=== PATIENT | female | born 1985 | race Caucasian/White ===

== ENCOUNTER 2025-05-11 06:20 | Emergency (ER) | payer OTHER, SELFPAY ==
[2025-05-11 06:21] VITALS: BP 119/69; PULSE 80; RESP 18; TEMP 37.2; O2SAT 96; BMI 52.3
[2025-05-11 06:23] VITALS: BP 119/69; PULSE 81; RESP 18; TEMP 37.2; O2SAT 96
--- NOTE | 2025-05-11 06:35 | ED.VIS.GI ---
HPI HPI - GI History of Present Illness Chief Complaint: Nausea/Vomiting/Diarrhea Informant: patient Narrative Narrative: Patient is a 39-year-old female with a history of DM, anxiety, and prior pancreatitis, presenting with persistent emesis and inability to retain oral intake. - Onset of illness approximately 1.5 weeks ago, with emesis beginning around 24 hrs ago. - Emesis is frequent and refractory to dissolvable Zofran, which was taken at home without relief; unable to retain water or any oral intake. - Reports intermittent fevers initially, but none in the past 2 days; recorded temperature of 97.7?F this morning. - Took a home COVID test 4 days ago, which was negative. - Reports pharyngitis and significant congestion about a week ago at the onset of illness, but minimal cough. - Describes profound fatigue, sleeping throughout the weekend and missing work on Thursday; attempted to work on Thursday but began emesis at work, leading to early departure. - Reports 1-2 days of diarrhea, often concurrent with emesis. - Experiencing severe epigastric pain, uncertain if secondary to emesis and retching. - Denies lower abdominal pain. - Uncertain of last urination. - History of cholecystectomy and pancreatitis related to cholelithiasis. - Diagnosed with DM, managed with metformin, Mounjaro, and another unspecified oral medication; blood glucose levels reportedly normal, though not checked in the past 2 days. - Aware of potential dehydration due to inability to retain fluids. [facility] Medical History Diabetes Seizure disorder History of thyroid cancer Home Medications ?Medication ?Instructions ?Recorded ?Last Taken ?Type loratadine 10 mg tablet (Allergy 10 mg PO DAILY PRN ALLERGIES 11/25/16 Unknown History Relief (loratadine)) metformin 500 mg tablet,extended 500 mg PO DAILY #30 tabs 11/25/16 Unknown Rx release 24 hr multivitamin with folic acid 400 1 tab PO DAILY 11/25/16 Unknown History mcg tablet (Thera) pioglitazone 45 mg tablet 45 mg PO DAILY 03/03/23 Unknown History sertraline 100 mg tablet 100 mg PO Q24H 03/03/23 Unknown History Allergy/AdvReac Type Severity Reaction Status Date / Time hydrocodone bitartrate (From Allergy Hives Verified 05/11/25 06:27 Vicodin) Surgical History (Updated 05/11/25 @ 06:[address] Lewis Tapia MD) Hx of cholecystectomy History of partial thyroidectomy Social History Smoking Status: Never smoker ROS ROS ED Constitutional Constitutional ED: Reports fatigue and malaise; Denies chills or fever(s) Eyes Eyes: Denies change in vision or diplopia ENT ENT ED: Reports sore throat; Denies ear pain or rhinorrhea Cardiovascular Cardiovascular: Denies chest pain or palpitations Respiratory/Chest Respiratory/Chest: Denies cough or dyspnea Gastrointestinal Gastrointestinal: Reports as per HPI, abdominal pain, diarrhea, nausea and vomiting; Denies hematemesis, hematochezia or melena Genitourinary Genitourinary ED: Reports other Details: decreased UOP ; Denies dysuria or hematuria Musculoskeletal Musculoskeletal: Denies back pain or neck pain Integumentary Denies abscess or rash Neurologic Neurologic: Denies headache(s), paresthesias or weakness Psychiatric Psychiatric: Denies suicidal thoughts EXAM Physical Exam Const Vital Signs: 05/11/25 06:21 05/11/25 06:23 Temperature 98.9 F 98.9 F Temperature Source Oral Oral Pulse Rate 80 81 Respiratory Rate 18 18 Blood Pressure 119/69 119/69 Blood Pressure Mean 85 85 Pulse Ox 96 96 Oxygen Delivery Method Room Air Room Air Positive well nourished, well developed and obese General Appearance ED: well developed and NAD Nutritional Appearance: obese HEENT Reports moist mucous membranes normocephalic and atraumatic Eyes PERRL and EOMs intact bilaterally Neck full ROM and supple Resp normal respiratory effort and clear to auscultation bilaterally Cardio regular rate, regular rhythm and no murmurs Rate: Negative for tachycardic GI non-distended GI Narrative: Mild diffuse upper abdominal tenderness soreness Auscultation: normoactive bowel sounds Palpation: soft; Negative for guarding or rebound tenderness present Back/Spine General Back: other FROM Extremity normal to inspection General Extremety ED: Negative for edema, pulses abnormal or tenderness General Extremity: Negative for edema or pulses abnormal Neuro oriented x3, CN's II-XII intact bilaterally, no sensory deficits noted and gait normal Sensorium / Orientation: awake and alert Motor Exam: strength 5/5 throughout Psych mental status grossly normal and thought process normal Skin no rashes or lesions noted and no wounds MDM MDM MDM Narrative Medical decision making narrative: Clinically, the patient has normal vital signs and does not appear dehydrated, but she suspects she will feel better with IV fluids and metoclopramide, which have been ordered. The differential includes viral gastroenteritis, mononucleosis, and pancreatitis. Lungs are clear. Pulse oximetry is 96% on room air. She has no cough, so I do not think she needs imaging of the chest or abdomen at this time, given the benign exam. At this time I have ordered CMP, CBC, lipase, as well as a Monospot in addition to parenteral therapy as above. If labs are unremarkable, most likely etiology viral gastroenteritis, supportive care would be indicated in that context or if she has mononucleosis with additional precautions to avoid abdominal trauma. Patient seen shortly before shift change and checked out to the a.m. ED physician. Discharge Plan Triage Chief Complaint: Nausea/Vomiting/Diarrhea ED Provider: Lewis Tapia Dx/Rx/DC Orders Prescriptions: No Action pioglitazone 45 mg tablet 45 mg PO DAILY sertraline 100 mg tablet 100 mg PO Q24H loratadine [Allergy Relief (loratadine)] 10 MG tablet 10 mg PO DAILY PRN (Reason: ALLERGIES) multivitamin with folic acid [Thera] 1 TABLET tablet 1 tab PO DAILY metformin 500 MG tablet 500 mg PO DAILY Qty: 30 0RF Rx Instructions: 500mg daily for 7 days then 500mg bid Primary Care Provider: Care Physician,No Primary Referrals: Care Physician,No Primary [Primary Care Provider, Medical] Print Language: Romanian
[2025-05-11] MEDS: 0.9% Normal Saline (1000mL) 1,000 ML 999 ML IV ×2 (06:48→07:52)
[2025-05-11 07:01] LABS: Hematocrit 42.4 % (37-47); Hemoglobin 13.8 g/dL (12.0-15.0); Immature Granulocytes Count 0.020 X10^3/uL (0.0-0.0); Mean Corp Hgb Conc 32.5 g/dL (32-36); Mean Corpuscular Volume 93.6 fL (81-99); Mean Platelet Vol. 11.1 fl (6.2-12.0); NRBC Flagged by Analyzer 0 % (0-5); Platelet Count 365 K/mm3 (150-450); RBC Distribution Width CV 11.9 % (11.6-14.6); RBC Distribution Width SD 41.3 fl (35.1-43.9); Red Blood Count 4.53 M/mm3 (4.2-5.4); White Blood Count 6.9 K/mm3 (4.4-11.0)
--- OUTSIDE RECORDS SUMMARY | 2025-05-11 07:17 | XMS RPT_ITS | CCD ---
Author Organization [facility] Care Team Providers Care Rehabilitation Services Counselor Name Role Phone Ungur, Remus Unavailable Unavailable Primay Care Physicia, No Unavailable Unavail able Gavin Arora MD Primary Care Provider Gavin Arora MD Primary Care Provider Gavin Arora MD Primary Care Provider Gavin Arora MD Primary Care Provider Gavin Arora MD Primary Care Provider Podlogar CHUTE TENDER.Cristal ADAMSON Unavailable [place]le CHUTE TENDER.Yuliana ADAMSON Unavailable [place]le CHUTE TENDER.Yuliana ADAMSON Unavailable Gavin Arora MD Primary Care Provider [place]le CHUTE TENDER.Yuliana ADAMSON Primary Care Provider YULIANA JEFFREY Attending Unavailable GAVIN ARORA Primary Care Unavailab le GAVIN ARORA B Primary Care Unavailab le GAVIN ARORA Primary Care Unavailab le GAVIN ARORA Primary Care Unavailab YULIANA Wu Referring Unavailable GAVIN ARORA Primary Care Unavailab YULIANA Wu Attending Unavailable GAVIN ARORA Primary Care Unavailab le YULIANA JEFFREY Primary Care Unavailable PREMA MULLINS Attending Unavailable YULIANA JEFFREY Attending Unavailable YULIANA JEFFREY Primary Care Unavailable YULIANA JEFFREY Referring Unavailable YULIANA JEFFREY Primary Care Unavailable YULIANA JEFFREY Referring Unavailable GAVIN ARORA Primary Care Unavailab le Allergies Allergy Classification Reported Allergen(s) Allergy Type Date of Onset Reaction(s) Facility (2 sources) acetaminophen; Translations: [ACETAMINOPHEN] Drug Allergy 7 [facility] (1 source) hydrocodone bitartrate Drug allergy (disorder) 7 [facility] (20 sources) Acetaminophen Drug Allergy 7 Unknown, [facility] (20 sources) Acetaminophen / HYDROcodone; Translations: [HYDROCODONE-ACET AMINOPHEN] Drug Allergy 6 Rash, [facility] Work Phone: (20 sources) Seasonal allergy; Translations: [SEASONAL ALLERGIES] Allergy to substance [address] [facility] Work Phone: Medications Current Medications Medication Drug Class(es) Dates Sig (Normalized) Sig (Original) amoxicillin 875 mg oral tablet (1 source) Penicillin-class Antibacterial Start: 08-29-2022 End: 09-03-2022 take 1 tablet by mouth twice daily amoxicillin (AMOXIL) 875 mg tablet Take 1 tablet by mouth twice daily for 5 days. 10 tablet 0 08/29/2022 09/03/2022 Active Comment on above: Take 1 tablet by john twice daily for 5 days. amoxicillin 875 mg / clavulanate 125 mg oral tablet (2 sources) Penicillin-class Antibacterial Start: 04-18-2024 End: 04-23-2024 take 1 tablet by mouth twice daily amoxicillin-clavu lanate potassium (AUGMENTIN) 875-125 mg per tablet Indications: Bacterial sinusitis Take 1 tablet by mouth two times a day for 5 days. 10 tablet 04/18/2024 04/23/2024 Active azithromycin 250 mg oral tablet (1 source) Macrolide Antimicrobial Start: 05-21-2022 End: 05-26-2022 azithromycin (ZITHROMAX Z-ORLANDO) 250 mg tablet Indications: Acute cough , Nasal congestion Take 2 tablets day one, then, 1 tablet daily until gone. 6 tablet 0 05/21/2022 05/26/2022 Active Comment on above: Take 2 tablets day o ne, then, 1 tablet daily until gone. calcium carbonate 500 mg chewable tablet (20 sources) Start: 01-14-2020 take 500 mg by mouth every hour as needed calcium carbonate (TUMS) 500 mg chew Take 1 tablet by mouth every hour as needed (mouth or hand numbness or tingling). 01/14/2020 Active Comment on above: Take 1 tablet by john th every hour as needed (mouth or hand numbness or tingling). calcium carbonate 1250 mg / cholecalciferol 200 unt oral tablet (20 sources) Vitamin D Start: 01-14-2020 take 1 tablet by mouth three times daily calcium-carbonate -vitamin D3 500 mg(1,250mg) -200 unit per tablet Take 1 tablet by mouth three times daily. 01/14/2020 Active Comment on above: Take 1 tablet by john th three times daily. cephalexin 500 mg oral capsule (3 sources) Cephalosporin Antibacterial Start: 09-11-2024 End: 09-16-2024 take 1 capsule by mouth twice daily cephALEXin (KEFLEX) 500 mg capsule Take 1 capsule by mouth two times a day for 5 days. 10 capsule 09/11/2024 09/16/2024 Active CPAP (20 sources) Start: 04-15-2021 CPAP Initiate Auto PAP @ 5-20 cm of water with humidification. Mask (per patient preference) optional chin strap (if indicated) , filters, tubing, humidifier and lifetime supplies. 1 Each 04/15/2021 Active Start: 04-15-2021 CPAP Initiate Auto PAP @ 5-20 cm of water with humidification. Mask (per patient preference) optional chin strap (if indicated) , filters, tubing, humidifier and lifetime supplies. 1 Each 0 04/15/2021 Active Comment on above: Initiate Auto PAP @ 5-20 cm of water with humidification. Mask (per patient preference) optional chin strap (if indicated) , filters, tubing, humidifier and lifetime supplies. ergocalciferol 1.25 mg oral capsule (20 sources) Provitamin D2 Compound Start: take 1 tablet by mouth two times weekly, then take 1 tablet by mouth every week ergocalciferol 50,000 unit capsule (VITAMIN D2, DRISDOL) Take 1 tablet by mouth twice weekly [id number], then decrease to 1 tablet weekly. 16 capsule 3 04/19/2024 Active fluconazole 150 mg oral tablet (2 sources) Azole Antifungal Start: End: take 1 tablet by mouth once daily fluconazole (DIFLUCAN) 150 mg tablet Take 1 tablet by mouth once daily for 1 day. 1 tablet 06/06/2024 06/07/2024 Active Start: 04-18-2024 End: 04-18-2024 fluconazole (DIFLUCAN) 150 m g tablet Indications: Bacterial sinusitis Take 1 tablet by mouth one time only for 1 dose. Repeat in 3 days as needed. 2 tablet 04/18/2024 04/18/2024 Active levothyroxine sodium 0.05 mg oral capsule (20 sources) l-Thyroxine Start: 03-16-2020 take 1 capsule by mouth once daily before breakfast levothyroxine 50 mcg cap Take 1 capsule by mouth daily before breakfast. 30 capsule 3 03/16/2020 Active Comment on above: Take 1 capsule by mo uth daily before breakfast. loratadine 10 mg oral tablet (20 sources) Start: 11-18-2013 loratadine (CLARITIN) 10 mg tablet Take 10 mg by mouth as needed. 11/18/2013 Active Comment on above: Take 10 mg by mouth as needed. 24 hr metFORMIN hydrochloride 500 mg extended release oral tablet (20 sources) Biguanide Start: 02-24-2023 End: 11-12-2024 take 2 tablets by mouth twice daily metFORMIN ER (GLUCOPHAGE XR) 500 mg 24 hr tablet Indications: Type 2 diabetes mellitus without complication, without long-term current use of insulin (HCC) Take 2 tablets by mouth two times a day. 360 tablet 1 05/16/2024 Active Start: 11-07-2021 End: 05-06-2022 take 2 tablets by mouth twice daily metFORMIN ER (GLUCOPHAGE XR) 500 mg 24 hr tablet Indications: Type 2 diabetes mellitus without complication, without long-term current use of insulin (HCC) Take 2 tablets by mouth twice daily. 360 tablet 1 11/07/2021 Active Start: 09-14-2020 take 2 tablets by mo uth once daily at dinner metFORMIN ER (GLUCOPHAGE XR) 500 mg 24 hr tablet Indications: Type 2 diabetes mellitus without complication, without long-term current use of insulin (HCC) Take 2 tablets by mouth daily with dinner. 180 tablet 1 09/14/2020 Active Comment on above: Take 2 tablets by mo uth daily with dinner. Take 2 tablets by mo [facility] twice daily. nitrofurantoin, macrocrystals 25 mg / nitrofurantoin, monohydrate 75 mg oral capsule (6 sources) Nitrofuran Antibacterial Start: 07-19-19 End: 07-24-19 take 1 capsule by mouth twice daily nitrofurantoin monohydrate and macrocrystal (MACROBID) 100 mg capsule Indications: Urinary frequency Take 1 capsule by mouth two times a day for 5 days. 10 capsule 07/19/2024 07/24/2024 Active Start: 02-22-2024 End: 02-27-2024 take 1 capsule by mouth twice daily nitrofurantoin monohydrate and macrocrystal (MACROBID) 100 mg capsule Take 1 capsule by mouth two times a day for 5 days. 10 capsule 02/22/2024 02/27/2024 Active Start: 08-20-2023 End: 08-25-2023 take 1 capsule by mouth twice daily nitrofurantoin monohydrate and macrocrystal (MACROBID) 100 mg capsule Take 1 capsule by mouth two times a day for 5 days. 10 capsule 0 08/20/2023 08/25/2023 Active Start: 01-15-2023 End: 01-20-2023 take 1 capsule by mouth twice daily nitrofurantoin monohydrate and macrocrystal (MACROBID) 100 mg capsule Indications: Urinary tract infection with hematuria, site unspecified Take 1 capsule by mouth twice daily for 5 days. 10 capsule 0 01/15/2023 01/20/2023 Active Comment on above: Take 1 capsule by [facility] twice daily for 5 days. Take 1 capsule by [facility] two times a day for 5 days. omeprazole 20 mg delayed release oral capsule (20 sources) Proton Pump Inhibitor Start: 02-10-20 End: 05-10-20 take 1 capsule by mouth once daily before breakfast omeprazole (PRILOSEC) 20 mg capsule Indications: Gastroesophageal reflux disease without esophagitis Take 1 capsule by mouth daily before breakfast. 1/2 hr before meal. 90 capsule 02/09/2025 05/10/2025 Active Start: 04-18-2024 End: 12-18-2024 take 1 capsule by mouth once daily before breakfast omeprazole (PRILOSEC) 20 mg capsule Indications: Gastroesophageal reflux disease without esophagitis Take 1 capsule by mouth daily before breakfast. 1/2 hr before meal. 90 capsule 09/19/2024 12/18/2024 Active phentermine hydrochloride 37.5 mg oral tablet (3 sources) Sympathomimetic Amine Anorectic Start: 06-25-2022 End: 07-25-2022 take 1 tablet by mouth once daily Phentermine HCl (ADIPEX-P) 37.5 mg tablet Indications: Obesity, Class III, BMI 40-49.9 (morbid obesity) (HCC) Take 1 tablet by mouth once daily for 30 days. 30 tablet 0 06/25/2022 07/25/2022 Active Start: 05-21-2022 End: 06-20-2022 take 1 tablet by mouth once daily Phentermine HCl (ADIPEX-P) 37.5 mg tablet Indications: Obesity, Class III, BMI 40-49.9 (morbid obesity) (HCC) Take 1 tablet by mouth once daily for 30 days. 30 tablet 0 05/21/2022 06/20/2022 Active Start: 04-17-2022 End: 05-17-2022 take 1 tablet by mouth once daily Phentermine HCl (ADIPEX-P) 37.5 mg tablet Indications: Obesity, Class III, BMI 40-49.9 (morbid obesity) (HCC) Take 1 tablet by mouth once daily for 30 days. 30 tablet 0 04/17/2022 05/17/2022 Active Comment on above: Take 1 tablet by john th once daily for 30 days. pioglitazone 45 mg oral tablet (20 sources) Peroxisome Proliferator Receptor alpha Agonist, Peroxisome Proliferator Receptor gamma Agonist, Thiazolidinedione Start: 08-24-19 End: 04-22-20 take 1 tablet by mouth once daily pioglitazone (ACTOS) 45 mg tablet Indications: Type 2 diabetes mellitus without complication, without long-term current use of insulin ([facility]) Take 1 tablet by mouth once daily. 30 tablet 5 10/24/2024 04/22/2025 Active Start: 11-02-2023 End: 03-17-2024 take 1 tablet by mouth once daily pioglitazone (ACTOS) 45 mg tablet Indications: Type 2 diabetes mellitus without complication, without long-term current use of insulin ([facility]) Take 1 tablet by mouth once daily. 30 tablet 3 03/18/2024 Active Start: 10-01-2021 End: 10-31-2023 take 1 tablet by mouth once daily pioglitazone (ACTOS) 45 mg tablet Indications: Type 2 diabetes mellitus without complication, without long-term current use of insulin (HCC) Take 1 tablet by mouth once daily. 30 tablet 3 05/27/2023 10/31/2023 Discontinued Comment on above: Take 1 tablet by john th once daily. predniSONE 20 mg oral tablet (1 source) Start: End: 4 take 2 tablets by mouth once daily predniSONE (DELTASONE) 20 mg tablet Take 2 tablets by mouth once daily for 5 days. 10 tablet 06/06/2024 06/11/2024 Active semaglutide 3 mg oral tablet (6 sources) Start: End: 5 take 1 tablet by mouth once daily before breakfast, then take 4 tablets by mouth once semaglutide (RYBELSUS) 3 mg tablet Indications: Type 2 diabetes mellitus without complication, without long-term current use of insulin (HCC) , PCOS (polycystic ovarian syndrome) , CHUY (obstructive sleep apnea) , Morbid obesity with BMI of 40.0-44.9, adult (HCC) Take 1 tablet by mouth daily before breakfast. Take 30 minutes before the first food, beverage, or other oral medications of the day with no more than 4 ounces of plain water 30 tablet 09/19/2024 11/21/2024 Discontinued sertraline 100 mg oral tablet (20 sources) Serotonin Reuptake Inhibitor Start: End: 5 take 1 tablet by mouth once daily sertraline (ZOLOFT) 100 mg tablet Indications: MELVIN (generalized anxiety disorder) Take 1 tablet by mouth once daily. 90 tablet 1 10/24/2024 04/22/2025 Active Start: 03-18-2024 End: 09-14-2024 take 1 tablet by mouth once daily sertraline (ZOLOFT) 100 mg tablet Indications: MELVIN (generalized anxiety disorder) Take 1 tablet by mouth once daily. 90 tablet 1 03/18/2024 Active Start: 08-24-2023 End: 02-20-2024 take 1 tablet by mouth once daily sertraline (ZOLOFT) 100 mg tablet Indications: MELVIN (generalized anxiety disorder) Take 1 tablet by mouth once daily. 90 tablet 1 08/24/2023 Active Start: 12-30-2022 End: 01-29-2023 take 1 tablet by mouth once daily sertraline (ZOLOFT) 100 mg tablet Indications: MELVIN (generalized anxiety disorder) Take 1 tablet by mouth once daily. 30 tablet 4 12/30/2022 Active Start: 04-17-2022 End: 06-20-2022 take 1 tablet by mouth once daily sertraline (ZOLOFT) 100 mg tablet Indications: MELVIN (generalized anxiety disorder) Take 1 tablet by mouth once daily. 30 tablet 4 05/21/2022 Active Start: 12-26-2020 End: 04-17-2022 take 1 tablet by mouth once daily sertraline (ZOLOFT) 50 mg tablet Indications: MELVIN (generalized anxiety disorder) Take 1 tablet by mouth once daily. 30 tablet 5 02/28/2022 04/17/2022 Discontinued Comment on above: Take 1 tablet by john th once daily. sulfamethoxazole 800 mg / trimethoprim 160 mg oral tablet (1 source) Dihydrofolate Reductase Inhibitor Antibacterial, Sulfonamide Antimicrobial Start: 2022 End: 2022 take 1 tablet by mouth twice daily sulfamethoxazole-tri methoprim (BACTRIM DS) 800-160 mg per tablet Indications: Urinary tract infection with hematuria, site unspecified Take 1 tablet by mouth twice daily for 3 days. 6 tablet 0 01/30/2023 02/02/2023 Active Comment on above: Take 1 tablet by john th twice daily for 3 days. tirzepatide (MOUNJARO) 10 mg/0.5 mL pen injector (20 sources) Start: 2023 End: 2024 inject 10 mg by subcutaneous injection every week tirzepatide (MOUNJARO) 10 mg/0.5 mL pen injector Indications: Type 2 diabetes mellitus without complication, without long-term current use of insulin (HCC) Inject 10 mg subcutaneously one time a week. 12 Each 04/25/2024 09/19/2024 Discontinued Start: 04-25-2024 inject 10 mg by subc utaneous injection every week tirzepatide (MOUNJARO) 10 mg/0.5 mL pen injector Indications: Type 2 diabetes mellitus without complication, without long-term current use of insulin (HCC) Inject 10 mg subcutaneously one time a week. 12 Each 04/25/2024 Active Start: 04-18-2024 End: 04-22-2024 inject 10 mg by subcutaneous injection every week tirzepatide (MOUNJARO) 10 mg/0.5 mL pen injector Indications: Type 2 diabetes mellitus without complication, without long-term current use of insulin (HCC) Inject 10 mg subcutaneously one time a week. 12 Each 1 04/18/2024 04/22/2024 Discontinued Start: 04-18-2024 inject 10 mg by subc utaneous injection every week tirzepatide (MOUNJARO) 10 mg/0.5 mL pen injector Indications: Type 2 diabetes mellitus without complication, without long-term current use of insulin (HCC) Inject 10 mg subcutaneously one time a week. 12 Each 1 04/18/2024 Active Start: 03-08-2024 End: 04-18-2024 inject 10 mg by subcutaneous injection every week tirzepatide (MOUNJARO) 10 mg/0.5 mL pen injector Inject 10 mg subcutaneously one time a week. 4 Each 3 03/08/2024 04/18/2024 Discontinued Start: 03-08-2024 inject 10 mg by subc utaneous injection every week tirzepatide (MOUNJARO) 10 mg/0.5 mL pen injector Inject 10 mg subcutaneously one time a week. 4 Each 3 03/08/2024 Active Start: 12-04-2023 End: 03-08-2024 inject 10 mg by subcutaneous injection every week tirzepatide (MOUNJARO) 10 mg/0.5 mL pen injector Inject 10 mg subcutaneously one time a week. 4 Each 3 12/04/2023 03/08/2024 Discontinued Start: 12-04-2023 inject 10 mg by subc utaneous injection every week tirzepatide (MOUNJARO) 10 mg/0.5 mL pen injector Inject 10 mg subcutaneously one time a week. 4 Each 3 12/04/2023 Active tirzepatide (MOUNJARO) 2.5 mg/0.5 mL pen injector (6 sources) Start: 12-20-2024 inject 2.5 mg by subcutaneous injection every week tirzepatide (MOUNJARO) 2.5 mg/0.5 mL pen injector Indications: Type 2 diabetes mellitus without complication, without long-term current use of insulin (HCC) Inject 2.5 mg subcutaneously one time a week. 2 mL 1 12/20/2024 Active Start: 11-21-2024 End: 12-19-2024 inject 2.5 mg by subcutaneous injection every week tirzepatide (MOUNJARO) 2.5 mg/0.5 mL pen injector Indications: Type 2 diabetes mellitus without complication, without long-term current use of insulin (HCC) Inject 2.5 mg subcutaneously one time a week. 2 mL 11/21/2024 12/19/2024 Discontinued Start: 11-21-2024 inject 2.5 mg by sub cutaneous injection every week tirzepatide (MOUNJARO) 2.5 mg/0.5 mL pen injector Indications: Type 2 diabetes mellitus without complication, without long-term current use of insulin (HCC) Inject 2.5 mg subcutaneously one time a week. 2 mL 11/21/2024 Active Start: 09-24-2022 End: 10-24-2022 inject 2.5 mg by subcutaneous injection every week tirzepatide (MOUNJARO) 2.5 mg/0.5 mL pen injector Inject 2.5 mg subcutaneously one time a week. 2 mL 1 09/24/2022 10/24/2022 Active Comment on above: Inject 2.5 mg subcut aneously one time a week. tirzepatide (MOUNJARO) 5 mg/0.5 mL pen injector (12 sources) Start: inject 5 mg by subcutaneous injection every week tirzepatide (MOUNJARO) 5 mg/0.5 mL pen injector Indications: Type 2 diabetes mellitus without complication, without long-term current use of insulin (HCC) Inject 5 mg subcutaneously one time a week. 2 mL 01/19/2025 Active Start: 09-03-2023 End: 09-21-2023 inject 5 mg by subcutaneous injection every week tirzepatide (MOUNJARO) 5 mg/0.5 mL pen injector Inject 5 mg subcutaneously one time a week. 6 mL 1 09/03/2023 09/21/2023 Discontinued Start: 07-20-2023 inject 5 mg by subcu taneous injection every week tirzepatide (MOUNJARO) 5 mg/0.5 mL pen injector Inject 5 mg subcutaneously one time a week. 2 mL 1 07/20/2023 Active Start: 07-20-2023 End: 07-20-2023 inject 5 mg by subcutaneous injection every week tirzepatide (MOUNJARO) 5 mg/0.5 mL pen injector Inject 5 mg subcutaneously one time a week. 2 mL 1 07/20/2023 07/20/2023 Discontinued Start: 07-20-2023 End: 08-19-2023 inject 5 mg by subcutaneous injection every week tirzepatide (MOUNJARO) 5 mg/0.5 mL pen injector Inject 5 mg subcutaneously one time a week. 2 mL 1 07/20/2023 08/19/2023 Active Start: 11-24-2022 inject 5 mg by subcu taneous injection every week tirzepatide (MOUNJARO) 5 mg/0.5 mL pen injector Inject 5 mg subcutaneously one time a week. 2 mL 1 11/24/2022 Active Start: 11-24-2022 End: 12-24-2022 inject 5 mg by subcutaneous injection every week tirzepatide (MOUNJARO) 5 mg/0.5 mL pen injector Inject 5 mg subcutaneously one time a week. 2 mL 1 11/24/2022 12/24/2022 Active Comment on above: Inject 5 mg subcutan eously one time a week. Completed/Discontinued Medications Medication Drug Class(es) Dates Sig (Normalized) Sig (Original) glimepiride 4 mg oral tablet (20 sources) Sulfonylurea Start: 09-14-2020 End: 02-19-2024 take 2 tablets by mouth once daily at breakfast glimepiride (AMARYL) 4 mg tablet Indications: Type 2 diabetes mellitus without complication, without long-term current use of insulin (HCC) Take 2 tablets by mouth daily with breakfast. 180 tablet 1 03/19/2022 02/19/2024 Discontinued Comment on above: Take 2 tablets by mo uth daily with breakfast. lisinopril 5 mg oral tablet (9 sources) Angiotensin Converting Enzyme Inhibitor Start: 09-14-2020 End: 04-17-2022 take 1 tablet by mouth once daily lisinopril (ZESTRIL, PRINIVIL) 5 mg tablet Indications: Type 2 diabetes mellitus without complication, without long-term current use of insulin (HCC) Take 1 tablet by mouth once daily. 90 tablet 1 09/14/2020 04/17/2022 Discontinued Comment on above: Take 1 tablet by john th once daily. tirzepatide (MOUNJARO) 7.5 mg/0.5 mL pen injector (3 sources) Start: 09-21-2023 End: 12-04-2023 inject 7.5 mg by subcutaneous injection every week tirzepatide (MOUNJARO) 7.5 mg/0.5 mL pen injector Inject 7.5 mg subcutaneously one time a week. 2 mL 2 09/21/2023 12/04/2023 Discontinued Start: 09-21-2023 inject 7.5 mg by sub cutaneous injection every week tirzepatide (MOUNJARO) 7.5 mg/0.5 mL pen injector Inject 7.5 mg subcutaneously one time a week. 2 mL 2 09/21/2023 Active Comment on above: Inject 7.5 mg subcut aneously one time a week. Problems Active Problems Problem Classification Problem Date Documented Date Episodic/Chronic Anxiety disorders (20 sources) Generalized anxiety disorder; Translations: [Generalized anxiety disorder] Onset: 10-30-2021 Chronic Cancer of thyroid (20 sources) Papillary thyroid carcinoma; Translations: [Malignant neoplasm of thyroid gland] Onset: 03-30-2020 03-30-2020 Chronic Cancer of thyroid (4 sources) History of malignant neoplasm of thyroid; Translations: [Personal history of malignant neoplasm of thyroid] Episodic Complications of surgical procedures or medical care (20 sources) Postoperative hypothyroidism; Translations: [Postprocedural hypothyroidism] Onset: 03-30-2020 03-30-2020 Chronic Diabetes mellitus without complication (20 sources) Type 2 diabetes mellitus without complication; Translations: [Type 2 diabetes mellitus without complications] Onset: 11-28-2016 Chronic Disorders of lipid metabolism (2 sources) Hyperlipidemia; Translations: [Hyperlipidemia, unspecified] Onset: 03-23-2025 Chronic Disorders of teeth and jaw (1 source) Toothache; Translations: [Other specified disorders of teeth and supporting structures] Episodic Esophageal disorders (6 sources) Gastroesophageal reflux disease without esophagitis; Translations: [Gastro-esophageal reflux disease without esophagitis] Onset: 04-18-2024 04-18-2024 Chronic Genitourinary symptoms and ill-defined conditions (4 sources) Urgent desire to urinate; Translations: [Urgency of urination] Onset: 04-09-2025 08-20-2023 Episodic Nutritional deficiencies (3 sources) Vitamin D deficiency; Translations: [Vitamin D deficiency, unspecified] Onset: 04-18-2024 Chronic Other aftercare (1 source) Other watcher [employer] (current) drug therapy; Translations: [Medication management] Onset: 03-23-2025 Episodic Other endocrine disorders (20 sources) Polycystic ovary syndrome; Translations: [Polycystic ovarian syndrome] Onset: 01-23-2011 01-23-2011 Chronic Other endocrine disorders (1 source) Polycystic ovarian syndrome; Translations: [PCOS (polycystic ovarian syndrome)] Onset: 01-23-2011 Chronic Other lower respiratory disease (1 source) Cough; Translations: [Acute cough] Episodic Other nutritional; endocrine; and metabolic disorders (20 sources) Body mass index 40+ - severely obese; Translations: [Morbid (severe) obesity due to excess calories] Onset: 02-01-2014 02-28-2014 Chronic Other nutritional; endocrine; and metabolic disorders (1 source) Morbid (severe) obesity due to excess calories; Translations: [Morbid obesity with BMI of 40.0-44.9, adult ([facility])] Onset: 02-28-2014 Chronic Other nutritional; endocrine; and metabolic disorders (1 source) Body mass index (BMI) 40.0-44.9, adult; Translations: [Morbid obesity with BMI of 40.0-44.9, adult ([facility])] Onset: 02-28-2014 Chronic Other upper respiratory disease (1 source) Nasal congestion; Translations: [Nasal congestion] Episodic Other upper respiratory infections (2 sources) Bacterial sinusitis; Translations: [Chronic sinusitis, unspecified] Onset: 04-18-2024 04-18-2024 Chronic Other upper respiratory infections (1 source) Sore throat symptom; Translations: [Acute pharyngitis, unspecified] 06-06-2024 Episodic Residual codes; unclassified (20 sources) Obstructive sleep apnea syndrome; Translations: [Obstructive sleep apnea (adult) (pediatric)] 04-23-2020 Chronic Residual codes; unclassified (1 source) Obstructive sleep apnea (adult) (pediatric); Translations: [CHUY (obstructive sleep apnea)] Onset: 04-23-2020 Chronic Residual codes; unclassified (1 source) Difficulty sleeping ; Translations: [Sleep deprivation] Episodic Screening and history of mental health and substance abuse codes (1 source) Encounter for screening for depression; Translations: [Screening for depression] Onset: 03-23-2025 Episodic Thyroid disorders (20 sources) Multinodular goiter; Translations: [Nontoxic multinodular goiter] Onset: 10-05-2017 2018 Chronic Urinary tract infections (5 sources) Urinary tract infectious disease; Translations: [Urinary tract infection, site not specified] Onset: 04-09-2025 01-15-2023 Episodic Past or Other Problems Problem Classification Problem Date Documented Date Episodic/Chronic Bacterial infection; unspecified site (1 source) Other specified bacterial agents as the cause of diseases classified elsewhere; Translations: [Bacterial sinusitis] Onset: 04-18-2024 Episodic Biliary tract disease (20 sources) Chronic cholecystitis with calculus; Translations: [Calculus of gallbladder with chronic cholecystitis without obstruction] Onset: 10-03-2015 Resolved: 12-28-2019 12-28-2019 Episodic Diabetes mellitus with complications (20 sources) Type II diabetes mellitus uncontrolled; Translations: [Diabetes mellitus type II, uncontrolled] Onset: 06-15-2016 Resolved: 08-10-2017 08-10-2017 Chronic Malaise and fatigue (2 sources) Fatigue; Translations: [Other fatigue] Onset: 04-18-2024 04-18-2024 Episodic Other endocrine disorders (20 sources) Increased androgen level; Translations: [Androgen excess] Onset: 04-04-2014 Resolved: 2018 2018 Chronic Other nutritional; endocrine; and metabolic disorders (20 sources) Morbid obesity; Translations: [Morbid (severe) obesity due to excess calories] Resolved: 08-10-2017 Chronic Other and delivery including normal (20 sources) Normal in primigravida; Translations: [Encounter for supervision of normal first , unspecified trimester] Onset: 08-07-2005 Resolved: 04-14-2006 04-14-2006 Episodic Other screening for suspected conditions (not mental disorders or infectious disease) (20 sources) Liver function tests abnormal; Translations: [Other specified abnormal findings of blood chemistry] Onset: 12-08-2016 Resolved: 12-28-2019 12-28-2019 Episodic Other upper respiratory disease (1 source) Pain in throat Onset: 06-06-2024 Episodic Pancreatic disorders (not diabetes) (20 sources) Acute pancreatitis; Translations: [Biliary acute pancreatitis without necrosis or infection] Onset: 08-29-2015 Resolved: 2018 2018 Episodic Residual codes; unclassified (20 sources) Family history of malignant neoplasm of thyroid; Translations: [Family history of malignant neoplasm of other organs or systems] Onset: 10-05-2017 10-05-2017 Episodic Residual codes; unclassified (20 sources) History of clinical finding in subject; Translations: [Personal history of other specified conditions] Onset: 12-28-2019 12-28-2019 Episodic Residual codes; unclassified (20 sources) Personal history of other specified conditions; Translations: [Personal history of other specified diseases] Onset: 12-28-2019 12-28-2019 Episodic Results Test Name Value Interpretation Reference Range Facility Bacteria [facility] 5 Bacteria identified Cx Nom (U) ORGANISM ID: 1 >=100,000 CFU/ml Klebsiella pneumoniae ORGANISM ID: 1 (KLEBSIELLA PNEUMONIAE) -- ANTIBIOTIC INTERPRETATION CASSANDRA STATUS REFERENCE RANGE -- Ampicillin R >=32 F Susceptible <=8 , Intermediate >8 , Resistant >16 Cefazolin S <=4 F Susceptible 0-16 , Intermediate <0 or >16 , Resistant >16 For uncomplicated urinary tract infections, cefazolin results can be used to predict susceptibility or resistance to cephalexin. Ceftriaxone S <=1 F Susceptible <=1 , Intermediate >1 , Resistant >=4 Cefepime S <=1 F Susceptible <=2 , Susceptible-Dose Dependent >2 , Resistant >=16 Ertapenem S <=0.5 F Susceptible <=0.5 , Intermediate >.5 , Resistant >1 Meropenem S <=0.25 F Susceptible <=1 , Intermediate >1 , Resistant >2 Ampicillin/Sulbact S 4 F Susceptible <=8 , Intermediate >8 , Resistant >16 Piperacillin/Tazobac S <=4 F Susceptible <16 , Susceptible-Dose Dependent >=16 , Resistant >=32 Gentamicin S <=1 F Susceptible <=2 , Intermediate >2 , Resistant >=8 Tobramycin S <=1 F Susceptible <4 , Intermediate >=4 , Resistant >=8 Trimeth sulfameth S <=20 F Susceptible <=40 , Resistant >40 Ciprofloxacin S <=0.25 F Susceptible <0.5 , Intermediate >=.5 , Resistant >=1 Nitrofurantoin R 128 F Susceptible <=32 , Intermediate >32 , Resistant >64 Abnormal [facility] Comment on above: Performed By: #### 6 30-4 ####[facility] LABCLIA [id number] [address] OF [facility] CNOVon 04-09-2025 CNOV Office Visit (WOUCA) ARABELLA DUBOSE ([id number]) 1985 F Date Time Provider Department 04/09/25 12:30 PM PREMA MULLINS During your visit today, we recorded the following information about you: Temperature Pulse Respiration Blood pressure 97.6 degrees 85/minute 18/minute 122/78 Weight 152.5 kg Prema Mullins APRN.CNP 04/09/2025 12:50 PM Signed [facility] Subjective Arabella Dubose is a 39 year old female. Patient presents with: Urinary Frequency: Frequency, urgency and burning x 1 day HPI The patient is a 39-year-old female with a history of recurrent UTIs, presenting with dysuria, frequency, and urgency. Urinary Tract Infection: - Onset of dysuria, frequency, and urgency yesterday. - Similar to previous UTI episodes. - Denies nausea, emesis, fever, or chills. - No chance of . - Reports recurrent yeast infections after starting antibiotics. - No known allergies to antibiotics. - Urinalysis positive for WBCs, nitrates, protein, and blood. Depression: - Currently taking Zoloft, prescribed by PCP. Review of Systems Constitutional: (-) fever, (-) chills Gastrointestinal: (-) nausea, (-) vomiting, (-) abdominal pain Genitourinary: (+) urinary frequency, (+) urinary urgency, (+) dysuria, (-) flank pain Objective BP 122/78 Pulse 85 Temp 36.4 ?C (97.6 ?F) (Tympanic) Resp 18 Wt (!) 152.5 kg (336 lb 3.2 oz) LMP 07/19/2024 (Exact Date) SpO2 96% BMI 50.95 kg/m? Physical Exam General: No acute distress. CV: Regular heart sounds. Resp: Clear breath sounds. Back: No CVA tenderness. Abd: No tenderness to palpation. { 1. Urinary frequency (R35.0) 2. Acute cystitis with hematuria (N30.01) - Acute cystitis confirmed by urinalysis (positive for WBCs, nitrites, protein, and blood). - No associated nausea, vomiting, fever, or chills. - Start Macrobid BID for 5 days. - Urine culture ordered to confirm pathogen and guide antibiotic therapy; will adjust antibiotics if necessary based on culture results. - Advised patient to contact PCP for further management if yeast infection develops. and Recording using [employer] software for draft documentation of the visit was discussed with the patient/authorized banking representative; all questions welcomed and answered. Patient/authorized banking representative agreed to proceed History and Record Review External record(s) reviewed: no prior records. Disposition The patient was discharged. Procedures Allergies As of Date: 04/09/2025 Noted Allergy Reaction ACETAMINOPHEN 11/25/2016 4 - Hives SEASONAL ALLERGIES 02/01/2014 7 - Swelling VICODIN (HYDROCODONE-ACETAMINO PHE*08/29/2015 4 - Hives Date Reviewed: 04/09/2025 Reviewed by: Macrina Feliciano LPN - Fully Assessed Reason for Visit: Urinary Frequency [1086] Cmt: Frequency, urgency and burning x 1 day Primary Visit Diagnosis:Urinary frequency [R35.0] Other Visit Diagnosis:Acute cystitis with hematuria [N30.01] Order(s):UA DIP, URINE (POC) [[id number]] Order #: [id number] #:[id number] BACTERIAL CULTURE, URINE [SQURCUL] Order #: [id number]. #:[id number] fluconazole (DIFLUCAN) 150 mg tabletTake 1 tablet by mouth one time only for 1 dose.Disp: 1 tabletRfl: 0 nitrofurantoin monohydrate and macrocrystal (MACROBID) 100 mg capsuleTake 1 capsule by mouth two times a day for 5 days.Disp: 10 capsuleRfl: 0 Prescriptions as of 04/09/2025 - fluconazole (DIFLUCAN) 150 mg tablet Take 1 tablet by mouth one time only for 1 dose. - nitrofurantoin monohydrate and macrocrystal (MACROBID) 100 mg capsule Take 1 capsule by mouth two times a day for 5 days. - rosuvastatin (CRESTOR) 5 mg tablet Take 1 tablet by mouth daily at bedtime. - tirzepatide (MOUNJARO) 5 mg/0.5 mL pen injector Inject 5 mg subcutaneously one time a week. - omeprazole (PRILOSEC) 20 mg capsule Take 1 capsule by mouth daily before breakfast. 1/2 hr before meal. - pioglitazone (ACTOS) 45 mg tablet Take 1 tablet by mouth once daily. - sertraline (ZOLOFT) 100 mg tablet Take 1 tablet by mouth once daily. - metFORMIN ER (GLUCOPHAGE XR) 500 mg 24 hr tablet Take 2 tablets by mouth two times a day. - ergocalciferol 50,000 unit capsule (VITAMIN D2, DRISDOL) Take 1 tablet by mouth twice weekly [id number], then decrease to 1 tablet weekly. - CPAP Initiate Auto PAP @ 5-20 cm of water with humidification. Mask (per patient preference) optional chin strap (if indicated) , filters, tubing, humidifier and lifetime supplies. - calcium carbonate (TUMS) 500 mg chew Take 1 tablet by mouth every hour as needed (mouth or hand numbness or tingling). - fyvimcs-izzsolhrf-kuqg min D3 500 mg(1,250mg) -200 unit per tablet Take 1 tablet by mouth three times daily. - loratadine (CLARITIN) 10 mg tablet Take 10 mg by mouth as needed. Problem List As Of Date 04/09/2025 Noted Reso (more content not included)... Normal [facility] CNOVon 03-23-2025 CNOV Office Visit (FAMPWS ) ARABELLA DUBOSE ([id number]) 1985 F Date Time Provider Department 03/23/25 8:00 AM YULIANA JEFFREY During your visit today, we recorded the following information about you: Pulse Blood pressure Weight 114/minute 111/69 151 kg Yuliana Jeffrey APRN.GROOMING ASSISTANT 03/23/2025 8:50 AM Signed Chief Complaint Patient presents with: Physical HPI Arabella Yeny Dubose is a 39 year old female who presents here today for Above Complaints.. Concerned that she is premenopausal. States that she has had temperature fluctuations, increased forgetfulness, and her periods are longer, heavier, and more frequent. States that they are now every 3 weeks and last 5-6 days when they were previously only 3-4 days long. Mother went through menopause in her early 40s. DM: Reports overall feeling well. Medication side effects: No. Home sugar checks: No Hypoglycemic spells: No. Watching diet: No. Unexpected weight loss: No. Polyuria, polydipsia: No Vision Changes: No. Foot lesions or numbness or pain: No. GERD: Takes medication daily, has been over a month since last GERD flare. Thyroid: not on any medications. Denies any changes to her hair/nails, unexplained weight changes. Does have temperature fluctuations. Past medical history, appointments, medications, allergies reviewed. 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 not recommending FINNEGAN Thyroid nodule abnormal FNA right thyroid (2017), repeat US 1,2,3, and 5 years from 2021 Previous Surgical History PAST SURGICAL HISTORY Procedure Laterality Date COLPOSCOPY CERVIX UPPR/ADJCNT VAGINA W/CERVIX BX 07/13/06 chronic cervicitis with no evidence of dysplasia LAPS SURG CHOLECYSTECTOMY W/CHOLANGIOGRAPHY 09-25-15 MYRINGOTOMY ASPIRAND/EUSTACHIAN TUBE NFLTJ ANES 1993,1994 Myringotomy/tubes THYROIDECTOMY SUBTOTAL/PARTIAL Left 01/13/2020 Left thyroidectomy TONSILLECTOMY PRIMARY/SECONDARY Tonsillectomy US THYROID BIOPSY 11/2019 AUS Family History FAMILY HISTORY Problem Relation Age of Onset Cancer Mother thyroid No Known Problems Brother No Known Problems Brother Arthritis Maternal Grandmother Hypertension Maternal Grandmother Thyroid Maternal Grandmother Alzheimer's Disease Maternal Grandmother Diabetes Paternal Grandmother Breast Cancer Paternal Aunt Thyroid Maternal Aunt Cancer Maternal Aunt gastric Patient Allergies ALLERGIES Allergen Reactions Acetaminophen Hives Seasonal Allergies Swelling Vicodin [Hydrocodon* Hives Current Medications Current Outpatient Medications on File Prior to Visit Medication Sig tirzepatide (MOUNJARO) 5 mg/0.5 mL pen injector Inject 5 mg subcutaneously one time a week. omeprazole (PRILOSEC) 20 mg capsule Take 1 capsule by mouth daily before breakfast. 1/2 hr before meal. pioglitazone (ACTOS) 45 mg tablet Take 1 tablet by mouth once daily. sertraline (ZOLOFT) 100 mg tablet Take 1 tablet by mouth once daily. metFORMIN ER (GLUCOPHAGE XR) 500 mg 24 hr tablet Take 2 tablets by mouth two times a day. ergocalciferol 50,000 unit capsule (VITAMIN D2, DRISDOL) Take 1 tablet by mouth twice weekly [id number], then decrease to 1 tablet weekly. CPAP Initiate Auto PAP @ 5-20 cm of water with humidification. Mask (per patient preference) optional chin strap (if indicated) , filters, tubing, humidifier and lifetime supplies. levothyroxine 50 mcg cap Take 1 capsule by mouth daily before breakfast. calcium carbonate (TUMS) 500 mg chew Take 1 tablet by mouth every hour as needed (mouth or hand numbness or tingling). fbtlwby-wlixkophq-arwg min D3 500 mg(1,250mg) -200 unit per tablet Take 1 tablet by mouth three times daily. loratadine (CLARITIN) 10 mg tablet Take 10 mg by mouth as needed. No current facility-administered medications on file prior to visit. Social History SOCIAL HISTORY[1] Review of Symptoms REVIEW OF SYSTEMS SEE HPI EXAM: BP (!) 111/9 Pulse 114 Wt (!) 151 kg (332 lb 14.3 oz) LMP 07/19/2024 (Exact Date) BMI 50.45 kg/m? General Appearance: Well appea (more content not included)... Normal [facility] Lipid 1996 panelon 5 Cholesterol [Mass/Vol] 212 mg/dL High <200 [facility] Comment on above: Order Comment: Speci men Type: BLOOD SPECIMENOrdering Facility: [facility] Address: [address] [place], [place] [address] Result Comment: <200 mg/dL, Desirable 200-239 mg/dL, Borderline high >239 mg/dL, High Performed By: #### 2 4331-1, 3016-3 ####[facility] LABCLIA [id number] [place] [address] [place] Cholesterol in HDL [Mass/Vol] 42 mg/dL Normal >39 [facility] Comment on above: Order Comment: Speci men Type: BLOOD SPECIMENOrdering Facility: [facility] Address: [address] [place], [place] [address] Result Comment: 40-5 9 mg/dL, Acceptable >59 mg/dL, High: Negative risk factor for coronary heart disease <40 mg/dL, Low: Positive risk factor for coronary heart disease Performed By: #### 2 4331-1, 3015-3 ####[facility] LABCLIA [id number] [address] [address] [place] Cholesterol in LDL [Mass/Vol] 144 mg/dL High <100 [facility] Comment on above: Order Comment: Speci men Type: BLOOD SPECIMENOrdering Facility: [facility] Address: [address] [place] [address] Result Comment: <100 mg/dL, Optimal 100-129 mg/dL, Near optimal/above optimal 130-159 mg/dL, Borderline high 160-189 mg/dL, High >189 mg/dL, Very high Secondary prevention optimal LDL Cholesterol levels are recommended to be <70 mg/dL LDL cholesterol is calculated using the Alejandre-NIH equation. Performed By: #### 2 4331-1, 3015-08 ####[facility] LABIA [id number] [place] [id number] [place] Cholesterol in LDL/Cholesterol in HDL [Mass ratio] 3.43 {ratio} High <2.54 [facility] Comment on above: Order Comment: Speci men Type: BLOOD SPECIMENOrdering Facility: [facility] Address: [address] [place] [address] Result Comment: Sean marti: 1. National Cholesterol Education Program ATP III Guideline At-A-Glance Quick Desk Reference: National Heart, Lung, and Blood Orick. National Institutes of Health. 2001: NIH Publication No. 01-3305. 2. An International Atherosclerosis Society position paper: global recommendations for the management of dyslipidemia: executive summary, Atherosclerosis. 2014: 232(2):410-413. Performed By: #### 2 4331-1, 3015-3 ####[facility] LABIA [id number] [address] [address] [place] Cholesterol in VLDL [Mass/Vol] 26 mg/dL Normal <30 [facility] Comment on above: Order Comment: Speci men Type: BLOOD SPECIMENOrdering Facility: [facility] Address: [address] [place], [place] [address] Performed By: #### 2 4331-1, 3015-3 ####[facility] LABCLIA [id number] [address] [id number] [address] [place] Cholesterol non HDL [Mass/Vol] 170 mg/dL High <130 [facility] Comment on above: Order Comment: Speci men Type: BLOOD SPECIMENOrdering Facility: [facility] Address: [address] [place], [place] [address] Result Comment: <130 mg/dL, Optimal 130-159 mg/dL, Near optimal/above optimal 160-189 mg/dL, Borderline high 190-219 mg/dL, High >219 mg/dL, Very high Secondary prevention optimal non HDL Cholesterol levels are recommended to be <100 mg/dL Performed By: #### 2 4331-1, 3015-3 ####[facility] LABCLIA [id number] [facility] [address] [place] [address] [place] Cholesterol.total/Ch olesterol in HDL [Mass ratio] 5.05 {ratio} Normal <5.10 [facility] Comment on above: Order Comment: Speci men Type: BLOOD SPECIMENOrdering Facility: [facility] Address: [address] [place] [address] Performed By: #### 2 4331-1, 3015-3 ####[facility] LABCLIA [id number] [id number], [place] [address] [place] FASTING TIME 13 hrs Normal [facility] Comment on above: Order Comment: Speci men Type: BLOOD SPECIMENOrdering Facility: [facility] Address: [address] [place], [place] [address] Performed By: #### 2 4331-1, 3015-3 ####[facility] LABCLIA [id number] [facility] [address] [id number], [place] [address] [place] Triglyceride [Mass/Vol] 143 mg/dL Normal <150 [facility] Comment on above: Order Comment: Speci men Type: BLOOD SPECIMENOrdering Facility: [facility] Address: [address] [place] [address] Result Comment: <150 mg/dL, Normal 150-199 mg/dL, Borderline high 200-499 mg/dL, High >499 mg/dL, Very high Performed By: #### 2 4331-1, 3016-3 ####[facility] LABCLIA [id number] [place] [id number] [place] TSH SerPl-aCncon 03-02-2025 TSH Qn 2.120 m[IU]/L Normal 0.270-4.200 [facility] Comment on above: Order Comment: Speci elliot Type: BLOOD SPECIMENOrdering Facility: [facility] Address: [address] [place] [address] Result Comment: If t he patient is , TSH reference range varies by gestational period: First Trimester (weeks 9-12): 0.180-2.990 mIU/L Second Trimester: 0.110-3.980 mIU/L Third Trimester: 0.480-4.710 mIU/L Yuan Alberts et al. A Practical Approach for the Verifications and Determination of Site- and Trimester-Specific Reference Intervals for Thyroid Function tests in . Thyroid, 2019:29:3:412-420. Yfn E, et al. 2017 Guidelines of the [place] Thyroid Association for the Diagnosis and Management of Thyroid Disease during and the . Thyroid, 2017:27:3:315-389. Performed By: #### 2 4331-1, 6-3 ####[facility] LABCLIA [id number] [place] [id number] [place] Comprehensive metabolic 2000 panelon 12-02-2024 Albumin [Mass/Vol] 3.9 g/dL Normal 3.9-4.9 [facility] Comment on above: Order Comment: Speci men Type: BLOOD SPECIMENOrdering Facility: [facility] Address: [address] [place] [address] Performed By: #### 2 4323-8 ####[facility] LABCLIA [id number] [facility] [address] [place] [address] [place] ALP [Catalytic activity/Vol] 70 U/L Normal 34-123 [facility] Comment on above: Order Comment: Speci men Type: BLOOD SPECIMENOrdering Facility: [facility] Address: [address] [place] [address] Performed By: #### 2 4323-8 ####[facility] LABCLIA [id number] [facility] [address] [place] [address] [place] ALT [Catalytic activity/Vol] 14 U/L Normal 7-38 [facility] Comment on above: Order Comment: Speci men Type: BLOOD SPECIMENOrdering Facility: [facility] Address: [address] [place] [address] Performed By: #### 2 4323-8 ####[facility] LABCLIA [id number] [facility] [address], [facility]95 [place] Anion gap [Moles/Vol] 14 mmol/L Normal 8-15 [facility] Comment on above: Order Comment: Speci men Type: BLOOD SPECIMENOrdering Facility: [facility] Address: [address] [place] [address] Performed By: #### 2 4323-8 ####[facility] LABCLIA [id number] [facility] [address], [facility]95 [place] AST [Catalytic activity/Vol] 23 U/L Normal 13-35 [facility] Comment on above: Order Comment: Speci men Type: BLOOD SPECIMENOrdering Facility: [facility] Address: [address] [place] [address] Performed By: #### 2 4323-8 ####[facility] LABCLIA [id number] [address] [place] [address] [place] Bilirubin [Mass/Vol] 0.8 mg/dL Normal 0.2-1.3 [facility] Comment on above: Order Comment: Speci men Type: BLOOD SPECIMENOrdering Facility: [facility] Address: [address] [place] [address] Performed By: #### 2 4323-8 ####[facility] LABCLIA [id number] [address] [address] [place] Calcium [Mass/Vol] 9.6 mg/dL Normal 8.5-10.2 [facility] Comment on above: Order Comment: Speci men Type: BLOOD SPECIMENOrdering Facility: [facility] Address: [address] [place] [address] Performed By: #### 2 4323-8 ####[facility] LABCLIA [id number] [facility] [place] [id number] [place] Chloride [Moles/Vol] 104 mmol/L Normal 98-107 [facility] Comment on above: Order Comment: Speci men Type: BLOOD SPECIMENOrdering Facility: [facility] Address: [address] [place] [address] Performed By: #### 2 4323-8 ####[facility] LABCLIA [id number] [place] [address] [place] CO2 [Moles/Vol] 18 mmol/L Low 22-30 [facility] Comment on above: Order Comment: Speci men Type: BLOOD SPECIMENOrdering Facility: [facility] Address: [address] [place] [address] Performed By: #### 2 4323-8 ####[facility] LABCLIA [id number] [facility] [place] [id number] [place] Creatinine [Mass/Vol] 0.72 mg/dL Normal 0.58-0.96 [facility] Comment on above: Order Comment: Speci men Type: BLOOD SPECIMENOrdering Facility: [facility] Address: [address] [place], [place] [address] Performed By: #### 2 4323-8 ####[facility] LABCLIA [id number] [place] [address] [place] Creatinine and Glomerular filtration rate.predicted panel (S/P/Bld) 110 mL/min/1.73m??? Normal >=60 [facility] Comment on above: Order Comment: Jarred zarate Type: BLOOD SPECIMENOrdering Facility: [facility] Address: [address] [place] [address] Result Comment: Re mated Glomerular Filtration Rate (eGFR) is calculated using the 2020 CKD-EPI creatinine equation. This equation utilizes serum creatinine, sex, and age as parameters. The creatinine assay has traceable calibration to isotope dilution-mass spectrometry. Refer to KDIGO guidelines for clinical interpretation. In patients with unstable renal function, e.g. those with acute kidney injury, the eGFR may not accurately reflect actual GFR. Performed By: #### 2 4323-8 ####[facility] LABIA [id number] [place] [address] [place] Glucose [Mass/Vol] 106 mg/dL High 74-99 [facility] Comment on above: Order Comment: Jarred zarate Type: BLOOD SPECIMENOrdering Facility: [facility] Address: [address] [place] [address] Result Comment: The [place] Diabetes Association (ADA) provides guidance for cutoff values for fasting glucose and random glucose. The ADA defines fasting as no caloric intake for at least 8 hours. Fasting plasma glucose results between 100 to 125 mg/dL indicate increased risk for diabetes (prediabetes). Fasting plasma glucose results greater than or equal to 126 mg/dL meet the criteria for diagnosis of diabetes. In the absence of unequivocal hyperglycemia, results should be confirmed by repeat testing. In a patient with classic symptoms of hyperglycemia or hyperglycemic crisis, random plasma glucose results greater than or equal to 200 mg/dL meet the criteria for diagnosis of diabetes. Reference: Standards of Medical Care in Diabetes 2016, [place] Diabetes Association. Diabetes Care. 2016.39(Suppl 1). Performed By: #### 2 4323-8 ####[facility] LABCLIA [id number] [place] [id number] [place] Potassium [Moles/Vol] 4.3 mmol/L Normal 3.7-5.1 [facility] Comment on above: Order Comment: Speci men Type: BLOOD SPECIMENOrdering Facility: [facility] Address: [address] [place] [address] Performed By: #### 2 4323-8 ####[facility] LABCLIA [id number] [place] [id number] [place] Protein [Mass/Vol] 7.3 g/dL Normal 6.3-8.0 [facility] Comment on above: Order Comment: Speci men Type: BLOOD SPECIMENOrdering Facility: [facility] Address: [address] [place] [address] Performed By: #### 2 4323-8 ####[facility] LABCLIA [id number] [place] [id number] [place] Sodium [Moles/Vol] 136 mmol/L Normal 136-144 [facility] Comment on above: Order Comment: Speci men Type: BLOOD SPECIMENOrdering Facility: [facility] Address: [address] [place] [address] Performed By: #### 2 4323-8 ####[facility] LABCLIA [id number] [place] [id number] [place] Urea nitrogen [Mass/Vol] 16 mg/dL Normal 7-21 [facility] Comment on above: Order Comment: Speci men Type: BLOOD SPECIMENOrdering Facility: [facility] Address: [address] [place] [address] Performed By: #### 2 4323-8 ####[facility] LABCLIA [id number] [place] [id number] [place] HbA1c (Bld)on 12-02-2024 Average glucose Estimated from glycated hemoglobin (Bld) [Mass/Vol] 94 mg/dL Normal [facility] Comment on above: Order Comment: Speci men Type: BLOOD SPECIMENOrdering Facility: [facility] Address: [address] [place] [address] Result Comment: eAG: (Estimated average glucose) is a calculated value from HgbA1c and is banking representative of the average blood glucose level in the last 2-3 month period. Performed By: #### 5 5454-3 ####[facility] LABIA [id number] [address] STATES OF [facility] HbA1c (Bld) [Mass fraction] 4.9 % Normal 4.3-5.6 [facility] Comment on above: Order Comment: Speci men Type: BLOOD SPECIMENOrdering Facility: [facility] Address: [address] [place] [address] Result Comment: [place] Diabetes Association guidelines indicate that patients with HgbA1c in the range 5.7-6.4% are at increased risk for development of diabetes, and intervention by lifestyle modification may be beneficial. HgbA1c greater or equal to 6.5% is considered diagnostic of diabetes. Performed By: #### 5 5454-3 ####[facility] LABIA [id number] [address] OF [facility] CNPMadiosn 11-22-2024 [facility] Telephone (FAMPWS) ARABELLA DUBOSE ([id number]) 1985 F Date Time Provider Department 11/22/24 GAVIN ARORA During your visit today, we recorded the following information about you: Ondina Farr 11/22/2024 9:44 AM Signed Arabella is calling Gavin Arora MD today with concern regarding Insurance Authorization Disp Refills Start End tirzepatide (MOUNJARO) 2.5 mg/0.5 mL pen injector 2 mL 0 11/21/2024 -- Sig: Inject 2.5 mg subcutaneously one time a week. Sent to pharmacy as: tirzepatide (MOUNJARO) 2.5 mg/0.5 mL pen injector Patient has been identified by name and birthdate. Duration of symptoms: N/A Person calling: pharmacy: [facility] [phone] No Closing statement: Prior Authorization Calls: Thank you for calling [facility], your call will be returned within the next 24 hours or next business day. Cinthya Barr LPN 11/23/2024 2:51 PM Signed Fax approval rec'd from [facility] for mounjaro from 11/21/24 to 11/21/25. Pharmacy notified and pt via my chart. Allergies As of Date: 11/22/2024 Noted Allergy Reaction ACETAMINOPHEN 11/25/2016 4 - Hives SEASONAL ALLERGIES 02/01/2014 7 - Swelling VICODIN (HYDROCODONE-ACETAMINO PHE*08/29/2015 4 - Hives Date Reviewed: 11/21/2024 Reviewed by: Luis Shah MA - Fully Assessed Reason for Visit: Insurance Authorization [[id number]] Prescriptions as of 11/23/2024 - tirzepatide (MOUNJARO) 2.5 mg/0.5 mL pen injector Inject 2.5 mg subcutaneously one time a week. - pioglitazone (ACTOS) 45 mg tablet Take 1 tablet by mouth once daily. - sertraline (ZOLOFT) 100 mg tablet Take 1 tablet by mouth once daily. - omeprazole (PRILOSEC) 20 mg capsule Take 1 capsule by mouth daily before breakfast. 1/2 hr before meal. - metFORMIN ER (GLUCOPHAGE XR) 500 mg 24 hr tablet Take 2 tablets by mouth two times a day. - ergocalciferol 50,000 unit capsule (VITAMIN D2, DRISDOL) Take 1 tablet by mouth twice weekly [id number], then decrease to 1 tablet weekly. - CPAP Initiate Auto PAP @ 5-20 cm of water with humidification. Mask (per patient preference) optional chin strap (if indicated) , filters, tubing, humidifier and lifetime supplies. - levothyroxine 50 mcg cap Take 1 capsule by mouth daily before breakfast. - calcium carbonate (TUMS) 500 mg chew Take 1 tablet by mouth every hour as needed (mouth or hand numbness or tingling). - iwlkjub-hcnasagiv-knlx min D3 500 mg(1,250mg) -200 unit per tablet Take 1 tablet by mouth three times daily. - loratadine (CLARITIN) 10 mg tablet Take 10 mg by mouth as needed. Problem List As Of Date 11/22/2024 Noted Resolved SUPERVIS NORMAL 1ST PREG [Z34.00] 08/07/2005 04/14/2006 PCOS (polycystic ovarian syndrome) [E28.2] 01/23/2011 Morbid obesity with BMI of 40.0-44.9, adult (HC*02/01/2014 Hyperandrogenemia [E28.1] 04/04/2014 2018 Acute biliary pancreatitis [K85.10] 08/29/2015 2018 Chronic cholecystitis with calculus [K80.10] 10/03/2015 12/28/2019 Type 2 diabetes mellitus without complication, *11/28/2016 Abnormal LFTs (liver function tests) [R79.89] 12/08/2016 12/28/2019 Morbid obesity (HCC) [E66.01] 08/10/2017 Diabetes mellitus type II, uncontrolled (HCC) [*06/15/2016 08/10/2017 Multiple thyroid nodules [E04.2] 10/05/2017 Family history of thyroid cancer [Z80.8] 10/05/2017 History of seizure [Z87.898] 12/28/2019 Papillary thyroid carcinoma (HCC) [C73] 03/30/2020 Post-surgical hypothyroidism [E89.0] 03/30/2020 CHUY (obstructive sleep apnea) [G47.33] MELVIN (generalized anxiety disorder) [F41.1] 10/30/2021 Encounter Status:Closed by CINTHYA FORD on 11/23/24 [facility] CNOVsarai 11-21-2024 CNOV Office Visit (YURYPWS ) ARABELLA DUBOSE ([id number]) 1985 F Date Time Provider Department 11/21/24 7:40 AM YULIANA JEFFREY During your visit today, we recorded the following information about you: Pulse Blood pressure Weight 106/minute 114/82 148 kg Yuliana Jeffrey APRN.GROOMING ASSISTANT 11/21/2024 8:09 AM Signed Chief Complaint Patient presents with: Follow Up HPI Arabella Dubose is a 39 year old female who presents here today for Above Complaints. Patient presents for medication follow up. Patient reports rybelsus is not helping with weight and she would like to go back to [facility] but stay with the lower doses. Past medical history, appointments, medications, allergies reviewed. 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 not recommending FINNEGAN Thyroid nodule abnormal FNA right thyroid (2017), repeat US 1,2,3, and 5 years from 2021 Previous Surgical History PAST SURGICAL HISTORY Procedure Laterality Date COLPOSCOPY CERVIX UPPR/ADJCNT VAGINA W/CERVIX BX 07/13/06 chronic cervicitis with no evidence of dysplasia LAPS SURG CHOLECYSTECTOMY W/CHOLANGIOGRAPHY 09-25-15 MYRINGOTOMY ASPIRAND/EUSTACHIAN TUBE NFLTJ ANES 1993,1994 Myringotomy/tubes THYROIDECTOMY SUBTOTAL/PARTIAL Left 01/13/2020 Left thyroidectomy TONSILLECTOMY PRIMARY/SECONDARY Tonsillectomy US THYROID BIOPSY 11/2019 AUS Family History FAMILY HISTORY Problem Relation Age of Onset Cancer Mother thyroid No Known Problems Brother No Known Problems Brother Arthritis Maternal Grandmother Hypertension Maternal Grandmother Thyroid Maternal Grandmother Alzheimer's Disease Maternal Grandmother Diabetes Paternal Grandmother Breast Cancer Paternal Aunt Thyroid Maternal Aunt Cancer Maternal Aunt gastric Patient Allergies ALLERGIES Allergen Reactions Acetaminophen Hives Seasonal Allergies Swelling Vicodin [Hydrocodon* Hives Current Medications Current Outpatient Medications on File Prior to Visit Medication Sig pioglitazone (ACTOS) 45 mg tablet Take 1 tablet by mouth once daily. sertraline (ZOLOFT) 100 mg tablet Take 1 tablet by mouth once daily. omeprazole (PRILOSEC) 20 mg capsule Take 1 capsule by mouth daily before breakfast. 1/2 hr before meal. semaglutide (RYBELSUS) 3 mg tablet Take 1 tablet by mouth daily before breakfast. Take 30 minutes before the first food, beverage, or other oral medications of the day with no more than 4 ounces of plain water metFORMIN ER (GLUCOPHAGE XR) 500 mg 24 hr tablet Take 2 tablets by mouth two times a day. ergocalciferol 50,000 unit capsule (VITAMIN D2, DRISDOL) Take 1 tablet by mouth twice weekly [id number], then decrease to 1 tablet weekly. CPAP Initiate Auto PAP @ 5-20 cm of water with humidification. Mask (per patient preference) optional chin strap (if indicated) , filters, tubing, humidifier and lifetime supplies. levothyroxine 50 mcg cap Take 1 capsule by mouth daily before breakfast. calcium carbonate (TUMS) 500 mg chew Take 1 tablet by mouth every hour as needed (mouth or hand numbness or tingling). imebuau-oqaescrja-gsrx min D3 500 mg(1,250mg) -200 unit per tablet Take 1 tablet by mouth three times daily. loratadine (CLARITIN) 10 mg tablet Take 10 mg by mouth as needed. No current facility-administered medications on file prior to visit. Social History Social History Tobacco Use Smoking status: Former Current packs/day: 0.00 Types: Cigarettes Start date: 10/03/2003 Quit date: 10/02/2004 Years since quittin.1 Smokeless tobacco: Never Vaping Use Vaping status: Never Used Substance Use Topics Alcohol use: Yes Comment: Socially Drug use: No Review of Symptoms REVIEW OF SYSTEMS SEE HPI EXAM: BP 114/82 Pulse 106 Wt (!) 148 kg (326 lb 4.5 oz) LMP 07/19/2024 (Exact Date) BMI 49.45 kg/m? General Appearance: Well appearing, alert, in no acute distress, well-hydrated, well nourished.. Lungs: Lungs clear to auscultation. No wheezing, rhonchi, rales.. Heart: RRR without murmur, gallop, or rubs. No ectopy. Health Maintenan (more content not included)... Normal [facility] Bacteria Ur Culton Bacteria identified Cx Nom (U) ORGANISM ID: 1 10,000 -<50,000 CFU/ml Normal urogenital shanna Normal [facility] Comment on above: Performed By: #### 6 30-4 ####[facility] LABCLIA [id number] [address] STATES OF [facility] CNOVon 09-11-2024 CNOV Office Visit (UCWSTR ) ARABELLA DUBOSE ([id number]) 1985 F Date Time Provider Department 09/11/24 10:00 AM JEREMI MONTILLA [facility] During your visit today, we recorded the following information about you: Temperature Pulse Respiration Blood pressure 97.1 degrees 96/minute 18/minute 118/72 Weight 139.9 kg Jeremi Montilla APRN.GROOMING ASSISTANT 09/11/2024 10:18 AM Signed Subjective HPI Nontoxic-appearing female presents urgent care chief complaint possible UTI. Duration of symptoms 2 days. Associated symptoms dysuria frequency urgency. History of UTI. Had 1 in July. States she is on her last day of her period and developed some discomfort. This is similar to last time. OTC medications none. Denies any vaginal discharge or rashes. Is not . Is not breast-feeding. No concerns for STDs. No urological abnormalities. Past medical history prescription medications allergies reviewed .Patient presents with: Urinary Frequency: burning x 2 days after period, had uti last month after period also PAST MEDICAL HISTORY Diagnosis Date Abnormal LFTs (liver function tests) 12/08/2016 Acute biliary pancreatitis 08/29/2015 Acute gastritis 05/07/2015 [facility] Chlamydia 04/04/2014 Chronic cholecystitis with calculus 10/03/2015 Chronic lower back pain 05/07/2015 [facility] Diabetes mellitus type II, uncontrolled 2017 Fatty liver disease, nonalcoholic MELVIN (generalized anxiety disorder) History of COVID-19 05/2021 Hyperandrogenemia 04/04/2014 Morbid obesity (HCC) 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 not recommending FINNEGAN Thyroid nodule abnormal FNA right thyroid (2017), repeat US 1,2,3, and 5 years from 2021 PAST SURGICAL HISTORY Procedure Laterality Date COLPOSCOPY CERVIX UPPR/ADJCNT VAGINA W/CERVIX BX 07/13/06 chronic cervicitis with no evidence of dysplasia LAPS SURG CHOLECYSTECTOMY W/CHOLANGIOGRAPHY 09-25-15 MYRINGOTOMY ASPIRAND/EUSTACHIAN TUBE NFLTJ ANES 1993,1994 Myringotomy/tubes THYROIDECTOMY SUBTOTAL/PARTIAL Left 01/13/2020 Left thyroidectomy TONSILLECTOMY PRIMARY/SECONDARY Tonsillectomy US THYROID BIOPSY 11/2019 AUS ALLERGIES Acetaminophen, Seasonal Allergies, and Vicodin [Hydrocodone-Acetamino phen] MEDICATIONS pioglitazone (ACTOS) 45 mg tablet Take 1 tablet by mouth once daily. omeprazole (PRILOSEC) 20 mg capsule Take 1 capsule by mouth daily before breakfast. 1/2 hr before meal. metFORMIN ER (GLUCOPHAGE XR) 500 mg 24 hr tablet Take 2 tablets by mouth two times a day. tirzepatide (MOUNJARO) 10 mg/0.5 mL pen injector Inject 10 mg subcutaneously one time a week. ergocalciferol 50,000 unit capsule (VITAMIN D2, DRISDOL) Take 1 tablet by mouth twice weekly l1xorpm, then decrease to 1 tablet weekly. sertraline (ZOLOFT) 100 mg tablet Take 1 tablet by mouth once daily. CPAP Initiate Auto PAP @ 5-20 cm of water with humidification. Mask (per patient preference) optional chin strap (if indicated) , filters, tubing, humidifier and lifetime supplies. levothyroxine 50 mcg cap Take 1 capsule by mouth daily before breakfast. calcium carbonate (TUMS) 500 mg chew Take 1 tablet by mouth every hour as needed (mouth or hand numbness or tingling). mfyurta-dukqsogda-xtni min D3 500 mg(1,250mg) -200 unit per tablet Take 1 tablet by mouth three times daily. loratadine (CLARITIN) 10 mg tablet Take 10 mg by mouth as needed. FAMILY HISTORY Problem Relation Age of Onset Cancer Mother thyroid No Known Problems Brother No Known Problems Brother Arthritis Maternal Grandmother Hypertension Maternal Grandmother Thyroid Maternal Grandmother Alzheimer's Disease Maternal Grandmother Diabetes Paternal Grandmother Breast Cancer Paternal Aunt Thyroid Maternal Aunt Cancer Maternal Aunt gastric Social History Tobacco Use Smoking status: Former Current packs/day: 0.00 Types: Cigarettes Start date: 10/03/2003 Quit date: 10/02/2004 Years since quittin.9 Smokeless tobacco: Never Vaping Use Vaping status: Never Used Substance Use Topics Alcohol use: Yes Comment: Socially Drug use: No BP 118/72 Pulse 96 Temp 36.2 ?C (97.1 ?F) Resp 18 Wt (!) 139.9 kg (308 lb 6.8 oz) LMP 07/19/2024 (Exact Date) SpO2 97% BMI 46.74 kg/m? Review of Systems Constitutional: Negative for chills, fever and malaise/fatigue. Cardiovascular: Negative for chest pain. Gastrointestinal: Negative for abdominal pain, constipation, diarrhea, nausea and vomiting. Genitourinary: Positive for dysuria, frequency and urgency. Negative for flank pain and hematuria. Mu (more content not included)... Normal [facility] UA DIP, URINE (POC)on 2024 BILIRUBIN UA (POCT) Negative Negative [facility] CLARITY UA (POCT) Cloudy [facility] COLOR UA (POCT) Light yellow [facility] GLUCOSE UA (POCT) Negative Negative mg/dL [facility] Hemoglobin Ql (U) Large Abnormal Negative [facility] Interpretation and review of laboratory results Abnormal [facility] KETONE UA (POCT) Negative Negative mg/dL [facility] LEUKOCYTES UA (POCT) Small Abnormal Negative [facility] NITRITE UA (POCT) Negative Negative [facility] PH UA (POCT) 8.5 Abnormal 4.5 - 8.0 [facility] Protein Ql (U) >=300 Abnormal Negative mg/dL [facility] SPECIFIC GRAVITY UA (POCT) 1.02 1.005 - 1.030 [facility] UROBILINOGEN UA (POCT) 1 Normal E.U./dL [facility] Location:[facility], [address] [place] [address], [place], [place], [id number] [place] [address] POINT [facility] CARE [facility] ARABELLA DUBOSE ([id number]) 1985 F Date Time Provider Department 07/20/24 PREMA MULLINS [facility] During your visit today, we recorded the following information about you: Prema Mullins APRN.CNP 07/20/2024 12:33 PM Signed Call let patient know there was not a significant amount of bacterial growth in the urine culture. She can continue antibiotics if they are helping. If symptoms persist patient needs to see her primary care. Alannah Busch MA 07/20/2024 5:05 PM Signed Left message for pt to call back. DINESH Leo Brandi, LPN 07/23/2024 12:07 PM Signed Mychart was reviewed by pt on 07/20 . Has not returned phone call. Bryn Palacios LPN Allergies As of Date: 07/20/2024 Noted Allergy Reaction ACETAMINOPHEN 11/25/2016 4 - Hives SEASONAL ALLERGIES 02/01/2014 7 - Swelling VICODIN (HYDROCODONE-ACETAMINO PHE*08/29/2015 4 - Hives Date Reviewed: 07/19/2024 Reviewed by: Bryn Palacios LPN - Fully Assessed Reason for Visit: Results [95] Prescriptions as of 07/23/2024 - nitrofurantoin monohydrate and macrocrystal (MACROBID) 100 mg capsule Take 1 capsule by mouth two times a day for 5 days. - omeprazole (PRILOSEC) 20 mg capsule Take 1 capsule by mouth daily before breakfast. 1/2 hr before meal. - metFORMIN ER (GLUCOPHAGE XR) 500 mg 24 hr tablet Take 2 tablets by mouth two times a day. - tirzepatide (MOUNJARO) 10 mg/0.5 mL pen injector Inject 10 mg subcutaneously one time a week. - ergocalciferol 50,000 unit capsule (VITAMIN D2, DRISDOL) Take 1 tablet by mouth twice weekly m7fopez, then decrease to 1 tablet weekly. - sertraline (ZOLOFT) 100 mg tablet Take 1 tablet by mouth once daily. - pioglitazone (ACTOS) 45 mg tablet Take 1 tablet by mouth once daily. - CPAP Initiate Auto PAP @ 5-20 cm of water with humidification. Mask (per patient preference) optional chin strap (if indicated) , filters, tubing, humidifier and lifetime supplies. - levothyroxine 50 mcg cap Take 1 capsule by mouth daily before breakfast. - calcium carbonate (TUMS) 500 mg chew Take 1 tablet by mouth every hour as needed (mouth or hand numbness or tingling). - xkzqtvb-xmmvzlcvu-vfnp min D3 500 mg(1,250mg) -200 unit per tablet Take 1 tablet by mouth three times daily. - loratadine (CLARITIN) 10 mg tablet Take 10 mg by mouth as needed. Problem List As Of Date 07/20/2024 Noted Resolved SUPERVIS NORMAL 1ST PREG [Z34.00] 08/07/2005 04/14/2006 PCOS (polycystic ovarian syndrome) [E28.2] 01/23/2011 Morbid obesity with BMI of 40.0-44.9, adult (HC*02/01/2014 Hyperandrogenemia [E28.1] 04/04/2014 2018 Acute biliary pancreatitis [K85.10] 08/29/2015 2018 Chronic cholecystitis with calculus [K80.10] 10/03/2015 12/28/2019 Type 2 diabetes mellitus without complication, *11/28/2016 Abnormal LFTs (liver function tests) [R79.89] 12/08/2016 12/28/2019 Morbid obesity (HCC) [E66.01] 08/10/2017 Diabetes mellitus type II, uncontrolled (HCC) [*06/15/2016 08/10/2017 Multiple thyroid nodules [E04.2] 10/05/2017 Family history of thyroid cancer [Z80.8] 10/05/2017 History of seizure [Z87.898] 12/28/2019 Papillary thyroid carcinoma (HCC) [C73] 03/30/2020 Post-surgical hypothyroidism [E89.0] 03/30/2020 CHUY (obstructive sleep apnea) [G47.33] MELVIN (generalized anxiety disorder) [F41.1] 10/30/2021 Encounter Status:Closed by BRYN PALACIOS on 07/23/24 Normal [facility] Bacteria Ur Culton 5 Bacteria identified Cx Nom (U) ORGANISM ID: 1 10,000 -<50,000 CFU/ml Mixed microbiota No further workup. Mixed microbiota can be due to???urine???contamina tion with skin bacteria at time of collection or presence of a long-term urinary catheter. If a new culture is needed, please consider re-education of the patient on proper midstream collection technique or straight catheterization for???urine???collecti on. Normal [facility] Comment on above: Performed By: #### 6 30-4 ####[facility] LABCLIA [id number] [address] STATES OF [facility] CNOVon 07-19-2024 CNOV Office Visit (UCWSTR ) ARABELLA DUBOSE ([id number]) 1985 F Date Time Provider Department 07/19/24 8:15 AM [facility] During your visit today, we recorded the following information about you: Temperature Pulse Respiration Blood pressure 97.1 degrees 84/minute 18/minute 128/78 Weight Last Period 142 kg 07/19/24 Prema Mullins APRN.GROOMING ASSISTANT 07/19/2024 9:23 AM Signed CC: Patient presents with: Urinary Problem: Burning and frequency x last night HPI Arabella Dubose is a 38 year old female who presents with complaint of possible UTI. These symptoms have been present for 1 days. Associated symptoms: burning and urgency Denies: fever, chills, sweats, abdominal pain, and flank pain Treatments: nothing The ROS was otherwise negative. PMH, Medications, labs, allergies, and recent past visits with PCP were reviewed and updated as able. PHYSICAL EXAM: BP 128/78 Pulse 84 Temp 36.2 ?C (97.1 ?F) Resp 18 Wt (!) 142 kg (313 lb 0.9 oz) LMP 07/19/2024 (Exact Date) SpO2 98% BMI 47.45 kg/m? General: Well appearing and alert CV: Regular rate and rhythm without obvious murmur Lungs: clear to auscultation bilaterally Back: straight and symmetric Abdomen: soft, nontender, nondistended PAST MEDICAL HISTORY Diagnosis Date Abnormal LFTs (liver function tests) 12/08/2016 Acute biliary pancreatitis 08/29/2015 Acute gastritis 05/07/2015 [facility] Chlamydia 04/04/2014 Chronic cholecystitis with calculus 10/03/2015 Chronic lower back pain 05/07/2015 [facility] Diabetes mellitus type II, uncontrolled 2016 Fatty liver disease, nonalcoholic MELVIN (generalized anxiety disorder) History of COVID-19 05/2021 Hyperandrogenemia 04/04/2014 Morbid obesity (HCC) 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 not recommending FINNEGAN Thyroid nodule abnormal FNA right thyroid (2017), repeat US 1,2,3, and 5 years from 2021 PAST SURGICAL HISTORY Procedure Laterality Date COLPOSCOPY CERVIX UPPR/ADJCNT VAGINA W/CERVIX BX 07/13/06 chronic cervicitis with no evidence of dysplasia LAPS SURG CHOLECYSTECTOMY W/CHOLANGIOGRAPHY 09-25-15 MYRINGOTOMY ASPIRAND/EUSTACHIAN TUBE NFLTJ ANES 1993,1994 Myringotomy/tubes THYROIDECTOMY SUBTOTAL/PARTIAL Left 01/13/2020 Left thyroidectomy TONSILLECTOMY PRIMARY/SECONDARY Tonsillectomy US THYROID BIOPSY 11/2019 AUS ALLERGIES Acetaminophen, Seasonal Allergies, and Vicodin [Hydrocodone-Acetamino phen] MEDICATIONS omeprazole (PRILOSEC) 20 mg capsule Take 1 capsule by mouth daily before breakfast. 1/2 hr before meal. metFORMIN ER (GLUCOPHAGE XR) 500 mg 24 hr tablet Take 2 tablets by mouth two times a day. tirzepatide (MOUNJARO) 10 mg/0.5 mL pen injector Inject 10 mg subcutaneously one time a week. ergocalciferol 50,000 unit capsule (VITAMIN D2, DRISDOL) Take 1 tablet by mouth twice weekly [id number], then decrease to 1 tablet weekly. sertraline (ZOLOFT) 100 mg tablet Take 1 tablet by mouth once daily. pioglitazone (ACTOS) 45 mg tablet Take 1 tablet by mouth once daily. CPAP Initiate Auto PAP @ 5-20 cm of water with humidification. Mask (per patient preference) optional chin strap (if indicated) , filters, tubing, humidifier and lifetime supplies. levothyroxine 50 mcg cap Take 1 capsule by mouth daily before breakfast. calcium carbonate (TUMS) 500 mg chew Take 1 tablet by mouth every hour as needed (mouth or hand numbness or tingling). xamkmdz-ijabpuqff-xsdj min D3 500 mg(1,250mg) -200 unit per tablet Take 1 tablet by mouth three times daily. loratadine (CLARITIN) 10 mg tablet Take 10 mg by mouth as needed. FAMILY HISTORY Problem Relation Age of Onset Cancer Mother thyroid No Known Problems Brother No Known Problems Brother Arthritis Maternal Grandmother Hypertension Maternal Grandmother Thyroid Maternal Grandmother Alzheimer's Disease Maternal Grandmother Diabetes Paternal Grandmother Breast Cancer Paternal Aunt Thyroid Maternal Aunt Cancer Maternal Aunt gastric Social History Tobacco Use Smoking status: Former Current packs/day: 0.00 Types: Cigarettes Start date: 10/03/2003 Quit date: 10/02/2004 Years since quittin.8 Smokeless tobacco: Never Vaping Use Vaping status: Never Used Substance Use Topics Alcohol use: Yes Comment: Socially Drug use: No ASSESSMENT/PLAN: 1. Urinary frequency - ICD9: 788.41, ICD10: R35.0 - UA DIP, URINE (POC) - BACTERIAL CULTURE, URINE - NITROFURANTOIN MONOHYDRATE AND MACROCRYSTAL 100 MG ORAL CAP Prescription instructions reviewed with patient as applicable. Potential red flag (more content not included)... Normal [facility] UA DIP, URINE (POC)on 2024 BILIRUBIN UA (POCT) Negative Negative [facility] CLARITY UA (POCT) Clear [facility] COLOR UA (POCT) Yellow [facility] GLUCOSE UA (POCT) Negative Negative mg/dL [facility] Hemoglobin Ql (U) Large Abnormal Negative [facility] Interpretation and review of laboratory results Abnormal [facility] KETONE UA (POCT) Negative Negative mg/dL [facility] LEUKOCYTES UA (POCT) Small Abnormal Negative [facility] NITRITE UA (POCT) Negative Negative [facility] PH UA (POCT) 5.5 4.5 - 8.0 [facility] Protein Ql (U) 100 mg/dL Abnormal Negative [facility] SPECIFIC GRAVITY UA (POCT) 1.015 1.005 - 1.030 [facility] UROBILINOGEN UA (POCT) 0.2 Normal E.U./dL [facility] Location:[facility], [address] [place] [address], [place], [place], [id number] [place] [address] POINT OF CARE [facility] CNOVon 06-06-2024 CNOV Office Visit ([facility] ) ARABELLA DUBOSE ([id number]) 1985 F Date Time Provider Department 06/06/24 7:15 AM THIAGO BATEMAN [facility] During your visit today, we recorded the following information about you: Temperature Pulse Respiration Blood pressure 97.4 degrees 106/minute 18/minute 126/84 Weight 143.4 kg Thiago Bateman PA-C 06/06/2024 9:06 AM Signed This note was created using NoteWriter. Subjective Arabella Dubose is a 38 year old female. HPI Patient presents with sore throat, fatigue, vomiting. Sore throat started 3 days ago. No diarrhea. This morning she vomited once. She was around multiple coworkers who had COVID. Denies cough or nasal congestion. No home COVID test done. No chest pain or shortness of breath. Review of Systems Constitutional: Positive for fatigue. Negative for fever. HENT: Positive for sore throat. Negative for congestion, postnasal drip and rhinorrhea. Respiratory: Negative for cough and shortness of breath. Cardiovascular: Negative. Gastrointestinal: Positive for nausea and vomiting. Negative for diarrhea. Genitourinary: Negative. All other systems reviewed and are negative. 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 not recommending FINNEGAN Thyroid nodule abnormal FNA right thyroid (2017), repeat US 1,2,3, and 5 years from 2021 Current Outpatient Medications Medication Sig Dispense Refill omeprazole (PRILOSEC) 20 mg capsule Take 1 capsule by mouth daily before breakfast. 1/2 hr before meal. 30 capsule 0 metFORMIN ER (GLUCOPHAGE XR) 500 mg 24 hr tablet Take 2 tablets by mouth two times a day. 360 tablet 1 tirzepatide (MOUNJARO) 10 mg/0.5 mL pen injector Inject 10 mg subcutaneously one time a week. 12 Each 0 ergocalciferol 50,000 unit capsule (VITAMIN D2, DRISDOL) Take 1 tablet by mouth twice weekly [id number], then decrease to 1 tablet weekly. 16 capsule 3 sertraline (ZOLOFT) 100 mg tablet Take 1 tablet by mouth once daily. 90 tablet 1 pioglitazone (ACTOS) 45 mg tablet Take 1 tablet by mouth once daily. 30 tablet 3 CPAP Initiate Auto PAP @ 5-20 cm of water with humidification. Mask (per patient preference) optional chin strap (if indicated) , filters, tubing, humidifier and lifetime supplies. 1 Each 0 levothyroxine 50 mcg cap Take 1 capsule by mouth daily before breakfast. 30 capsule 3 calcium carbonate (TUMS) 500 mg chew Take 1 tablet by mouth every hour as needed (mouth or hand numbness or tingling). dkodjds-xtxbrqbmz-icgf min D3 500 mg(1,250mg) -200 unit per tablet Take 1 tablet by mouth three times daily. loratadine (CLARITIN) 10 mg tablet Take 10 mg by mouth as needed. predniSONE (DELTASONE) 20 mg tablet Take 2 tablets by mouth once daily for 5 days. 10 tablet 0 fluconazole (DIFLUCAN) 150 mg tablet Take 1 tablet by mouth once daily for 1 day. 1 tablet 0 No current facility-administered medications for this visit. PAST SURGICAL HISTORY Procedure Laterality Date COLPOSCOPY CERVIX UPPR/ADJCNT VAGINA W/CERVIX BX 07/13/06 chronic cervicitis with no evidence of dysplasia LAPS SURG CHOLECYSTECTOMY W/CHOLANGIOGRAPHY 09-25-15 MYRINGOTOMY ASPIRAND/EUSTACHIAN TUBE NFLTJ ANES 1993,1994 Myringotomy/tubes THYROIDECTOMY SUBTOTAL/PARTIAL Left 01/13/2020 Left thyroidectomy TONSILLECTOMY PRIMARY/SECONDARY Tonsillectomy US THYROID BIOPSY 11/2019 AUS FAMILY HISTORY Problem Relation Age of Onset Cancer Mother thyroid No Known Problems Brother No Known Problems Brother Arthritis Maternal Grandmother Hypertension Maternal Grandmother Thyroid Maternal Grandmother Alzheimer's Disease Maternal Grandmother Diabetes Paternal Grandmother Breast Cancer Paternal Aunt Thyroid Maternal Aunt Cancer Maternal Aunt gastric Social History Tobacco Use Smoking status: Former Current packs/day: 0.00 Types: Cigarettes Start date: 10/03/2003 Quit date: 10/02/2004 Years since quittin.6 Smokeless tobacco: Never Vaping Use Vaping status: Never Used Substance Use Topics Alcohol use: Yes Comment: Socially Drug use: No Objective BP 126/84 Pulse 106 Temp (more content not included)... Normal [facility] COVID AND INFLUENZA A/B AND RSV PCR, ROUTINEon 06-06-2024 SARS-CoV-2 (COVID-19) RNA RYAN+probe Ql (Unsp spec) SARS-COV-2 (AGENT OF COVID-19) RNA: Detected INFLUENZA A RNA: Not detected INFLUENZA B RNA: Not detected RESPIRATORY SYNCYTIAL VIRUS (RSV) RNA: Not detected Abnormal [facility] Comment on above: Performed By: #### C VFLRS ####[facility] LABCLIA [id number] [address] OF [place] STREP A MOLECULAR (POC)on Procedural Control Valid [facility] Strep A (POCT) Negative Negative [facility] CNPNon 04-19-2024 [facility] ARABELLA DUBOSE ([id number]) 1985 F Date Time Provider Department 04/19/24 YULIANA JEFFREY [facility] During your visit today, we recorded the following information about you: Yuliana Jeffrey APRN.[facility] 04/19/2024 7:59 AM Signed Please let patient know her vitamin d is low. Also her hgba1c has decreased to 4.5. I have sent in vitamin d supplementation. Luis Shah MA 04/19/2024 9:02 AM Signed Pt notified and verbalized understanding Luis Shah MA Allergies As of Date: 04/19/2024 Noted Allergy Reaction ACETAMINOPHEN 11/25/2016 4 - Hives SEASONAL ALLERGIES 02/01/2014 7 - Swelling VICODIN (HYDROCODONE-ACETAMINO PHE*08/29/2015 4 - Hives Date Reviewed: 04/18/2024 Reviewed by: Luis Shah MA - Fully Assessed Reason for Visit: Results [95] Order(s):ergocalcifero l 50,000 unit capsule (VITAMIN D2, DRISDOL)Take 1 tablet by mouth twice weekly [id number], then decrease to 1 tablet weekly.Disp: 16 capsuleRfl: 3 Prescriptions as of 04/19/2024 - ergocalciferol 50,000 unit capsule (VITAMIN D2, DRISDOL) Take 1 tablet by mouth twice weekly [id number], then decrease to 1 tablet weekly. - omeprazole (PRILOSEC) 20 mg capsule Take 1 capsule by mouth daily before breakfast. 1/2 hr before meal. - tirzepatide (MOUNJARO) 10 mg/0.5 mL pen injector Inject 10 mg subcutaneously one time a week. - amoxicillin-clavulanat e potassium (AUGMENTIN) 875-125 mg per tablet Take 1 tablet by mouth two times a day for 5 days. - sertraline (ZOLOFT) 100 mg tablet Take 1 tablet by mouth once daily. - pioglitazone (ACTOS) 45 mg tablet Take 1 tablet by mouth once daily. - metFORMIN ER (GLUCOPHAGE XR) 500 mg 24 hr tablet Take 2 tablets by mouth twice daily. - CPAP Initiate Auto PAP @ 5-20 cm of water with humidification. Mask (per patient preference) optional chin strap (if indicated) , filters, tubing, humidifier and lifetime supplies. - levothyroxine 50 mcg cap Take 1 capsule by mouth daily before breakfast. - calcium carbonate (TUMS) 500 mg chew Take 1 tablet by mouth every hour as needed (mouth or hand numbness or tingling). - pmimalk-tbwqlryzh-nrhs min D3 500 mg(1,250mg) -200 unit per tablet Take 1 tablet by mouth three times daily. - loratadine (CLARITIN) 10 mg tablet Take 10 mg by mouth as needed. Problem List As Of Date 04/19/2024 Noted Resolved SUPERVIS NORMAL 1ST PREG [Z34.00] 08/07/2005 04/14/2006 PCOS (polycystic ovarian syndrome) [E28.2] 01/23/2011 Morbid obesity with BMI of 40.0-44.9, adult (HC*02/01/2014 Hyperandrogenemia [E28.1] 04/04/2014 2018 Acute biliary pancreatitis [K85.10] 08/29/2015 2018 Chronic cholecystitis with calculus [K80.10] 10/03/2015 12/28/2019 Type 2 diabetes mellitus without complication, *11/28/2016 Abnormal LFTs (liver function tests) [R79.89] 12/08/2016 12/28/2019 Morbid obesity (HCC) [E66.01] 08/10/2017 Diabetes mellitus type II, uncontrolled (HCC) [*06/15/2016 08/10/2017 Multiple thyroid nodules [E04.2] 10/05/2017 Family history of thyroid cancer [Z80.8] 10/05/2017 History of seizure [Z87.898] 12/28/2019 Papillary thyroid carcinoma (HCC) [C73] 03/30/2020 Post-surgical hypothyroidism [E89.0] 03/30/2020 CHUY (obstructive sleep apnea) [G47.33] MELVIN (generalized anxiety disorder) [F41.1] 10/30/2021 Prescriptions ordered this encounter Disp Refills Start End ERGOCALCIFEROL (VITAMIN D2) 1,250 MC* 16 c* 3 04/19/2024 Sig: Take 1 tablet by mouth twice weekly [id number], then decrease to 1 tablet weekly. Encounter Status:Closed by LUIS SHAH CMA on 04/19/24 Normal [facility] 25(OH)D3 SerPl-mCncon 2023 25-hydroxyvitamin D3 [Mass/Vol] 19.9 ng/mL Low 31.0-80.0 [facility] Comment on above: Order Comment: Speci men Type: BLOOD SPECIMENOrdering Facility: [facility] Address: [address] [place] [address] Result Comment: Clas sification of 25 [place] Vitamin D status: Deficiency/Insufficiency: < or = 30 ng/ml. Sufficiency/Optimal Levels: 31-80 ng/mL Toxicity: > 100 ng/mL. Test performed by chemiluminescent immunoassay. Performed By: #### 1 989-3 ####[facility] LABCLIA [id number] [place] [address] [place] CNOVon 04-18-2024 CNOV Office Visit ([facility] ) ARABELLA DUBOSE ([id number]) 1985 F Date Time Provider Department 04/18/24 7:40 AM YULIANA JEFFREY During your visit today, we recorded the following information about you: Pulse Respiration Blood pressure Weight 91/minute 16/minute 116/85 136.5 kg Yuliana Jeffrey APRN.[facility] 04/18/2024 7:58 AM Signed Chief Complaint Patient presents with: Follow Up HPI Arabella Dubose is a 38 year old female who presents here today for Above Complaints.. Patient presents for follow up for mounjaro. Patient reports she has been ill over the last two weeks and with that she has had some side effects from the mounjaro like nausea and sulfur burps. Past medical history, appointments, medications, allergies reviewed. 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 not recommending FINNEGAN Thyroid nodule abnormal FNA right thyroid (2017), repeat US 1,2,3, and 5 years from 2021 Previous Surgical History PAST SURGICAL HISTORY Procedure Laterality Date COLPOSCOPY CERVIX UPPR/ADJCNT VAGINA W/CERVIX BX 07/13/06 chronic cervicitis with no evidence of dysplasia LAPS SURG CHOLECYSTECTOMY W/CHOLANGIOGRAPHY 09-25-15 MYRINGOTOMY ASPIRAND/EUSTACHIAN TUBE NFLTJ ANES 1993,1994 Myringotomy/tubes THYROIDECTOMY SUBTOTAL/PARTIAL Left 01/13/2020 Left thyroidectomy TONSILLECTOMY PRIMARY/SECONDARY Tonsillectomy US THYROID BIOPSY 11/2019 AUS Family History FAMILY HISTORY Problem Relation Age of Onset Cancer Mother thyroid No Known Problems Brother No Known Problems Brother Arthritis Maternal Grandmother Hypertension Maternal Grandmother Thyroid Maternal Grandmother Alzheimer's Disease Maternal Grandmother Diabetes Paternal Grandmother Breast Cancer Paternal Aunt Thyroid Maternal Aunt Cancer Maternal Aunt gastric Patient Allergies ALLERGIES Allergen Reactions Acetaminophen Hives Seasonal Allergies Swelling Vicodin [Hydrocodon* Hives Current Medications Current Outpatient Medications on File Prior to Visit Medication Sig sertraline (ZOLOFT) 100 mg tablet Take 1 tablet by mouth once daily. pioglitazone (ACTOS) 45 mg tablet Take 1 tablet by mouth once daily. tirzepatide (MOUNJARO) 10 mg/0.5 mL pen injector Inject 10 mg subcutaneously one time a week. metFORMIN ER (GLUCOPHAGE XR) 500 mg 24 hr tablet Take 2 tablets by mouth twice daily. CPAP Initiate Auto PAP @ 5-20 cm of water with humidification. Mask (per patient preference) optional chin strap (if indicated) , filters, tubing, humidifier and lifetime supplies. levothyroxine 50 mcg cap Take 1 capsule by mouth daily before breakfast. calcium carbonate (TUMS) 500 mg chew Take 1 tablet by mouth every hour as needed (mouth or hand numbness or tingling). jpqpjsw-xqbhdbbsy-qbvs min D3 500 mg(1,250mg) -200 unit per tablet Take 1 tablet by mouth three times daily. loratadine (CLARITIN) 10 mg tablet Take 10 mg by mouth as needed. No current facility-administered medications on file prior to visit. Social History Social History Tobacco Use Smoking status: Former Current packs/day: 0.00 Types: Cigarettes Start date: 10/03/2003 Quit date: 10/02/2004 Years since quittin.5 Smokeless tobacco: Never Vaping Use Vaping status: Never Used Substance Use Topics Alcohol use: Yes Comment: Socially Drug use: No Review of Symptoms REVIEW OF SYSTEMS SEE HPI EXAM: BP 116/85 Pulse 91 Resp 16 Wt (!) 136.5 kg (301 lb) LMP 07/12/2023 (Exact Date) BMI 45.62 kg/m? General Appearance: Well appearing, alert, in no acute distress, well-hydrated, well nourished.. Ears: Positive findings: R TM: normal, L TM: mag fluid noted behind TM. Nose/Sinuses: Positive findings: mucosa erythematous and swollen. Oropharynx: Lips, mucosa, and tongue normal, teeth and gums normal, oropharynx normal. Neck: Supple, no adenopathy; thyroid symmetric, normal size, no bruits. Lungs: Lungs clear to auscultation. No wheezing, rhonchi, rales.. Heart: RRR without murmur, gallop, or rubs. No ectopy. Health Maintenance Li (more content not included)... Normal [facility] Comprehensive metabolic 2000 panelon 04-18-2024 Albumin [Mass/Vol] 4.1 g/dL Normal 3.9-4.9 [facility] Comment on above: Order Comment: Speci men Type: BLOOD SPECIMENOrdering Facility: [facility] Address: [address] [place] [address] Performed By: #### 2 132-9, ####[facility] LABCLIA [id number] [place] [address] [place] ALP [Catalytic activity/Vol] 107 U/L Normal 34-123 [facility] Comment on above: Order Comment: Speci men Type: BLOOD SPECIMENOrdering Facility: [facility] Address: [address] [place] [address] Performed By: #### 2 132-9, ####[facility] LABCLIA [id number] [place] [address] [place] ALT [Catalytic activity/Vol] 16 U/L Normal 7-38 [facility] Comment on above: Order Comment: Speci men Type: BLOOD SPECIMENOrdering Facility: [facility] Address: [address] [place] [address] Performed By: #### 2 132-9, ####[facility] LABCLIA [id number] [place] [address] [place] Anion gap [Moles/Vol] 14 mmol/L Normal 8-15 [facility] Comment on above: Order Comment: Speci men Type: BLOOD SPECIMENOrdering Facility: [facility] Address: [address] [place], [place] [address] Performed By: #### 2 132-9, 98059-9 ####[facility] LABCLIA [id number] [place] [address] [place] AST [Catalytic activity/Vol] 24 U/L Normal 13-35 [facility] Comment on above: Order Comment: Speci men Type: BLOOD SPECIMENOrdering Facility: [facility] Address: [address] [place] [address] Performed By: #### 2 132-9, 35475-3 ####[facility] LABCLIA [id number] [place] [address] [place] Bilirubin [Mass/Vol] 0.9 mg/dL Normal 0.2-1.3 [facility] Comment on above: Order Comment: Speci men Type: BLOOD SPECIMENOrdering Facility: [facility] Address: [address] [place] [address] Performed By: #### 2 132-9, 26932-3 ####[facility] LABCLIA [id number] [place] [address] [place] Calcium [Mass/Vol] 9.6 mg/dL Normal 8.5-10.2 [facility] Comment on above: Order Comment: Speci men Type: BLOOD SPECIMENOrdering Facility: [facility] Address: [address] [place] [address] Performed By: #### 2 132-9, 80875-6 ####[facility] LABCLIA [id number] [place] [address] [place] Chloride [Moles/Vol] 103 mmol/L Normal 98-107 [facility] Comment on above: Order Comment: Speci men Type: BLOOD SPECIMENOrdering Facility: [facility] Address: [address] [place] [address] Performed By: #### 2 132-9, 94916-5 ####[facility] LABCLIA [id number] [place] [id number] [place] CO2 [Moles/Vol] 22 mmol/L Normal 22-30 [facility] Comment on above: Order Comment: Speci men Type: BLOOD SPECIMENOrdering Facility: [facility] Address: [address] [place] [address] Performed By: #### 2 132-9, ####[facility] LABCLIA [id number] [place] [address] [place] Creatinine [Mass/Vol] 0.84 mg/dL Normal 0.58-0.96 [facility] Comment on above: Order Comment: Speci men Type: BLOOD SPECIMENOrdering Facility: [facility] Address: [address] [place] [address] Performed By: #### 2 132-9, ####[facility] LABIA [id number] [place] [address] [place] Creatinine and Glomerular filtration rate.predicted panel (S/P/Bld) 92 mL/min/1.73m??? Normal >=60 [facility] Comment on above: Order Comment: Speci men Type: BLOOD SPECIMENOrdering Facility: [facility] Address: [address] [place] [address] Result Comment: Re mated Glomerular Filtration Rate (eGFR) is calculated using the 2020 CKD-EPI creatinine equation. This equation utilizes serum creatinine, sex, and age as parameters. The creatinine assay has traceable calibration to isotope dilution-mass spectrometry. Refer to [facility] guidelines for clinical interpretation. In patients with unstable renal function, e.g. those with acute kidney injury, the eGFR may not accurately reflect actual GFR. Performed By: #### 2 132-9, 91127-3 ####[facility] LABCLIA [id number] [address] [address] [place] Glucose [Mass/Vol] 91 mg/dL Normal 74-99 [facility] Comment on above: Order Comment: Speci men Type: BLOOD SPECIMENOrdering Facility: [facility] Address: [address] [place] [address] Result Comment: The [place] Diabetes Association (ADA) provides guidance for cutoff values for fasting glucose and random glucose. The ADA defines fasting as no caloric intake for at least 8 hours. Fasting plasma glucose results between 100 to 125 mg/dL indicate increased risk for diabetes (prediabetes). Fasting plasma glucose results greater than or equal to 126 mg/dL meet the criteria for diagnosis of diabetes. In the absence of unequivocal hyperglycemia, results should be confirmed by repeat testing. In a patient with classic symptoms of hyperglycemia or hyperglycemic crisis, random plasma glucose results greater than or equal to 200 mg/dL meet the criteria for diagnosis of diabetes. Reference: Standards of Medical Care in Diabetes 2016, [place] Diabetes Association. Diabetes Care. 2016.39(Suppl 1). Performed By: #### 2 132-9, 67387-2 ####[facility] LABCLIA [id number] [place] [address] [place] Potassium [Moles/Vol] 4.5 mmol/L Normal 3.7-5.1 [facility] Comment on above: Order Comment: Speci men Type: BLOOD SPECIMENOrdering Facility: [facility] Address: [address] [place] [address] Performed By: #### 2 132-9, 57517-9 ####[facility] LABCLIA [id number] [place] [address] [place] Protein [Mass/Vol] 7.4 g/dL Normal 6.3-8.0 [facility] Comment on above: Order Comment: Speci men Type: BLOOD SPECIMENOrdering Facility: [facility] Address: [address] [place] [address] Performed By: #### 2 132-9, ####[facility] LABCLIA [id number] [place] [address] [place] Sodium [Moles/Vol] 139 mmol/L Normal 136-144 [facility] Comment on above: Order Comment: Speci men Type: BLOOD SPECIMENOrdering Facility: [facility] Address: [address] [place] [address] Performed By: #### 2 132-9, 18923-5 ####[facility] LABCLIA [id number] [address] [address] [place] Urea nitrogen [Mass/Vol] 12 mg/dL Normal 7-21 [facility] Comment on above: Order Comment: Speci men Type: BLOOD SPECIMENOrdering Facility: [facility] Address: [address] [place] [address] Performed By: #### 2 132-9, 13031-8 ####[facility] LABCLIA [id number] [place] [address] [place] HbA1c (Bld)on 04-18-2024 Average glucose Estimated from glycated hemoglobin (Bld) [Mass/Vol] 82 mg/dL Normal [facility] Comment on above: Order Comment: Speci men Type: BLOOD SPECIMENOrdering Facility: [facility] Address: [address] [place] [address] Result Comment: eAG: (Estimated average glucose) is a calculated value from HgbA1c and is banking representative of the average blood glucose level in the last 2-3 month period. Performed By: #### 5 5454-3 ####[facility] LABCLIA [id number] [place] [address] [place] HbA1c (Bld) [Mass fraction] 4.5 % Normal 4.3-5.6 [facility] Comment on above: Order Comment: Speci men Type: BLOOD SPECIMENOrdering Facility: [facility] Address: [address] [place] [address] Result Comment: Amer [place] Diabetes Association guidelines indicate that patients with HgbA1c in the range 5.7-6.4% are at increased risk for development of diabetes, and intervention by lifestyle modification may be beneficial. HgbA1c greater or equal to 6.5% is considered diagnostic of diabetes. Performed By: #### 5 5454-3 ####[facility] LABCLIA [id number] [place] [address] [place] Vit B12 [facility] 04-2 024 Cobalamin (Vitamin B12) [Mass/Vol] 505 pg/mL Normal 232-1245 [facility] Comment on above: Order Comment: Speci men Type: BLOOD SPECIMENOrdering Facility: [facility] Address: [address] [place] [address] Performed By: #### 2 132-9, 30797-6 ####[facility] LABCLIA [id number] [address] [place] UA DIP, URINE (POC)on 2023 BILIRUBIN UA (POCT) Negative Negative [facility] CLARITY UA (POCT) Clear [facility] COLOR UA (POCT) Yellow [facility] GLUCOSE UA (POCT) Negative Negative mg/dL [facility] Hemoglobin Ql (U) Moderate Abnormal Negative [facility] KETONE UA (POCT) Negative Negative mg/dL [facility] LEUKOCYTES UA (POCT) Small Abnormal Negative [facility] NITRITE UA (POCT) Positive Abnormal Negative [facility] PH UA (POCT) 6.0 4.5 - 8.0 [facility] Protein Ql (U) 100 mg/dL Abnormal Negative mg/dL [facility] SPECIFIC GRAVITY UA (POCT) 1.025 1.005 - 1.030 [facility] UROBILINOGEN UA (POCT) 1.0 E.U./dL Normal E.U./dL [facility] UA DIP, URINE (POC)on 2022 BILIRUBIN UA (POCT) Negative Negative [facility] CLARITY UA (POCT) Cloudy [facility] COLOR UA (POCT) Other [facility] GLUCOSE UA (POCT) 250 mg/dL Abnormal Negative mg/dL [facility] HEMOGLOBIN/BLOOD UA (POCT) Large Abnormal Negative [facility] KETONE UA (POCT) Negative Negative mg/dL [facility] LEUKOCYTES UA (POCT) Small Abnormal Negative [facility] NITRITE UA (POCT) Positive Abnormal Negative [facility] PH UA (POCT) 7.0 4.5 - 8.0 [facility] Protein Ql (U) 100 mg/dL Abnormal Negative mg/dL [facility] SPECIFIC GRAVITY UA (POCT) 1.025 1.005 - 1.030 [facility] UROBILINOGEN UA (POCT) 1.0 E.U./dL Normal E.U./dL [facility] US CERVICAL LYMPH NODE MAPPI NGon 11-25-2021 [facility] CBC panel Auto (Bld)on 10-31 Erythrocyte distribution width (RBC) [Ratio] 12.4 % 11.5 - 15.0 % [facility] Hematocrit (Bld) [Volume fraction] 44.2 % 36.0 - 46.0 % [facility] Hemoglobin (Bld) [Mass/Vol] 14.1 g/dL 11.5 - 15.5 g/dL [facility] MCH (RBC) [Entitic mass] 30.9 pg 26.0 - 34.0 pg [facility] MCHC (RBC) [Mass/Vol] 31.9 g/dL 30.5 - 36.0 g/dL [facility] MCV (RBC) [Entitic vol] 96.9 fL 80.0 - 100.0 fL [facility] Nucleated RBC (Bld) [#/Vol] 10*3/uL <0.01 k/uL [facility] Platelet mean volume (Bld) [Entitic vol] 11.7 fL 9.0 - 12.7 fL [facility] Platelets (Bld) [#/Vol] 372 10*3/uL 150 - 400 k/uL [facility] RBC (Bld) [#/Vol] 4.56 10*6/uL 3.90 - 5.2 0 m/uL [facility] WBC (Bld) [#/Vol] 8.80 10*3/uL 3.70 - 11. 00 k/uL [facility] Comprehensive metabolic 2000 panelon 10-31-2021 Albumin [Mass/Vol] 4.2 g/dL 3.9 - 4.9 g/dL [facility] ALP [Catalytic activity/Vol] 84 U/L 34 - 123 U/L [facility] ALT [Catalytic activity/Vol] 35 U/L 7 - 38 U/L [facility] Anion gap [Moles/Vol] 11 mmol/L 9 - 18 mmol/L [facility] AST [Catalytic activity/Vol] 45 U/L High 13 - 35 U/L [facility] Bilirubin [Mass/Vol] 0.6 mg/dL 0.2 - 1 .3 mg/dL [facility] Calcium [Mass/Vol] 9.7 mg/dL 8.5 - 10. 2 mg/dL [facility] Chloride [Moles/Vol] 99 mmol/L 97 - 10 5 mmol/L [facility] CO2 [Moles/Vol] 26 mmol/L 22 - 30 mmol/L [facility] Creatinine [Mass/Vol] 0.71 mg/dL 0.58 - 0.96 mg/dL [facility] Estimated Glomerular Filtration Rate 115 mL/min/1.73m >=60 mL/min/1.73m [facility] Glucose [Mass/Vol] 221 mg/dL High 74 - 99 mg/dL [facility] Potassium [Moles/Vol] 4.3 mmol/L 3.7 - 5.1 mmol/L [facility] Protein [Mass/Vol] 7.9 g/dL 6.3 - 8.0 g/dL [facility] Sodium [Moles/Vol] 136 mmol/L 136 - 144 mmol/L [facility] Urea nitrogen [Mass/Vol] 12 mg/dL 7 - 21 mg/dL [facility] HGB A1Con 10-31-2021 Average glucose Estimated from glycated hemoglobin (Bld) [Mass/Vol] 177 mg/dL [facility] HbA1c (Bld) [Mass fraction] 7.8 % High 4.3 - 5.6 % [facility] LIPID PANEL, NONFASTINGon Cholesterol [Mass/Vol] 233 mg/dL High <200 mg/dL [facility] HDL Cholesterol, Nonfasting 55 mg/dL >39 mg/dL [facility] LDL Cholesterol, Nonfasting 144 mg/dL High <100 mg/dL [facility] LDL/HDL Ratio, Nonfasting 2.62 mg/dL High <2.54 mg/dL [facility] Non HDL Cholesterol, Nonfasting 178 mg/dL High <130 mg/dL [facility] Total Chol/HDL Ratio, Nonfasting 4.24 mg/dL <5.10 mg/dL [facility] Triglycerides, Nonfasting 169 mg/dL High <150 mg/dL [facility] VLDL Cholesterol, Nonfasting 34 mg/dL High <30 mg/dL [facility] TSH BLDon 10-31-2021 TSH Qn 2.590 m[IU]/L 0.270 - 4.200 mIU/L [facility] NURSING PROGon 01-14-2020 NURSING PROG HNO ID: [id number] Author: Cristal CastroRn) AUGUSTINE Barcenas Service: ? Author Type: Registered Nurse Type: Nursing Progress Note Filed: 01/14/2020 10:27 AM Note Text: Nursing Progress Note Patient Name: Arabella Pantoja Patient Location: [id number] __ Daily Note:0710= Assumed patient care at this time, received patient on bed with s/p thyroidectomy incision site is clean,dry and intact. Denies pain or discomfort on swallowing, safety plan discussed with the patient. Call light within reach. APPRENTICE PLUMBER will also assume care for this patient. 0732= C/o sore on the incision site , 2 tabs Tylenol was given. 0830= Pain reassessed 09/22. 0945= Discharge instructions provided, belongings all packed up. 1020= IVL was d/shari, at the bedside, Requested for a wheelchair. 1026= wheeled down by Transport with all her belongings. This note was completed by: Cristal Barcenas RN [facility] NURSING PROG HNO ID: [id number] Author: Cora De Santiago LPN Service: Behavioral Health Author Type: LICENSED NURSE Type: Nursing Progress Note Filed: 01/14/2020 9:20 AM Note Text: Nursing Progress Note Patient Name: Arabella Pantoja Patient Location: [id number] __ Daily Note: 0700 I assumed care of pt. Pt c/o neck throat outside discomfort. Med given. This note was completed by: Cora De Santiago LPN [facility] PROGRESSon 01-14-2020 PROGRESS HNO ID: [id number] Author: Leoncio Wilkins Service: General Surgery Author Type: Resident Type: Progress Notes Filed: 01/14/2020 8:31 AM Note Text: ENDOCRINE SURGERY PROGRESS NOTE Arabella Pantoja [id number] ID: 34 year old female POD#: 1 Day Post-Op S/P: right thyroid lobectomy and isthmusectomy (01/13/2020) S: Pain well controlled. Denies neck swelling or distension. Denies difficulty with swallowing or breathing. Denies hoarseness or stridor. Denies numbness or tingling around mouth/extremities. Tolerating PO O: BP 130/82 Pulse 83 Temp 36.4 ?C (97.5 ?F) (Oral) Resp 18 Ht 172.7 cm (5' 8) Wt (!) 146.6 kg (323 lb 1.6 oz) LMP 03/02/2017 SpO2 95% BMI 49.13 kg/m? 01/12 0700 - 01/13 0659 In: 1300 [IV:1300] Out: 0 Gen: NAD, strong voice HEENT: soft, nontender neck without swelling or distension or bruising. incision is CDI Ext: No cce. SCDs in place Fernandez: none A: 34 year old female 1 Day Post-Op S/p right thyroid lobectomy and isthmusectomy, comfortable and stable postoperatively in short-stay nursing unit. P: -Cepacol lozenge for sore throat -non-narcotic analgesia with tylenol / motrin PRN -DC home with TID calcium / vitamin D supplementation, Oscal+D TID with meals Leoncio Wilkins MD General Surgery, PGY-4 Pager: [phone] January 14, 2020 8:30 AM [facility] PROGRESS HNO ID: [id number] Author: Interface Note Service: ? Author Type: ? Type: Progress Notes Filed: 01/14/2020 3:53 AM Note Text: Epic Scheduled Downtime: 01/14/2020 1:00:00 AM to 01/14/2020 3:44:00 AM [facility] ANES Salima 01-13-2020 ANES POST HNO ID: [id number] Author: Feliciano Lewis Service: Anesthesiology Author Type: Anesthesiologist Type: Anesthesia PostOp Filed: 01/13/2020 4:24 PM Note Text: POST ANESTHESIA EVALUATION NOTE SERVICE DATE: 01/13/2020 SERVICE TIME: 4:24 PM : 1985 Vitals: 01/13/20 1114 01/13/20 1440 01/13/20 1600 01/13/20 1615 Temp: 36.8 ?C (98.2 ?F) 36.1 ?C (96.9 ?F) 36.5 ?C (97.7 ?F) 36.5 ?C (97.7 ?F) 01/13/20 1530 01/13/20 1545 01/13/20 1600 01/13/20 1615 BP: 132/94 142/94 126/89 130/90 01/13/20 1530 01/13/20 1545 01/13/20 1600 01/13/20 1615 Pulse: 89 102 87 88 01/13/20 1530 01/13/20 1545 01/13/20 1600 01/13/20 1615 Resp: 21 20 20 20 01/13/20 1530 01/13/20 1545 01/13/20 1600 01/13/20 1615 SpO2: 95% 93% 92% 92% Validated Vital Signs: Yes POST ANES STATUS: No apparent anesthetic complications. The patient is appropriately hydrated with stable respiratory and cardiovascular status. Patient has safe and adequate airway control. The patient has appropriate pain relief and no significant post operative nausea or vomiting. The patient has achieved baseline mental status. Intra-Operative Events: No Significant Anesthesia Events Further assessment by Anesthesia Service: None Other Remarks: SIGNATURE: Feliciano Lewis MD PATIENT NAME: Arabella Pantoja DATE: January 13, 2020 TIME: 4:24 PM PAGER/CONTACT #: ' [facility] ANES PREOPon 01-13-2020 ANES PREOP HNO ID: [id number] Author: Scott Craven Service: Anesthesiology Author Type: Anesthesiologist Type: Anesthesia PreOp Filed: 01/13/2020 11:07 AM Note Text: ANESTHESIOLOGY DAY OF SURGERY NOTE SERVICE DATE: 01/13/2020 SERVICE TIME: 11:07 AM : 1985 Procedure(s) (LRB): LOBECTOMY THYROID TOTAL, UNILATERAL; WITH OR WITHOUT ISTHMUSECTOMY (Right) Surgeon(s): Lazaro Watts Estimated body mass index is 48.35 kg/m? as calculated from the following: Height as of 12/28/19: 172.7 cm (5' 8). Weight as of 12/28/19: 144.2 kg (318 lb). Most recent hematocrit and potassium results: Hematocrit 43.8 12/28/2019 Potassium 4.2 12/28/2019 ANES DOS/PREOP NOTE: Vitals: There were no vitals filed for this visit. ACTIVE PROBLEM LIST Pcos (Polycystic Ovarian Syndrome) Morbid Obesity With Bmi of 40.0-44.9, Adult (Hcc) Type 2 Diabetes Mellitus Without Complication, Without Long-Term Current Use of Insulin (Hcc) Multiple Thyroid Nodules Family History of Thyroid Cancer History of Seizure PAST MEDICAL HISTORY Diagnosis Date - Abnormal LFTs (liver function tests) 12/08/2016 - Acute biliary pancreatitis 08/29/2015 - Acute gastritis 05/07/15 [facility] - Chlamydia 04/04/14 - Chronic cholecystitis with calculus 10/03/2015 - Chronic lower back pain 05/07/15 [facility] - Diabetes mellitus type II, uncontrolled (HCC) 2016 - Fatty liver disease, nonalcoholic - Hyperandrogenemia 04/04/2014 - Morbid obesity (HCC) - Pancreatitis 07/2015 - Papanicolaou smear of cervix with low grade squamous intraepithelial lesion (LGSIL) 06/05/06 cannot rule out hgsil lesion - SEIZURES [id number] CHILDHOOD - Thyroid nodule abnormal FNA right thyroid 2018 PAST SURGICAL HISTORY Procedure Laterality Date - COLPOSCOPY W BX CERVIX 07/13/06 chronic cervicitis with no evidence of dysplasia - INCISION EARDRUM,ASPIR,GEN ANESTH 1993,1994 Myringotomy/tubes - LAP CHOLECYSTECT/CHOLANGIO GRAPHY 09-25-15 - REMOVAL OF TONSILS,<12 Y/O 1995 Tonsillectomy - US THYROID BIOPSY 11/2019 AUS FAMILY HISTORY Problem Relation Age of Onset - Cancer Mother thyroid - Arthritis Maternal Grandmother - Hypertension Maternal Grandmother - Thyroid Maternal Grandmother - Alzheimer's Disease Maternal Grandmother - Diabetes Paternal Grandmother - Breast Cancer Paternal Aunt - Thyroid Maternal Aunt - Cancer Maternal Aunt gastric Social History: Social History Tobacco Use - Smoking status: Former Smoker Years: 1.00 Last attempt to quit: 10/02/2004 Years since quittin.2 - Smokeless tobacco: Never Used Substance Use Topics - Alcohol use: No - Drug use: No No current facility-administered medications on file prior to encounter. Current Outpatient Medications on File Prior to Encounter Medication Sig - fluconazole (DIFLUCAN) 150 mg tablet 1 tablet every 3 days x 3 doses. Then 1 tablet every week x 6 months. - etonogestrel (NEXPLANON) subdermal implant 68 mg 68 mg by SUBDERMAL route. Implanted 2013 - loratadine (CLARITIN) 10 mg tablet Take 10 mg by mouth as needed. No current facility-administered medications for this encounter. Allergies: ALLERGIES Allergen Reactions - Seasonal Allergies Swelling - Vicodin [Hydrocodon* Rash hives DOS EXAM: Adequate NPO status: Yes Anesthetic risks, benefits, alternatives, personnel and consent discussed: Yes Patient agrees to proceed: Yes Previous Anesthesia: No history of adverse event. Airway Assessment: MP 3; Neck ROM: Full ROM without neurologic symptoms; Airway Evaluation: Short Neck, Thick neck and Small Mouth Opening Symptoms of Sleep Apnea: BMI > 35 and Neck circumference > 15.75 inches Dentition: Teeth intact Additional Physical Exam: Lungs: Patient health status unchanged since recent history and physical. See history and physical for exam findings. Cardiac: Patient health status unchanged since recent history and physical. See history and physical for exam findings. Additional Pertinent Findings: N/A Blood Products: Not anticipated for this procedure. Anesthetic Plan: General, Standard ASA Monitors Pain Management Plan: Parenteral or Oral ASA Class: 3 Other Medical Problems: None Chronic Beta Luis medication administered within 24 hours: N/A I have interviewed and examined the patient. I have reviewed the medical record and/or the pre-anesthesia evaluation, pertinent labs, and test results. Significant changes in the patient's condition since the History and Physical, not otherwise documented in primary service progress notes: No This contains updated information obtained within 48 hours of Surgery/Procedure. SIGNATURE: Scott Craven MD PATIENT NAME: Arabella BAILON: January 13, 2020 TIME: 11:07 AM CSN: [id number] [facility] BRIEF OP NOTon 01-13-2020 BRIEF OP NOT HNO ID: [id number] Author: Lazaro Watts Service: Endocrine Surgery Author Type: Physician Type: Brief Op Note Filed: 01/13/2020 2:29 PM Note Text: BRIEF OP NOTE LOG ID: [id number] Surgery/Procedure Date: 01/13/2020 Incision/Procedure Start Time: 1:05 PM Incision Close/Procedure End Time: Surgeon(s)/Procedurali st(s) and Spring Coiling Machine Setter(s): Surgeon(s) and Role: * Lazaro Watts - Primary Procedure(s): right thyroid lobectomy and isthmusectomy Anesthesia: General Findings: right thyroid nodule Estimated Blood Loss: 5 mls Specimens: right thyroid lobe and isthmus Complications: None Pre-Op/Pre-Procedure Diagnosis: right thyroid nodule Post-Op/Post-Procedure Diagnosis: * No post-op diagnosis entered * SIGNATURE: Lazaro Watts MD PATIENT NAME: Arabella Pantoja DATE: January 13, 2020 TIME: 2:28 PM PAGER/CONTACT #: [facility] OPERATIVE NOon 01-13-2020 OPERATIVE NO HNO ID: [id number] Author: Lazaro Watts Service: Endocrine Surgery Author Type: Physician Type: Operative Report Filed: 01/16/2020 10:58 AM Note Text: [facility] - Operative Report ARABELLA PANTOJA : 1985 AGE: 34. SEX: F PATIENT TYPE: A [facility]: [facility] LOCATION: [facility] ATTENDING PHYSICIAN: Lazaro Watts MD CSN NUMBER: [id number] DATE OF SURGERY/PROCEDURE: 01/13/2020 INCISION/PROCEDURE START TIME: 1305. INCISION CLOSE/PROCEDURE END TIME: Closure dressing applied is 1420. PREOPERATIVE DIAGNOSIS: Right thyroid nodule with inconclusive finding. POSTOPERATIVE DIAGNOSIS: Right thyroid nodule with inconclusive finding. SURGEON: Lazaro Watts MD LAUNDRY TECHNICIAN: Jailyn Waggoner SA. SURGERY/PROCEDURE: Right thyroid lobectomy, isthmusectomy, intraoperative ultrasound. ANESTHESIA: General. OPERATIVE INDICATION: This is a 34-year-old female patient, who had previously undergone two fine-needle aspiration biopsy for the right thyroid nodule, both time came back inconclusive. Therefore, she is being taken to the operating room for a right thyroid lobectomy, isthmusectomy for diagnostic purpose. The indications, alternatives, risks, and benefits of the procedure have been explained to the patient and informed consent was obtained. OPERATIVE FINDING: Intraoperative ultrasound was performed. This demonstrated a thyroid gland that was overall normal in size with fine background echogenicity. A 3 cm hypoechoic nodule was seen in the lower pole of the right thyroid lobe. A subcentimeter spongy form nodule was also seen in the left thyroid lobe. Benign-appearing lymph nodes were seen along the jugular chain bilaterally. A right central neck exploration was performed, the left central neck was not entered. The isthmus was transected early on to facilitate medial and lateral mobilization of the right thyroid lobe. The right central neck was fairly scarred, most likely from her prior fine-needle aspiration biopsy. A right thyroid lobectomy and isthmusectomy were performed in a standard fashion. The right recurrent laryngeal nerve was identified in its normal anatomic pathway. It was traced in its entirety in the tracheoesophageal groove and was protected. It was of small caliber. Both the right-sided parathyroid glands were identified and preserved. There were no abnormal lymph nodes noted during the exploration. The patient tolerated the procedure without any problem. DESCRIPTION OF PROCEDURE: The patient was taken to the operating room and placed supine on the operating table. General anesthesia was achieved. A beanbag support was then used to elevate the thoracic spine, and the neck was gently hyperextended. An [employer] ultrasound machine with a high-frequency linear array small parts transducer was used to perform bilateral neck ultrasound with findings as noted above. The incision was marked at the appropriate location with the aid of the US findings. The neck was prepped and draped in the usual sterile fashion. A low transverse cervical incision was made low in the neck for a total length of 5 cm. This was deepened to the subcutaneous tissue and platysma with electrocautery. An inferior and superior subplatysmal plane was developed, and the thyroid retractor was positioned into place. The midline raphae of the strap muscles was divided from the thyroid cartilage to the sternal notch. The space between the muscles and the thyroid was gently on the right, allowing these muscles to be retracted laterally. The plane was not violated on the left. A right thyroid lobectomy and isthmusectomy was performed in the standard fashion by clearing vasculature above and below the level of the isthmus and gently creating a space below the isthmus. The isthmus was transected at its junction to the left thyroid lobe with the ultrasonic dissector. [employer] and vasculature at the periphery of the thyroid gland were ligated using a combination 3-0 silk ties and the ultrasonic dissector. The middle thyroid vein, capsular branches of the superior thyroid artery, capsular branches of the superior thyroid vein, and inferior thyroid artery and vein were all ligated, allowing the gland to be rotated medially. This allowed identification of the recurrent laryngeal nerve. This was kept in direct view, while ligaments of Henning and parathyroid glands were ligated well away from its path. The remaining attachments between the thyroid isthmus and trachea were divided with electrocautery. The thyroid specimen was then sent to Pathology. The right side of the neck was copiously irrigated, and hemostasis was achieved. The strap muscles were closed at the midline with interrupted 4-0 Vicryl suture. The platysma was similarly approximated. The skin was closed with with a 4-0 Prolene subcuticular suture and sealed with surgical adhesive. The Prolene suture was removed immediately after patient extubation. The patient tolerated the procedure well without any complications. She was transferred to the recovery room in good condition. Attending surgeon, Dr. Watts, was present and scrubbed for the entire procedure. ESTIMATED BLOOD LOSS: Minimal. DRAINS: None. SPECIMEN: Sent to pathology, right thyroid lobe and isthmus. COUNTS: Sponge and instrument counts were correct at the end of procedure. COMPLICATIONS: There was no intraoperative complication. MD ZIA Ballard:[id number] /[id number] cc: [facility] PT EDon 01-13-2020 PT ED HNO ID: [id number] Author: Matt (Rn) AUGUSTINE Guthrie Service: Nursing Author Type: Registered Nurse Type: Patient Education Filed: 01/13/2020 11:18 AM Note Text: PRE OP LEARNING ASSESSMENT PROCEDURE/SURGERY: SURGERY: READINESS TO LEARN COGNITIVE ABILITY: Alert and oriented MOTIVATION TO LEARN: Eager FAMILY SUPPORT: None - Unavailable/disinteres raquel PATIENT LEARNS BEST BY: Individual Instruction FACTORS AFFECTING LEARNING: None PHYSICAL LIMITATIONS AFFECTING LEARNING: None Electronically Signed By: Matt Guthrie RN In Department: [facility] SURGERY Normal [facility] SURGICAL PATHOLOGYon 020 SURGICAL PATHOLOGY Specimen #: [id number] Submitting Physician: LAZARO WATTS MD FINAL DIAGNOSIS Thyroid lobe with isthmus, right, lobectomy and isthmusectomy: Papillary thyroid carcinoma, follicular variant, encapsulated with tumor capsular invasion - Location: Right thyroid lobe - Multifocal: Yes, two foci - Size: 2.8 cm (largest focus), 1.4 cm (smaller focus) - Extrathyroidal extension: Not identified - Lymphatic invasion: Not identified - Angioinvasion: Not identified - Resection margins: Not involved COMMENT Dr. William Randle concurs with the above. SYNOPTIC REPORT OF [facility] PATHOLOGIC FINDINGS RIGHT THYROID LOBE WITH ISTHMUS: Procedure: Right lobectomy with isthmusectomy (hemithyroidectomy) Tumor Focality: Multifocal Tumor Site: Right Lobe Tumor Size: Greatest Dimension: 2.8 cm Histologic Type: Papillary carcinoma, follicular variant, encapsulated/well demarcated, with tumor capsular invasion Margins: Margins uninvolved by carcinoma Angioinvasion (Vascular Invasion): Not identified Lymphatic Invasion: Not identified Extrathyroidal Extension: Not identified Regional lymph nodes: No lymph nodes submitted or found Pathologic Stage Classification (pTNM, AJCC 8th ed) TNM Descriptors: m (multiple primary tumors) Primary Tumor (pT): pT2: Tumor > 2 cm but <= 4 cm in greatest dimension, limited to thyroid Regional Lymph Nodes (pN): pNX: Regional lymph nodes cannot be assessed Distant Metastasis (pM): Not applicable/Not confirmed pathologically in this case Priscila Escamilla M.D. (Electronic Signature) _ SPECIMEN SUBMITTED A: RIGHT THYROID LOBE WITH ISTHMUS CLINICAL DATA RIGHT THYROID NODULE; LOBECTOMY THYROID TOTAL, UNILATERAL; WITH OR WITHOUT ISTHMUSECTOMY - RIGHT GROSS DESCRIPTION A. Received in formalin labeled right thyroid lobe with isthmus is a specimen consisting of a right thyroid lobe with isthmus weighing 31.6 grams. The right lobe measures 6.8 x 3.5 x 3.1 cm. The isthmus measures 1.0 x 1.4 x 2.6 cm. The line of resection is inked green and the remainder of the specimen is inked black. The specimen is serially sectioned from the superior to inferior aspects. Upon sectioning two areas of interest are identified. The first area of interest presents as a white well-circumscribed nodule in the superior portion of the lobe measuring 1.4 x 1.2 x 0.9 cm. It extends to the black-inked capsular surface. The second area of interest is located in the lower to mid portion of the lobe and presents as a pink-white well-circumscribed nodular measuring 2.8 x 2.4 x 2.2 cm. It also extends to the capsular surface. The remainder of the parenchyma is red-garcia. Other dimensions are not identified. Tissue is submitted as follows: A1-A3 nodule at superior aspect totally submitted; A4-A15 capsular surface surrounding nodule and inferior mid portion of lobe totally submitted; A16 banking representative sections of apparent uninvolved parenchyma; A17 banking representative sections of isthmus line of resection. KVHyacinth/antelmo 01/16/2020 [place] [address] Date of Report: 01/20/2020 Date of Procedure: 01/13/2020 Date of Receipt: 01/13/2020 Submitted by: LAZARO AWTTS MD Location: [id number] Diagnostic interpretation performed at [facility], [address] [place] [address]. [place] Number: [id number] [facility] NURSING PROGon 12-30-2019 NURSING PROG HNO ID: [id number] Author: Zeenat (Rn) AUGUSTINE Holland Service: ? Author Type: Registered Nurse Type: Nursing Progress Note Filed: 12/30/2019 9:40 AM Note Text: PACC Nurse Progress Note History AND Physical: PACC Visit Date: 12/28/2019 Original HANDP Date: N/A ED visit Date: N/A Outside HANDP Scanned Date: N/A Labs Within Last 6 Months: CBC: Date 12/28/2019 within normal limits BMP/CMP: Date 12/28/2019 (serum glucose-211)-routed labs to PCP and surgeon. HBA1C: Date 12/28/2019 (8.6) routed labs to PCP and surgeon on 12/30/2019 Other test: Thyroid studies Date: 08/17/2019 see chart OTHER TEST: COVID test ordered, Date scheduled 01/10/2020 check Epic for results Imaging Within Last 12 Months: US-thyroid Date of test: 12/05/2019 See chart Cardiac Testing: N/A Last Menstrual Period: LMP Date: 03/02/2017 Postmenopausal >1yr: Not documented, S/P Hysterectomy: Not documented BMI Percentile (PEDS): N/A Risk Assessment: N/A Anesthesia Review: N/A Narrative: Per HPI: BMI-48.35; PCOS-(polycystic ovarian syndrome); history of remote seizure as a child-no treatment Pre-op Considerations: -DM Chart Check: COMPLETED Zeenat Holland RN December 30, 2019 9:33 AM [facility] HOSPon 12-05-2019 HOSP Patient:Arabella Pantoja MRN: Height:5' 8(1.727 m) Weight:318 lb (144.244 kg) Outpatient Medications as of 01/13/20: pioglitazone (ACTOS) 45 mg tablet glimepiride (AMARYL) 4 mg tablet metFORMIN ER (GLUCOPHAGE XR) 500 mg 24 hr tablet fluconazole (DIFLUCAN) 150 mg tablet etonogestrel (NEXPLANON) subdermal implant 68 mg loratadine (CLARITIN) 10 mg tablet Admission/Clinic Administered Medications as of 01/13/20: scopolamine 1 mg over 3 days 1 Patch (TRANSDERM-SCOP) Problem List: PCOS (polycystic ovarian syndrome) [E28.2] Morbid obesity with BMI of 40.0-44.9, adult (HCC) [E66.01, Z68.41] Type 2 diabetes mellitus without complication, without long-term current use of insulin (HCC) [E11.9] Multiple thyroid nodules [E04.2] Family history of thyroid cancer [Z80.8] History of seizure [Z87.898] Allergies: Seasonal Allergies Vicodin [Hydrocodone-Acetamino phen] Date Verified: 01/13/20 Lab Values Lab Value Units Date High Low POTA* 4.2 mmol/L 12/28/2019 5.1 3.7 ANNEMARIE* 43.8 % 12/28/2019 46.0 36.0 Progress Notes ([facility]): Yan Simon Ma 01/04/2020 8:13 AM Signed Spoke to Arabella Pantoja, confirmed patient is registered on [employer] and has downloaded Zoom Application. Confirmed the patient has updated medications, allergies, and questionnaires via [employer]. Informed patient if provider is not able to connect, provider will call patient. If provider is running late, patient should remain connected to the visit. Patient verbalized understanding. Gavin Arora MD 01/04/2020 8:53 AM Signed This Team Access Model visit is a virtual encounter. It required patient-provider interaction for the medical decision making as documented below. Chief Complaint Patient presents with: Recheck: DM/Meds HPI Arabella Pantoja is a 34 year old female who presents here today for 6 month follow up. DIABETES MELLITUS: Ms. Pantoja was last seen 6 months ago. Since our last visit she denies excessive thirst or increased frequency of urination, numbness, tingling or pain in extremities and new or unusual visual symptoms. Follows a diabetic diet some of the time. She is compliant with medication(s) and is tolerating med(s) without any side effects. Unable to tolerate metformin XR more than daily. She reports checking her glucose on a once a day schedule with sugars in the fasting 170-210 range. Patient's last HgA1C was Hemoglobin A1C (%) Date Value 12/28/2019 8.6 07/06/2019 7.3 ) Last Ophthalmology exam was within the past 12 months Last Podiatry exam was within the past 12 months Patient had repeat thyroid biopsy showing atypia of undetermined significance. Referred to endo surgery Dr. Watts and is to undergo right thyroid lobectomy and isthmusectomy on 01/12. Past medical history, appointments, medications, allergies reviewed. Previous Medical History PAST MEDICAL HISTORY Diagnosis Date - Abnormal LFTs (liver function tests) 12/08/2016 - Acute biliary pancreatitis 08/29/2015 - Acute gastritis 05/07/15 [facility] - Chlamydia 04/04/14 - Chronic cholecystitis with calculus 10/03/2015 - Chronic lower back pain 05/07/15 [facility] - Diabetes mellitus type II, uncontrolled (HCC) 2016 - Fatty liver disease, nonalcoholic - Hyperandrogenemia 04/04/2014 - Morbid obesity (HCC) - Pancreatitis 07/2015 - Papanicolaou smear of cervix with low grade squamous intraepithelial lesion (LGSIL) 06/05/06 cannot rule out hgsil lesion - SEIZURES [id number] CHILDHOOD - Thyroid nodule abnormal FNA right thyroid 2017 Previous Surgical History PAST SURGICAL HISTORY Procedure Laterality Date - COLPOSCOPY W BX CERVIX 07/13/06 chronic cervicitis with no evidence of dysplasia - INCISION EARDRUM,ASPIR,GEN ANESTH 1993,1994 Myringotomy/tubes - LAP CHOLECYSTECT/CHOLANGIO GRAPHY 09-25-15 - REMOVAL OF TONSILS,<12 Y/O 1995 Tonsillectomy - US THYROID BIOPSY 11/2019 [facility] Family History FAMILY HISTORY Problem Relation Age of Onset - Cancer Mother thyroid - Arthritis Maternal Grandmother - Hypertension Maternal Grandmother - Thyroid Maternal Grandmother - Alzheimer's Disease Maternal Grandmother - Diabetes Paternal Grandmother - Breast Cancer Paternal Aunt - Thyroid Maternal Aunt - Cancer Maternal Aunt gastric Patient Allergies ALLERGIES Allergen Reactions - Seasonal Allergies Swelling - Vicodin [Hydrocodon* Rash hives Current Medications Current Outpatient Medications on File Prior to Visit Medication Sig - glimepiride (AMARYL) 4 mg tablet Take 2 tablets by mouth daily with breakfast. - metFORMIN ER (GLUCOPHAGE XR) 500 mg 24 hr tablet Take 2 tablets by mouth daily with dinner. - pioglitazone (ACTOS) 30 mg tablet Take 1 tablet by mouth once daily. - fluconazole (DIFLUCAN) 150 mg tablet 1 tablet every 3 days x 3 doses. Then 1 tablet every week x 6 months. - etonogestrel (NEXPLANON) subdermal implant 68 mg 68 mg by SUBDERMAL route. Implanted 2013 - loratadine (CLARITIN) 10 mg tablet Take 10 mg by mouth as needed. No current facility-administered medications on file prior to visit. Social History Social History Tobacco Use - Smoking status: Former Smoker Years: 1.00 Last attempt to quit: 10/02/2004 Years since quittin.2 - Smokeless tobacco: Never Used Substance Use Topics - Alcohol use: No - Drug use: No Review of Symptoms REVIEW OF SYSTEMS GENERAL: No weight loss, malaise or fevers RESPIRATORY: Negative for cough, hemoptysis, wheezing, COPD, dyspnea or shortness of breath CARDIOVASCULAR: Negative for chest pain, leg swelling, hypertension, CHF or palpitations GI: No nausea, vomiting, or diarrhea SKIN: Negative for lesions, rash, and itching EXAM: LMP 03/02/2017 Temp: 97.6 General Appearance: Well appearing, alert, in no acute distress, well-hydrated, well nourished.. Health Maintenance List DTAP,TDAP,TD(1 - Tdap) due on 2005 URINE ALBUMIN:CREATININE RATIO due on 07/16/2019 INFLUENZA(1) due on 02/14/2020 HBA1C due on 03/29/2020 LDL CHOLESTEROL due on 07/06/2020 DIABETIC FOOT EXAM due on 07/08/2020 ANNUAL PCP TEAM CHRONIC DISEASE VISIT due on 07/08/2020 DILATED RETINAL EXAM due on 10/27/2020 PAP TESTING due on 03/12/2022 HPV TESTING due on 03/12/2022 ONE PNEUMOVAX PRIOR TO AGE 65 Completed HEPATITIS C SCREENING Completed HIV SCREENING Completed Data reviewed Component Latest Ref Rng AND Units 07/06/2019 08/17/2019 11/23/2019 12/28/2019 WBC 3.70 - 11.00 k/uL 7.39 6.69 RBC 3.90 - 5.20 m/uL 4.52 4.77 Hemoglobin 11.5 - 15.5 g/dL 13.8 14.3 Hematocrit 36.0 - 46.0 % 42.1 43.8 MCV 80.0 - 100.0 fL 93.1 91.8 MCH 26.0 - 34.0 pG 30.5 30.0 MCHC 30.5 - 36.0 g/dL 32.8 32.6 RDW-CV 11.5 - 15.0 % 11.9 11.8 Platelet Count 150 - 400 k/uL 338 342 MPV 9.0 - 12.7 fL 11.8 10.8 Neut% % 52.3 Abs Neut (ANC) 1.45 - 7.50 k/uL 3.49 Lymph% % 36.0 Abs Lymph 1.00 - 4.00 k/uL 2.41 Bullock% % 8.4 Abs Bullock <0.87 k/uL 0.56 Eosin% % 2.4 Abs Eosin <0.46 k/uL 0.16 Baso% % 0.9 Abs Baso <0.11 k/uL 0.06 Nucleated Reds 0 /100 WBC 0.0 Absolute nRBC <0.01 k/uL <0.01 <0.01 Diff Type Auto Diff Protein, Total 6.3 - 8.0 g/dL 7.4 Albumin 3.9 - 4.9 g/dL 4.2 Calcium 8.5 - 10.2 mg/dL 9.4 9.2 Bilirubin, Total 0.2 - 1.3 mg/dL 0.8 Alkaline Phosphatase 34 - 123 U/L 66 AST 13 - 35 U/L 33 Glucose 74 - 99 mg/dL 145 (H) 211 (H) BUN 7 - 21 mg/dL 10 11 Creatinine 0.58 - 0.96 mg/dL 0.80 0.71 Sodium 136 - 144 mmol/L 137 137 Potassium 3.7 - 5.1 mmol/L 4.0 4.2 Chloride 97 - 105 mmol/L 103 102 CO2 22 - 30 mmol/L 25 26 Anion Gap 9 - 18 mmol/L 9 9 ALT 7 - 38 U/L 34 eGFR- >60 >60 eGFR-All Other Races . >60 >60 Cholesterol, Total <200 mg/dL 167 Triglyceride <150 mg/dL 111 HDL Cholesterol >39 mg/dL 36 (L) LDL Cholesterol <100 mg/dL 109 (H) Non HDL Cholesterol <130 mg/dL 131 (H) Fasting Time hrs 14 VLDL Cholesterol <30 mg/dL 22 TC:HDL Ratio <5.10 4.64 LDL:HDL Ratio <2.54 3.03 (H) Hemoglobin A1C 4.3 - 5.6 % 7.3 (H) 8.6 (H) Estimated Average Glucose mg/dL 163 200 TSH 0.270 - 4.200 uU/mL 1.040 Free T4 0.9 - 1.7 ng/dL 1.3 Photographic Equipment Mechanic Specimen originated from [facility] . . . ASSESSMENT/PLAN: 1. Type 2 diabetes mellitus without complication, without long-term current use of insulin (HCC) - ICD9: 250.00, ICD10: E11.9 (primary diagnosis) worsening control - Increase pioglitazone (Actos) - Blood glucose monitoring on a once a day schedule - Encouraged regular aerobic exercise and weight loss - Daily Asprin therapy recommended - Follow up in 3 months, sooner should any other issues arise. - Discussed diabetic education issues of watcher automat long goods diabetic complications, hypoglycemic symptoms, hyperglycemic symptoms, diet, medications- side effects and need for compliance and importance of exercise with patient. - To call in 2 weeks if fasting glucose not improved to <126 with med increase, diet, and exercise. - PIOGLITAZONE 45 MG TABLET - HGB A1C - ALBUMIN/CREAT RATIO RND UR 2. Multiple thyroid nodules - ICD9: 241.1, ICD10: E04.2 F/u with right thyroidectomy next week as scheduled. I spent 10 minutes in the visit, with more than 50% of the total nacv-da-tauy time of the visit in counseling / coordination of care. Gavin Arora MD Progress Notes ([facility]): Indigo Rausch LPN 12/23/2019 2:41 PM Signed Patient has been identified by name and date of : Yes Pending Prescriptions Disp Refills GLIMEPIRIDE 4 MG TABLET 90 tablet 1 Sig: Take 2 tablets by mouth daily with breakfast. NATALIA: No METFORMIN ER 500 MG TABLET,EXTENDED RELEASE 24 HR 180 tablet 1 Sig: Take 2 tablets by mouth daily with dinner. NATALIA: No RX INSTRUCTIONS: MyChart request. Indigo Shah MD 12/23/2019 3:24 PM Signed Patient needs to make routine f/u with PCP or [facility]. The following approved medication requests have been transmitted electronically. Signed Prescriptions Disp Refills glimepiride (AMARYL) 4 mg tablet 180 tablet 0 Sig: Take 2 tablets by mouth daily with breakfast. NATALIA: No Authorizing Provider: JEREMI SHAH metFORMIN ER (GLUCOPHAGE XR) 500 mg 24 hr tablet 180 tablet 0 Sig: Take 2 tablets by mouth daily with dinner. NATALIA: No Authorizing Provider: JEREMI SHAH MD Elizabeth Merillat Ma 12/23/2019 3:52 PM Signed Appointment made Brenda Gordillo Ma [facility] ALLIED HEALTHon 11-23-2019 ALLIED HEALTH HNO ID: [id number] Author: BRYN Shaffer (Ct) Service: ? Author Type: Clinical Musculoskeletal Physiotherapist Type: Allied Health Filed: 11/23/2019 2:10 PM Note Text: Radiology Service Progress Note PATIENT NAME: Arabella Pantoja DATE OF SERVICE: November 23, 2019 TIME: 2:09 PM PATIENT IDENTITY VERIFICATION COMPLETED USING TWO (2) IDENTIFIERS: Name and Date of confirmed by patient verbally. FALL SCREENING: Has the patient had 2 falls in the last year or 1 fall with injury or currently using an Ambulatory Assistive Device (Walker, Cane, Wheelchair, Crutches, etc.)? No PATIENT GENDER DATA: Female. status: : No status: NO. PATIENT RELEVANT IMPLANT DATA REVIEWED: Yes RADIOLOGY DEPARTMENT: Ultrasound PERIPHERAL IV DATA: Not applicable SIGNED BY: BRYN Shaffre November 23, 2019 2:[address] [facility] CYTOLOGYon 11-23-2019 CYTOLOGY Specimen originated from [facility] Specimen #: [id number] Submitting Physician: LEONCIO LECHUGA M.D. SPECIMEN SUBMITTED A: THYROID, RIGHT LOBE, FINE NEEDLE ASPIRATE (THINPREP AND CELL BLOCK) _ FINAL DIAGNOSIS A. THYROID, RIGHT LOBE, FINE NEEDLE ASPIRATE (THINPREP AND CELL BLOCK) Atypia of undetermined significance. Cytologic (nuclear) atypia is present. Clif Jimenez M.D. (Electronic Signature) _ CLINICAL DATA Right thyroid nodule previous FNA was non diagnostic GROSS DESCRIPTION 30cc clear, pink CytoLyt with particles STAINS A: THYROID, RIGHT LOBE, FINE NEEDLE ASPIRATE (THINPREP AND CELL BLOCK) THIN PREP Non-Dance Historian, CELL BLOCK, H&E, Initial Date of Report: 11/25/2019 Date of Procedure: 11/23/2019 Date of Receipt: 11/23/2019 Submitted by: LEONCIO LECHUGA M.D. Location: [facility] Diagnostic interpretation performed at [facility], [address] [place] [address]. [place] Number: [id number] [facility] US BIOPSY THYROIDon 11-23-19 20 US BIOPSY THYROID * * *Final Report* * * DATE OF EXAM: Nov 23 2019 2:02PM KELBY [id number] - US BIOPSY THYROID / PROCEDURE REASON: thryoid fna * * * * Physician Interpretation * * * * TECHNIQUE: US BIOPSY THYROID COMPARISON: 08/17/2019 CLINICAL INDICATION: Previous FNA of a nodule in the right lobe of the thyroid was nondiagnostic PROCEDURE NOTE: After written informed consent for the procedure was obtained, the patient was placed in a supine position on the ultrasound table and the procedure site was localized with ultrasound. After appropriate cleansing and draping, local lidocaine anesthesia was administered and using multiple 25-gauge needles and ultrasound guidance FNAs of a nodule in the right lobe of the thyroid were performed. Pressure was held on the procedure site at the conclusion of the procedure. There were no immediate complications from the procedure. Patient tolerated the procedure well. IMPRESSION: 1. FNA of a nodule in the right lobe of the thyroid. Aerial Planting And Cultivation Manager: PSCB Transcribe Date/Time: Nov 23 2019 2:07P Dictated by : LEONCIO LECHUGA MD This examination was interpreted and the report reviewed and electronically signed by: LEONCIO LECHUGA MD on Nov 23 2019 2:11PM EST [id number] [facility] Vital Signs Date Time Vital Sign Value Performing Clinician [place] 11-21-2024 07:33-0400 Body mass index (BMI) [Ratio] 49.45 kg/m2 Yuliana Jeffrey APRN.CNP Work Phone: [facility] 11-21-2024 07:33-0400 Body weight 148 kg Yuliana Jeffrey APRN.CNP Work Phone: [facility] 11-21-2024 07:33-0400 Diastolic blood pressure 82 mm[Hg] Yuliana Jeffrey APRN.GROOMING ASSISTANT Work Phone: [facility] 11-21-2024 07:33-0400 Heart rate 106 /min Yuliana Jeffrey APRN.GROOMING ASSISTANT Work Phone: [facility] 11-21-2024 07:33-0400 Systolic blood pressure 114 mm[Hg] Yuliana Jeffrey APRN.GROOMING ASSISTANT Work Phone: [facility] 09-11-2024 10:07-0400 Body mass index (BMI) [Ratio] 46.74 kg/m2 Jeremi Montilla APRN.GROOMING ASSISTANT Work Phone: [facility] 09-11-2024 10:07-0400 Body temperature 97.11 [degF] Jeremi Montilla APRN.GROOMING ASSISTANT Work Phone: [facility] 09-11-2024 10:07-0400 Body weight 139.9 kg Jeremi Montilla APRN.GROOMING ASSISTANT Work Phone: [facility] 09-11-2024 10:07-0400 Diastolic blood pressure 72 mm[Hg] Jeremi Montilla APRN.GROOMING ASSISTANT Work Phone: [facility] 09-11-2024 10:07-0400 Heart rate 96 /min Jeremi Montilla APRN.GROOMING ASSISTANT Work Phone: [facility] 09-11-2024 10:07-0400 Respiratory rate 18 /min Jeremi Montilla APRN.GROOMING ASSISTANT Work Phone: [facility] 09-11-2024 10:07-0400 SaO2% (BldA) [Mass fraction] 97 % Jeremi Montilla APRN.GROOMING ASSISTANT Work Phone: [facility] 09-11-2024 10:07-0400 Systolic blood pressure 118 mm[Hg] Jeremi Montilla APRN.GROOMING ASSISTANT Work Phone: [facility] 07-19-2024 08:18-0500 Body mass index (BMI) [Ratio] 47.45 kg/m2 Prema Mullins APRN.GROOMING ASSISTANT Work Phone: [facility] 07-19-2024 08:18-0500 Body temperature 97.11 [degF] Prema Mullins APRN.GROOMING ASSISTANT Work Phone: [facility] 07-19-2024 08:18-0500 Body weight 142 kg Prema Mullins APRN.GROOMING ASSISTANT Work Phone: [facility] 07-19-2024 08:18-0500 Diastolic blood pressure 78 mm[Hg] Prema Mullins APRN.GROOMING ASSISTANT Work Phone: [facility] 07-19-2024 08:18-0500 Heart rate 84 /min Prema Mullins APRN.GROOMING ASSISTANT Work Phone: [facility] 07-19-2024 08:18-0500 Respiratory rate 18 /min Prema Mullins APRN.GROOMING ASSISTANT Work Phone: [facility] 07-19-2024 08:18-0500 SaO2% (BldA) [Mass fraction] 98 % Prema Mullins APRN.GROOMING ASSISTANT Work Phone: [facility] 07-19-2024 08:18-0500 Systolic blood pressure 128 mm[Hg] Prema Mullins APRN.GROOMING ASSISTANT Work Phone: [facility] 06-06-2024 07:14-0500 Body mass index (BMI) [Ratio] 47.91 kg/m2 Thiago Athy PA-C Work Phone: [facility] 06-06-2024 07:14-0500 Body temperature 97.39 [degF] Thiago Athy PA-C Work Phone: [facility] 06-06-2024 07:14-0500 Body weight 143.4 kg Thiago Athy PA-C Work Phone: [facility] 06-06-2024 07:14-0500 Diastolic blood pressure 84 mm[Hg] Thiago Athy PA-C Work Phone: [facility] 06-06-2024 07:14-0500 Heart rate 106 /min Thiago Athy PA-C Work Phone: [facility] 06-06-2024 07:14-0500 Respiratory rate 18 /min Thiago Athy PA-C Work Phone: [facility] 06-06-2024 07:14-0500 SaO2% (BldA) [Mass fraction] 96 % Thiago Athy PA-C Work Phone: [facility] 06-06-2024 07:14-0500 Systolic blood pressure 126 mm[Hg] Thiago Athy PA-C Work Phone: [facility] 04-18-2024 07:35-0500 Body mass index (BMI) [Ratio] 45.62 kg/m2 Yuliana Jeffrey APRN.GROOMING ASSISTANT Work Phone: [facility] 04-18-2024 07:35-0500 Body weight 136.53 kg Yuliana Jeffrey APRN.GROOMING ASSISTANT Work Phone: [facility] 04-18-2024 07:35-0500 Diastolic blood pressure 85 mm[Hg] Yuliana Jeffrey APRN.GROOMING ASSISTANT Work Phone: [facility] 04-18-2024 07:35-0500 Heart rate 91 /min Yuliana Jeffrey APRN.GROOMING ASSISTANT Work Phone: [facility] 04-18-2024 07:35-0500 Respiratory rate 16 /min Yuliana Jeffrey APRN.GROOMING ASSISTANT Work Phone: [facility] 04-18-2024 07:35-0500 Systolic blood pressure 116 mm[Hg] Yuliana Jeffrey APRN.GROOMING ASSISTANT Work Phone: [facility] 02-19-2024 09:09-0400 Body mass index (BMI) [Ratio] 46.38 kg/m2 Yuliana Jeffrey APRN.GROOMING ASSISTANT Work Phone: [facility] 02-19-2024 09:09-0400 Body weight 138.8 kg Yuliana Jeffrey APRN.GROOMING ASSISTANT Work Phone: [facility] 02-19-2024 09:09-0400 Diastolic blood pressure 71 mm[Hg] Yuliana Jeffrye CHUTE TENDER.GROOMING ASSISTANT Work Phone: [facility] 02-19-2024 09:09-0400 Heart rate 99 /min Yuliana Jeffrey CHUTE TENDER.GROOMING ASSISTANT Work Phone: [facility] 02-19-2024 09:09-0400 Respiratory rate 14 /min Yuliana Jeffrey CHUTE TENDER.GROOMING ASSISTANT Work Phone: [facility] 02-19-2024 09:09-0400 Systolic blood pressure 103 mm[Hg] Yuliana Jeffrey CHUTE TENDER.GROOMING ASSISTANT Work Phone: [facility] 08-20-2023 08:38-0500 Body temperature 97.39 [degF] Krislyn Aberegg PA Work Phone: [facility] 08-20-2023 08:38-0500 Body weight 150.41 kg Krislyn Aberegg PA Work Phone: [facility] 08-20-2023 08:38-0500 Diastolic blood pressure 81 mm[Hg] Krislyn Aberegg PA Work Phone: [facility] 08-20-2023 08:38-0500 Heart rate 101 /min Krislyn Aberegg PA Work Phone: [facility] 08-20-2023 08:38-0500 Respiratory rate 18 /min Krislyn Aberegg PA Work Phone: [facility] 08-20-2023 08:38-0500 SaO2% (BldA) [Mass fraction] 95 % Krislyn Aberegg PA Work Phone: [facility] 08-20-2023 08:38-0500 Systolic blood pressure 115 mm[Hg] Krislyn Aberegg PA Work Phone: [facility] 08-13-2023 08:08-0500 Body weight 150.14 kg Yuliana Jeffrey CHUTE TENDER.GROOMING ASSISTANT Work Phone: [facility] 08-13-2023 08:08-0500 Diastolic blood pressure 84 mm[Hg] Yuliana Knoble CHUTE TENDER.GROOMING ASSISTANT Work Phone: [facility] 08-13-2023 08:08-0500 Respiratory rate 14 /min Yuliana Steveoble CHUTE TENDER.GROOMING ASSISTANT Work Phone: [facility] 08-13-2023 08:08-0500 Systolic blood pressure 141 mm[Hg] Yuliana Knoble CHUTE TENDER.GROOMING ASSISTANT Work Phone: [facility] 01-15-2023 17:58-0400 Body weight 156.49 kg Yuliana Steveoble CHUTE TENDER.GROOMING ASSISTANT Work Phone: [facility] 01-15-2023 17:58-0400 Diastolic blood pressure 80 mm[Hg] Yuliana Knoble CHUTE TENDER.GROOMING ASSISTANT Work Phone: [facility] 01-15-2023 17:58-0400 Heart rate 130 /min Yuliana Knoble CHUTE TENDER.GROOMING ASSISTANT Work Phone: [facility] 01-15-2023 17:58-0400 Respiratory rate 18 /min Yuliana Steveoble CHUTE TENDER.GROOMING ASSISTANT Work Phone: [facility] 01-15-2023 17:58-0400 Systolic blood pressure 130 mm[Hg] Yuliana Knoble CHUTE TENDER.GROOMING ASSISTANT Work Phone: [facility] 08-29-2022 16:46-0400 Body temperature 97.7 [degF] Soraida Jean-Paul CHUTE TENDER.GROOMING ASSISTANT Work Phone: [facility] 08-29-2022 16:46-0400 Body weight 157.03 kg Soraida Jean-Paul CHUTE TENDER.GROOMING ASSISTANT Work Phone: [facility] 08-29-2022 16:46-0400 Diastolic blood pressure 88 mm[Hg] Soraida Jean-Paul CHUTE TENDER.GROOMING ASSISTANT Work Phone: [facility] 08-29-2022 16:46-0400 Heart rate 104 /min Soraida Jean-Paul CHUTE TENDER.GROOMING ASSISTANT Work Phone: [facility] 08-29-2022 16:46-0400 Respiratory rate 20 /min Soraida Jean-Paul CHUTE TENDER.GROOMING ASSISTANT Work Phone: [facility] 08-29-2022 16:46-0400 SaO2% (BldA) [Mass fraction] 99 % Soraida Soriak CHUTE TENDER.GROOMING ASSISTANT Work Phone: [facility] 08-29-2022 16:46-0400 Systolic blood pressure 132 mm[Hg] Soraida Jean-Paul CHUTE TENDER.GROOMING ASSISTANT Work Phone: [facility] 06-25-2022 18:07-0500 Body weight 152.14 kg Cristal Podlogar CHUTE TENDER.GROOMING ASSISTANT Work Phone: [facility] 06-25-2022 18:07-0500 Diastolic blood pressure 88 mm[Hg] Cristal Podlogar CHUTE TENDER.GROOMING ASSISTANT Work Phone: [facility] 06-25-2022 18:07-0500 Heart rate 97 /min Cristal Podlogar CHUTE TENDER.GROOMING ASSISTANT Work Phone: [facility] 06-25-2022 18:07-0500 Respiratory rate 20 /min Cristal Podlogar CHUTE TENDER.GROOMING ASSISTANT Work Phone: [facility] 06-25-2022 18:07-0500 SaO2% (BldA) [Mass fraction] 99 % Cristal Podlogar CHUTE TENDER.GROOMING ASSISTANT Work Phone: [facility] 06-25-2022 18:07-0500 Systolic blood pressure 118 mm[Hg] Cristal Podlogar CHUTE TENDER.GROOMING ASSISTANT Work Phone: [facility] 05-21-2022 18:18-0500 Body weight 154.4 kg Sumi Pa CHUTE TENDER.GROOMING ASSISTANT Work Phone: [facility] 05-21-2022 18:18-0500 Diastolic blood pressure 84 mm[Hg] Sumi Zurawick CHUTE TENDER.GROOMING ASSISTANT Work Phone: [facility] 05-21-2022 18:18-0500 Heart rate 72 /min Sumi Zurbarronck CHUTE TENDER.GROOMING ASSISTANT Work Phone: [facility] 05-21-2022 18:18-0500 Respiratory rate 16 /min Sumi Zurawick CHUTE TENDER.GROOMING ASSISTANT Work Phone: [facility] 05-21-2022 18:18-0500 Systolic blood pressure 120 mm[Hg] Sumi Zurawick CHUTE TENDER.GROOMING ASSISTANT Work Phone: [facility] 04-17-2022 13:20-0400 Body height 173 cm Sumi Zurawick CHUTE TENDER.GROOMING ASSISTANT Work Phone: [facility] 04-17-2022 13:20-0400 Body weight 156.94 kg Sumi Zurawick CHUTE TENDER.GROOMING ASSISTANT Work Phone: [facility] 04-17-2022 13:20-0400 Diastolic blood pressure 80 mm[Hg] Sumi Zurawick CHUTE TENDER.GROOMING ASSISTANT Work Phone: [facility] 04-17-2022 13:20-0400 Heart rate 88 /min Sumi Zurawick CHUTE TENDER.GROOMING ASSISTANT Work Phone: [facility] 04-17-2022 13:20-0400 Respiratory rate 16 /min Sumi Zurawick CHUTE TENDER.GROOMING ASSISTANT Work Phone: [facility] 04-17-2022 13:20-0400 Systolic blood pressure 138 mm[Hg] Sumi Zurawick CHUTE TENDER.GROOMING ASSISTANT Work Phone: [facility] 10-30-2021 15:59-0400 Body temperature 98.6 [degF] Gavin Arora MD Work Phone: [facility] 10-30-2021 15:59-0400 Body weight 147.87 kg Gavin Arora MD Work Phone: [facility] 10-30-2021 15:59-0400 Diastolic blood pressure 82 mm[Hg] Gavin Arora MD Work Phone: [facility] 10-30-2021 15:59-0400 Heart rate 97 /min Gavin Arora MD Work Phone: [facility] 10-30-2021 15:59-0400 Respiratory rate 18 /min Gavin Arora MD Work Phone: [facility] 10-30-2021 15:59-0400 SaO2% (BldA) [Mass fraction] 98 % Gavin Arora MD Work Phone: [facility] 10-30-2021 15:59-0400 Systolic blood pressure 104 mm[Hg] Gavin Arora MD Work Phone: [facility] Encounters Encounter Date Encounter Type Care Provider Facility Start: 04-09-2025 End: 04-09-2025 ambulatory YULIANA JEFFREY Facility:[facility] Start: 03-23-2025 End: 03-23-2025 ambulatory YULIANA JEFFREY Facility:[facility] Start: 03-23-2025 Encounter for genera l adult medical examination without abnormal findings YULIANA JEFFREY [facility] Start: 03-02-2025 End: 03-02-2025 ambulatory YULIANA JEFFREY Facility:[facility] Start: 02-21-2025 End: 02-24-2025 ambulatory Yuliana Jeffrey APRN.GROOMING ASSISTANT Work Phone: Internal Medicine [place] [id number] Start: 02-05-2025 End: 02-09-2025 Refill Cristal August APRN.GROOMING ASSISTANT Work Phone: [facility] [place] Comment on above: Refill Request Start: 12-19-2024 End: 12-20-2024 Refill Yuliana Jeffrey APRN.GROOMING ASSISTANT Work Phone: [facility] [place] Comment on above: Refill Request Start: 12-05-2024 End: 12-05-2024 Follow-up encounter Yuliana Jeffrey APRN.GROOMING ASSISTANT Work Phone: [facility] [place] Start: 12-02-2024 End: 12-02-2024 ambulatory YULIANA JEFFREY Facility:[facility] Start: 11-22-2024 End: 11-23-2024 Telephone encounter Gavin Arora MD Work Phone: [facility] [place] Comment on above: Insurance Authorizat ion Start: 11-21-2024 End: 11-21-2024 Patient encounter procedure Yuliana Jeffrey APRN.GROOMING ASSISTANT Work Phone: [facility] [place] Comment on above: Type 2 diabetes jake itus without complication, without long- term current use of insulin (HCC) (Primary Dx) Start: 11-21-2024 End: 11-21-2024 ambulatory YULIANA JEFFREY Facility:[facility] Start: 10-23-2024 End: 10-24-2024 Refill Gavni Arora MD Work Phone: Family [facility] [place] Comment on above: Refill Request Start: 09-18-2024 End: 09-19-2024 Refill Gavin Arora MD Work Phone: Family [facility] [place] Comment on above: Refill Request Start: 09-16-2024 End: 09-19-2024 ambulatory Yuliana Jeffrey APRN.GROOMING ASSISTANT Work Phone: Family [facility] [place] Comment on above: Medication change Start: 09-12-2024 End: 09-12-2024 Follow-up encounter Heather CABELLO Work Phone: [facility] Comment on above: Results Start: 09-11-2024 End: 09-13-2024 Patient encounter procedure Yuliana Jeffrey APRN.GROOMING ASSISTANT Work Phone: [facility] [place] Comment on above: Appointment Start: 09-11-2024 End: 09-13-2024 ambulatory Yuliana Jeffrey APRN.GROOMING ASSISTANT Work Phone: [facility] [place] Start: 09-11-2024 End: 09-11-2024 Office outpatient visit 25 minutes Jeremi Montilla APRN.GROOMING ASSISTANT Work Phone: [facility] Comment on above: Frequency of urinati on (Primary Dx) Start: 07-20-2024 End: 07-23-2024 Telephone encounter Prema Mullins APRN.GROOMING ASSISTANT Work Phone: [facility] Comment on above: Results Start: 07-19-2024 End: 07-19-2024 ambulatory GAVIN ARORA Facility:[facility] Start: 07-19-2024 End: 02-04-2025 Patient encounter procedure Prema Mullins APRN.GROOMING ASSISTANT Work Phone: [facility] Comment on above: Urinary frequency (P rimary Dx) Start: 06-29-2024 End: 06-30-2024 Refill Gavin Arora MD Work Phone: [facility] [place] Comment on above: Refill Request Start: 06-06-2024 End: 06-06-2024 ambulatory GAVIN ARORA Facility:[facility] Start: 06-06-2024 End: 06-06-2024 Patient encounter procedure Thiago Bateman PA-C Work Phone: [facility] Comment on above: Sore throat (Primary Dx) Start: 05-29-2024 End: 05-30-2024 Refill Yuliana Jeffrey APRN.GROOMING ASSISTANT Work Phone: [facility] [place] Comment on above: Refill Request Start: 05-16-2024 End: 05-16-2024 Refill Yuliana Jeffrey APRN.GROOMING ASSISTANT Work Phone: [facility] Comment on above: Refill Request Start: 05-10-2024 End: 05-11-2024 Refill Yuliana Jeffrey APRN.GROOMING ASSISTANT Work Phone: [facility] [place] Comment on above: Refill Request Start: 04-22-2024 End: 04-25-2024 ambulatory Yuliana Jeffrey APRN.GROOMING ASSISTANT Work Phone: [facility] [place] Comment on above: Mounjaro Start: 04-19-2024 End: 04-19-2024 Telephone encounter Yuliana Jeffrey APRN.GROOMING ASSISTANT Work Phone: [facility] [place] Comment on above: Results Start: 04-18-2024 End: 04-18-2024 Patient encounter procedure Yuliana Jeffrey APRN.GROOMING ASSISTANT Work Phone: [facility] [place] Comment on above: Type 2 diabetes jake itus without complication, without long- term current use of insulin (HCC) (Primary Dx); Gastroesophageal reflux disease without esophagitis; Fatigue, unspecified type; Vitamin D deficiency; Bacterial sinusitis Start: 04-18-2024 End: 04-18-2024 ambulatory YULIANA JEFFREY Facility:[facility] Start: 03-17-2024 End: 03-18-2024 Refill Gavin Arora MD Work Phone: [facility] [place] Comment on above: Refill Request Start: 03-08-2024 End: 03-08-2024 Refill Gavin Arora MD Work Phone: [facility] [place] Comment on above: Refill Request Start: 03-03-2024 End: 03-07-2024 ambulatory Yuliana Jeffrey CHUTE TENDER.GROOMING ASSISTANT Work Phone: [facility] [place] Comment on above: Monjaro Start: 02-22-2024 End: 02-22-2024 Telephone encounter Yuliana Jeffrey APRN.GROOMING ASSISTANT Work Phone: [facility] [place] Comment on above: Results Start: 02-19-2024 End: 02-19-2024 Patient encounter procedure Yuliana Jeffrey APRN.GROOMING ASSISTANT Work Phone: [facility] [place] Comment on above: Urinary tract infect ion with hematuria, site unspecified (Primary Dx) Start: 12-03-2023 ambulatory Yuliana lloyd APRN.GROOMING ASSISTANT Work Phone: [facility] [place] Comment on above: Monjaro Start: 10-31-2023 Refill Cristal August APRN.GROOMING ASSISTANT Work Phone: [facility] [place] Comment on above: Refill Request Start: 09-17-2023 ambulatory Yuliana lloyd APRN.GROOMING ASSISTANT Work Phone: [facility] [place] Comment on above: Monjaro Start: 08-20-2023 End: 08-20-2023 Patient encounter procedure Heather CABELLO Work Phone: [facility] Comment on above: Urinary tract infect ion with hematuria, site unspecified (Primary Dx); Urgency of urination Start: 08-13-2023 Telephone encounter Yuliana hawkins CHUTE TENDER.GROOMING ASSISTANT Work Phone: [facility] [place] Comment on above: Results Start: 08-13-2023 End: 08-13-2023 Patient encounter procedure Yuliana Jeffrey CHUTE TENDER.GROOMING ASSISTANT Work Phone: [facility] [place] Comment on above: Type 2 diabetes jake itus without complication, without long- term current use of insulin (HCC) (Primary Dx) Start: 07-17-2023 Refill Gavin Arora MD Work Phone: Family [facility] [place] Comment on above: Refill Request; Refi ll Request Start: 02-23-2023 Refill Gavin Arora MD Work Phone: [facility] [place] Comment on above: Refill Request Start: 01-29-2023 ambulatory Yuliana lloyd CHUTE TENDER.GROOMING ASSISTANT Work Phone: [facility] [place] Comment on above: UTI Start: 01-19-2023 Telephone encounter Yuliana hawkins CHUTE TENDER.GROOMING ASSISTANT Work Phone: [facility] [place] Comment on above: Results Start: 01-15-2023 End: 01-15-2023 Patient encounter procedure Yuliana Jeffrey CHUTE TENDER.GROOMING ASSISTANT Work Phone: [facility] [place] Comment on above: Urinary tract infect ion with hematuria, site unspecified (Primary Dx); Type 2 diabetes mellitus without complication, without long-term current use of insulin (HCC) Start: 01-12-2023 Telephone encounter Justin Arora MD Work Phone: [facility] [place] Comment on above: Results Start: 12-29-2022 Refill Sumi Worthy APRN.GROOMING ASSISTANT Work Phone: [facility] Medicine [place] Comment on above: Refill Request Start: 11-26-2022 Telephone encounter Justin Arora MD Work Phone: [facility] [place] Comment on above: Labs ordered Start: 11-05-2022 Refill Cristal August CHUTE TENDER.GROOMING ASSISTANT Work Phone: Family [facility] [place] Comment on above: Refill Request Start: 09-24-2022 Telephone encounter Justin Arora MD Work Phone: [facility] [place] Comment on above: Insurance Authorizat ion Start: 09-12-2022 End: 09-12-2022 ambulatory Sumi Worthy CHUTE TENDER.GROOMING ASSISTANT Work Phone: [facility] [place] Comment on above: Obesity, morbid, BMI 50 or higher (HCC) (Primary Dx); Type 2 diabetes mellitus without complication, without long-term current use of insulin (HCC); Hyperlipidemia, unspecified hyperlipidemia type Start: 09-12-2022 End: 09-12-2022 Telemedicine consultation with patient Sumi Worthy APRN.GROOMING ASSISTANT Work Phone: [facility] [place] Start: 08-29-2022 End: 08-29-2022 Patient encounter procedure Soraida Jeong CHUTE TENDER.GROOMING ASSISTANT Work Phone: [facility] Comment on above: Pain, dental (Primar y Dx) Start: 06-25-2022 End: 06-25-2022 Patient encounter procedure Cristal August CHUTE TENDER.GROOMING ASSISTANT Work Phone: [facility] [place] Comment on above: Obesity, Class III, BMI 40-49.9 (morbid obesity) (HCC) (Primary Dx); Type 2 diabetes mellitus without complication, without long-term current use of insulin (HCC) Start: 05-21-2022 End: 05-21-2022 Patient encounter procedure Sumi Talbotsergio CHUTE TENDER.GROOMING ASSISTANT Work Phone: [facility] [place] Comment on above: Obesity, Class III, BMI 40-49.9 (morbid obesity) (HCC) (Primary Dx); MELVIN (generalized anxiety disorder); Acute cough; Nasal congestion Start: 04-17-2022 End: 04-17-2022 Patient encounter procedure Sumi Talbotsergio CHUTE TENDER.GROOMING ASSISTANT Work Phone: [facility] [place] Comment on above: Wellness examination (Primary Dx); Obesity, Class III, BMI 40-49.9 (morbid obesity) (HCC); History of thyroid cancer; Post-surgical hypothyroidism; MELVIN (generalized anxiety disorder); Type 2 diabetes mellitus without complication, without long-term current use of insulin (HCC); CHUY (obstructive sleep apnea); Morbid obesity with BMI of 40.0-44.9, adult (HCC); Vitamin D deficiency; Anxiety with depression; Poor sleep Start: 04-17-2022 End: 04-17-2022 Patient encounter status Sumi Winn CHUTE TENDER.GROOMING ASSISTANT Work Phone: [facility] Start: 04-16-2022 ambulatory Gavin Arora MD Work Phone: [facility] Comment on above: Paper Start: 03-19-2022 Refill Gavin Arora MD Work Phone: [facility] Comment on above: Refill Request Start: 02-27-2022 Refill Cristal August CHUTE TENDER.GROOMING ASSISTANT Work Phone: [facility] Comment on above: Refill Request Start: 11-25-2021 End: 11-25-2021 Subsequent hospital visit by physician Us Fish A21 5 Work Phone: Radiology Comment on above: Post-surgical hypoth yroidism [E89.0] Start: 11-22-2021 Telephone encounter Justin Arora MD Work Phone: [facility] Comment on above: Orders Start: 10-30-2021 End: 10-30-2021 Patient encounter procedure Gavin Arora MD Work Phone: [facility] Comment on above: Type 2 diabetes jake itus without complication, without long- term current use of insulin (HCC) (Primary Dx); CHUY (obstructive sleep apnea); Post-surgical hypothyroidism; History of thyroid cancer; MELVIN (generalized anxiety disorder); Morbid obesity with BMI of 40.0-44.9, adult (HCC) Start: 09-30-2021 Refill Gavin Arora MD Work Phone: [facility] Comment on above: Refill Request Start: 11-25-2016 End: 11-25-2016 Emergency department patient visit Remus Ungur Facility:[facility] Procedures Date Procedure Procedure Detail Performing Clinician Start: 09-11-2024 Urnls dip stick/tabl et rgnt auto w/o microscopy Jeremi Montilla CHUTE TENDER.GROOMING ASSISTANT Work Phone: Start: 07-19-2024 Urnls dip stick/tabl et rgnt auto w/o microscopy Prema Mullins APRN.GROOMING ASSISTANT Work Phone: Start: 06-06-2024 STREP Laron MOLECULAR (POC) Prema Mullins APRN.GROOMING ASSISTANT Work Phone: Start: 08-20-2023 Urnls dip stick/tabl et rgnt auto w/o microscopy Heather CABELLO Work Phone: Start: 01-15-2023 Urnls dip stick/tabl et rgnt auto w/o microscopy Yuliana Jeffrey APRN.GROOMING ASSISTANT Work Phone: Start: 11-25-2021 soft tissue head & neck real time imge docm Gavin Arora MD Work Phone: Start: 10-30-2021 Adult depression screening assessment Gavin Arora MD Work Phone: Start: 04-15-2021 Adult depression screening assessment Gavin Arora MD Work Phone: Plan of Treatment Date Care Activity Detail Author Start: 11-21-2025 Annual PCP Team Viscera Washer arcadio Disease Visit Annual PCP Team Chronic Disease Visit [facility] Start: 06-03-2025 Hemoglobin A1c measurement HbA1C [facility] Start: 04-18-2025 Annual PCP Team Viscera Washer arcadio Disease Visit Annual PCP Team Chronic Disease Visit [facility] Start: 03-07-2025 End: 03-07-2025 Patient encounter procedure 03/07/2025 10:20 AM EDT Office Visit [facility] [place] [address] [facility] [place] [address] Yuliana Jeffrey APRN.GROOMING ASSISTANT [address] [facility] [place] [id number] Physical, health issues [facility] [place] Comment on above: Physical, health iss ues Start: 03-01-2025 End: 03-01-2025 ambulatory 03/01/2025 7:45 AM EDT Results Only [facility] [address] [facility] [place] [id number] [facility] Start: 02-21-2025 End: 05-23-2025 Lipid 1996 panel - Serum or Plasma LIPID PANEL, FASTING Lab Routine Type 2 diabetes mellitus without complication, without long-term current use of insulin (HCC) Expected: 02/21/2025, Expires: 05/23/2025 [facility] Comment on above: Expected: 02/21/2025 , Expires: 05/23/2025 Start: 02-21-2025 End: 05-23-2025 Microalbumin/Creatinine [Mass Ratio] in Urine ALBUMIN/CREATININE RATIO, URINE Lab Routine Type 2 diabetes mellitus without complication, without long-term current use of insulin (HCC) Expected: 02/21/2025, Expires: 05/23/[address] [facility] Work Phone: Comment on above: Expected: 02/21/2025 , Expires: 05/23/2025 Start: 02-21-2025 End: 05-23-2025 Thyrotropin [Units/volume] in Serum or Plasma THYROID STIMULATING HORMONE Lab Routine Post-surgical hypothyroidism Expected: 02/21/2025, Expires: 05/23/2025 [facility] Comment on above: Expected: 02/21/2025 , Expires: 05/23/2025 Start: 02-18-2025 Annual PCP Team Viscera Washer arcadio Disease Visit Annual PCP Team Chronic Disease Visit [facility] Start: 02-13-2025 Influenza vaccination [facility] Start: 01-25-2025 Glaucoma screening Dilated Retinal E xam [facility] Start: 12-27-2024 End: 12-27-2024 Patient encounter procedure 12/27/2024 7:40 AM EDT Office Visit [facility] [place] [address] [place] [address] Yuliana Jeffrey APRN.GROOMING ASSISTANT [address] [place], [place] [phone] 1 month med follo up [facility] [place] Comment on above: 1 month med follo up Start: 11-28-2024 End: 11-28-2024 ambulatory 11/28/2024 7:45 AM EDT Results Only [facility] [address] [place] [address] [place] [address] [facility] Start: 11-21-2024 End: 02-20-2025 Comprehensive metabolic 2000 panel - Serum or Plasma COMPREHENSIVE METABOLIC PANEL Lab Routine Type 2 diabetes mellitus without complication, without long-term current use of insulin (HCC) Expected: 11/21/2024, Expires: 02/20/2025 [facility] Comment on above: Expected: 11/21/2024 , Expires: 02/20/2025 Start: 11-21-2024 End: 02-20-2025 Hemoglobin A1c in Blood HEMOGLOBIN A1C Lab Routine Type 2 diabetes mellitus without complication, without long-term current use of insulin (HCC) Expected: 11/21/2024, Expires: 02/20/[address] [facility] Work Phone: Comment on above: Expected: 11/21/2024 , Expires: 02/20/2025 Start: 10-28-2024 End: 10-28-2024 Patient encounter procedure 10/28/2024 8:20 AM EDT Office Visit [facility] [address] [place] [id number] Yuliana Jeffrey, CHUTE TENDER.GROOMING ASSISTANT [address] [place] [phone] 3 month check up [facility] Comment on above: 3 month check up Start: 10-16-2024 Hemoglobin A1c measurement HbA1C [facility] Start: 09-23-2024 End: 09-23-2024 Patient encounter procedure 09/23/2024 8:20 AM EDT Office Visit [facility] [address] [place] [id number] Yuliana Jeffrey, CHUTE TENDER.GROOMING ASSISTANT [address] [place] [id number] 3 month check up [facility] [place] Comment on above: 3 month check up Start: 09-16-2024 End: 09-16-2024 Patient encounter procedure 09/16/2024 8:20 AM EDT Office Visit [facility] [address] [place], [place] [phone] Yuliana Jeffrey, CHUTE TENDER.GROOMING ASSISTANT [address] [place] [id number] 3 month check up [facility] [place] Comment on above: 3 month check up Start: 08-12-2024 Annual PCP Team Viscera Washer arcadio Disease Visit Annual PCP Team Chronic Disease Visit [facility] Start: 08-05-2024 End: 08-05-2024 Patient encounter procedure 08/05/2024 8:20 AM EST Office Visit Family [facility] [place] [address] [place], [place] [phone] Yuliana Jeffrey, YURY.GROOMING ASSISTANT [address] [place], [place] [phone] 3 month follow up Family [facility] Comment on above: 3 month follow up Start: 07-19-2024 End: 07-19-2024 Patient encounter procedure 07/19/2024 7:40 AM EST Office Visit [facility] [place] [address] [facility], [place] [address] Yuliana Jefrfey, CHUTE TENDER.GROOMING ASSISTANT [address] [place], [place] [address] PHYSICAL [facility] [place] Comment on above: PHYSICAL Start: 04-18-2024 End: 07-18-2024 25-hydroxyvitamin D3 [Mass/volume] in Serum or Plasma [facility] Comment on above: Expected: 04/18/2024 , Expires: 07/18/2024 Start: 04-18-2024 End: 07-18-2024 Cobalamin (Vitamin B12) [Mass/volume] in Serum or Plasma [facility] Comment on above: Expected: 04/18/2024 , Expires: 07/18/2024 Start: 04-18-2024 End: 07-18-2024 Comprehensive metabolic 2000 panel - Serum or Plasma [facility] Comment on above: Expected: 04/18/2024 , Expires: 07/18/2024 Start: 04-18-2024 End: 07-18-2024 Hemoglobin A1c in Blood [facility] Work Phone: Comment on above: Expected: 04/18/2024 , Expires: 07/18/2024 Start: 04-07-2024 End: 04-07-2024 Patient encounter procedure 04/07/2024 5:20 PM EDT Office Visit [facility] [place] [address] [facility] [place] [address] Yuliana Jeffrey APRN.GROOMING ASSISTANT [address] [place], [place] [id number] [facility] Comment on above: Monjasielro increase Start: 03-17-2024 End: 03-17-2024 Patient encounter procedure 03/17/2024 6:40 PM EDT Office Visit [facility] [place] [address] [place], [place] [id number] Yuliana Jeffrey APRN.GROOMING ASSISTANT [address] [place], [place] [id number] Check up for diabeties. Refill for monjaro [facility] Comment on above: Check up for diabeti es. Refill for monjaro Start: 02-19-2024 End: 05-20-2024 Urinalysis complete panel - Urine [facility] Work Phone: Comment on above: Expected: 02/19/2024 , Expires: 05/20/2024 Start: 02-14-2024 Covid-19 Vaccine ( season) Covid-19 Vaccine ( season) [facility] Start: 02-14-2024 Covid-19 Vaccine ( season) Covid-19 Vaccine ( season) [facility] Start: 02-14-2024 Influenza vaccination C [facility] Start: 02-11-2024 Hemoglobin A1c measurement HbA1C [facility] Start: 01-16-2024 ANNUAL PCP TEAM [employer] [place]IO DISEASE VISIT ANNUAL PCP TEAM CHRONIC DISEASE VISIT [facility] Start: 12-13-2023 Influenza vaccination Influenza Vacc ine (#1) [facility] Comment on above: Postponed from 02/13 (Declined at this time) Start: 09-20-2023 Hepatitis B surface antibody level LDL CHOLESTEROL [facility] Start: 09-13-2023 ANNUAL PCP TEAM [employer]PER[employer] ARCADIO DISEASE VISIT ANNUAL PCP TEAM CHRONIC DISEASE VISIT [facility] Start: 09-09-2023 Glaucoma screening Dilated Retinal E xam [facility] Start: 09-09-2023 Hepatitis C antibody , confirmatory test DILATED RETINAL EXAM [facility] Start: 08-13-2023 End: 11-12-2023 Comprehensive metabolic 2000 panel - Serum or Plasma [facility] Work Phone: Comment on above: Expected: 08/13/2023 , Expires: 11/12/2023 Start: 08-13-2023 End: 11-12-2023 Hemoglobin A1c in Blood [facility] Work Phone: Comment on above: Expected: 08/13/2023 , Expires: 11/12/2023 Start: 07-03-2023 Hemoglobin A1c measurement HbA1C [facility] Start: 07-03-2023 Hemoglobin A1c/Hemoglobin.total in Blood HBA1C [facility] Start: 06-25-2023 ANNUAL PCP TEAM [employer] ARCADIO DISEASE VISIT ANNUAL PCP TEAM CHRONIC DISEASE VISIT [facility] Start: 06-15-2023 Behavioral Health Screening Behavioral Health Screening [facility] Start: 06-15-2023 Depression Assessment Depression Ass essment [facility] Start: 05-21-2023 ANNUAL PCP TEAM [employer] SUPER[employer]OR ARCADIO DISEASE VISIT ANNUAL PCP TEAM CHRONIC DISEASE VISIT [facility] Start: 05-21-2023 COVID-19 VACCINE (3 - Booster for Moderna series) COVID-19 VACCINE (3 - Booster for Moderna series) [facility] Comment on above: Postponed from 09/19 (Declined at this time) Start: 05-21-2023 COVID-19 VACCINE (3 - Moderna series) COVID-19 VACCINE (3 - Moderna series) [facility] Comment on above: Postponed from 09/19 (Declined at this time) Start: 05-21-2023 PNEUMOCOCCAL (2 - PCV) PNEUMOCOCCAL (2 - PCV) [facility] Comment on above: Postponed from 04/24 (Declined at this time) Start: 05-21-2023 Pneumococcal vaccination Pneum ococcal Vaccine (2 - PCV) [facility] Comment on above: Postponed from 04/24 (Declined at this time) Start: 05-21-2023 Urine microalbumin profile [facility] Comment on above: Postponed from 02/02 (Declined at this time) Start: 04-17-2023 ANNUAL PCP TEAM [employer]PER[employer] ARCADIO DISEASE VISIT ANNUAL PCP TEAM CHRONIC DISEASE VISIT [facility] Start: 03-21-2023 Hemoglobin A1c/Hemoglobin.total in Blood HBA1C [facility] Start: 02-13-2023 Covid-19 Vaccine ( season) Covid-19 Vaccine () [facility] Start: 02-13-2023 [facility] Start: 12-18-2022 End: 02-17-2023 ALBUMIN/CREAT RATIO RND UR ALBUMIN/CREAT RATIO RND UR Lab Routine Type 2 diabetes mellitus without complication, without long-term current use of insulin (HCC) Expected: 12/18/2022, Expires: 02/17/[address] [facility] Work Phone: Comment on above: Expected: 12/18/2022 , Expires: 02/17/2023 Start: 12-18-2022 End: 02-17-2023 Comprehensive metabolic 2000 panel - Serum or Plasma COMP METABOLIC PANEL Lab Routine Type 2 diabetes mellitus without complication, without long-term current use of insulin (HCC) Expected: 12/18/2022, Expires: 02/17/[address] [facility] Work Phone: Comment on above: Expected: 12/18/2022 , Expires: 02/17/2023 Start: 12-18-2022 End: 02-17-2023 Hemoglobin A1c in Blood HGB A1C Lab Routine Type 2 diabetes mellitus without complication, without long-term current use of insulin (HCC) Expected: 12/18/2022, Expires: 02/17/[address] [facility] Work Phone: Comment on above: Expected: 12/18/2022 , Expires: 02/17/2023 Start: 12-12-2022 Influenza vaccination INFLUENZA (#1) [facility] Comment on above: Postponed from 02/13 (Declined at this time) Start: 10-30-2022 Adult depression scr eening assessment DEPRESSION SCREENING [facility] Start: 10-30-2022 ANNUAL PCP TEAM [employer]PER[employer] ARCADIO DISEASE VISIT ANNUAL PCP TEAM CHRONIC DISEASE VISIT [facility] Start: 10-30-2022 Hepatitis B surface antibody level LDL CHOLESTEROL [facility] Start: 09-12-2022 End: 11-12-2022 CBC panel - Blood by Automated count CBC Lab Routine Obesity, morbid, BMI 50 or higher (HCC) Expected: 09/12/2022, Expires: 11/12/[address] [facility] Work Phone: Comment on above: Expected: 09/12/2022 , Expires: 11/12/2022 Start: 09-12-2022 End: 11-12-2022 Comprehensive metabolic 2000 panel - Serum or Plasma COMP METABOLIC PANEL Lab Routine Obesity, morbid, BMI 50 or higher (HCC) Expected: 09/12/2022, Expires: 11/12/[address] [facility] Work Phone: Comment on above: Expected: 09/12/2022 , Expires: 11/12/2022 Start: 09-12-2022 End: 11-12-2022 Hemoglobin A1c in Blood HGB A1C Lab Routine Type 2 diabetes mellitus without complication, without long-term current use of insulin (HCC) Expected: 09/12/2022, Expires: 11/12/[address] [facility] Work Phone: Comment on above: Expected: 09/12/2022 , Expires: 11/12/2022 Start: 09-12-2022 End: 11-12-2022 Lipid 1996 panel - Serum or Plasma LIPID PANEL BASIC Lab Routine Hyperlipidemia, unspecified hyperlipidemia type Expected: 09/12/2022, Expires: 11/12/[address] [facility] Work Phone: Comment on above: Expected: 09/12/2022 , Expires: 11/12/2022 Start: 08-23-2022 Hepatitis C antibody , confirmatory test DILATED RETINAL EXAM [facility] Start: 06-25-2022 End: 08-25-2022 Comprehensive metabolic 2000 panel - Serum or Plasma COMP METABOLIC PANEL Lab Routine Type 2 diabetes mellitus without complication, without long-term current use of insulin (HCC) Expected: 06/25/2022, Expires: 08/25/[address] [facility] Work Phone: Comment on above: Expected: 06/25/2022 , Expires: 08/25/2022 Start: 06-25-2022 End: 08-25-2022 Hemoglobin A1c in Blood HGB A1C Lab Routine Type 2 diabetes mellitus without complication, without long-term current use of insulin (HCC) Expected: 06/25/2022, Expires: 08/25/[address] [facility] Work Phone: Comment on above: Expected: 06/25/2022 , Expires: 08/25/2022 Start: 06-25-2022 End: 08-25-2022 Lipid 1996 panel - Serum or Plasma LIPID PANEL BASIC Lab Routine Type 2 diabetes mellitus without complication, without long-term current use of insulin (HCC) Expected: 06/25/2022, Expires: 08/25/[address] [facility] Work Phone: Comment on above: Expected: 06/25/2022 , Expires: 08/25/2022 Start: 06-15-2022 DEPRESSION ASSESSMENT DEPRESSION ASS ESSMENT [facility] Start: 05-02-2022 Hemoglobin A1c/Hemoglobin.total in Blood HBA1C [facility] Start: 04-17-2022 End: 06-17-2022 25-hydroxyvitamin D3 [Mass/volume] in Serum or Plasma VITAMIN D 25 HYDROXY Lab Routine Vitamin D deficiency Expected: 04/17/2022, Expires: 06/17/[address] [facility] Work Phone: Comment on above: Expected: 04/17/2022 , Expires: 06/17/2022 Start: 04-17-2022 End: 06-17-2022 CBC panel - Blood by Automated count CBC Lab Routine Type 2 diabetes mellitus without complication, without long-term current use of insulin (HCC) Expected: 04/17/2022, Expires: 06/17/[address] [facility] Work Phone: Comment on above: Expected: 04/17/2022 , Expires: 06/17/2022 Start: 04-17-2022 End: 06-17-2022 Comprehensive metabolic 2000 panel - Serum or Plasma COMP METABOLIC PANEL Lab Routine Type 2 diabetes mellitus without complication, without long-term current use of insulin (HCC) Expected: 04/17/2022, Expires: 06/17/[address] [facility] Work Phone: Comment on above: Expected: 04/17/2022 , Expires: 06/17/2022 Start: 04-17-2022 End: 06-17-2022 Hemoglobin A1c in Blood HGB A1C Lab Routine Type 2 diabetes mellitus without complication, without long-term current use of insulin ([facility]) Expected: 04/17/2022, Expires: 06/17/[address] [facility] Work Phone: Comment on above: Expected: 04/17/2022 , Expires: 06/17/2022 Start: 04-17-2022 End: 06-17-2022 Lipid 1996 panel - Serum or Plasma LIPID PANEL BASIC Lab Routine Morbid obesity with BMI of 40.0-44.9, adult (HCC) Expected: 04/17/2022, Expires: 06/17/[address] [facility] Work Phone: Comment on above: Expected: 04/17/2022 , Expires: 06/17/2022 Start: 04-17-2022 End: 06-17-2022 Thyrotropin [Units/volume] in Serum or Plasma TSH BLD Lab Routine History of thyroid cancer Post-surgical hypothyroidism Expected: 04/17/2022, Expires: 06/17/[address] [facility] Work Phone: Comment on above: Expected: 04/17/2022 , Expires: 06/17/2022 Start: 04-17-2022 End: 06-17-2022 Thyroxine (T4) free [Mass/volume] in Serum or Plasma T4 FREE/FREE THYROX Lab Routine History of thyroid cancer Post-surgical hypothyroidism Expected: 04/17/2022, Expires: 06/17/[address] [facility] Work Phone: Comment on above: Expected: 04/17/2022 , Expires: 06/17/2022 Start: 04-17-2022 End: 06-17-2022 Triiodothyronine (T3) [Mass/volume] in Serum or Plasma T3 BLD Lab Routine History of thyroid cancer Post-surgical hypothyroidism Expected: 04/17/2022, Expires: 06/17/[address] [facility] Work Phone: Comment on above: Expected: 04/17/2022 , Expires: 06/17/2022 Start: 04-15-2022 3 comp foot exam completed DIABETIC FOOT EXAM [facility] Start: 04-15-2022 Adult depression scr eening assessment DEPRESSION SCREENING [facility] Start: 04-15-2022 ANNUAL PCP TEAM [employer] SUPERVISOR ARCADIO DISEASE VISIT ANNUAL PCP TEAM CHRONIC DISEASE VISIT [facility] Start: 04-15-2022 Diabetic foot examination Diabetic F oot Exam [facility] Start: 03-12-2022 HPV TESTING HPV TESTING [facility] Start: 03-12-2022 PAP TESTING PAP TESTING [facility] Start: 03-12-2022 Screening for malign ant neoplasm of cervix [facility] Start: 02-13-2022 Influenza vaccination INFLUENZA (#1) [facility] Start: 10-30-2021 End: 12-30-2021 ALBUMIN/CREAT RATIO RND UR ALBUMIN/CREAT RATIO RND UR Lab Routine Type 2 diabetes mellitus without complication, without long-term current use of insulin (HCC) Expected: 10/30/2021, Expires: 12/30/[address] [facility] Work Phone: Comment on above: Expected: 10/30/2021 , Expires: 12/30/2021 Start: 10-02-2021 Hepatitis B surface antibody level LDL CHOLESTEROL [facility] Start: 06-15-2021 DEPRESSION ASSESSMENT DEPRESSION ASS ESSMENT [facility] Start: 04-03-2021 Hemoglobin A1c/Hemoglobin.total in Blood HBA1C [facility] Start: 12-22-2020 COVID-19 VACCINE (3 - Booster for Moderna series) COVID-19 VACCINE (3 - Booster for Moderna series) [facility] Start: 10-27-2020 Hepatitis C antibody , confirmatory test DILATED RETINAL EXAM [facility] Start: 09-19-2020 COVID-19 VACCINE (3 - Booster for Moderna series) COVID-19 VACCINE (3 - Booster for Moderna series) [facility] Start: 07-16-2019 Hepatitis B screening URINE ALBUMIN:CREATININE RATIO [facility] Start: 04-24-2018 PNEUMOCOCCAL (2 - PCV) PNEUMOCOCCAL (2 - PCV) [facility] Start: 11-10-2018 Pneumococcal vaccination Pneum ococcal Vaccine (2 of 2 - PCV) [facility] Start: 02-02-2014 Urine microalbumin profile [facility] Start: 08-10-2006 HPV Vaccine (2 - 3-d ose series) HPV Vaccine (2 - 3-dose series) [facility] Start: 08-10-2006 HPV VACCINE (2 - Ris k 3-dose series) HPV VACCINE (2 - Risk 3-dose series) [facility] Start: 2005 HEPATITIS B (1 of 3 - Risk 3-dose series) HEPATITIS B (1 of 3 - Risk 3-dose series) [facility] Start: 2005 Hepatitis B Vaccine (1 of 3 - 19+ 3-dose series) Hepatitis B Vaccine (1 of 3 - 19+ 3-dose series) [facility] Start: 2004 Depression Screening Depression Scre ening [facility] Start: 1986 HEPATITIS B (1 of 3 - 3-dose series) HEPATITIS B (1 of 3 - 3-dose series) [facility] Start: 1986 Hepatitis B Vaccine (1 of 3 - 3-dose series) Hepatitis B Vaccine (1 of 3 - 3-dose series) [facility] Bacteria identified in Urine by Culture URINE CULTURE Microbiology Routine Urinary tract infection with hematuria, site unspecified Ordered: 01/15/[address] [facility] Work Phone: Comment on above: Ordered: 01/15/2023 Bacteria identified in Urine by Culture URINE CULTURE Microbiology Routine Urgency of urination Ordered: 08/20/[address] [facility] Work Phone: Comment on above: Ordered: 08/20/2023 Bacteria identified in Urine by Culture URINE CULTURE Microbiology Routine Urinary tract infection with hematuria, site unspecified Ordered: 02/19/2024 [facility] Comment on above: Ordered: 02/19/2024 Bacteria identified in Urine by Culture BACTERIAL CULTURE, URINE Microbiology Routine Urinary frequency Ordered: 07/19/[address] [facility] Work Phone: Comment on above: Ordered: 07/19/2024 Bacteria identified in Urine by Culture BACTERIAL CULTURE, URINE Microbiology Routine Frequency of urination Ordered: 09/11/[address] [facility] Work Phone: Comment on above: Ordered: 09/11/2024 COVID & INFLUENZA A/ B & RSV PCR, ROUTINE COVID & INFLUENZA A/B & RSV PCR, ROUTINE Microbiology Routine Sore throat Ordered: 06/06/[address] [facility] Work Phone: Comment on above: Ordered: 06/06/2024 End: 11-29-2022 Us soft tissue head & neck real time imge docm US THYROID/PARATHYROID Radiology Routine Post-surgical hypothyroidism History of thyroid cancer 1 Occurrences starting 10/30/2021 until 11/29/[address] [facility] Work Phone: Comment on above: 1 Occurrences starti ng 10/30/2021 until 11/29/2022 End: 12-22-2022 Us soft tissue head & neck real time imge docm US CERVICAL LYMPH NODE MAPPING Radiology Routine Post-surgical hypothyroidism History of thyroid cancer 1 Occurrences starting 11/22/2021 until 12/22/[address] [facility] Work Phone: Comment on above: 1 Occurrences starti ng 11/22/2021 until 12/22/2022 [facility] Immunizations Immunization Date Immunization Notes Care Provider Anjum doe 04-15-2021 influenza, injectabl e, quadrivalent, contains preservative Gavin Arora MD Work Phone: [facility] 04-15-2021 influenza virus vaccine, unspecified formulation Gavin Arora MD Work Phone: [facility] 04-05-2020 influenza, injectabl e, quadrivalent, contains preservative Gavin Arora MD Work Phone: [facility] 03-02-2019 influenza, injectabl e, quadrivalent, contains preservative Gavin Arora MD Work Phone: [facility] 04-24-2017 pneumococcal polysaccharide vaccine, 23 valent Gavin Arora MD Work Phone: [facility] 02-01-2014 tetanus and diphther ia toxoids, adsorbed, preservative free, for adult use (5 Lf of tetanus toxoid and 2 Lf of diphtheria toxoid) Gavni Arora MD Work Phone: [facility] Work Phone: 07-13-2006 human papilloma viru s vaccine, quadrivalent Gavin Arora MD Work Phone: [facility] Work Phone: 02-29-2004 TD(adult) unspecifie d formulation Gavin Arora MD Work Phone: [facility] 01-14-1999 measles, mumps and rubella virus vaccine Gavin Arora MD Work Phone: [facility] 09-09-1991 diphtheria, tetanus toxoids and pertussis vaccine Gavin Arora MD Work Phone: [facility] 09-09-1991 trivalent poliovirus vaccine, live, oral Gavin Arora MD Work Phone: [facility] 12-23-1988 diphtheria, tetanus toxoids and pertussis vaccine Gavin Arora MD Work Phone: [facility] 12-23-1988 haemophilus influenz ae type b vaccine, conjugate unspecified formulation Gavin Arora MD Work Phone: [facility] 12-23-1988 trivalent poliovirus vaccine, live, oral Gavin Arora MD Work Phone: [facility] 04-24-1988 measles, mumps and rubella virus vaccine Gavin Arora MD Work Phone: [facility] 04-20-1987 diphtheria, tetanus toxoids and pertussis vaccine Gavin Arora MD Work Phone: [facility] 02-14-1987 diphtheria, tetanus toxoids and pertussis vaccine Gavin Arora MD Work Phone: [facility] 02-14-1987 trivalent poliovirus vaccine, live, oral Gavin Arora MD Work Phone: [facility] 1986 diphtheria, tetanus toxoids and pertussis vaccine Gavin Arora MD Work Phone: [facility] 1986 trivalent poliovirus vaccine, live, oral Gavin Arora MD Work Phone: [facility] Payers Date Payer Category Payer Private Health Insurance [employer] [id number] 2022 Unknown [employer] PPO [id number] 2022-Present [phone] [place] [id number] PPO [id number] 2022 Unknown [id number] Self-pay Social History Date Type Detail Facility Start: 01-21-2011 End: 07-19-2024 Tobacco smoking status NHIS Ex-smoker [facility] Work Phone: Start: 10-03-2003 End: 10-02-2004 History of tobacco use Current smoker [facility] Work Phone: Start: 01-21-2011 End: 07-19-2024 Tobacco use and exposure Smokeless tobacco non-user [facility] Work Phone: Start: 04-15-2021 End: 09-11-2024 Alcohol intake Current drinker of alcohol (finding) [facility] Start: 03-30-2020 End: 05-19-2022 History SDOH Alcohol Frequency 2 [facility] Start: 03-30-2020 End: 05-19-2022 History SDOH Alcohol Std Drinks 1 [facility] Start: 02-28-2020 History SDOH Alcohol Comment Socially [facility] Start: 03-30-2020 End: 05-19-2022 History SDOH Social Connections Phone 5 [facility] Start: 03-30-2020 End: 10-30-2021 History SDOH Social Connections Get Together 98 [facility] Start: 03-30-2020 History SDOH Social Connections Living 8 [facility] Start: 03-30-2020 End: 05-19-2022 History SDOH Physical Activity DPW 3 [facility] Start: 03-30-2020 End: 05-19-2022 History SDOH Physical Activity MPS 6 [facility] Start: 03-29-2020 Education 16 [facility] Start: 1985 Sex Assigned At Not on file [facility] Start: 11-15-2021 End: 04-17-2022 Exposure to SARS-CoV-2 (event) Not sure [facility] Start: 10-03-2003 End: 10-02-2004 History of tobacco use Cigarette Smoker [facility] Work Phone: Start: 05-19-2022 End: 06-18-2023 History of Social function [facility] Start: 05-19-2022 End: 06-18-2023 Social connection and isolation panel [facility] Do you belong to any clubs or organizations such as restoration groups, unions, fraternal or athletic groups, or school groups? No [facility] Start: 05-16-2012 Attends Club or Organization Meetings Not on file [facility] Are you now , , , , never or living with a partner? [facility] How often to you hav e a drink containing alcohol? Monthly or less [facility] How many standard dr inks containing alcohol do you have on a typical day? 1 or 2 [facility] How often do you hav e 6 or more drinks on 1 occasion? Never [facility] Do you feel stress - tense, restless, nervous, or anxious, or unable to sleep at night because your mind is troubled all the time - these days [OSQ] Only a little [facility] (I/We) worried wheth er (my/our) food would run out before (I/we) got money to buy more. Never true [facility] Do you feel stress - tense, restless, nervous, or anxious, or unable to sleep at night because your mind is troubled all the time - these days [OSQ] Rather much [facility] Do you feel stress - tense, restless, nervous, or anxious, or unable to sleep at night because your mind is troubled all the time - these days [OSQ] To some extent [facility] Functional Status Date Assessment Result Facility 01-14-2020 Are you deaf, or do you have serious difficulty hearing No 01/14/2020 10:26 AM EDT Cora De Santiago LPN No [facility] 01-14-2020 Are you blind, or do you have serious difficulty seeing, even when wearing glasses No 01/14/2020 10:26 AM FAISALT Cora De Santiago LPN No [facility] 01-14-2020 Do you have serious difficulty walking or climbing stairs No 01/14/2020 10:26 AM EDT Cora De Santiago LPN No [facility] 01-14-2020 Do you have difficul ty dressing or bathing No 01/14/2020 10:26 AM EDT Cora De Santiago LPN No [facility] 01-14-2020 Because of a physica l, mental, or emotional condition, do you have difficulty doing errands alone such as visiting a physician's office or shopping No 01/14/2020 10:26 AM FAISALT Cora De Santiago LPN No [facility] Mental Status Date Assessment Result Facility 01-14-2020 Because of a physica l, mental, or emotional condition, do you have serious difficulty concentrating, remembering, or making decisions No 01/14/2020 10:26 AM EDT Cora De Santiago LPN No [facility] Clinical Notes 12-08-2016 to 04-09-2025 Telephone Encounter - Gavin Arora MD - 02/08/2025 8:56 AM EDTTelephone Encounter - Gavin Arora MD - 02/08/2025 8:56 AM Yuliana Reddy APRN.GROOMING ASSISTANT - 11/21/2024 7:37 AM EDT Note Date & Type Note Facility 04-09-2025 Note HNO ID: [id number] Author: PREMA MULLINS APRN.[facility] [place] Service: ? Author Type: Nurse Practitioner Type: Progress Notes Filed: 04/09/2025 12:50 Note Text: [facility] Srini Dubose is a 39 year old female. Patient presents with: Urinary Frequency: Frequency, urgency and burning x 1 day HPI The patient is a 39-year-old female with a history of recurrent UTIs, presenting with dysuria, frequency, and urgency. Urinary Tract Infection: - Onset of dysuria, frequency, and urgency yesterday. - Similar to previous UTI episodes. - Denies nausea, emesis, fever, or chills. - No chance of . - Reports recurrent yeast infections after starting antibiotics. - No known allergies to antibiotics. - Urinalysis positive for WBCs, nitrates, protein, and blood. Depression: - Currently taking Zoloft, prescribed by PCP. Review of Systems Constitutional: (-) fever, (-) chills Gastrointestinal: (-) nausea, (-) vomiting, (-) abdominal pain Genitourinary: (+) urinary frequency, (+) urinary urgency, (+) dysuria, (-) flank pain Objective BP 122/78 Pulse 85 Temp 36.4 ?C (97.6 ?F) (Tympanic) Resp 18 Wt (!) 152.5 kg (336 lb 3.2 oz) LMP 07/19/2024 (Exact Date) SpO2 96% BMI 50.95 kg/m? Physical Exam General: No acute distress. CV: Regular heart sounds. Resp: Clear breath sounds. Back: No CVA tenderness. Abd: No tenderness to palpation. { 1. Urinary frequency (R35.0) 2. Acute cystitis with hematuria (N30.01) - Acute cystitis confirmed by urinalysis (positive for WBCs, nitrites, protein, and blood). - No associated nausea, vomiting, fever, or chills. - Start Macrobid BID for 5 days. - Urine culture ordered to confirm pathogen and guide antibiotic therapy; will adjust antibiotics if necessary based on culture results. - Advised patient to contact PCP for further management if yeast infection develops. and Recording using [employer] software for draft documentation of the visit was discussed with the patient/authorized banking representative; all questions welcomed and answered. Patient/authorized banking representative agreed to proceed History and Record Review External record(s) reviewed: no prior records. Disposition The patient was discharged. Procedures [facility] 03-23-2025 Note HNO ID: [id number] Author: YULIANA JEFFREY APRN.GROOMING ASSISTANT Service: ? Author Type: Nurse Practitioner Type: Progress Notes Filed: 03/23/2025 08:50 Note Text: Chief Complaint Patient presents with: Physical HPI Arabella Dubose is a 39 year old female who presents here today for Above Complaints.. Concerned that she is premenopausal. States that she has had temperature fluctuations, increased forgetfulness, and her periods are longer, heavier, and more frequent. States that they are now every 3 weeks and last 5-6 days when they were previously only 3-4 days long. Mother went through menopause in her early 40s. DM: Reports overall feeling well. Medication side effects: No. Home sugar checks: No Hypoglycemic spells: No. Watching diet: No. Unexpected weight loss: No. Polyuria, polydipsia: No Vision Changes: No. Foot lesions or numbness or pain: No. GERD: Takes medication daily, has been over a month since last GERD flare. Thyroid: not on any medications. Denies any changes to her hair/nails, unexplained weight changes. Does have temperature fluctuations. Past medical history, appointments, medications, allergies reviewed. 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 not recommending FINNEGAN Thyroid nodule abnormal FNA right thyroid (2017), repeat US 1,2,3, and 5 years from 2021 Previous Surgical History PAST SURGICAL HISTORY Procedure Laterality Date COLPOSCOPY CERVIX UPPR/ADJCNT VAGINA W/CERVIX BX 07/13/06 chronic cervicitis with no evidence of dysplasia LAPS SURG CHOLECYSTECTOMY W/CHOLANGIOGRAPHY 09-25-15 MYRINGOTOMY ASPIRAND/EUSTACHIAN TUBE NFLTJ ANES 1993,1994 Myringotomy/tubes THYROIDECTOMY SUBTOTAL/PARTIAL Left 01/13/2020 Left thyroidectomy TONSILLECTOMY PRIMARY/SECONDARY Tonsillectomy US THYROID BIOPSY 11/2019 AUS Family History FAMILY HISTORY Problem Relation Age of Onset Cancer Mother thyroid No Known Problems Brother No Known Problems Brother Arthritis Maternal Grandmother Hypertension Maternal Grandmother Thyroid Maternal Grandmother Alzheimer's Disease Maternal Grandmother Diabetes Paternal Grandmother Breast Cancer Paternal Aunt Thyroid Maternal Aunt Cancer Maternal Aunt gastric Patient Allergies ALLERGIES Allergen Reactions Acetaminophen Hives Seasonal Allergies Swelling Vicodin [Hydrocodon* Hives Current Medications Current Outpatient Medications on File Prior to Visit Medication Sig tirzepatide (MOUNJARO) 5 mg/0.5 mL pen injector Inject 5 mg subcutaneously one time a week. omeprazole (PRILOSEC) 20 mg capsule Take 1 capsule by mouth daily before breakfast. 1/2 hr before meal. pioglitazone (ACTOS) 45 mg tablet Take 1 tablet by mouth once daily. sertraline (ZOLOFT) 100 mg tablet Take 1 tablet by mouth once daily. metFORMIN ER (GLUCOPHAGE XR) 500 mg 24 hr tablet Take 2 tablets by mouth two times a day. ergocalciferol 50,000 unit capsule (VITAMIN D2, DRISDOL) Take 1 tablet by mouth twice weekly [id number], then decrease to 1 tablet weekly. CPAP Initiate Auto PAP @ 5-20 cm of water with humidification. Mask (per patient preference) optional chin strap (if indicated) , filters, tubing, humidifier and lifetime supplies. levothyroxine 50 mcg cap Take 1 capsule by mouth daily before breakfast. calcium carbonate (TUMS) 500 mg chew Take 1 tablet by mouth every hour as needed (mouth or hand numbness or tingling). lbwysom-rrecbeshg-xzzhqxc D3 500 mg(1,250mg) -200 unit per tablet Take 1 tablet by mouth three times daily. loratadine (CLARITIN) 10 mg tablet Take 10 mg by mouth as needed. No current facility-administered medications on file prior to visit. Social History SOCIAL HISTORY[1] Review of Symptoms REVIEW OF SYSTEMS SEE HPI EXAM: BP (!) 111/9 Pulse 114 Wt (!) 151 kg (332 lb 14.3 oz) LMP 07/19/2024 (Exact Date) BMI 50.45 kg/m? General Appearance: Well appearing, alert, in no acute distress, well-hydrated, well nourished.. Skin: Skin color, texture, turgor normal, no suspicious rashes or lesions. Head: Normocephalic, no masses, lesions, tenderness or abnormalities. Eyes: Anicteric scler (more content not included)... [facility] 02-21-2025 Note Patient Outreach (IN TMMN) ARABELLA DUBOSE ([id number]) 1985 F Date Time Provider Department 02/21/25 YULIANA JEFFREY During your visit today, we recorded the following information about you: Allergies As of Date: 02/21/2025 Noted Allergy Reaction ACETAMINOPHEN 11/25/2016 4 - Hives SEASONAL ALLERGIES 02/01/2014 7 - Swelling VICODIN (HYDROCODONE-ACETAMINOPHE*2015 4 - Hives Date Reviewed: 11/21/2024 Reviewed by: Luis Shah MA - Fully Assessed Visit Diagnoses:Type 2 diabetes mellitus without complication, without long-term current use of insulin (HCC) [E11.9] Post-surgical hypothyroidism [E89.0] Order(s):ALBUMIN/CREATININE RATIO, URINE [SQUACR] Order #: [id number] FUTURE LIPID PANEL, FASTING [SQLIPB] Order #: [id number] FUTURE THYROID STIMULATING HORMONE [SQTSH] Order #: [id number] FUTURE Prescriptions as of 02/24/2025 - omeprazole (PRILOSEC) 20 mg capsule Take 1 capsule by mouth daily before breakfast. 1/2 hr before meal. - tirzepatide (MOUNJARO) 5 mg/0.5 mL pen injector Inject 5 mg subcutaneously one time a week. - pioglitazone (ACTOS) 45 mg tablet Take 1 tablet by mouth once daily. - sertraline (ZOLOFT) 100 mg tablet Take 1 tablet by mouth once daily. - metFORMIN ER (GLUCOPHAGE XR) 500 mg 24 hr tablet Take 2 tablets by mouth two times a day. - ergocalciferol 50,000 unit capsule (VITAMIN D2, DRISDOL) Take 1 tablet by mouth twice weekly [id number], then decrease to 1 tablet weekly. - CPAP Initiate Auto PAP @ 5-20 cm of water with humidification. Mask (per patient preference) optional chin strap (if indicated) , filters, tubing, humidifier and lifetime supplies. - levothyroxine 50 mcg cap Take 1 capsule by mouth daily before breakfast. - calcium carbonate (TUMS) 500 mg chew Take 1 tablet by mouth every hour as needed (mouth or hand numbness or tingling). - qgcipsd-fqvdviwqa-oitzhew D3 500 mg(1,250mg) -200 unit per tablet Take 1 tablet by mouth three times daily. - loratadine (CLARITIN) 10 mg tablet Take 10 mg by mouth as needed. Problem List As Of Date 02/21/2025 Noted Resolved SUPERVIS NORMAL 1ST PREG [Z34.00] 08/07/2005 04/14/2006 PCOS (polycystic ovarian syndrome) [E28.2] 01/23/2011 Morbid obesity with BMI of 40.0-44.9, adult (HC*02/01/2014 Hyperandrogenemia [E28.1] 04/04/2014 2018 Acute biliary pancreatitis [K85.10] 08/29/2015 2018 Chronic cholecystitis with calculus [K80.10] 10/03/2015 12/28/2019 Type 2 diabetes mellitus without complication, *11/28/2016 Abnormal LFTs (liver function tests) [R79.89] 12/08/2016 12/28/2019 Morbid obesity (HCC) [E66.01] 08/10/2017 Diabetes mellitus type II, uncontrolled (HCC) [*06/15/2016 08/10/2017 Multiple thyroid nodules [E04.2] 10/05/2017 Family history of thyroid cancer [Z80.8] 10/05/2017 History of seizure [Z87.898] 12/28/2019 Papillary thyroid carcinoma (HCC) [C73] 03/30/2020 Post-surgical hypothyroidism [E89.0] 03/30/2020 CHUY (obstructive sleep apnea) [G47.33] MELVIN (generalized anxiety disorder) [F41.1] 10/30/2021 Encounter Status:Closed by [facility] on 02/24/25 [facility] 02-08-2025 Telephone encounter Note I will forward this to yuliana to review. If she is willing to take patient on as her PCP, can update her chart. [facility] 02-08-2025 Miscellaneous Notes I will forward this to yuliana to review. If she is willing to take patient on as her PCP, can update her chart. She has seen Yuliana for her OV's for the last 2 years. Did she switch to her for PCP? If not, needs to schedule f/u with me. Prescription Refill Information The patient has been identified by name and date of : Yes Caregiver verified no other encounters exist for this prescription request: Yes Caregiver confirmed with patient/requestor that no other refills are due, in the near future, with this provider at this time: Yes The last office visit in the department: 11/21/2024 Does the patient have a future office visit with this provider/department: Yes Requested Prescriptions Pending Prescriptions Disp Refills omeprazole (PRILOSEC) 20 mg capsule 90 capsule 0 Sig: Take 1 capsule by mouth daily before breakfast. 1/2 hr before meal. Beverley Wood LPN February 06, 2025 7:36 AM documented in this encounter [facility] 02-06-2025 Telephone encounter Note She has seen Yuliana for her OV's for the last 2 years. Did she switch to her for PCP? If not, needs to schedule f/u with me. [facility] 02-06-2025 Telephone encounter Note Prescription Refill Information The patient has been identified by name and date of : Yes Caregiver verified no other encounters exist for this prescription request: Yes Caregiver confirmed with patient/requestor that no other refills are due, in the near future, with this provider at this time: Yes The last office visit in the department: 11/21/2024 Does the patient have a future office visit with this provider/department: Yes Requested Prescriptions Pending Prescriptions Disp Refills omeprazole (PRILOSEC) 20 mg capsule 90 capsule 0 Sig: Take 1 capsule by mouth daily before breakfast. 1/2 hr before meal. Beverley Wood LPN February 06, 2025 7:36 AM [facility] 12-20-2024 Telephone encounter Note Prescription Refill Information The patient has been identified by name and date of : No Caregiver verified no other encounters exist for this prescription request: Yes Caregiver confirmed with patient/requestor that no other refills are due, in the near future, with this provider at this time: No The last office visit in the department: 11/21/24 Does the patient have a future office visit with this provider/department: Yes Requested Prescriptions Pending Prescriptions Disp Refills tirzepatide (MOUNJARO) 2.5 mg/0.5 mL pen injector 2 mL 0 Sig: Inject 2.5 mg subcutaneously one time a week. Danyelle Jaquez MA December 20, 2024 8:34 AM [facility] 12-20-2024 Miscellaneous Notes Prescription Refill Information The patient has been identified by name and date of : No Caregiver verified no other encounters exist for this prescription request: Yes Caregiver confirmed with patient/requestor that no other refills are due, in the near future, with this provider at this time: No The last office visit in the department: 11/21/24 Does the patient have a future office visit with this provider/department: Yes Requested Prescriptions Pending Prescriptions Disp Refills tirzepatide (MOUNJARO) 2.5 mg/0.5 mL pen injector 2 mL 0 Sig: Inject 2.5 mg subcutaneously one time a week. Danyelle Jaquez MA December 20, 2024 8:34 AM documented in this encounter [facility] 12-05-2024 Telephone encounter Note Pt active on [employer]- message sent Luis Shah MA [facility] 12-05-2024 Miscellaneous Notes Pt active on [employer]- message sent Luis Shah MA Please let patient know their labs are stable. documented in this encounter [facility] 12-05-2024 Telephone encounter Note Please let patient know their labs are stable. [facility] 11-23-2024 Telephone encounter Note Fax approval rec'd from [facility] for mounjaro from 11/21/24 to 11/21/25. Pharmacy notified and pt via my chart. [facility] 11-23-2024 Miscellaneous Notes Fax approval rec'd from [facility] for mounjaro from 11/21/24 to 11/21/25. Pharmacy notified and pt via my chart. Arabella is calling Gavin Arora MD today with concern regarding Insurance Authorization Disp Refills Start End tirzepatide (MOUNJARO) 2.5 mg/0.5 mL pen injector 2 mL 0 11/21/2024 -- Sig: Inject 2.5 mg subcutaneously one time a week. Sent to pharmacy as: tirzepatide (MOUNJARO) 2.5 mg/0.5 mL pen injector Patient has been identified by name and birthdate. Duration of symptoms: N/A Person calling: pharmacy: [facility] [phone] No Closing statement: Prior Authorization Calls: Thank you for calling [facility], your call will be returned within the next 24 hours or next business day. Ondina Peguero documented in this encounter [facility] 11-22-2024 Telephone encounter Note Arabella is calling Gavin Arora MD today with concern regarding Insurance Authorization Disp Refills Start End tirzepatide (MOUNJARO) 2.5 mg/0.5 mL pen injector 2 mL 0 11/21/2024 -- Sig: Inject 2.5 mg subcutaneously one time a week. Sent to pharmacy as: tirzepatide (MOUNJARO) 2.5 mg/0.5 mL pen injector Patient has been identified by name and birthdate. Duration of symptoms: N/A Person calling: pharmacy: [facility] [phone] No Closing statement: Prior Authorization Calls: Thank you for calling [facility], your call will be returned within the next 24 hours or next business day. Ondina Peguero [facility] 11-21-2024 Note HNO ID: [id number] Author: YULIANA JEFFREY APRN.GROOMING ASSISTANT Service: ? Author Type: Nurse Practitioner Type: Progress Notes Filed: 11/21/2024 08:09 Note Text: Chief Complaint Patient presents with: Follow Up HPI Arabella Dubose is a 39 year old female who presents here today for Above Complaints. Patient presents for medication follow up. Patient reports rybelsus is not helping with weight and she would like to go back to [facility] but stay with the lower doses. Past medical history, appointments, medications, allergies reviewed. 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 not recommending FINNEGAN Thyroid nodule abnormal FNA right thyroid (2017), repeat US 1,2,3, and 5 years from 2021 Previous Surgical History PAST SURGICAL HISTORY Procedure Laterality Date COLPOSCOPY CERVIX UPPR/ADJCNT VAGINA W/CERVIX BX 07/13/06 chronic cervicitis with no evidence of dysplasia LAPS SURG CHOLECYSTECTOMY W/CHOLANGIOGRAPHY 09-25-15 MYRINGOTOMY ASPIRAND/EUSTACHIAN TUBE NFLTJ ANES 1993,1994 Myringotomy/tubes THYROIDECTOMY SUBTOTAL/PARTIAL Left 01/13/2020 Left thyroidectomy TONSILLECTOMY PRIMARY/SECONDARY Tonsillectomy US THYROID BIOPSY 11/2019 [facility] Family History FAMILY HISTORY Problem Relation Age of Onset Cancer Mother thyroid No Known Problems Brother No Known Problems Brother Arthritis Maternal Grandmother Hypertension Maternal Grandmother Thyroid Maternal Grandmother Alzheimer's Disease Maternal Grandmother Diabetes Paternal Grandmother Breast Cancer Paternal Aunt Thyroid Maternal Aunt Cancer Maternal Aunt gastric Patient Allergies ALLERGIES Allergen Reactions Acetaminophen Hives Seasonal Allergies Swelling Vicodin [Hydrocodon* Hives Current Medications Current Outpatient Medications on File Prior to Visit Medication Sig pioglitazone (ACTOS) 45 mg tablet Take 1 tablet by mouth once daily. sertraline (ZOLOFT) 100 mg tablet Take 1 tablet by mouth once daily. omeprazole (PRILOSEC) 20 mg capsule Take 1 capsule by mouth daily before breakfast. 1/2 hr before meal. semaglutide (RYBELSUS) 3 mg tablet Take 1 tablet by mouth daily before breakfast. Take 30 minutes before the first food, beverage, or other oral medications of the day with no more than 4 ounces of plain water metFORMIN ER (GLUCOPHAGE XR) 500 mg 24 hr tablet Take 2 tablets by mouth two times a day. ergocalciferol 50,000 unit capsule (VITAMIN D2, DRISDOL) Take 1 tablet by mouth twice weekly [id number], then decrease to 1 tablet weekly. CPAP Initiate Auto PAP @ 5-20 cm of water with humidification. Mask (per patient preference) optional chin strap (if indicated) , filters, tubing, humidifier and lifetime supplies. levothyroxine 50 mcg cap Take 1 capsule by mouth daily before breakfast. calcium carbonate (TUMS) 500 mg chew Take 1 tablet by mouth every hour as needed (mouth or hand numbness or tingling). edacwsw-agcoornxb-sffidyz D3 500 mg(1,250mg) -200 unit per tablet Take 1 tablet by mouth three times daily. loratadine (CLARITIN) 10 mg tablet Take 10 mg by mouth as needed. No current facility-administered medications on file prior to visit. Social History Social History Tobacco Use Smoking status: Former Current packs/day: 0.00 Types: Cigarettes Start date: 10/03/2003 Quit date: 10/02/2004 Years since quittin.1 Smokeless tobacco: Never Vaping Use Vaping status: Never Used Substance Use Topics Alcohol use: Yes Comment: Socially Drug use: No Review of Symptoms REVIEW OF SYSTEMS SEE HPI EXAM: BP 114/82 Pulse 106 Wt (!) 148 kg (326 lb 4.5 oz) LMP 07/19/2024 (Exact Date) BMI 49.45 kg/m? General Appearance: Well appearing, alert, in no acute distress, well-hydrated, well nourished.. Lungs: Lungs clear to auscultation. No wheezing, rhonchi, rales.. Heart: RRR without murmur, gallop, or rubs. No ectopy. Health Maintenance List Depression Screening Never done Hepatitis B Vaccine(1 of 3 - 19+ 3-dose series) Never done DTaP,Tdap,Td Vaccine(6 - Tdap) due on 02/02/2014 Pneumococcal Vaccine(2 of 2 - PCV) due on 04/24/2018 Urine Albumin:Creatinine Rat (more content not included)... [facility] 11-21-2024 History of Presen t illness Narrative Images from the original note were not included. Chief Complaint Patient presents with: Follow Up HPI Arabella Duboes is a 39 year old female who presents here today for Above Complaints. Patient presents for medication follow up. Patient reports rybelsus is not helping with weight and she would like to go back to [facility] but stay with the lower doses. Past medical history, appointments, medications, allergies reviewed. 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 not recommending FINNEGAN Thyroid nodule abnormal FNA right thyroid (2017), repeat US 1,2,3, and 5 years from 2021 Previous Surgical History PAST SURGICAL HISTORY Procedure Laterality Date COLPOSCOPY CERVIX UPPR/ADJCNT VAGINA W/CERVIX BX 07/13/06 chronic cervicitis with no evidence of dysplasia LAPS SURG CHOLECYSTECTOMY W/CHOLANGIOGRAPHY 09-25-15 MYRINGOTOMY ASPIR&/EUSTACHIAN TUBE NFLTJ ANES 1993,1994 Myringotomy/tubes THYROIDECTOMY SUBTOTAL/PARTIAL Left 01/13/2020 Left thyroidectomy TONSILLECTOMY PRIMARY/SECONDARY <AGE 12 1995 Tonsillectomy US THYROID BIOPSY 11/2019 [facility] Family History FAMILY HISTORY Problem Relation Age of Onset Cancer Mother thyroid No Known Problems Brother No Known Problems Brother Arthritis Maternal Grandmother Hypertension Maternal Grandmother Thyroid Maternal Grandmother Alzheimer's Disease Maternal Grandmother Diabetes Paternal Grandmother Breast Cancer Paternal Aunt Thyroid Maternal Aunt Cancer Maternal Aunt gastric Patient Allergies ALLERGIES Allergen Reactions Acetaminophen Hives Seasonal Allergies Swelling Vicodin [Hydrocodon* Hives Current Medications Current Outpatient Medications on File Prior to Visit Medication Sig pioglitazone (ACTOS) 45 mg tablet Take 1 tablet by mouth once daily. sertraline (ZOLOFT) 100 mg tablet Take 1 tablet by mouth once daily. omeprazole (PRILOSEC) 20 mg capsule Take 1 capsule by mouth daily before breakfast. 1/2 hr before meal. semaglutide (RYBELSUS) 3 mg tablet Take 1 tablet by mouth daily before breakfast. Take 30 minutes before the first food, beverage, or other oral medications of the day with no more than 4 ounces of plain water metFORMIN ER (GLUCOPHAGE XR) 500 mg 24 hr tablet Take 2 tablets by mouth two times a day. ergocalciferol 50,000 unit capsule (VITAMIN D2, DRISDOL) Take 1 tablet by mouth twice weekly [id number], then decrease to 1 tablet weekly. CPAP Initiate Auto PAP @ 5-20 cm of water with humidification. Mask (per patient preference) optional chin strap (if indicated) , filters, tubing, humidifier and lifetime supplies. levothyroxine 50 mcg cap Take 1 capsule by mouth daily before breakfast. calcium carbonate (TUMS) 500 mg chew Take 1 tablet by mouth every hour as needed (mouth or hand numbness or tingling). qbzoodl-umxppofpf-jrkftub D3 500 mg(1,250mg) -200 unit per tablet Take 1 tablet by mouth three times daily. loratadine (CLARITIN) 10 mg tablet Take 10 mg by mouth as needed. No current facility-administered medications on file prior to visit. Social History Social History Tobacco Use Smoking status: Former Current packs/day: 0.00 Types: Cigarettes Start date: 10/03/2003 Quit date: 10/02/2004 Years since quittin.1 Smokeless tobacco: Never Vaping Use Vaping status: Never Used Substance Use Topics Alcohol use: Yes Comment: Socially Drug use: No Review of Symptoms REVIEW OF SYSTEMS SEE HPI EXAM: BP 114/82 Pulse 106 Wt (!) 148 kg (326 lb 4.5 oz) LMP 07/19/2024 (Exact Date) BMI 49.45 kg/m General Appearance: Well appearing, alert, in no acute distress, well-hydrated, well nourished.. Lungs: Lungs clear to auscultation. No wheezing, rhonchi, rales.. Heart: RRR without murmur, gallop, or rubs. No ectopy. Health Maintenance List Depression Screening Never done Hepatitis B Vaccine(1 of 3 - 19+ 3-dose series) Never done DTaP,Tdap,Td Vaccine(6 - Tdap) due on 02/02/2014 Pneumococcal Vaccine(2 of 2 - PCV) due on 04/24/2018 Urine Albumin:Creatinine Ratio due on 07/16/2019 Cervical Cancer Screening due on 03/12/2022 Diabetic Foot Exam due on 04/15/2022 LDL Cholesterol due on 09/20/2023 Covid-19 Vaccine( season) due on 02/14/2024 HbA1C due on 10/16/2024 Dilated Retinal Exam due on 01/25/2025 Influenza Vaccine(Season Ended) due on 02/13/2025 Annual PCP Team Chronic Disease Visit due on 04/18/2025 Hepatitis C Screening Completed HIV Screening Completed Data reviewed Weight Weight 11/21/2024 326 lb 4.5 oz 09/11/2024 308 lb 6.8 oz 07/19/2024 313 lb 0.9 oz 06/06/2024 316 lb 2.2 oz 04/18/2024 301 lb 02/19/2024 306 lb 08/20/2023 331 lb 9.6 oz 08/13/2023 331 lb 01/15/2023 345 lb 08/29/2022 346 lb 3.2 oz ASSESSMENT/PLAN: 1. Type 2 diabetes mellitus without complication, without long-term current use of insulin (HCC) - ICD9: 250.00, ICD10: E11.9 - Control undetermined, due for labs - Stop semaglutide oral (Rybelsus) - Start tirzepatide (Mounjaro) - TIRZEPATIDE 2.5 MG/0.5 ML SUBCUTANEOUS PEN INJECTOR - HEMOGLOBIN A1C - COMPREHENSIVE METABOLIC PANEL Yuliana Jeffrey APRN.GROOMING ASSISTANT documented in this encounter [facility] 10-24-2024 Telephone encounter Note Prescription Refill Information The patient has been identified by name and date of : Yes Caregiver verified no other encounters exist for this prescription request: Yes Caregiver confirmed with patient/requestor that no other refills are due, in the near future, with this provider at this time: Yes The last office visit in the department: 04/2024 Does the patient have a future office visit with this provider/department: Yes Requested Prescriptions Pending Prescriptions Disp Refills sertraline (ZOLOFT) 100 mg tablet 90 tablet 1 Sig: Take 1 tablet by mouth once daily. Diana Mullins MA October 24, 2024 8:44 AM [facility] 10-24-2024 Miscellaneous Notes Prescription Refill Information The patient has been identified by name and date of : Yes Caregiver verified no other encounters exist for this prescription request: Yes Caregiver confirmed with patient/requestor that no other refills are due, in the near future, with this provider at this time: Yes The last office visit in the department: 04/2024 Does the patient have a future office visit with this provider/department: Yes Requested Prescriptions Pending Prescriptions Disp Refills sertraline (ZOLOFT) 100 mg tablet 90 tablet 1 Sig: Take 1 tablet by mouth once daily. Diana Mullins MA October 24, 2024 8:44 AM documented in this encounter [facility] 10-24-2024 Telephone encounter Note Prescription Refill Information The patient has been identified by name and date of : Yes Caregiver verified no other encounters exist for this prescription request: Yes Caregiver confirmed with patient/requestor that no other refills are due, in the near future, with this provider at this time: Yes The last office visit in the department: 04/2024 Does the patient have a future office visit with this provider/department: Yes Requested Prescriptions Pending Prescriptions Disp Refills pioglitazone (ACTOS) 45 mg tablet 30 tablet 0 Sig: Take 1 tablet by mouth once daily. Diana Mullins MA October 24, 2024 8:43 AM [facility] 10-24-2024 Miscellaneous Notes Prescription Refill Information The patient has been identified by name and date of : Yes Caregiver verified no other encounters exist for this prescription request: Yes Caregiver confirmed with patient/requestor that no other refills are due, in the near future, with this provider at this time: Yes The last office visit in the department: 04/2024 Does the patient have a future office visit with this provider/department: Yes Requested Prescriptions Pending Prescriptions Disp Refills pioglitazone (ACTOS) 45 mg tablet 30 tablet 0 Sig: Take 1 tablet by mouth once daily. Diana Mullins MA October 24, 2024 8:43 AM documented in this encounter [facility] 09-19-2024 Telephone encounter Note Prescription Refill Information The patient has been identified by name and date of : Yes Caregiver verified no other encounters exist for this prescription request: Yes Caregiver confirmed with patient/requestor that no other refills are due, in the near future, with this provider at this time: Yes The last office visit in the department: 04/18/24 Does the patient have a future office visit with this provider/department: Yes, 09/23/24 Requested Prescriptions Pending Prescriptions Disp Refills pioglitazone (ACTOS) 45 mg tablet 30 tablet 0 Sig: Take 1 tablet by mouth once daily. Rob Paez LPN September 19, 2024 2:28 PM [facility] 09-19-2024 Miscellaneous Notes Prescription Refill Information The patient has been identified by name and date of : Yes Caregiver verified no other encounters exist for this prescription request: Yes Caregiver confirmed with patient/requestor that no other refills are due, in the near future, with this provider at this time: Yes The last office visit in the department: 04/18/24 Does the patient have a future office visit with this provider/department: Yes, 09/23/24 Requested Prescriptions Pending Prescriptions Disp Refills pioglitazone (ACTOS) 45 mg tablet 30 tablet 0 Sig: Take 1 tablet by mouth once daily. Rob Paez LPN September 19, 2024 2:28 PM documented in this encounter [facility] 09-19-2024 Telephone encounter Note Prescription Refill Information The patient has been identified by name and date of : Yes Caregiver verified no other encounters exist for this prescription request: Yes Caregiver confirmed with patient/requestor that no other refills are due, in the near future, with this provider at this time: Yes The last office visit in the department: 04/18/24 Does the patient have a future office visit with this provider/department: Yes, 09/23/24 Requested Prescriptions Pending Prescriptions Disp Refills omeprazole (PRILOSEC) 20 mg capsule 90 capsule 0 Sig: Take 1 capsule by mouth daily before breakfast. 1/2 hr before meal. Rob Paez LPN September 19, 2024 11:26 AM [facility] 09-19-2024 Miscellaneous Notes Prescription Refill Information The patient has been identified by name and date of : Yes Caregiver verified no other encounters exist for this prescription request: Yes Caregiver confirmed with patient/requestor that no other refills are due, in the near future, with this provider at this time: Yes The last office visit in the department: 04/18/24 Does the patient have a future office visit with this provider/department: Yes, 09/23/24 Requested Prescriptions Pending Prescriptions Disp Refills omeprazole (PRILOSEC) 20 mg capsule 90 capsule 0 Sig: Take 1 capsule by mouth daily before breakfast. 1/2 hr before meal. Rob Paez LPN September 19, 2024 11:26 AM documented in this encounter [facility] 09-19-2024 Telephone encounter Note Patient reports she is not tolerating mounjaro and is requesting to try rybelsus. [facility] 09-19-2024 Miscellaneous Notes Patient reports she is not tolerating mounjaro and is requesting to try rybelsus. documented in this encounter [facility] 09-12-2024 Telephone encounter Note Patient given results and verbalized understanding of instructions given. Sarah Damico MA [facility] 09-12-2024 Miscellaneous Notes Patient given results and verbalized understanding of instructions given. Saarh Damico MA Please contact patient and let her know urine culture revealed no UTI. Please follow-up with PCP to ensure resolution of blood in the urine documented in this encounter [facility] 09-12-2024 Telephone encounter Note Needs OV or EC evaluation to confirm UTI and obtain culture. [facility] 09-12-2024 Miscellaneous Notes Needs OV or EC evaluation to confirm UTI and obtain culture. Please see mychart message. documented in this encounter [facility] 09-12-2024 Telephone encounter Note Please see mychart message. [facility] 09-12-2024 Telephone encounter Note Please contact patient and let her know urine culture revealed no UTI. Please follow-up with PCP to ensure resolution of blood in the urine [facility] Work Phone: 09-11-2024 Note HNO ID: [id number] Author: JEREMI MONTILLA APRN.GROOMING ASSISTANT Service: ? Author Type: Nurse Practitioner Type: Progress Notes Filed: 09/11/2024 10:18 Note Text: Subjective HPI Nontoxic-appearing female presents urgent care chief complaint possible UTI. Duration of symptoms 2 days. Associated symptoms dysuria frequency urgency. History of UTI. Had 1 in July. States she is on her last day of her period and developed some discomfort. This is similar to last time. OTC medications none. Denies any vaginal discharge or rashes. Is not . Is not breast-feeding. No concerns for STDs. No urological abnormalities. Past medical history prescription medications allergies reviewed .Patient presents with: Urinary Frequency: burning x 2 days after period, had uti last month after period also PAST MEDICAL HISTORY Diagnosis Date Abnormal LFTs (liver function tests) 12/08/2016 Acute biliary pancreatitis 08/29/2015 Acute gastritis 05/07/2015 [facility] Chlamydia 04/04/2014 Chronic cholecystitis with calculus 10/03/2015 Chronic lower back pain 05/07/2015 [facility] Diabetes mellitus type II, uncontrolled 2016 Fatty liver disease, nonalcoholic MELVIN (generalized anxiety disorder) History of COVID-19 05/2021 Hyperandrogenemia 04/04/2014 Morbid obesity (HCC) 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 not recommending FINNEGAN Thyroid nodule abnormal FNA right thyroid (2017), repeat US 1,2,3, and 5 years from 2021 PAST SURGICAL HISTORY Procedure Laterality Date COLPOSCOPY CERVIX UPPR/ADJCNT VAGINA W/CERVIX BX 07/13/06 chronic cervicitis with no evidence of dysplasia LAPS SURG CHOLECYSTECTOMY W/CHOLANGIOGRAPHY 09-25-15 MYRINGOTOMY ASPIRAND/EUSTACHIAN TUBE NFLTJ ANES 1993,1994 Myringotomy/tubes THYROIDECTOMY SUBTOTAL/PARTIAL Left 01/13/2020 Left thyroidectomy TONSILLECTOMY PRIMARY/SECONDARY Tonsillectomy US THYROID BIOPSY 11/2019 AUS ALLERGIES Acetaminophen, Seasonal Allergies, and Vicodin [Hydrocodone-Acetaminophen] MEDICATIONS pioglitazone (ACTOS) 45 mg tablet Take 1 tablet by mouth once daily. omeprazole (PRILOSEC) 20 mg capsule Take 1 capsule by mouth daily before breakfast. 1/2 hr before meal. metFORMIN ER (GLUCOPHAGE XR) 500 mg 24 hr tablet Take 2 tablets by mouth two times a day. tirzepatide (MOUNJARO) 10 mg/0.5 mL pen injector Inject 10 mg subcutaneously one time a week. ergocalciferol 50,000 unit capsule (VITAMIN D2, DRISDOL) Take 1 tablet by mouth twice weekly [id number], then decrease to 1 tablet weekly. sertraline (ZOLOFT) 100 mg tablet Take 1 tablet by mouth once daily. CPAP Initiate Auto PAP @ 5-20 cm of water with humidification. Mask (per patient preference) optional chin strap (if indicated) , filters, tubing, humidifier and lifetime supplies. levothyroxine 50 mcg cap Take 1 capsule by mouth daily before breakfast. calcium carbonate (TUMS) 500 mg chew Take 1 tablet by mouth every hour as needed (mouth or hand numbness or tingling). ccgedfs-uzzhlwiiz-digqhzo D3 500 mg(1,250mg) -200 unit per tablet Take 1 tablet by mouth three times daily. loratadine (CLARITIN) 10 mg tablet Take 10 mg by mouth as needed. FAMILY HISTORY Problem Relation Age of Onset Cancer Mother thyroid No Known Problems Brother No Known Problems Brother Arthritis Maternal Grandmother Hypertension Maternal Grandmother Thyroid Maternal Grandmother Alzheimer's Disease Maternal Grandmother Diabetes Paternal Grandmother Breast Cancer Paternal Aunt Thyroid Maternal Aunt Cancer Maternal Aunt gastric Social History Tobacco Use Smoking status: Former Current packs/day: 0.00 Types: Cigarettes Start date: 10/03/2003 Quit date: 10/02/2004 Years since quittin.9 Smokeless tobacco: Never Vaping Use Vaping status: Never Used Substance Use Topics Alcohol use: Yes Comment: Socially Drug use: No BP 118/72 Pulse 96 Temp 36.2 ?C (97.1 ?F) Resp 18 Wt (!) 139.9 kg (308 lb 6.8 oz) LMP 07/19/2024 (Exact Date) SpO2 97% BMI 46.74 kg/m? Review of Systems Constitutional: Negative for chills, fever and malaise/fatigue. Cardiovascular: Negative for chest pain. Gastrointestinal: Negative for abdominal pain, constipation, diarrhea, nausea and vomiting. Genitourinary: Positive for dysuria, frequency and urgency. Negative for flank pain and hematuria. Musculoskeletal: Negative for myalgias. Objective Physical Exam Vitals and nursing note reviewed. Constitutional: General: She is not in acute distress. Appearance: She is not diaphoretic. HENT: Head: Jaw: No trismus. Right Ear: Hearing normal. No decreased hearing noted. No drai (more content not included)... [facility] 09-11-2024 History of Presen t illness Narrative Subjective HPI Nontoxic-appearing female presents urgent care chief complaint possible UTI. Duration of symptoms 2 days. Associated symptoms dysuria frequency urgency. History of UTI. Had 1 in July. States she is on her last day of her period and developed some discomfort. This is similar to last time. OTC medications none. Denies any vaginal discharge or rashes. Is not . Is not breast-feeding. No concerns for STDs. No urological abnormalities. Past medical history prescription medications allergies reviewed .Patient presents with: Urinary Frequency: burning x 2 days after period, had uti last month after period also PAST MEDICAL HISTORY Diagnosis Date Abnormal LFTs (liver function tests) 12/08/2016 Acute biliary pancreatitis 08/29/2015 Acute gastritis 05/07/2015 [facility] Chlamydia 04/04/2014 Chronic cholecystitis with calculus 10/03/2015 Chronic lower back pain 05/07/2015 [facility] Diabetes mellitus type II, uncontrolled 2017 Fatty liver disease, nonalcoholic MELVIN (generalized anxiety disorder) History of COVID-19 05/2021 Hyperandrogenemia 04/04/2014 Morbid obesity (HCC) 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 not recommending FINNEGAN Thyroid nodule abnormal FNA right thyroid (2017), repeat US 1,2,3, and 5 years from 2021 PAST SURGICAL HISTORY Procedure Laterality Date COLPOSCOPY CERVIX UPPR/ADJCNT VAGINA W/CERVIX BX 07/13/06 chronic cervicitis with no evidence of dysplasia LAPS SURG CHOLECYSTECTOMY W/CHOLANGIOGRAPHY 09-25-15 MYRINGOTOMY ASPIR&/EUSTACHIAN TUBE NFLTJ ANES 1993,1994 Myringotomy/tubes THYROIDECTOMY SUBTOTAL/PARTIAL Left 01/13/2020 Left thyroidectomy TONSILLECTOMY PRIMARY/SECONDARY <AGE 13 1995 Tonsillectomy US THYROID BIOPSY 11/2019 AUS ALLERGIES Acetaminophen, Seasonal Allergies, and Vicodin [Hydrocodone-Acetaminophen] MEDICATIONS pioglitazone (ACTOS) 45 mg tablet Take 1 tablet by mouth once daily. omeprazole (PRILOSEC) 20 mg capsule Take 1 capsule by mouth daily before breakfast. 1/2 hr before meal. metFORMIN ER (GLUCOPHAGE XR) 500 mg 24 hr tablet Take 2 tablets by mouth two times a day. tirzepatide (MOUNJARO) 10 mg/0.5 mL pen injector Inject 10 mg subcutaneously one time a week. ergocalciferol 50,000 unit capsule (VITAMIN D2, DRISDOL) Take 1 tablet by mouth twice weekly [id number], then decrease to 1 tablet weekly. sertraline (ZOLOFT) 100 mg tablet Take 1 tablet by mouth once daily. CPAP Initiate Auto PAP @ 5-20 cm of water with humidification. Mask (per patient preference) optional chin strap (if indicated) , filters, tubing, humidifier and lifetime supplies. levothyroxine 50 mcg cap Take 1 capsule by mouth daily before breakfast. calcium carbonate (TUMS) 500 mg chew Take 1 tablet by mouth every hour as needed (mouth or hand numbness or tingling). aqdsiqf-oxmlejbau-bmjucnj D3 500 mg(1,250mg) -200 unit per tablet Take 1 tablet by mouth three times daily. loratadine (CLARITIN) 10 mg tablet Take 10 mg by mouth as needed. FAMILY HISTORY Problem Relation Age of Onset Cancer Mother thyroid No Known Problems Brother No Known Problems Brother Arthritis Maternal Grandmother Hypertension Maternal Grandmother Thyroid Maternal Grandmother Alzheimer's Disease Maternal Grandmother Diabetes Paternal Grandmother Breast Cancer Paternal Aunt Thyroid Maternal Aunt Cancer Maternal Aunt gastric Social History Tobacco Use Smoking status: Former Current packs/day: 0.00 Types: Cigarettes Start date: 10/03/2003 Quit date: 10/02/2004 Years since quittin.9 Smokeless tobacco: Never Vaping Use Vaping status: Never Used Substance Use Topics Alcohol use: Yes Comment: Socially Drug use: No BP 118/72 Pulse 96 Temp 36.2 C (97.1 F) Resp 18 Wt (!) 139.9 kg (308 lb 6.8 oz) LMP 07/19/2024 (Exact Date) SpO2 97% BMI 46.74 kg/m Review of Systems Constitutional: Negative for chills, fever and malaise/fatigue. Cardiovascular: Negative for chest pain. Gastrointestinal: Negative for abdominal pain, constipation, diarrhea, nausea and vomiting. Genitourinary: Positive for dysuria, frequency and urgency. Negative for flank pain and hematuria. Musculoskeletal: Negative for myalgias. Objective Physical Exam Vitals and nursing note reviewed. Constitutional: General: She is not in acute distress. Appearance: She is not diaphoretic. HENT: Head: Jaw: No trismus. Right Ear: Hearing normal. No decreased hearing noted. No drainage, swelling or tenderness. Tympanic membrane is not perforated, erythematous or bulging. Left Ear: Hearing normal. No decreased hearing noted. No drainage, swelling or tenderness. Tympanic membrane is not perforated, erythematous or bulging. Mouth/Throat: Pharynx: Uvula midline. No uvula swelling. Tonsils: No tonsillar abscesses. Cardiovascular: Rate and Rhythm: Normal rate and regular rhythm. Pulses: Normal pulses. Pulmonary: Effort: Pulmonary effort is normal. No respiratory distress. Breath sounds: Normal breath sounds. Chest: Chest wall: No tenderness. Abdominal: General: Bowel sounds are normal. There is no distension. Palpations: Abdomen is soft. Abdomen is not rigid. Tenderness: There is no abdominal tenderness. There is no right CVA tenderness, left CVA tenderness, guarding or rebound. Negative signs include Garvey's sign and McBurney's sign. Musculoskeletal: General: No tenderness. Lymphadenopathy: Head: Right side of head: No submental, submandibular, tonsillar, preauricular, posterior auricular or occipital adenopathy. Left side of head: No submental, submandibular, tonsillar, preauricular, posterior auricular or occipital adenopathy. Cervical: Right cervical: No superficial or posterior cervical adenopathy. Left cervical: No superficial or posterior cervical adenopathy. Skin: General: Skin is warm and dry. Findings: No rash. Neurological: Mental Status: She is alert and oriented to person, place, and time. ASSESSMENT/PLAN: 1. Frequency of urination - ICD9: 788.41, ICD10: R35.0 - UA DIP, URINE (POC) - BACTERIAL CULTURE, URINE Urine positive for leukocytes blood and protein. Treat for acute cystitis. Previous culture was mixed micro. Placed on Keflex today. Patient was educated on supportive therapies. Patient will follow up with primary care provider as needed. Patient was instructed to immediately proceed to emergency room for any new, worsening, or symptoms lasting longer than anticipated. The patient's clinical presentation is otherwise unremarkable at this time. Based on exam and clinical finding, the patient is stable for discharge. Plan of care was discussed with patient. Patient verbalizes understanding and agrees to plan of care. This note was generated using [facility] software. It may contain errors in wording, punctuation, or spelling. Jeremi Montilla APRN.[place]UAN [place]IEGO documented in this encounter [facility] 07-23-2024 Telephone encounter Note Mychart was reviewed by pt on 07/20 . Has not returned phone call. Bryn Palacios LPN [facility] 07-23-2024 Miscellaneous Notes Mychart was reviewed by pt on 07/20 . Has not returned phone call. Bryn Palacios LPN Left message for pt to call back. Alannah Busch MA Call let patient know there was not a significant amount of bacterial growth in the urine culture. She can continue antibiotics if they are helping. If symptoms persist patient needs to see her primary care. documented in this encounter [facility] 07-20-2024 Telephone encounter Note Left message for pt to call back. Alannah Busch MA [facility] 07-20-2024 Telephone encounter Note Call let patient know there was not a significant amount of bacterial growth in the urine culture. She can continue antibiotics if they are helping. If symptoms persist patient needs to see her primary care. [facility] 07-19-2024 Note HNO ID: [id number] Author: PREMA MULLINS APRN.JUAN DIEGO Service: ? Author Type: Nurse Practitioner Type: Progress Notes Filed: 07/19/2024 09:23 Note Text: CC: Patient presents with: Urinary Problem: Burning and frequency x last night HPI Arabella Dubose is a 38 year old female who presents with complaint of possible UTI. These symptoms have been present for 1 days. Associated symptoms: burning and urgency Denies: fever, chills, sweats, abdominal pain, and flank pain Treatments: nothing The ROS was otherwise negative. PMH, Medications, labs, allergies, and recent past visits with PCP were reviewed and updated as able. PHYSICAL EXAM: BP 128/78 Pulse 84 Temp 36.2 ?C (97.1 ?F) Resp 18 Wt (!) 142 kg (313 lb 0.9 oz) LMP 07/19/2024 (Exact Date) SpO2 98% BMI 47.45 kg/m? General: Well appearing and alert CV: Regular rate and rhythm without obvious murmur Lungs: clear to auscultation bilaterally Back: straight and symmetric Abdomen: soft, nontender, nondistended PAST MEDICAL HISTORY Diagnosis Date Abnormal LFTs (liver function tests) 12/08/2016 Acute biliary pancreatitis 08/29/2015 Acute gastritis 05/07/2015 [facility] Chlamydia 04/04/2014 Chronic cholecystitis with calculus 10/03/2015 Chronic lower back pain 05/07/2015 [facility] Diabetes mellitus type II, uncontrolled 2016 Fatty liver disease, nonalcoholic MELVIN (generalized anxiety disorder) History of COVID-19 05/2021 Hyperandrogenemia 04/04/2014 Morbid obesity (HCC) 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 not recommending FINNEGAN Thyroid nodule abnormal FNA right thyroid (2017), repeat US 1,2,3, and 5 years from 2021 PAST SURGICAL HISTORY Procedure Laterality Date COLPOSCOPY CERVIX UPPR/ADJCNT VAGINA W/CERVIX BX 07/13/06 chronic cervicitis with no evidence of dysplasia LAPS SURG CHOLECYSTECTOMY W/CHOLANGIOGRAPHY 09-25-15 MYRINGOTOMY ASPIRAND/EUSTACHIAN TUBE NFLTJ ANES 1993,1994 Myringotomy/tubes THYROIDECTOMY SUBTOTAL/PARTIAL Left 01/13/2020 Left thyroidectomy TONSILLECTOMY PRIMARY/SECONDARY Tonsillectomy US THYROID BIOPSY 11/2019 AUS [facility]ERGIES Acetaminophen, Seasonal Allergies, and Vicodin [Hydrocodone-Acetaminophen] MEDICATIONS omeprazole (PRILOSEC) 20 mg capsule Take 1 capsule by mouth daily before breakfast. 1/2 hr before meal. metFORMIN ER (GLUCOPHAGE XR) 500 mg 24 hr tablet Take 2 tablets by mouth two times a day. tirzepatide (MOUNJARO) 10 mg/0.5 mL pen injector Inject 10 mg subcutaneously one time a week. ergocalciferol 50,000 unit capsule (VITAMIN D2, DRISDOL) Take 1 tablet by mouth twice weekly [id number], then decrease to 1 tablet weekly. sertraline (ZOLOFT) 100 mg tablet Take 1 tablet by mouth once daily. pioglitazone (ACTOS) 45 mg tablet Take 1 tablet by mouth once daily. CPAP Initiate Auto PAP @ 5-20 cm of water with humidification. Mask (per patient preference) optional chin strap (if indicated) , filters, tubing, humidifier and lifetime supplies. levothyroxine 50 mcg cap Take 1 capsule by mouth daily before breakfast. calcium carbonate (TUMS) 500 mg chew Take 1 tablet by mouth every hour as needed (mouth or hand numbness or tingling). yrmtele-rzmruaesw-ucmlldc D3 500 mg(1,250mg) -200 unit per tablet Take 1 tablet by mouth three times daily. loratadine (CLARITIN) 10 mg tablet Take 10 mg by mouth as needed. FAMILY HISTORY Problem Relation Age of Onset Cancer Mother thyroid No Known Problems Brother No Known Problems Brother Arthritis Maternal Grandmother Hypertension Maternal Grandmother Thyroid Maternal Grandmother Alzheimer's Disease Maternal Grandmother Diabetes Paternal Grandmother Breast Cancer Paternal Aunt Thyroid Maternal Aunt Cancer Maternal Aunt gastric Social History Tobacco Use Smoking status: Former Current packs/day: 0.00 Types: Cigarettes Start date: 10/03/2003 Quit date: 10/02/2004 Years since quittin.8 Smokeless tobacco: Never Vaping Use Vaping status: Never Used Substance Use Topics Alcohol use: Yes Comment: Socially Drug use: No ASSESSMENT/PLAN: 1. Urinary frequency - ICD9: 788.41, ICD10: R35.0 - UA DIP, URINE (POC) - BACTERIAL CULTURE, URINE - NITROFURANTOIN MONOHYDRATE AND MACROCRYSTAL 100 MG ORAL CAP Prescription instructions reviewed with patient as applicable. Potential red flag symptoms discussed with the patient. Reviewed appropriate action plan to take if red flag symptoms occur. Patient agreeable to treatment plan. Prema Mullins APRN.[facility] 07-19-2024 History of Presen t illness Narrative CC: Patient presents with: Urinary Problem: Burning and frequency x last night HPI Arabella Dubose is a 38 year old female who presents with complaint of possible UTI. These symptoms have been present for 1 days. Associated symptoms: burning and urgency Denies: fever, chills, sweats, abdominal pain, and flank pain Treatments: nothing The ROS was otherwise negative. PMH, Medications, labs, allergies, and recent past visits with PCP were reviewed and updated as able. PHYSICAL EXAM: BP 128/78 Pulse 84 Temp 36.2 C (97.1 F) Resp 18 Wt (!) 142 kg (313 lb 0.9 oz) LMP 07/19/2024 (Exact Date) SpO2 98% BMI 47.45 kg/m General: Well appearing and alert CV: Regular rate and rhythm without obvious murmur Lungs: clear to auscultation bilaterally Back: straight and symmetric Abdomen: soft, nontender, nondistended PAST MEDICAL HISTORY Diagnosis Date Abnormal LFTs (liver function tests) 12/08/2016 Acute biliary pancreatitis 08/29/2015 Acute gastritis 05/07/2015 [facility] Chlamydia 04/04/2014 Chronic cholecystitis with calculus 10/03/2015 Chronic lower back pain 05/07/2015 [facility] Diabetes mellitus type II, uncontrolled 2016 Fatty liver disease, nonalcoholic MELVIN (generalized anxiety disorder) History of COVID-19 05/2021 Hyperandrogenemia 04/04/2014 Morbid obesity (HCC) 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 not recommending FINNEGAN Thyroid nodule abnormal FNA right thyroid (2017), repeat US 1,2,3, and 5 years from 2021 PAST SURGICAL HISTORY Procedure Laterality Date COLPOSCOPY CERVIX UPPR/ADJCNT VAGINA W/CERVIX BX 07/13/06 chronic cervicitis with no evidence of dysplasia LAPS SURG CHOLECYSTECTOMY W/CHOLANGIOGRAPHY 09-25-15 MYRINGOTOMY ASPIR&/EUSTACHIAN TUBE NFLTJ ANES 1993,1994 Myringotomy/tubes THYROIDECTOMY SUBTOTAL/PARTIAL Left 01/13/2020 Left thyroidectomy TONSILLECTOMY PRIMARY/SECONDARY <AGE 13 1995 Tonsillectomy US THYROID BIOPSY 11/2019 A[facility] ALLERGIES Acetaminophen, Seasonal Allergies, and Vicodin [Hydrocodone-Acetaminophen] MEDICATIONS omeprazole (PRILOSEC) 20 mg capsule Take 1 capsule by mouth daily before breakfast. 1/2 hr before meal. metFORMIN ER (GLUCOPHAGE XR) 500 mg 24 hr tablet Take 2 tablets by mouth two times a day. tirzepatide (MOUNJARO) 10 mg/0.5 mL pen injector Inject 10 mg subcutaneously one time a week. ergocalciferol 50,000 unit capsule (VITAMIN D2, DRISDOL) Take 1 tablet by mouth twice weekly [id number], then decrease to 1 tablet weekly. sertraline (ZOLOFT) 100 mg tablet Take 1 tablet by mouth once daily. pioglitazone (ACTOS) 45 mg tablet Take 1 tablet by mouth once daily. CPAP Initiate Auto PAP @ 5-20 cm of water with humidification. Mask (per patient preference) optional chin strap (if indicated) , filters, tubing, humidifier and lifetime supplies. levothyroxine 50 mcg cap Take 1 capsule by mouth daily before breakfast. calcium carbonate (TUMS) 500 mg chew Take 1 tablet by mouth every hour as needed (mouth or hand numbness or tingling). [id number] D3 500 mg(1,250mg) -200 unit per tablet Take 1 tablet by mouth three times daily. loratadine (CLARITIN) 10 mg tablet Take 10 mg by mouth as needed. FAMILY HISTORY Problem Relation Age of Onset Cancer Mother thyroid No Known Problems Brother No Known Problems Brother Arthritis Maternal Grandmother Hypertension Maternal Grandmother Thyroid Maternal Grandmother Alzheimer's Disease Maternal Grandmother Diabetes Paternal Grandmother Breast Cancer Paternal Aunt Thyroid Maternal Aunt Cancer Maternal Aunt gastric Social History Tobacco Use Smoking status: Former Current packs/day: 0.00 Types: Cigarettes Start date: 10/03/2003 Quit date: 10/02/2004 Years since quittin.8 Smokeless tobacco: Never Vaping Use Vaping status: Never Used Substance Use Topics Alcohol use: Yes Comment: Socially Drug use: No ASSESSMENT/PLAN: 1. Urinary frequency - ICD9: 788.41, ICD10: R35.0 - UA DIP, URINE (POC) - BACTERIAL CULTURE, URINE - NITROFURANTOIN MONOHYDRATE & MACROCRYSTAL 100 MG ORAL CAP Prescription instructions reviewed with patient as applicable. Potential red flag symptoms discussed with the patient. Reviewed appropriate action plan to take if red flag symptoms occur. Patient agreeable to treatment plan. Prema Mullins APRN.[employer]IST[employer] documented in this encounter [facility] 06-30-2024 Telephone encounter Note Prescription Refill Information The patient has been identified by name and date of : Yes Caregiver verified no other encounters exist for this prescription request: Yes Caregiver confirmed with patient/requestor that no other refills are due, in the near future, with this provider at this time: Yes The last office visit in the department: 04/18/24 Does the patient have a future office visit with this provider/department: Yes 07/19/24 Requested Prescriptions Pending Prescriptions Disp Refills omeprazole (PRILOSEC) 20 mg capsule 30 capsule 0 Sig: Take 1 capsule by mouth daily before breakfast. 1/2 hr before meal. Jackie Mendenhall LPN June 30, 2024 7:55 AM [facility] 06-30-2024 Miscellaneous Notes Prescription Refill Information The patient has been identified by name and date of : Yes Caregiver verified no other encounters exist for this prescription request: Yes Caregiver confirmed with patient/requestor that no other refills are due, in the near future, with this provider at this time: Yes The last office visit in the department: 04/18/24 Does the patient have a future office visit with this provider/department: Yes 07/19/24 Requested Prescriptions Pending Prescriptions Disp Refills omeprazole (PRILOSEC) 20 mg capsule 30 capsule 0 Sig: Take 1 capsule by mouth daily before breakfast. 1/2 hr before meal. Jackie Mendenhall LPN June 30, 2024 7:55 AM documented in this encounter [facility] 06-06-2024 Note HNO ID: [id number] Author: THIAGO BATEMAN PA-C Service: ? Author Type: Physician Spring Coiling Machine Setter Type: Progress Notes Filed: 06/06/2024 09:06 Note Text: This note was created using NoteWriter. Subjective Arabella Dubose is a 38 year old female. HPI Patient presents with sore throat, fatigue, vomiting. Sore throat started 3 days ago. No diarrhea. This morning she vomited once. She was around multiple coworkers who had COVID. Denies cough or nasal congestion. No home COVID test done. No chest pain or shortness of breath. Review of Systems Constitutional: Positive for fatigue. Negative for fever. HENT: Positive for sore throat. Negative for congestion, postnasal drip and rhinorrhea. Respiratory: Negative for cough and shortness of breath. Cardiovascular: Negative. Gastrointestinal: Positive for nausea and vomiting. Negative for diarrhea. Genitourinary: Negative. All other systems reviewed and are negative. 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 not recommending FINNEGAN Thyroid nodule abnormal FNA right thyroid (2018), repeat US 1,2,3, and 5 years from 2021 Current Outpatient Medications Medication Sig Dispense Refill omeprazole (PRILOSEC) 20 mg capsule Take 1 capsule by mouth daily before breakfast. 1/2 hr before meal. 30 capsule 0 metFORMIN ER (GLUCOPHAGE XR) 500 mg 24 hr tablet Take 2 tablets by mouth two times a day. 360 tablet 1 tirzepatide (MOUNJARO) 10 mg/0.5 mL pen injector Inject 10 mg subcutaneously one time a week. 12 Each 0 ergocalciferol 50,000 unit capsule (VITAMIN D2, DRISDOL) Take 1 tablet by mouth twice weekly [id number], then decrease to 1 tablet weekly. 16 capsule 3 sertraline (ZOLOFT) 100 mg tablet Take 1 tablet by mouth once daily. 90 tablet 1 pioglitazone (ACTOS) 45 mg tablet Take 1 tablet by mouth once daily. 30 tablet 3 CPAP Initiate Auto PAP @ 5-20 cm of water with humidification. Mask (per patient preference) optional chin strap (if indicated) , filters, tubing, humidifier and lifetime supplies. 1 Each 0 levothyroxine 50 mcg cap Take 1 capsule by mouth daily before breakfast. 30 capsule 3 calcium carbonate (TUMS) 500 mg chew Take 1 tablet by mouth every hour as needed (mouth or hand numbness or tingling). pfbnefy-gbydpazam-uuagafo D3 500 mg(1,250mg) -200 unit per tablet Take 1 tablet by mouth three times daily. loratadine (CLARITIN) 10 mg tablet Take 10 mg by mouth as needed. predniSONE (DELTASONE) 20 mg tablet Take 2 tablets by mouth once daily for 5 days. 10 tablet 0 fluconazole (DIFLUCAN) 150 mg tablet Take 1 tablet by mouth once daily for 1 day. 1 tablet 0 No current facility-administered medications for this visit. PAST SURGICAL HISTORY Procedure Laterality Date COLPOSCOPY CERVIX UPPR/ADJCNT VAGINA W/CERVIX BX 07/13/06 chronic cervicitis with no evidence of dysplasia LAPS SURG CHOLECYSTECTOMY W/CHOLANGIOGRAPHY 09-25-15 MYRINGOTOMY ASPIRAND/EUSTACHIAN TUBE NFLTJ ANES 1993,1994 Myringotomy/tubes THYROIDECTOMY SUBTOTAL/PARTIAL Left 01/13/2020 Left thyroidectomy TONSILLECTOMY PRIMARY/SECONDARY Tonsillectomy US THYROID BIOPSY 11/2019 [facility] FAMILY HISTORY Problem Relation Age of Onset Cancer Mother thyroid No Known Problems Brother No Known Problems Brother Arthritis Maternal Grandmother Hypertension Maternal Grandmother Thyroid Maternal Grandmother Alzheimer's Disease Maternal Grandmother Diabetes Paternal Grandmother Breast Cancer Paternal Aunt Thyroid Maternal Aunt Cancer Maternal Aunt gastric Social History Tobacco Use Smoking status: Former Current packs/day: 0.00 Types: Cigarettes Start date: 10/03/2003 Quit date: 10/02/2004 Years since quittin.6 Smokeless tobacco: Never Vaping Use Vaping status: Never Used Substance Use Topics Alcohol use: Yes Comment: Socially Drug use: No Objective BP 126/84 Pulse 106 Temp 36.3 ?C (97.4 ?F) Resp 18 Wt (!) 143.4 kg (316 lb 2.2 oz) LMP 07/12/2023 (Exact Date) SpO2 96% BMI 47.91 kg/m? Physical Exam Vitals reviewed. Constitutional: Appearance: Normal appearance. HENT: Head: Normocephalic and atraumatic. Right Ear: Tympanic membrane, ear ca (more content not included)... [facility] 06-06-2024 History of Presen t illness Narrative This note was created using Viddlerriter. Subjective Arabella Dubose is a 38 year old female. HPI Patient presents with sore throat, fatigue, vomiting. Sore throat started 3 days ago. No diarrhea. This morning she vomited once. She was around multiple coworkers who had COVID. Denies cough or nasal congestion. No home COVID test done. No chest pain or shortness of breath. Review of Systems Constitutional: Positive for fatigue. Negative for fever. HENT: Positive for sore throat. Negative for congestion, postnasal drip and rhinorrhea. Respiratory: Negative for cough and shortness of breath. Cardiovascular: Negative. Gastrointestinal: Positive for nausea and vomiting. Negative for diarrhea. Genitourinary: Negative. All other systems reviewed and are negative. 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 not recommending FINNEGAN Thyroid nodule abnormal FNA right thyroid (2017), repeat US 1,2,3, and 5 years from 2021 Current Outpatient Medications Medication Sig Dispense Refill omeprazole (PRILOSEC) 20 mg capsule Take 1 capsule by mouth daily before breakfast. 1/2 hr before meal. 30 capsule 0 metFORMIN ER (GLUCOPHAGE XR) 500 mg 24 hr tablet Take 2 tablets by mouth two times a day. 360 tablet 1 tirzepatide (MOUNJARO) 10 mg/0.5 mL pen injector Inject 10 mg subcutaneously one time a week. 12 Each 0 ergocalciferol 50,000 unit capsule (VITAMIN D2, DRISDOL) Take 1 tablet by mouth twice weekly [id number], then decrease to 1 tablet weekly. 16 capsule 3 sertraline (ZOLOFT) 100 mg tablet Take 1 tablet by mouth once daily. 90 tablet 1 pioglitazone (ACTOS) 45 mg tablet Take 1 tablet by mouth once daily. 30 tablet 3 CPAP Initiate Auto PAP @ 5-20 cm of water with humidification. Mask (per patient preference) optional chin strap (if indicated) , filters, tubing, humidifier and lifetime supplies. 1 Each 0 levothyroxine 50 mcg cap Take 1 capsule by mouth daily before breakfast. 30 capsule 3 calcium carbonate (TUMS) 500 mg chew Take 1 tablet by mouth every hour as needed (mouth or hand numbness or tingling). wrjwgzr-qgjyuzqyi-eicjrnr D3 500 mg(1,250mg) -200 unit per tablet Take 1 tablet by mouth three times daily. loratadine (CLARITIN) 10 mg tablet Take 10 mg by mouth as needed. predniSONE (DELTASONE) 20 mg tablet Take 2 tablets by mouth once daily for 5 days. 10 tablet 0 fluconazole (DIFLUCAN) 150 mg tablet Take 1 tablet by mouth once daily for 1 day. 1 tablet 0 No current facility-administered medications for this visit. PAST SURGICAL HISTORY Procedure Laterality Date COLPOSCOPY CERVIX UPPR/ADJCNT VAGINA W/CERVIX BX 07/13/06 chronic cervicitis with no evidence of dysplasia LAPS SURG CHOLECYSTECTOMY W/CHOLANGIOGRAPHY 09-25-15 MYRINGOTOMY ASPIR&/EUSTACHIAN TUBE NFLTJ ANES 1993,1994 Myringotomy/tubes THYROIDECTOMY SUBTOTAL/PARTIAL Left 01/13/2020 Left thyroidectomy TONSILLECTOMY PRIMARY/SECONDARY <AGE 12 1995 Tonsillectomy US THYROID BIOPSY 11/2019 [facility] FAMILY HISTORY Problem Relation Age of Onset Cancer Mother thyroid No Known Problems Brother No Known Problems Brother Arthritis Maternal Grandmother Hypertension Maternal Grandmother Thyroid Maternal Grandmother Alzheimer's Disease Maternal Grandmother Diabetes Paternal Grandmother Breast Cancer Paternal Aunt Thyroid Maternal Aunt Cancer Maternal Aunt gastric Social History Tobacco Use Smoking status: Former Current packs/day: 0.00 Types: Cigarettes Start date: 10/03/2003 Quit date: 10/02/2004 Years since quittin.6 Smokeless tobacco: Never Vaping Use Vaping status: Never Used Substance Use Topics Alcohol use: Yes Comment: Socially Drug use: No Objective BP 126/84 Pulse 106 Temp 36.3 C (97.4 F) Resp 18 Wt (!) 143.4 kg (316 lb 2.2 oz) LMP 07/12/2023 (Exact Date) SpO2 96% BMI 47.91 kg/m Physical Exam Vitals reviewed. Constitutional: Appearance: Normal appearance. HENT: Head: Normocephalic and atraumatic. Right Ear: Tympanic membrane, ear canal and external ear normal. Left Ear: Tympanic membrane, ear canal and external ear normal. Nose: Congestion present. Mouth/Throat: Mouth: Mucous membranes are moist. Pharynx: Pharyngeal swelling and posterior oropharyngeal erythema present. No oropharyngeal exudate or uvula swelling. Tonsils: No tonsillar exudate or tonsillar abscesses. 1+ on the right. 1+ on the left. Cardiovascular: Rate and Rhythm: Normal rate and regular rhythm. Heart sounds: Normal heart sounds. Pulmonary: Effort: Pulmonary effort is normal. Breath sounds: Normal breath sounds. Musculoskeletal: Cervical back: Neck supple. Neurological: Mental Status: She is alert. Assessment and Plan ASSESSMENT/PLAN: 1. Sore throat - ICD9: 462, ICD10: J02.9 - Group A strep molecular testing negative - Discussed supportive care treatment with fluids, rest and analgesia. - The patient may also use warm salt water gargles, throat lozenges and/or OTC throat spray as needed - prednisone rx sent for pain. - STREP A MOLECULAR (POC) - COVID & INFLUENZA A/B & RSV PCR, ROUTINE hTiago Bateman PA-C documented in this encounter [facility] 05-30-2024 Telephone encounter Note Prescription Refill Information The patient has been identified by name and date of : Yes Caregiver verified no other encounters exist for this prescription request: Yes Caregiver confirmed with patient/requestor that no other refills are due, in the near future, with this provider at this time: Yes The last office visit in the department: 04/18/24 Does the patient have a future office visit with this provider/department: Yes Requested Prescriptions Pending Prescriptions Disp Refills omeprazole (PRILOSEC) 20 mg capsule 30 capsule 0 Sig: Take 1 capsule by mouth daily before breakfast. 1/2 hr before meal. Floridalma Morris LPN May 30, 2024 10:19 AM [facility] 05-30-2024 Miscellaneous Notes Prescription Refill Information The patient has been identified by name and date of : Yes Caregiver verified no other encounters exist for this prescription request: Yes Caregiver confirmed with patient/requestor that no other refills are due, in the near future, with this provider at this time: Yes The last office visit in the department: 04/18/24 Does the patient have a future office visit with this provider/department: Yes Requested Prescriptions Pending Prescriptions Disp Refills omeprazole (PRILOSEC) 20 mg capsule 30 capsule 0 Sig: Take 1 capsule by mouth daily before breakfast. 1/2 hr before meal. Floridalma Morris LPN May 30, 2024 10:19 AM documented in this encounter [facility] 05-16-2024 Telephone encounter Note Prescription Refill Information The patient has been identified by name and date of : Yes Caregiver verified no other encounters exist for this prescription request: Yes Caregiver confirmed with patient/requestor that no other refills are due, in the near future, with this provider at this time: Yes The last office visit in the department: 04/18/24 Does the patient have a future office visit with this provider/department: Yes, 07/19/24 Requested Prescriptions Pending Prescriptions Disp Refills metFORMIN ER (GLUCOPHAGE XR) 500 mg 24 hr tablet 360 tablet 1 Sig: Take 2 tablets by mouth two times a day. Last rx written 9/12/23 #360 with 1 refill. Rob Paez LPN May 16, 2024 10:44 AM [facility] 05-16-2024 Miscellaneous Notes Prescription Refill Information The patient has been identified by name and date of : Yes Caregiver verified no other encounters exist for this prescription request: Yes Caregiver confirmed with patient/requestor that no other refills are due, in the near future, with this provider at this time: Yes The last office visit in the department: 04/18/24 Does the patient have a future office visit with this provider/department: Yes, 07/19/24 Requested Prescriptions Pending Prescriptions Disp Refills metFORMIN ER (GLUCOPHAGE XR) 500 mg 24 hr tablet 360 tablet 1 Sig: Take 2 tablets by mouth two times a day. Last rx written 02/24/23 #360 with 1 refill. Rob Paez LPN May 16, 2024 10:44 AM documented in this encounter [facility] 04-25-2024 Telephone encounter Note Pt notified via [employer] that Rx has been sent into Pharmacy. Irene Garibay MA [facility] 04-25-2024 Miscellaneous Notes Pt notified via [employer] that Rx has been sent into Pharmacy. Irene Garibay MA Rx sent as requested. Please see pt's message. Betzaida Vásquez LPN documented in this encounter [facility] 04-25-2024 Telephone encounter Note Rx sent as requested. [facility] 04-22-2024 Telephone encounter Note Please see pt's message. Betzaida Vásquez LPN [facility] 04-19-2024 Telephone encounter Note Pt notified and verbalized understanding Luis Shah MA [facility] 04-19-2024 Miscellaneous Notes Pt notified and verbalized understanding Luis Shah MA Please let patient know her vitamin d is low. Also her hgba1c has decreased to 4.5. I have sent in vitamin d supplementation. documented in this encounter [facility] 04-19-2024 Telephone encounter Note Please let patient know her vitamin d is low. Also her hgba1c has decreased to 4.5. I have sent in vitamin d supplementation. [facility] 04-18-2024 Note HNO ID: [id number] Author: YULIANA JEFFREY APRN.CNP Service: ? Author Type: Nurse Practitioner Type: Progress Notes Filed: 04/18/2024 07:58 Note Text: Chief Complaint Patient presents with: Follow Up HPI Arabella Dubose is a 38 year old female who presents here today for Above Complaints.. Patient presents for follow up for mounjaro. Patient reports she has been ill over the last two weeks and with that she has had some side effects from the mounjaro like nausea and sulfur burps. Past medical history, appointments, medications, allergies reviewed. 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 not recommending FINNEGAN Thyroid nodule abnormal FNA right thyroid (2017), repeat US 1,2,3, and 5 years from 2021 Previous Surgical History PAST SURGICAL HISTORY Procedure Laterality Date COLPOSCOPY CERVIX UPPR/ADJCNT VAGINA W/CERVIX BX 07/13/06 chronic cervicitis with no evidence of dysplasia LAPS SURG CHOLECYSTECTOMY W/CHOLANGIOGRAPHY 09-25-15 MYRINGOTOMY ASPIRAND/EUSTACHIAN TUBE NFLTJ ANES 1993,1994 Myringotomy/tubes THYROIDECTOMY SUBTOTAL/PARTIAL Left 01/13/2020 Left thyroidectomy TONSILLECTOMY PRIMARY/SECONDARY Tonsillectomy US THYROID BIOPSY 11/2019 [facility] Family History FAMILY HISTORY Problem Relation Age of Onset Cancer Mother thyroid No Known Problems Brother No Known Problems Brother Arthritis Maternal Grandmother Hypertension Maternal Grandmother Thyroid Maternal Grandmother Alzheimer's Disease Maternal Grandmother Diabetes Paternal Grandmother Breast Cancer Paternal Aunt Thyroid Maternal Aunt Cancer Maternal Aunt gastric Patient Allergies ALLERGIES Allergen Reactions Acetaminophen Hives Seasonal Allergies Swelling Vicodin [Hydrocodon* Hives Current Medications Current Outpatient Medications on File Prior to Visit Medication Sig sertraline (ZOLOFT) 100 mg tablet Take 1 tablet by mouth once daily. pioglitazone (ACTOS) 45 mg tablet Take 1 tablet by mouth once daily. tirzepatide (MOUNJARO) 10 mg/0.5 mL pen injector Inject 10 mg subcutaneously one time a week. metFORMIN ER (GLUCOPHAGE XR) 500 mg 24 hr tablet Take 2 tablets by mouth twice daily. CPAP Initiate Auto PAP @ 5-20 cm of water with humidification. Mask (per patient preference) optional chin strap (if indicated) , filters, tubing, humidifier and lifetime supplies. levothyroxine 50 mcg cap Take 1 capsule by mouth daily before breakfast. calcium carbonate (TUMS) 500 mg chew Take 1 tablet by mouth every hour as needed (mouth or hand numbness or tingling). wrhbxvo-broajgput-fzdncdb D3 500 mg(1,250mg) -200 unit per tablet Take 1 tablet by mouth three times daily. loratadine (CLARITIN) 10 mg tablet Take 10 mg by mouth as needed. No current facility-administered medications on file prior to visit. Social History Social History Tobacco Use Smoking status: Former Current packs/day: 0.00 Types: Cigarettes Start date: 10/03/2003 Quit date: 10/02/2004 Years since quittin.5 Smokeless tobacco: Never Vaping Use Vaping status: Never Used Substance Use Topics Alcohol use: Yes Comment: Socially Drug use: No Review of Symptoms REVIEW OF SYSTEMS SEE HPI EXAM: BP 116/85 Pulse 91 Resp 16 Wt (!) 136.5 kg (301 lb) LMP 07/12/2023 (Exact Date) BMI 45.62 kg/m? General Appearance: Well appearing, alert, in no acute distress, well-hydrated, well nourished.. Ears: Positive findings: R TM: normal, L TM: mag fluid noted behind TM. Nose/Sinuses: Positive findings: mucosa erythematous and swollen. Oropharynx: Lips, mucosa, and tongue normal, teeth and gums normal, oropharynx normal. Neck: Supple, no adenopathy; thyroid symmetric, normal size, no bruits. Lungs: Lungs clear to auscultation. No wheezing, rhonchi, rales.. Heart: RRR without murmur, gallop, or rubs. No ectopy. Health Maintenance List Depression Screening Never done Hepatitis B Vaccine(1 of 3 - 19+ 3-dose series) Never done HPV Vaccine(2 - Risk 3-dose series) due on 08/10/2006 DTaP,Tdap,Td Vaccine(6 - Tdap) due on 02/02/2014 Pneumococcal Vaccine(2 of 2 - PCV) due on 04/24/2018 Ur (more content not included)... [facility] 04-18-2024 History of Presen t illness Narrative Chief Complaint Patient presents with: Follow Up HPI Arabella Dubose is a 38 year old female who presents here today for Above Complaints.. Patient presents for follow up for mounjaro. Patient reports she has been ill over the last two weeks and with that she has had some side effects from the mounjaro like nausea and sulfur burps. Past medical history, appointments, medications, allergies reviewed. 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 not recommending FINNEGAN Thyroid nodule abnormal FNA right thyroid (2017), repeat US 1,2,3, and 5 years from 2021 Previous Surgical History PAST SURGICAL HISTORY Procedure Laterality Date COLPOSCOPY CERVIX UPPR/ADJCNT VAGINA W/CERVIX BX 07/13/06 chronic cervicitis with no evidence of dysplasia LAPS SURG CHOLECYSTECTOMY W/CHOLANGIOGRAPHY 09-25-15 MYRINGOTOMY ASPIR&/EUSTACHIAN TUBE NFLTJ ANES 1993,1994 Myringotomy/tubes THYROIDECTOMY SUBTOTAL/PARTIAL Left 01/13/2020 Left thyroidectomy TONSILLECTOMY PRIMARY/SECONDARY <AGE 13 1996 Tonsillectomy US THYROID BIOPSY 11/2019 AUS Family History FAMILY HISTORY Problem Relation Age of Onset Cancer Mother thyroid No Known Problems Brother No Known Problems Brother Arthritis Maternal Grandmother Hypertension Maternal Grandmother Thyroid Maternal Grandmother Alzheimer's Disease Maternal Grandmother Diabetes Paternal Grandmother Breast Cancer Paternal Aunt Thyroid Maternal Aunt Cancer Maternal Aunt gastric Patient Allergies ALLERGIES Allergen Reactions Acetaminophen Hives Seasonal Allergies Swelling Vicodin [Hydrocodon* Hives Current Medications Current Outpatient Medications on File Prior to Visit Medication Sig sertraline (ZOLOFT) 100 mg tablet Take 1 tablet by mouth once daily. pioglitazone (ACTOS) 45 mg tablet Take 1 tablet by mouth once daily. tirzepatide (MOUNJARO) 10 mg/0.5 mL pen injector Inject 10 mg subcutaneously one time a week. metFORMIN ER (GLUCOPHAGE XR) 500 mg 24 hr tablet Take 2 tablets by mouth twice daily. CPAP Initiate Auto PAP @ 5-20 cm of water with humidification. Mask (per patient preference) optional chin strap (if indicated) , filters, tubing, humidifier and lifetime supplies. levothyroxine 50 mcg cap Take 1 capsule by mouth daily before breakfast. calcium carbonate (TUMS) 500 mg chew Take 1 tablet by mouth every hour as needed (mouth or hand numbness or tingling). uaitmpl-hcicbvvdj-cprqpmv D3 500 mg(1,250mg) -200 unit per tablet Take 1 tablet by mouth three times daily. loratadine (CLARITIN) 10 mg tablet Take 10 mg by mouth as needed. No current facility-administered medications on file prior to visit. Social History Social History Tobacco Use Smoking status: Former Current packs/day: 0.00 Types: Cigarettes Start date: 10/03/2003 Quit date: 10/02/2004 Years since quittin.5 Smokeless tobacco: Never Vaping Use Vaping status: Never Used Substance Use Topics Alcohol use: Yes Comment: Socially Drug use: No Review of Symptoms REVIEW OF SYSTEMS SEE HPI EXAM: BP 116/85 Pulse 91 Resp 16 Wt (!) 136.5 kg (301 lb) LMP 07/12/2023 (Exact Date) BMI 45.62 kg/m General Appearance: Well appearing, alert, in no acute distress, well-hydrated, well nourished.. Ears: Positive findings: R TM: normal, L TM: mag fluid noted behind TM. Nose/Sinuses: Positive findings: mucosa erythematous and swollen. Oropharynx: Lips, mucosa, and tongue normal, teeth and gums normal, oropharynx normal. Neck: Supple, no adenopathy; thyroid symmetric, normal size, no bruits. Lungs: Lungs clear to auscultation. No wheezing, rhonchi, rales.. Heart: RRR without murmur, gallop, or rubs. No ectopy. Health Maintenance List Depression Screening Never done Hepatitis B Vaccine(1 of 3 - 19+ 3-dose series) Never done HPV Vaccine(2 - Risk 3-dose series) due on 08/10/2006 DTaP,Tdap,Td Vaccine(6 - Tdap) due on 02/02/2014 Pneumococcal Vaccine(2 of 2 - PCV) due on 04/24/2018 Urine Albumin:Creatinine Ratio due on 07/16/2019 Cervical Cancer Screening due on 03/12/2022 Diabetic Foot Exam due on 04/15/2022 LDL Cholesterol due on 09/20/2023 HbA1C due on 02/11/2024 Influenza Vaccine(1) due on 02/14/2024 Covid-19 Vaccine(3 - 2023- season) due on 02/14/2024 Dilated Retinal Exam due on 01/25/2025 Annual PCP Team Chronic Disease Visit due on 02/18/2025 Hepatitis C Screening Completed HIV Screening Completed ASSESSMENT/PLAN: 1. Type 2 diabetes mellitus without complication, without long-term current use of insulin (HCC) - ICD9: 250.00, ICD10: E11.9 (primary diagnosis) - Control undetermined, due for labs - Continue current medications - Counseled on healthy diet and regular exercise - Discussed need for and benefit of weight loss. BMI 45.62 kg/(m^2) - HEMOGLOBIN A1C - TIRZEPATIDE 10 MG/0.5 ML SUBCUTANEOUS PEN INJECTOR - COMPREHENSIVE METABOLIC PANEL 2. Gastroesophageal reflux disease without esophagitis - ICD9: 530.81, ICD10: K21.9 - Begin treatment with Prilosec 20 mg QD - OMEPRAZOLE 20 MG CAPSULE,DELAYED RELEASE 3. Fatigue, unspecified type - ICD9: 780.79, ICD10: R53.83 - VITAMIN B12 4. Vitamin D deficiency - ICD9: 268.9, ICD10: E55.9 - VITAMIN D 25 HYDROXY 5. Bacterial sinusitis - ICD9: 473.9, 041.9, ICD10: J32.9, B96.89 - Will begin treatment with Augmentin 875 mg PO BID for 5 days - The patient should also be given OTC decongestants prn for the first 5-7 days of treatment. - AMOXICILLIN 875 MG-POTASSIUM CLAVULANATE 125 MG TABLET - FLUCONAZOLE 150 MG TABLET Yuliana Jeffrey APRN.GROOMING ASSISTANT documented in this encounter [facility] 03-18-2024 Telephone encounter Note The patient has been identified by name and date of : Yes Caregiver verified no other encounters exist for this prescription request: Yes Caregiver confirmed with patient/requestor that no other refills are due, in the near future, with this provider at this time: Yes The last office visit in the department: 02/19/2024 Does the patient have a future office visit with this provider/department: Yes 04/07/2024 Requested Prescriptions Pending Prescriptions Disp Refills sertraline (ZOLOFT) 100 mg tablet 90 tablet 1 Sig: Take 1 tablet by mouth once daily. pioglitazone (ACTOS) 45 mg tablet 30 tablet 3 Sig: Take 1 tablet by mouth once daily. Diamante Lockwood LPN March 18, 2024 11:21 AM [facility] 03-18-2024 Miscellaneous Notes The patient has been identified by name and date of : Yes Caregiver verified no other encounters exist for this prescription request: Yes Caregiver confirmed with patient/requestor that no other refills are due, in the near future, with this provider at this time: Yes The last office visit in the department: 02/19/2024 Does the patient have a future office visit with this provider/department: Yes 04/07/2024 Requested Prescriptions Pending Prescriptions Disp Refills sertraline (ZOLOFT) 100 mg tablet 90 tablet 1 Sig: Take 1 tablet by mouth once daily. pioglitazone (ACTOS) 45 mg tablet 30 tablet 3 Sig: Take 1 tablet by mouth once daily. Diamante Lockwood LPN March 18, 2024 11:21 AM documented in this encounter [facility] 03-08-2024 Telephone encounter Note The patient has been identified by name and date of : Yes Caregiver verified no other encounters exist for this prescription request: Yes Caregiver confirmed with patient/requestor that no other refills are due, in the near future, with this provider at this time: Yes The last office visit in the department: 02/19/2024 Does the patient have a future office visit with this provider/department: Yes 03/17/2024 Requested Prescriptions Pending Prescriptions Disp Refills tirzepatide (MOUNJARO) 10 mg/0.5 mL pen injector 4 Each 3 Sig: Inject 10 mg subcutaneously one time a week. Diamante Lockwood LPN March 08, 2024 9:37 AM [facility] 03-08-2024 Miscellaneous Notes The patient has been identified by name and date of : Yes Caregiver verified no other encounters exist for this prescription request: Yes Caregiver confirmed with patient/requestor that no other refills are due, in the near future, with this provider at this time: Yes The last office visit in the department: 02/19/2024 Does the patient have a future office visit with this provider/department: Yes 03/17/2024 Requested Prescriptions Pending Prescriptions Disp Refills tirzepatide (MOUNJARO) 10 mg/0.5 mL pen injector 4 Each 3 Sig: Inject 10 mg subcutaneously one time a week. Diamante Lockwood LPN March 08, 2024 9:37 AM documented in this encounter [facility] 03-07-2024 Telephone encounter Note No Rx needed. Pt will schedule appt. Irene Garibay MA [facility] 03-07-2024 Miscellaneous Notes No Rx needed. Pt will schedule appt. Irene Garibay MA Mychart message sent to pt notifying her of message below from Provider. Asked about 10 mg dosage and which Pharmacy if needing sent into. Gave pt appt link to setup with PCP Team or to contact office to setup appt for routine f/u. Irene Garibay MA Patient is overdue for 6 month follow up on her diabetes and needs to schedule OV. I would like to discuss weight loss with her and check up on her sugar readings before increasing her dosage further. Does she want 10 mg rx to [facility] or another pharmacy? Please see pt message Eva Moreno MA documented in this encounter [facility] 03-07-2024 Telephone encounter Note Mychart message sent to pt notifying her of message below from Provider. Asked about 10 mg dosage and which Pharmacy if needing sent into. Gave pt appt link to setup with PCP Team or to contact office to setup appt for routine f/u. Irene Garibay MA [facility] 03-07-2024 Telephone encounter Note Patient is overdue for 6 month follow up on her diabetes and needs to schedule OV. I would like to discuss weight loss with her and check up on her sugar readings before increasing her dosage further. Does she want 10 mg rx to [facility] or another pharmacy? [facility] 03-03-2024 Telephone encounter Note Please see pt message Eva Moreno MA [facility] 02-22-2024 Miscellaneous Notes Spoke with patient. Given message from provider's office. Patient verbalizes understanding. Jaye Hogan RN Left message for patient to return call to office Luis Shah MA Please let patient know I have sent prescription to [facility] pharmacy and she will need to have it transferred as we can not prescribe [place] state lines. Patient returned call and went over results, notes from Yuliana Jeffrey SHIP WORKER with understanding. Patient is on vacation in [place] and asking to have rx sent to pharmacy attached please. Left message for patient to return call to office Luis Shah MA Please let patient know her UA is positive for infection. I have sent in a prescription for antibiotics. documented in this encounter [facility] 02-22-2024 Telephone encounter Note Spoke with patient. Given message from provider's office. Patient verbalizes understanding. Jaye Hogna RN [facility] 02-22-2024 Telephone encounter Note Left message for patient to return call to office Luis Shah MA [facility] 02-22-2024 Telephone encounter Note Please let patient know I have sent prescription to [facility] pharmacy and she will need to have it transferred as we can not prescribe across state lines. [facility] 02-22-2024 Telephone encounter Note Patient returned call and went over results, notes from Yuliana Jeffrey SHIP WORKER with understanding. Patient is on vacation in [place] and asking to have rx sent to pharmacy attached please. [facility] 02-22-2024 Telephone encounter Note Left message for patient to return call to office Luis Shah MA [facility] 02-22-2024 Telephone encounter Note Please let patient know her UA is positive for infection. I have sent in a prescription for antibiotics. [facility] 02-19-2024 History of Presen t illness Narrative Chief Complaint Patient presents with: UTI: X 3 days HPI Arabella Dubose is a 38 year old female who presents here today for Above Complaints.. Patient presents for urinary frequency, burning and urgency. Patient denies nausea/vomiting, fever, abd pain. Past medical history, appointments, medications, allergies reviewed. 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 not recommending FINNEGAN No date: Thyroid nodule Comment: abnormal FNA right thyroid (2017), repeat US 1,2,3, and 5 years from 2021 Previous Surgical History PAST SURGICAL HISTORY 07/13/06: COLPOSCOPY CERVIX UPPR/ADJCNT VAGINA W/CERVIX BX Comment: chronic cervicitis with no evidence of dysplasia 09-25-15: LAPS SURG CHOLECYSTECTOMY W/CHOLANGIOGRAPHY 1993,1994: MYRINGOTOMY ASPIR&/EUSTACHIAN TUBE NFLTJ ANES Comment: Myringotomy/tubes 01/13/2020: THYROIDECTOMY SUBTOTAL/PARTIAL; Left Comment: Left thyroidectomy 1995: TONSILLECTOMY PRIMARY/SECONDARY <AGE 12 Comment: Tonsillectomy 11/2019: US THYROID BIOPSY Comment: AUS Family History FAMILY HISTORY Problem Relation Age of Onset Cancer Mother thyroid No Known Problems Brother No Known Problems Brother Arthritis Maternal Grandmother Hypertension Maternal Grandmother Thyroid Maternal Grandmother Alzheimer's Disease Maternal Grandmother Diabetes Paternal Grandmother Breast Cancer Paternal Aunt Thyroid Maternal Aunt Cancer Maternal Aunt gastric Patient Allergies ALLERGIES Allergen Reactions Acetaminophen Hives Seasonal Allergies Swelling Vicodin [Hydrocodon* Hives Current Medications Current Outpatient Medications on File Prior to Visit Medication Sig tirzepatide (MOUNJARO) 10 mg/0.5 mL pen injector Inject 10 mg subcutaneously one time a week. pioglitazone (ACTOS) 45 mg tablet Take 1 tablet by mouth once daily. sertraline (ZOLOFT) 100 mg tablet Take 1 tablet by mouth once daily. metFORMIN ER (GLUCOPHAGE XR) 500 mg 24 hr tablet Take 2 tablets by mouth twice daily. glimepiride (AMARYL) 4 mg tablet Take 2 tablets by mouth daily with breakfast. CPAP Initiate Auto PAP @ 5-20 cm of water with humidification. Mask (per patient preference) optional chin strap (if indicated) , filters, tubing, humidifier and lifetime supplies. levothyroxine 50 mcg cap Take 1 capsule by mouth daily before breakfast. calcium carbonate (TUMS) 500 mg chew Take 1 tablet by mouth every hour as needed (mouth or hand numbness or tingling). mreobgy-tjcccwhwo-iwlplkg D3 500 mg(1,250mg) -200 unit per tablet Take 1 tablet by mouth three times daily. loratadine (CLARITIN) 10 mg tablet Take 10 mg by mouth as needed. No current facility-administered medications on file prior to visit. Social History Social History Tobacco Use Smoking status: Former Current packs/day: 0.00 Types: Cigarettes Start date: 10/03/2003 Quit date: 10/02/2004 Years since quittin.3 Smokeless tobacco: Never Vaping Use Vaping status: Never Used Substance Use Topics Alcohol use: Yes Comment: Socially Drug use: No Review of Symptoms REVIEW OF SYSTEMS SEE HPI EXAM: BP 103/71 Pulse 99 Resp 14 Wt (!) 138.8 kg (306 lb) LMP 07/12/2023 (Exact Date) BMI 46.38 kg/m General Appearance: Well appearing, alert, in no acute distress, well-hydrated, well nourished.. Abdomen: Normal abdominal exam, Abdomen soft, non-tender. Bowel sounds normal. No masses, organomegaly, Negative CVA tenderness. Health Maintenance List Depression Screening Never done Hepatitis B Vaccine(1 of 3 - 19+ 3-dose series) Never done HPV Vaccine(2 - Risk 3-dose series) due on 08/10/2006 DTaP,Tdap,Td Vaccine(6 - Tdap) due on 02/02/2014 Pneumococcal Vaccine(2 of 2 - PCV) due on 04/24/2018 Urine Albumin:Creatinine Ratio due on 07/16/2019 Cervical Cancer Screening due on 03/12/2022 Diabetic Foot Exam due on 04/15/2022 LDL Cholesterol due on 09/20/2023 HbA1C due on 02/11/2024 Covid-19 Vaccine( season) due on 02/14/2024 Influenza Vaccine(1) due on 02/14/2024 Annual PCP Team Chronic Disease Visit due on 08/12/2024 Dilated Retinal Exam due on 01/25/2025 Hepatitis C Screening Completed HIV Screening Completed ASSESSMENT/PLAN: 1. Urinary tract infection with hematuria, site unspecified - ICD9: 599.0, 599.70, ICD10: N39.0, R31.9 acute - URINALYSIS, WITH MICROSCOPIC - URINE CULTURE Patient unable to urinate during OV. Will run errands and return to lab to complete UA. Yuliana Jeffrey APRN.CNP documented in this encounter [facility] 12-04-2023 Telephone encounter Note The following approved medication requests have been transmitted electronically. Requested Prescriptions Signed Prescriptions Disp Refills tirzepatide (MOUNJARO) 10 mg/0.5 mL pen injector 4 Each 3 Sig: Inject 10 mg subcutaneously one time a week. Zbigniew Kirk APRN.CNP [facility] 12-04-2023 Miscellaneous Notes The following approved medication requests have been transmitted electronically. Requested Prescriptions Signed Prescriptions Disp Refills tirzepatide (MOUNJARO) 10 mg/0.5 mL pen injector 4 Each 3 Sig: Inject 10 mg subcutaneously one time a week. Zbigniew Kirk APRN.CNP See joselin message. Danyelle Jaquez MA documented in this encounter [facility] 12-04-2023 Telephone encounter Note See joselin message. Danyelle Jaquez MA [facility] 11-02-2023 Telephone encounter Note The following approved medication requests have been transmitted electronically. Requested Prescriptions Pending Prescriptions Disp Refills pioglitazone (ACTOS) 45 mg tablet 30 tablet 3 Sig: Take 1 tablet by mouth once daily. Zbigniew Kirk APRN.[place] Work Phone: 11-02-2023 Miscellaneous Notes The following approved medication requests have been transmitted electronically. Requested Prescriptions Pending Prescriptions Disp Refills pioglitazone (ACTOS) 45 mg tablet 30 tablet 3 Sig: Take 1 tablet by mouth once daily. Zbigniew Kirk APRN.CNP Patient has been identified by name and date of : Yes, Patient mycharts for refill(s): Requested Prescriptions Pending Prescriptions Disp Refills pioglitazone (ACTOS) 45 mg tablet 30 tablet 3 Sig: Take 1 tablet by mouth once daily. Date of last office visit in primary care: 08/13/2023 Date of next office visit in primary care: Visit date not found Please advise. Thank you. Lynne Forte LPN. documented in this encounter [facility] 11-02-2023 Telephone encounter Note Patient has been identified by name and date of : Yes, Patient mycharts for refill(s): Requested Prescriptions Pending Prescriptions Disp Refills pioglitazone (ACTOS) 45 mg tablet 30 tablet 3 Sig: Take 1 tablet by mouth once daily. Date of last office visit in primary care: 08/13/2023 Date of next office visit in primary care: Visit date not found Please advise. Thank you. Lynne Forte LPN. [facility] 09-21-2023 Miscellaneous Notes Rx sent for 7.5 mg dosage as requested. Patient has been identified by name and date of : yes Patient phones for refill(s): Requested Prescriptions Pending Prescriptions Disp Refills tirzepatide (MOUNJARO) 7.5 mg/0.5 mL pen injector 2 mL 2 Sig: Inject 7.5 mg subcutaneously one time a week. Date of last office visit in primary care: 08/13/2023 Date of next office visit in primary care: Visit date not found Please advise. Thank you. Brenda Gordillo MA. documented in this encounter [facility] 08-20-2023 History of Presen t illness Narrative This note was created using [employer]. Subjective Arabella Dubose is a 37 year old female. HPI 37-year-old female presents for UTI symptoms. Patient has had UTI symptoms for the past 4 to 5 days. She is having frequency, urgency. She states she feels like she needs to urinate, but then can only go small amount. She also has some dysuria/burning. No vaginal itching or discharge. She states that she is on Mounjaro for her diabetes and her sugars have been good. She states they have been around 105-110. States she has not been drinking a lot of water, so feels like she may be a little dehydrated causing this UTI. She denies any abdominal pain, back pain, fevers, vomiting. No other complaint. 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 not recommending FINNEGAN Thyroid nodule abnormal FNA right thyroid (2017), repeat US 1,2,3, and 5 years from 2021 PAST SURGICAL HISTORY Procedure Laterality Date COLPOSCOPY CERVIX UPPR/ADJCNT VAGINA W/CERVIX BX 07/13/06 chronic cervicitis with no evidence of dysplasia LAPS SURG CHOLECYSTECTOMY W/CHOLANGIOGRAPHY 09-25-15 MYRINGOTOMY ASPIR&/EUSTACHIAN TUBE NFLTJ ANES 1993,1994 Myringotomy/tubes THYROIDECTOMY SUBTOTAL/PARTIAL Left 01/13/2020 Left thyroidectomy TONSILLECTOMY PRIMARY/SECONDARY <AGE 12 1995 Tonsillectomy US THYROID BIOPSY 11/2019 AUS ALLERGIES Acetaminophen, Seasonal Allergies, and Vicodin [Hydrocodone-Acetaminophen] MEDICATIONS tirzepatide (MOUNJARO) 5 mg/0.5 mL pen injector Inject 5 mg subcutaneously one time a week. pioglitazone (ACTOS) 45 mg tablet Take 1 tablet by mouth once daily. metFORMIN ER (GLUCOPHAGE XR) 500 mg 24 hr tablet Take 2 tablets by mouth twice daily. sertraline (ZOLOFT) 100 mg tablet Take 1 tablet by mouth once daily. glimepiride (AMARYL) 4 mg tablet Take 2 tablets by mouth daily with breakfast. CPAP Initiate Auto PAP @ 5-20 cm of water with humidification. Mask (per patient preference) optional chin strap (if indicated) , filters, tubing, humidifier and lifetime supplies. levothyroxine 50 mcg cap Take 1 capsule by mouth daily before breakfast. calcium carbonate (TUMS) 500 mg chew Take 1 tablet by mouth every hour as needed (mouth or hand numbness or tingling). fivzklv-zdvmbpfrw-loksbto D3 500 mg(1,250mg) -200 unit per tablet Take 1 tablet by mouth three times daily. loratadine (CLARITIN) 10 mg tablet Take 10 mg by mouth as needed. FAMILY HISTORY Problem Relation Age of Onset Cancer Mother thyroid No Known Problems Brother No Known Problems Brother Arthritis Maternal Grandmother Hypertension Maternal Grandmother Thyroid Maternal Grandmother Alzheimer's Disease Maternal Grandmother Diabetes Paternal Grandmother Breast Cancer Paternal Aunt Thyroid Maternal Aunt Cancer Maternal Aunt gastric Social History Tobacco Use Smoking status: Former Years: 1 Types: Cigarettes Quit date: 10/02/2004 Years since quittin.8 Smokeless tobacco: Never Vaping Use Vaping Use: Never used Substance Use Topics Alcohol use: Yes Comment: Socially Drug use: No Review of Systems Constitutional: Negative for chills and fever. HENT: Negative for congestion, ear pain and sore throat. Respiratory: Negative for cough and shortness of breath. Cardiovascular: Negative for chest pain. Gastrointestinal: Negative for abdominal pain, diarrhea and vomiting. Genitourinary: Positive for dysuria, frequency and urgency. Negative for flank pain, hematuria, menstrual problem, vaginal bleeding, vaginal discharge and vaginal pain. Musculoskeletal: Negative for back pain. Objective BP 115/81 Pulse 101 Temp 36.3 C (97.4 F) Resp 18 Wt (!) 150.4 kg (331 lb 9.6 oz) LMP 07/12/2023 (Exact Date) SpO2 95% BMI 50.26 kg/m Physical Exam Vitals and nursing note reviewed. Constitutional: General: She is not in acute distress. Appearance: Normal appearance. She is not toxic-appearing. HENT: Nose: Nose normal. Mouth/Throat: Mouth: Mucous membranes are moist. Eyes: Conjunctiva/sclera: Conjunctivae normal. Cardiovascular: Rate and Rhythm: Normal rate and regular rhythm. Pulmonary: Effort: Pulmonary effort is normal. Breath sounds: Normal breath sounds. Abdominal: General: Abdomen is flat. Palpations: Abdomen is soft. Tenderness: There is no abdominal tenderness. There is no right CVA tenderness, left CVA tenderness, guarding or rebound. Skin: General: Skin is warm and dry. Neurological: Mental Status: She is alert. Assessment and Plan ASSESSMENT/PLAN: 1. Urinary tract infection with hematuria, site unspecified - ICD9: 599.0, 599.70, ICD10: N39.0, R31.9 (primary diagnosis) acute - UA positive for jyoti esterase, hematuria, proteinuria, and nitrates - Send urine for culture - Begin treatment with Macrobid 100 mg BID for 5 days - Patient education for prevention given 2. Urgency of urination - ICD9: 788.63, ICD10: R39.15 - see above - UA DIP, URINE (POC) - URINE CULTURE Diagnosis and treatment plan were discussed and questions were answered to the patient's satisfaction. Pt acknowledged understanding of concepts and follow up plan. Specific signs and symptoms that would indicate the need for higher level of care were discussed in detail warranting prompt ER evaluation. DESTINEY Hunt documented in this encounter [facility] 08-14-2023 Miscellaneous Notes Pt notified and verbalized understanding Luis Shah Cma Please let patient know her hgb A1c is up to 7.1 which is not surprising since she had been off the mounjaro. Continue current plan of care. documented in this encounter [facility] 08-13-2023 History of Presen t illness Narrative Chief Complaint Patient presents with: Follow Up HPI Arabella Dubose is a 37 year old female who presents here today for Above Complaints.. Diabetes Restarted mounjaro about 1 month ago- had issues with cost/insurance coverage Having nausea and headaches since starting- relieved with miryam chews and tylenol When takes fasting BG at home ranges between 140-170. Does not check daily. Past medical history, appointments, medications, allergies reviewed. 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 not recommending FINNEGAN Thyroid nodule abnormal FNA right thyroid (2017), repeat US 1,2,3, and 5 years from 2021 Previous Surgical History PAST SURGICAL HISTORY Procedure Laterality Date COLPOSCOPY CERVIX UPPR/ADJCNT VAGINA W/CERVIX BX 07/13/06 chronic cervicitis with no evidence of dysplasia LAPS SURG CHOLECYSTECTOMY W/CHOLANGIOGRAPHY 09-25-15 MYRINGOTOMY ASPIR&/EUSTACHIAN TUBE NFLTJ ANES 1993,1994 Myringotomy/tubes THYROIDECTOMY SUBTOTAL/PARTIAL Left 01/13/2020 Left thyroidectomy TONSILLECTOMY PRIMARY/SECONDARY <AGE 12 1995 Tonsillectomy US THYROID BIOPSY 11/2019 AUS Family History FAMILY HISTORY Problem Relation Age of Onset Cancer Mother thyroid No Known Problems Brother No Known Problems Brother Arthritis Maternal Grandmother Hypertension Maternal Grandmother Thyroid Maternal Grandmother Alzheimer's Disease Maternal Grandmother Diabetes Paternal Grandmother Breast Cancer Paternal Aunt Thyroid Maternal Aunt Cancer Maternal Aunt gastric Patient Allergies ALLERGIES Allergen Reactions Acetaminophen Unknown Seasonal Allergies Swelling Vicodin [Hydrocodon* Rash hives Current Medications Current Outpatient Medications on File Prior to Visit Medication Sig tirzepatide (MOUNJARO) 5 mg/0.5 mL pen injector Inject 5 mg subcutaneously one time a week. pioglitazone (ACTOS) 45 mg tablet Take 1 tablet by mouth once daily. metFORMIN ER (GLUCOPHAGE XR) 500 mg 24 hr tablet Take 2 tablets by mouth twice daily. sertraline (ZOLOFT) 100 mg tablet Take 1 tablet by mouth once daily. glimepiride (AMARYL) 4 mg tablet Take 2 tablets by mouth daily with breakfast. CPAP Initiate Auto PAP @ 5-20 cm of water with humidification. Mask (per patient preference) optional chin strap (if indicated) , filters, tubing, humidifier and lifetime supplies. levothyroxine 50 mcg cap Take 1 capsule by mouth daily before breakfast. calcium carbonate (TUMS) 500 mg chew Take 1 tablet by mouth every hour as needed (mouth or hand numbness or tingling). sycbvgo-kobitscit-chckywn D3 500 mg(1,250mg) -200 unit per tablet Take 1 tablet by mouth three times daily. loratadine (CLARITIN) 10 mg tablet Take 10 mg by mouth as needed. No current facility-administered medications on file prior to visit. Social History Social History Tobacco Use Smoking status: Former Years: 1 Types: Cigarettes Quit date: 10/02/2004 Years since quittin.8 Smokeless tobacco: Never Vaping Use Vaping Use: Never used Substance Use Topics Alcohol use: Yes Comment: Socially Drug use: No Review of Symptoms REVIEW OF SYSTEMS See HPI EXAM: BP 141/84 Resp 14 Wt (!) 150.1 kg (331 lb) LMP 02/07/2020 (Exact Date) BMI 50.17 kg/m General Appearance: Well appearing, alert, in no acute distress, well-hydrated, well nourished.. Lungs: Lungs clear to auscultation. No wheezing, rhonchi, rales.. Heart: RRR without murmur, gallop, or rubs. No ectopy. Peripheral Pulses: Normal. Last 2 Encounter Wt Readings: Date: Wt: 08/13/2023 150.1 kg (331 lb) 01/15/2023 156.5 kg (345 lb) Health Maintenance List Hepatitis B Vaccine(1 of 3 - 3-dose series) Never done HPV Vaccine(2 - Risk 3-dose series) due on 08/10/2006 DTaP,Tdap,Td Vaccine(6 - Tdap) due on 02/02/2014 Pneumococcal Vaccine(2 of 2 - PCV) due on 04/24/2018 Urine Albumin:Creatinine Ratio due on 07/16/2019 Pap Testing due on 03/12/2022 HPV Testing due on 03/12/2022 Diabetic Foot Exam due on 04/15/2022 Covid-19 Vaccine( - season) due on 02/13/2023 Depression Assessment due on 06/15/2023 HbA1C due on 07/03/2023 Dilated Retinal Exam due on 09/09/2023 Influenza Vaccine(1) due on 12/13/2023 LDL Cholesterol due on 09/20/2023 Annual PCP Team Chronic Disease Visit due on 01/16/2024 Hepatitis C Screening Completed HIV Screening Completed ASSESSMENT/PLAN: 1. Type 2 diabetes mellitus without complication, without long-term current use of insulin (HCC) - ICD9: 250.00, ICD10: E11.9 - Control undetermined, due for labs - Continue current medications - Counseled on healthy diet and regular exercise - Discussed need for and benefit of weight loss. BMI 50.17 kg/(m^2) E Yemi [employer] LE[employer] OUT MAN Student I have personally seen and examined the patient and performed the medical-decision making components. I have reviewed the Advanced Practice Registered Nurse (CHUTE TENDER) student's documentation and verified the findings in the note as written. Any additions or changes are noted in bold/italics. Yuliana Jeffrey APRN.GROOMING ASSISTANT documented in this encounter [facility] 07-20-2023 Miscellaneous Notes Addended by: FRANCA DEJESUS on: 07/20/2023 09:46 AM Modules accepted: Orders Please e script to attached pharmacy, [facility] in [place]. Franca Dejesus MA Patient has been identified by name and date of : Yes, Patient phones for refill(s): Requested Prescriptions Pending Prescriptions Disp Refills tirzepatide (MOUNJARO) 5 mg/0.5 mL pen injector 2 mL 1 Sig: Inject 5 mg subcutaneously one time a week. Date of last office visit in primary care: 01/15/2023 Date of next office visit in primary care: 08/13/2023 Please advise. Thank you. Gail Diaz LPN. documented in this encounter [facility] 02-24-2023 Miscellaneous Notes Patient has been identified by name and date of : Yes Patient phones for refill(s): Requested Prescriptions Pending Prescriptions Disp Refills metFORMIN ER (GLUCOPHAGE XR) 500 mg 24 hr tablet 360 tablet 1 Sig: Take 2 tablets by mouth twice daily. Date of last office visit in primary care: 01/15/2023 Please advise. Thank you. Gail Diaz LPN documented in this encounter [facility] 01-30-2023 Miscellaneous Notes Patient seen 01/15/23 by KIP for UTI. Please review and advise. Thank you. JORDI Santillan documented in this encounter [facility] 01-19-2023 Miscellaneous Notes Patient notified and verbalized understanding Luis Shah Cma Please let patient know her urine shows E coli and that it is susceptible to the antibiotic prescribed. documented in this encounter [facility] 01-15-2023 History of Presen t illness Narrative Chief Complaint No chief complaint on file. HPI Arabella Dubose is a 37 year old female who presents here today for Above Complaints.. Patient presents for DM follow up. Patient was started on Mounjaro in September in addition to her metformin, amaryl and actos. Tolerating medication well however even with patient assistance is not able to afford medication. Patient also reports dysuria x 3 days. Patient also reports low back pain as well. Past medical history, appointments, medications, allergies reviewed. 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 not recommending FINNEGAN Thyroid nodule abnormal FNA right thyroid (2017), repeat US 1,2,3, and 5 years from 2021 Previous Surgical History PAST SURGICAL HISTORY Procedure Laterality Date COLPOSCOPY CERVIX UPPR/ADJCNT VAGINA W/CERVIX BX 07/13/06 chronic cervicitis with no evidence of dysplasia LAPS SURG CHOLECYSTECTOMY W/CHOLANGIOGRAPHY 09-25-15 MYRINGOTOMY ASPIR&/EUSTACHIAN TUBE NFLTJ ANES 1993,1994 Myringotomy/tubes THYROIDECTOMY SUBTOTAL/PARTIAL Left 01/13/2020 Left thyroidectomy TONSILLECTOMY PRIMARY/SECONDARY <AGE 13 1995 Tonsillectomy US THYROID BIOPSY 11/2019 AUS Family History FAMILY HISTORY Problem Relation Age of Onset Cancer Mother thyroid No Known Problems Brother No Known Problems Brother Arthritis Maternal Grandmother Hypertension Maternal Grandmother Thyroid Maternal Grandmother Alzheimer's Disease Maternal Grandmother Diabetes Paternal Grandmother Breast Cancer Paternal Aunt Thyroid Maternal Aunt Cancer Maternal Aunt gastric Patient Allergies ALLERGIES Allergen Reactions Acetaminophen Unknown Seasonal Allergies Swelling Vicodin [Hydrocodon* Rash hives Current Medications Current Outpatient Medications on File Prior to Visit Medication Sig sertraline (ZOLOFT) 100 mg tablet Take 1 tablet by mouth once daily. tirzepatide (MOUNJARO) 5 mg/0.5 mL pen injector Inject 5 mg subcutaneously one time a week. pioglitazone (ACTOS) 45 mg tablet Take 1 tablet by mouth once daily. glimepiride (AMARYL) 4 mg tablet Take 2 tablets by mouth daily with breakfast. metFORMIN ER (GLUCOPHAGE XR) 500 mg 24 hr tablet Take 2 tablets by mouth twice daily. CPAP Initiate Auto PAP @ 5-20 cm of water with humidification. Mask (per patient preference) optional chin strap (if indicated) , filters, tubing, humidifier and lifetime supplies. levothyroxine 50 mcg cap Take 1 capsule by mouth daily before breakfast. calcium carbonate (TUMS) 500 mg chew Take 1 tablet by mouth every hour as needed (mouth or hand numbness or tingling). rchcqxp-wgihxbtin-oeujesh D3 500 mg(1,250mg) -200 unit per tablet Take 1 tablet by mouth three times daily. loratadine (CLARITIN) 10 mg tablet Take 10 mg by mouth as needed. No current facility-administered medications on file prior to visit. Social History Social History Tobacco Use Smoking status: Former Years: 1.00 Types: Cigarettes Quit date: 10/02/2004 Years since quittin.2 Smokeless tobacco: Never Vaping Use Vaping Use: Never used Substance Use Topics Alcohol use: Yes Comment: Socially Drug use: No Review of Symptoms REVIEW OF SYSTEMS See HPI EXAM: BP 130/80 Pulse (!) 130 Resp 18 Wt (!) 156.5 kg (345 lb) LMP 02/07/2020 (Exact Date) BMI 52.29 kg/m General Appearance: Well appearing, alert, in no acute distress, well-hydrated, well nourished.. Abdomen: Normal abdominal exam, Abdomen soft, non-tender. Bowel sounds normal. No masses, organomegaly. Health Maintenance List HEPATITIS B(1 of 3 - 3-dose series) Never done HPV VACCINE(2 - Risk 3-dose series) due on 08/10/2006 URINE ALBUMIN:CREATININE RATIO due on 07/16/2019 PAP TESTING due on 03/12/2022 HPV TESTING due on 03/12/2022 DIABETIC FOOT EXAM due on 04/15/2022 DEPRESSION ASSESSMENT due on 06/15/2022 DTAP,TDAP,TD(6 - Tdap) due on 05/21/2023 COVID-19 VACCINE(3 - Moderna series) due on 05/21/2023 PNEUMOCOCCAL(2 - PCV) due on 05/21/2023 INFLUENZA(1) due on 02/13/2023 HBA1C due on 07/03/2023 DILATED RETINAL EXAM due on 09/09/2023 ANNUAL PCP TEAM CHRONIC DISEASE VISIT due on 09/13/2023 LDL CHOLESTEROL due on 09/20/2023 HEPATITIS C SCREENING Completed HIV SCREENING Completed ASSESSMENT/PLAN: 1. Urinary tract infection with hematuria, site unspecified - ICD9: 599.0, 599.70, ICD10: N39.0, R31.9 (primary diagnosis) acute - UA positive for jyoti esterase, hematuria, proteinuria, and nitrates - Send urine for culture - Begin treatment with Macrobid 100 mg BID for 5 days - Patient education for prevention given - UA DIP, URINE (POC) - URINE CULTURE 2. Type 2 diabetes mellitus without complication, without long-term current use of insulin (HCC) - ICD9: 250.00, ICD10: E11.9 - Improving control Patient currently on Mounjaro which is working well however it is costly and patient can not continue to afford this. Will investigate patient assistance programs for other medications including Rybelsus and Ozempic. Yuliana Jeffrey APRN.JUAN DIEGO documented in this encounter [facility] 01-12-2023 Miscellaneous Notes Pt notified of results via [employer]. Danyelle Jaquez Ma ----- Message from Cristal August APRN.JUAN DIEGO sent at 01/12/2023 7:02 AM EDT ----- A1c improved. The rest of her blood work is in acceptable ranges. Make follow-up appointment. Cristal August APRN.CNP documented in this encounter [facility] 12-30-2022 Miscellaneous Notes Patient has been identified by name and date of : Yes Patient phones for refill(s): Requested Prescriptions Pending Prescriptions Disp Refills sertraline (ZOLOFT) 100 mg tablet 30 tablet 4 Sig: Take 1 tablet by mouth once daily. Date of last office visit in primary care: 06/25/2022 Next appointment scheduled 01/07/2023 Please advise. Thank you. Gail Diaz LPN documented in this encounter [facility] 11-26-2022 Miscellaneous Notes Spoke with pt and information listed below given. Pt verbalizes understanding. Diamante Lockwood LPN I would recommend she talk with financial. It is important we closely monitor her diabetes, especially when it has been uncontrolled, to prevent [employer] complications such as retinopathy, kidney failure, heart disease, arterial disease, and neuropathy. Patient calls and notified of provider message: 10:50 AM Note Labs are usually completed every 3-6 months for diabetes depending on how well it has been controlled. Due for labs in December as ordered. Has she talked with financial about cost? Patient states that it cost her $300 with her insurance last time she had labs done. Patient states that she is unwilling to get labs done every 3 months due to cost. Patient states that she is willing to do every 6 months. Patient states that she will talking to financial counselor but if labs are going to cost that much she cannot afford them every 3 months. Yumiko Neal RN documented in this encounter [facility] 11-26-2022 Miscellaneous Notes Left a message for pt to call the office and ask to speak to a nurse. Diamante Lockwood LPN Left a message for pt to call the office and ask to speak to a nurse. Diamante Lockwood LPN Labs are usually completed every 3-6 months for diabetes depending on how well it has been controlled. Due for labs in December as ordered. Has she talked with financial about cost? TC to patient who is given providers message below. Patient is agreeable and now scheduled for a DM follow up with JEN in mid December. Patient asking how often lab work is needing to be completed as she recently had labs done on 09/19/22 and her insurance charges her over $300 each time labs are done. Please advise. Thank you. JORDI Santillan Left a message for pt to call the office and ask to speak to a nurse. Diamante Lockwood LPN Looks like she has been in to see Sumi for last couple of visits. Due for DM follow up mid December with our office. Labs ordered. Please assist with scheduling f/u. Patient phones requesting refills as follows: Requested Prescriptions Pending Prescriptions Disp Refills pioglitazone (ACTOS) 45 mg tablet 30 tablet 1 Sig: Take 1 tablet by mouth once daily. ABDIAZIZ 06/25/22 NOV no upcoming appt noted Please review and advise. Lynne Forte LPN documented in this encounter [facility] 09-24-2022 Miscellaneous Notes Images from the original note were not included. Approved Prior authorization approved Payer: [facility] [phone] Approved. Approval Details Authorized from September 24, 2022 to September 25, 2023 Electronic appeal: Not supported View History Medication Being Authorized tirzepatide (MOUNJARO) 2.5 mg/0.5 mL pen injector Inject 2.5 mg subcutaneously one time a week. Dispense: 2 mL Refills: 1 Start: 09/24/2022 End: 10/24/2022 Class: Normal This order has been released to its destination. To be filled at: [address] [id number] [facility] [phone] [facility] documented in this encounter [facility] 09-12-2022 History of Presen t illness Narrative This Team Access Model visit is a virtual encounter. It required patient-provider interaction for the medical decision making as documented below. Patient agrees to the visit: Yes Patient Location: [place] CC: Patient presents with: Medication Question HPI Arabella Dubose is a 36 year old female who is contacted today for a virtual visit. This is an established patient of Dr. Gavin Arora MD. I have seen patient x2. Concerns today... Asking about starting injectable weight loss/DM medication in the GLP-1 drug class. Was on Adipex regimen 2 months ago and had good results. Was looking into either Ozempic, Mounjaro, or Trulicity for dual effect for weight management and DM. Hx of DM, type II - current regimen of amaryl, actos, and metformin. Last HgA1c was 10 months ago at 7.8. Also has dx of HLD. Current weight is 345 lbs, BMI 52.47 Asking what is needed to start this medication. 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 not recommending FINNEGAN Thyroid nodule abnormal FNA right thyroid (2017), repeat US 1,2,3, and 5 years from 2021 PAST SURGICAL HISTORY Procedure Laterality Date COLPOSCOPY CERVIX UPPR/ADJCNT VAGINA W/CERVIX BX 07/13/06 chronic cervicitis with no evidence of dysplasia LAPS SURG CHOLECYSTECTOMY W/CHOLANGIOGRAPHY 09-25-15 MYRINGOTOMY ASPIR&/EUSTACHIAN TUBE NFLTJ ANES 1993,1994 Myringotomy/tubes THYROIDECTOMY SUBTOTAL/PARTIAL Left 01/13/2020 Left thyroidectomy TONSILLECTOMY PRIMARY/SECONDARY <AGE 12 1995 Tonsillectomy US THYROID BIOPSY 11/2019 AUS ALLERGIES Acetaminophen, Seasonal Allergies, and Vicodin [Hydrocodone-Acetaminophen] MEDICATIONS pioglitazone (ACTOS) 45 mg tablet Take 1 tablet by mouth once daily. sertraline (ZOLOFT) 100 mg tablet Take 1 tablet by mouth once daily. glimepiride (AMARYL) 4 mg tablet Take 2 tablets by mouth daily with breakfast. metFORMIN ER (GLUCOPHAGE XR) 500 mg 24 hr tablet Take 2 tablets by mouth twice daily. CPAP Initiate Auto PAP @ 5-20 cm of water with humidification. Mask (per patient preference) optional chin strap (if indicated) , filters, tubing, humidifier and lifetime supplies. levothyroxine 50 mcg cap Take 1 capsule by mouth daily before breakfast. calcium carbonate (TUMS) 500 mg chew Take 1 tablet by mouth every hour as needed (mouth or hand numbness or tingling). pghydqc-oscmpqlqe-lxcsgra D3 500 mg(1,250mg) -200 unit per tablet Take 1 tablet by mouth three times daily. loratadine (CLARITIN) 10 mg tablet Take 10 mg by mouth as needed. FAMILY HISTORY Problem Relation Age of Onset Cancer Mother thyroid No Known Problems Brother No Known Problems Brother Arthritis Maternal Grandmother Hypertension Maternal Grandmother Thyroid Maternal Grandmother Alzheimer's Disease Maternal Grandmother Diabetes Paternal Grandmother Breast Cancer Paternal Aunt Thyroid Maternal Aunt Cancer Maternal Aunt gastric Social History Tobacco Use Smoking status: Former Years: 1.00 Types: Cigarettes Quit date: 10/02/2004 Years since quittin.9 Smokeless tobacco: Never Vaping Use Vaping Use: Never used Substance Use Topics Alcohol use: Yes Comment: Socially Drug use: No EXAM: Deferred physical exam as visit was completed over the phone Patient is speaking in complete sentences without obvious respiratory distress or audible wheezing. Virtual visit completed using video, limited exam completed. GENERAL: alert and appropriate, in no distress, well-hydrated, well nourished, and happy, smiling, interactive SKIN: no rash noted HEAD: normocephalic, no abnormality or lesion noted DATA REVIEWED: Most recent labs and imaging results. HEPATITIS B(1 of 3 - 3-dose series) Never done URINE ALBUMIN:CREATININE RATIO due on 07/16/2019 PAP TESTING due on 03/12/2022 HPV TESTING due on 03/12/2022 DIABETIC FOOT EXAM due on 04/15/2022 HBA1C due on 05/02/2022 DEPRESSION ASSESSMENT due on 06/15/2022 DILATED RETINAL EXAM due on 08/23/2022 INFLUENZA(1) due on 12/12/2022 DTAP,TDAP,TD(6 - Tdap) due on 05/21/2023 COVID-19 VACCINE(3 - Booster for Moderna series) due on 05/21/2023 PNEUMOCOCCAL(2 - PCV) due on 05/21/2023 LDL CHOLESTEROL due on 10/30/2022 ANNUAL PCP TEAM CHRONIC DISEASE VISIT due on 06/25/2023 HEPATITIS C SCREENING Completed HIV SCREENING Completed ASSESSMENT/PLAN: 1. Obesity, morbid, BMI 50 or higher (HCC) - ICD9: 278.01, ICD10: E66.01 (primary diagnosis) Needs updated blood work prior to starting GLP-1. Discussed mounjaro as first option d/t good results and feedback from patients. Pt agreeable. Likely should be covered d/t comorbidities. 2nd option is ozempic. Pending recent hgA1c, will order this to pharmacy. Pt agreeable to come into lab tomorrow. - HGB A1C - COMP METABOLIC PANEL - CBC 2. Type 2 diabetes mellitus without complication, without long-term current use of insulin (HCC) - ICD9: 250.00, ICD10: E11.9 See above plan of care. - HGB A1C 3. Hyperlipidemia, unspecified hyperlipidemia type - ICD9: 272.4, ICD10: E78.5 See above plan of care. - LIPID PANEL BASIC Prescription instructions reviewed with patient as applicable. Potential red flag symptoms discussed with the patient. Reviewed appropriate action plan to take if red flag symptoms occur. Patient agreeable to treatment plan. During this patient visit I have spent approximately 30 minutes in counseling regarding treatment options and medications. Sumi Worthy APRN.GROOMING ASSISTANT documented in this encounter [facility] 08-29-2022 History of Presen t illness Narrative Images from the original note were not included. Subjective The history is provided by the patient. No cloth winder was used. HPI Arabella Dubose is a 36 year old female who presents today for CC of right upper tooth pain and swelling. This has gotten worse over the past 6 days. She has a tooth that is broken. She has used ibuprofen with slight relief. Has an appointment Thursday with dentist, wanted started on antibiotic. BP 132/88 Pulse 104 Temp 36.5 C (97.7 F) Resp 20 Wt (!) 157 kg (346 lb 3.2 oz) LMP 02/07/2020 (Exact Date) SpO2 99% BMI 52.47 kg/m Social History Tobacco Use Smoking status: Former Years: 1.00 Types: Cigarettes Quit date: 10/02/2004 Years since quittin.9 Smokeless tobacco: Never Vaping Use Vaping Use: Never used Substance Use Topics Alcohol use: Yes Comment: Socially Drug use: No PAST MEDICAL HISTORY Diagnosis Date Abnormal LFTs (liver function tests) 12/08/2016 Acute biliary pancreatitis 08/29/2015 Acute gastritis 05/07/2015 [facility] Chlamydia 04/04/2014 Chronic cholecystitis with calculus 10/03/2015 Chronic lower back pain 05/07/2015 [facility] Diabetes mellitus type II, uncontrolled 2016 Fatty liver disease, nonalcoholic MELVIN (generalized anxiety disorder) History of COVID-19 05/2021 Hyperandrogenemia 04/04/2014 Morbid obesity (HCC) 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 not recommending FINNEGAN Thyroid nodule abnormal FNA right thyroid (2017), repeat US 1,2,3, and 5 years from 2021 I have confirmed and edited as necessary, the [facility] Review of Systems Constitutional: Negative for chills and fever. HENT: Dental/mouth pain, Broken tooth Musculoskeletal: Negative for joint pain and myalgias. Skin: Negative for itching and rash. All other systems reviewed and are negative. Objective Physical Exam Vitals and nursing note reviewed. HENT: Mouth/Throat: Lips: [place]. Dentition: Abnormal dentition. Dental tenderness and dental caries present. No gingival swelling or dental abscesses. Comments: Tooth is broken, with dental wojciech, tender to touch, mild facial swelling Pulmonary: Effort: Pulmonary effort is normal. Skin: General: Skin is warm and dry. Neurological: Mental Status: She is alert and oriented to person, place, and time. Psychiatric: Mood and Affect: Affect normal. ASSESSMENT/PLAN: 1. Pain, dental - ICD9: 525.9, ICD10: K08.89 Appears to be broken tooth with dental wojciech, possible infection Amoxil as ordered Follow up Thursday with dentist Advise tylenol/ibuprofen prn Go to ED for worsening pain or facial swelling. Diagnosis and treatment plan were discussed and questions were answered to the patient's satisfaction. Pt acknowledged understanding of concepts and follow up plan. Specific signs and symptoms that would indicate the need for higher level of care were discussed in detail warranting prompt ER evaluation. Soraida Jeong APRN.GROOMING ASSISTANT documented in this encounter [facility] 06-25-2022 Instructions Cristal August APRN.CNP - 06/25/2022 6:25 PM EST Follow-up pending labs documented in this encounter [facility] 06-25-2022 History of Presen t illness Narrative 06/25/2022 Patient presents with: Recheck: Medication follow up SUBJECTIVE: This is a 36 year old that is here today for Above Complaints.. CC: Patient presents with: Recheck: Medication follow up HPI Arabella Dubose is a 36 year old female who presents today for above. Currently taking adipex. Starting Month Weight/BMI Last 1 Encounter Wt Readings: Date: Wt: 06/25/2022 152.1 kg (335 lb 6.4 oz) BMI 50.83 kg/(m^2) Last visit Wt: 154.4 kg (340 lb 6.4 oz) BMI: 51.59 kg/(m^2) DIET Daily serving of fruits:1-2 Daily serving of vegetables:1-2 Daily serving of protein:1-2 Fluid intake:Water: 32 ounces glasses per day, one glass of lemonade daily less than 8 ounces, occasional soda Soda: glasses per day Do you Skip meals:YES occasionally Which meals do you tend to skip? Breakfast Food Behaviors: stress eats Eating away from home:YES Sit down restaurantOnce weekly or less often Exercise routine: YES Program: Moderate regular exercise program walking, jogging, and running Frequency: 2 times per week Medication side effects: Increased heart rate: No Insomnia: No Constipation: No Nervousness: No Impairment of concentration/attention, difficulty with memory, speech or language problems (particularly word-finding difficulties): No If DM any hypo/hyperglycemia: No Patient is diabetic and taking all medications without side effects. Does not check blood sugars. Denies polyuria, polydipsia, or visual changes Social History Tobacco Use Smoking status: Former Years: 1.00 Types: Cigarettes Quit date: 10/02/2004 Years since quittin.7 Smokeless tobacco: Never Vaping Use Vaping Use: Never used Substance Use Topics Alcohol use: Yes Comment: Socially Drug use: No ROS as above, otherwise non-contributory. Reviewed PMHx, PSHx, social Hx, medications and allergies. PHYSICAL EXAM BP 118/88 Pulse 97 Resp 20 Wt (!) 152.1 kg (335 lb 6.4 oz) LMP 02/07/2020 (Exact Date) SpO2 99% BMI 50.83 kg/m General Appearance: well appearing, in no acute distress, well-hydrated, well nourished, alert, obese Pysch: mood and affect broad and appropriate Skin: Skin color, texture, turgor normal for age; Eyes: sclera white, non-injected Lungs: Lungs clear to auscultation. No wheezing, rhonchi, rales. Heart: RRR without murmur, gallop, or rubs. No ectopy HEPATITIS B(1 of 3 - 3-dose series) Never done URINE ALBUMIN:CREATININE RATIO due on 07/16/2019 PAP TESTING due on 03/12/2022 HPV TESTING due on 03/12/2022 DIABETIC FOOT EXAM due on 04/15/2022 HBA1C due on 05/02/2022 DEPRESSION ASSESSMENT due on 06/15/2022 INFLUENZA(1) due on 12/12/2022 DTAP,TDAP,TD(6 - Tdap) due on 05/21/2023 COVID-19 VACCINE(3 - Booster for Moderna series) due on 05/21/2023 PNEUMOCOCCAL(2 - PCV) due on 05/21/2023 DILATED RETINAL EXAM due on 08/23/2022 LDL CHOLESTEROL due on 10/30/2022 ANNUAL PCP TEAM CHRONIC DISEASE VISIT due on 06/25/2023 HEPATITIS C SCREENING Completed HIV SCREENING Completed ASSESSMENT/PLAN: 1. Obesity, Class III, BMI 40-49.9 (morbid obesity) ([facility]) - ICD9: 278.01, ICD10: E66.01 (primary diagnosis) Weight decreasing - Behavioral intervention and - Pharmacological intervention - PHENTERMINE 37.5 MG TABLET - this will be her third month on medication - will see how her A1c is and possibly add on a GLP. Handout given to patient to read about medication 2. Type 2 diabetes mellitus without complication, without long-term current use of insulin ([facility]) - ICD9: 250.00, ICD10: E11.9 - control to be determines - Continue current medications - Check HgA1C, fasting lipid panel, and CMP - Encouraged regular aerobic exercise and weight loss - BP goal of <130/80 - LDL goal of <100 - PIOGLITAZONE 45 MG TABLET - HGB A1C - LIPID PANEL BASIC - COMP METABOLIC PANEL - follow-up pending blood work Cristal August APRN.CNP Prescription instructions reviewed with patient as applicable. Patient advised if symptoms do not improve or if symptoms worsen sooner, to contact their primary care physician. Potential red flag symptoms discussed with the patient. Reviewed appropriate action plan to take if red flag symptoms occur. Patient agreeable to treatment plan. I spent a total of 30 minutes on the date of the service which included preparing to see the patient, [id number] patient care, completing clinical documentation, obtaining and/or reviewing separately obtained history, performing a medically appropriate examination, counseling and educating the patient/family/caregiver, and ordering medications, tests, or procedures. documented in this encounter [facility] 05-21-2022 History of Presen t illness Narrative Chief Complaint Patient presents with: Follow Up: 1 month adipex check,, pt states sick most of month only got half a month of meds in HPI Arabella Dubose is a 36 year old female who presents here today for Above Complaints. Arabella is an established patient of Dr. Ulysses MD. She is following up with me from recent visit d/t weight management. Concerns today.. Weight management --- Started Adipex regimen on 04/17/22. Tolerating well. Does make her slightly jittery. Slight dry mouth but not bothersome. Only took about half of pills this month d/t not feeling well with cold/URI symptoms. Denies: abdominal pain, nausea, vomiting, diarrhea, fevers, constipation, headache, change in urination, lightheadedness, weakness, numbness or tingling to arms or legs, edema, palpitations, sleep disturbances, impairment of concentration/attention, difficulty with memory, speech or language problems (particularly word-finding difficulties). Initial weight -- 346 lbs Weight after 1 month -- 340 lbs Current BMI: 51.59 MELVIN -- Increased Zoloft at last visit to 100 mg daily. Pt reports this dosage working much better for her. Feels anxiety is well stabilized now. Cough and congestion -- X 1 month of off and on congestion and cough. Worse in the mornings. Improving the past few days. Constantly picking up illness from her toddler son. Has been going back and forth with symptoms with son. Never fulling improved x 1 month. Denies any CP or SOB. Productive cough with clear/yellow sputum. No other concerns or complaints. Past medical history, appointments, medications, allergies reviewed. 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 not recommending FINNEGAN Thyroid nodule abnormal FNA right thyroid (2017), repeat US 1,2,3, and 5 years from 2021 Previous Surgical History PAST SURGICAL HISTORY Procedure Laterality Date COLPOSCOPY CERVIX UPPR/ADJCNT VAGINA W/CERVIX BX 07/13/06 chronic cervicitis with no evidence of dysplasia LAPS SURG CHOLECYSTECTOMY W/CHOLANGIOGRAPHY 09-25-15 MYRINGOTOMY ASPIR&/EUSTACHIAN TUBE NFLTJ ANES 1993,1994 Myringotomy/tubes THYROIDECTOMY SUBTOTAL/PARTIAL Left 01/13/2020 Left thyroidectomy TONSILLECTOMY PRIMARY/SECONDARY <AGE 13 1996 Tonsillectomy US THYROID BIOPSY 11/2019 [facility] Family History FAMILY HISTORY Problem Relation Age of Onset Cancer Mother thyroid No Known Problems Brother No Known Problems Brother Arthritis Maternal Grandmother Hypertension Maternal Grandmother Thyroid Maternal Grandmother Alzheimer's Disease Maternal Grandmother Diabetes Paternal Grandmother Breast Cancer Paternal Aunt Thyroid Maternal Aunt Cancer Maternal Aunt gastric Patient Allergies ALLERGIES Allergen Reactions Acetaminophen Unknown Seasonal Allergies Swelling Vicodin [Hydrocodon* Rash hives Current Medications Current Outpatient Medications on File Prior to Visit Medication Sig glimepiride (AMARYL) 4 mg tablet Take 2 tablets by mouth daily with breakfast. pioglitazone (ACTOS) 45 mg tablet Take 1 tablet by mouth once daily. CPAP Initiate Auto PAP @ 5-20 cm of water with humidification. Mask (per patient preference) optional chin strap (if indicated) , filters, tubing, humidifier and lifetime supplies. levothyroxine 50 mcg cap Take 1 capsule by mouth daily before breakfast. calcium carbonate (TUMS) 500 mg chew Take 1 tablet by mouth every hour as needed (mouth or hand numbness or tingling). ensyvky-clxhpcfru-xedezpu D3 500 mg(1,250mg) -200 unit per tablet Take 1 tablet by mouth three times daily. loratadine (CLARITIN) 10 mg tablet Take 10 mg by mouth as needed. sertraline (ZOLOFT) 100 mg tablet Take 1 tablet by mouth once daily. metFORMIN ER (GLUCOPHAGE XR) 500 mg 24 hr tablet Take 2 tablets by mouth twice daily. No current facility-administered medications on file prior to visit. Social History Social History Tobacco Use Smoking status: Former Years: 1.00 Types: Cigarettes Quit date: 10/02/2004 Years since quittin.6 Smokeless tobacco: Never Vaping Use Vaping Use: Never used Substance Use Topics Alcohol use: Yes Comment: Socially Drug use: No REVIEW OF SYSTEMS: as above Reviewed relevant PMHx, PSHx, Social Hx, current medications and allergies. Review of Symptoms REVIEW OF SYSTEMS See HPI. All other systems are negative. EXAM: BP 120/84 (BP Site: Left Arm, BP Position: Sitting, BP Cuff Size: Large Adult) Pulse 72 Resp 16 Wt (!) 154.4 kg (340 lb 6.4 oz) LMP 02/07/2020 (Exact Date) BMI 51.59 kg/m General Appearance: Well appearing, alert, in no acute distress, well-hydrated, well nourished.. Skin: Skin color, texture, turgor normal, no suspicious rashes or lesions. Head: Normocephalic, no masses, lesions, tenderness or abnormalities. Nose/Sinuses: Nares normal, septum midline, mucosa normal, no drainage or sinus tenderness. Oropharynx: Lips, mucosa, and tongue normal, teeth and gums normal, oropharynx normal. Neck: Supple, no adenopathy; thyroid symmetric, normal size, no bruits. Back:no pain to palpation of vertebrae, good flexion and extension, good range of motion, no muscle tenderness, reflexes are 2+ and symmetric, motor and sensory appear to be normal, negative SLR test, no evidence of scoliosis Lungs: Lungs clear to auscultation. No wheezing, rhonchi, rales.. Heart: RRR without murmur, gallop, or rubs. No ectopy. Neurologic: Gait normal. Reflexes normal and symmetric. Sensation grossly intact.. Health Maintenance List HEPATITIS B(1 of 3 - 3-dose series) Never done URINE ALBUMIN:CREATININE RATIO due on 07/16/2019 PAP TESTING due on 03/12/2022 HPV TESTING due on 03/12/2022 DIABETIC FOOT EXAM due on 04/15/2022 HBA1C due on 05/02/2022 INFLUENZA(1) due on 12/12/2022 DTAP,TDAP,TD(6 - Tdap) due on 05/21/2023 COVID-19 VACCINE(3 - Booster for Moderna series) due on 05/21/2023 PNEUMOCOCCAL(2 - PCV) due on 05/21/2023 DILATED RETINAL EXAM due on 08/23/2022 LDL CHOLESTEROL due on 10/30/2022 ANNUAL PCP TEAM CHRONIC DISEASE VISIT due on 05/21/2023 DEPRESSION ASSESSMENT Completed HEPATITIS C SCREENING Completed HIV SCREENING Completed ASSESSMENT/PLAN: 1. Obesity, Class III, BMI 40-49.9 (morbid obesity) (HCC) - ICD9: 278.01, ICD10: E66.01 (primary diagnosis) Weight decreasing - Behavioral intervention, - Pharmacological intervention, - Eat well program, and - Continue current medications - PHENTERMINE 37.5 MG TABLET - reviewed SE, medication expectations, required weight loss of 5%, required monthly monitoring and medication duration of use (3 months on 6 months off) PDMP website checked and validated. All prescriptions have been APPROPRIATELY filled. No suspicious activity was identified. 05/21/2022 by Sumi Winn APRN.CNP 2. MELVIN (generalized anxiety disorder) - ICD9: 300.02, ICD10: F41.1 Stable. Well controlled on increased dosage. Refilled. Continue on current regimen. - SERTRALINE 100 MG TABLET 3. Acute cough - ICD9: 786.2, ICD10: R05.1 Increase fluids and rest. Z-[place] x 5 days d/t duration of symptoms. - AZITHROMYCIN 250 MG TABLET 4. Nasal congestion - ICD9: 478.19, ICD10: R09.81 See above. - AZITHROMYCIN 250 MG TABLET RTO in 1 months, sooner if needed. Prescription instructions reviewed with patient as applicable. Potential red flag symptoms discussed with the patient. Reviewed appropriate action plan to take if red flag symptoms occur. Patient agreeable to treatment plan. Sumi Winn APRN.CNP [id number] [place] [address] documented in this encounter [facility] 04-17-2022 History of Presen t illness Narrative Chief Complaint Patient presents with: Yearly Exam: Pt states is starting a new job after 11 year and just found out mom has lung cancer. Has no energy has not been sleeping. HPI Arabella Dubose is a 36 year old female who presents here today for Above Complaints.. Arabella is an established patient of Dr. Ulysses MD. Arabella is a new patient to me today. Concerns today... Switching jobs. Needs physical form completed for new job. DM --- Patient reports she is feeling well overall in regards to diabetes Patient's last HgA1C was 7.8 in October (5 months ago). Will get hgA1c drawn today. Current regimen: metformin 1000 mg BID, amaryl 8 mg daily, ACTOS 45 mg daily. Tolerating well: Yes, slight diarrhea with metformin but tolerable per pt. Med compliance: Yes Checking sugars: No Signs of hypoglycemia?: Denies. Diet: 3 meals per day, limits carbs and sugar. Tries to eat well balanced meals. Denies polyuria, polydipsia, numbness, tingling or pain in extremities, new or unusual visual symptoms, unintended weight changes, lightheadedness/dizziness, bowel changes/loose stools, chest pain or dyspnea Anxiety/depression --- Zoloft 50 mg daily x 2 years. [place] stable on this dosage but recently having new stressors that are worsening anxiety and depression. Feeling less motivated, hard time getting out of bed in the morning. Leaving job she was at for 11 years which gives her anxiety. Leaving due to insurance issues. Mother just diagnosised with lung cancer recently --- beginning stage, getting biopsy shortly to determine stage. Poor sleep since these stressors began. Melotonin does work/help. Helps her get to sleep and stay asleep. Didn't know if she should be taking this daily. Hx of sleep apnea, admits to not wearing CPAP frequently. Weight management -- Has struggled with weight her whole life. Works out at gym often, numerous times per week. Normally goes to the gym in the morning before work but due to worsening depression/stressors, this has been hard for her. Overall tries to eat well balanced meals. Admits to junk food snacks. Interested in weight loss regimen/medication. Has never been on adipex. HTN -- Lisinopril 5 mg daily prescribed. Never started this medication. She denies chest pain, shortness of breath, palpitations, dizziness, leg edema, headaches, or vision changes. Last 14 Encounter BP Readings: Date: BP: 04/17/2022 138/80 10/30/2021 104/82 04/15/2021 118/84 09/24/2020 127/87 07/05/2020 120/80 04/05/2020 108/82 02/28/2020 120/84 02/10/2020 128/82 12/28/2019 119/83 12/05/2019 130/82 12/05/2019 143/93 08/09/2019 128/83 07/08/2019 112/82 03/07/2019 120/66 Hypothyroidism -- Levothyroxine 50 mcg daily. Due to papillary thyroid cancer. Had half of thyroid removed. Recently went to endocrinology who manages this. Reports no changes. Had routine yearly monitoring US of thyroid that was normal per pt Heartburn -- Occasional. Relief with TUMS as needed. Allergies -- Claritin as needed. Seasonal. Stable. HM -- Overdue for PAP/HPV screening. Past medical history, appointments, medications, allergies reviewed. 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 not recommending FINNEGAN Thyroid nodule abnormal FNA right thyroid (2017), repeat US 1,2,3, and 5 years from 2021 Previous Surgical History PAST SURGICAL HISTORY Procedure Laterality Date COLPOSCOPY CERVIX UPPR/ADJCNT VAGINA W/CERVIX BX 07/13/06 chronic cervicitis with no evidence of dysplasia LAPS SURG CHOLECYSTECTOMY W/CHOLANGIOGRAPHY 09-25-15 MYRINGOTOMY ASPIR&/EUSTACHIAN TUBE NFLTJ ANES 1993 Myringotomy/tubes THYROIDECTOMY SUBTOTAL/PARTIAL Left 01/13/2020 Left thyroidectomy TONSILLECTOMY PRIMARY/SECONDARY <AGE 13 1995 Tonsillectomy US THYROID BIOPSY 11/2019 AUS Family History FAMILY HISTORY Problem Relation Age of Onset Cancer Mother thyroid No Known Problems Brother No Known Problems Brother Arthritis Maternal Grandmother Hypertension Maternal Grandmother Thyroid Maternal Grandmother Alzheimer's Disease Maternal Grandmother Diabetes Paternal Grandmother Breast Cancer Paternal Aunt Thyroid Maternal Aunt Cancer Maternal Aunt gastric Patient Allergies ALLERGIES Allergen Reactions Acetaminophen Unknown Seasonal Allergies Swelling Vicodin [Hydrocodon* Rash hives Current Medications Current Outpatient Medications on File Prior to Visit Medication Sig glimepiride (AMARYL) 4 mg tablet Take 2 tablets by mouth daily with breakfast. sertraline (ZOLOFT) 50 mg tablet Take 1 tablet by mouth once daily. pioglitazone (ACTOS) 45 mg tablet Take 1 tablet by mouth once daily. metFORMIN ER (GLUCOPHAGE XR) 500 mg 24 hr tablet Take 2 tablets by mouth twice daily. CPAP Initiate Auto PAP @ 5-20 cm of water with humidification. Mask (per patient preference) optional chin strap (if indicated) , filters, tubing, humidifier and lifetime supplies. lisinopril (ZESTRIL, PRINIVIL) 5 mg tablet Take 1 tablet by mouth once daily. levothyroxine 50 mcg cap Take 1 capsule by mouth daily before breakfast. calcium carbonate (TUMS) 500 mg chew Take 1 tablet by mouth every hour as needed (mouth or hand numbness or tingling). gnsakal-ekqilgfpq-fgwiihz D3 500 mg(1,250mg) -200 unit per tablet Take 1 tablet by mouth three times daily. loratadine (CLARITIN) 10 mg tablet Take 10 mg by mouth as needed. No current facility-administered medications on file prior to visit. Social History Social History Tobacco Use Smoking status: Former Years: 1.00 Types: Cigarettes Quit date: 10/02/2004 Years since quittin.5 Smokeless tobacco: Never Vaping Use Vaping Use: Never used Substance Use Topics Alcohol use: Yes Comment: Socially Drug use: No REVIEW OF SYSTEMS: as above Reviewed relevant PMHx, PSHx, Social Hx, current medications and allergies. Review of Symptoms REVIEW OF SYSTEMS See HPI. All other systems are negative. EXAM: BP 138/80 (BP Site: Left Arm, BP Position: Sitting, BP Cuff Size: Large Adult) Pulse 88 Resp 16 Ht 173 cm (5' 8.11) Wt (!) 156.9 kg (346 lb) LMP 02/07/2020 (Exact Date) BMI 52.44 kg/m General Appearance: Well appearing, alert, in no acute distress, well-hydrated, well nourished.. Skin: Skin color, texture, turgor normal, no suspicious rashes or lesions. Head: Normocephalic, no masses, lesions, tenderness or abnormalities. Neck: Supple, no adenopathy; thyroid symmetric, normal size, no bruits. Back:no pain to palpation of vertebrae, good flexion and extension, good range of motion, no muscle tenderness, reflexes are 2+ and symmetric, motor and sensory appear to be normal, negative SLR test, no evidence of scoliosis Lungs: Lungs clear to auscultation. No wheezing, rhonchi, rales.. Heart: RRR without murmur, gallop, or rubs. No ectopy. Abdomen: Normal abdominal exam, Abdomen soft, non-tender. Bowel sounds normal. No masses, organomegaly. Extremities: No deformities, edema, skin discoloration, clubbing or cyanosis. Good capillary refill. . Musculoskeletal: No joint swelling, deformity, or tenderness. Peripheral Pulses: Normal. Neurologic: Gait normal. Reflexes normal and symmetric. Sensation grossly intact.. Health Maintenance List HEPATITIS B(1 of 3 - 3-dose series) Never done DTAP,TDAP,TD(6 - Tdap) due on 02/02/2014 PNEUMOCOCCAL(2 - PCV) due on 04/24/2018 URINE ALBUMIN:CREATININE RATIO due on 07/16/2019 COVID-19 VACCINE(3 - Booster for Moderna series) due on 09/19/2020 DEPRESSION ASSESSMENT Never done PAP TESTING due on 03/12/2022 HPV TESTING due on 03/12/2022 DIABETIC FOOT EXAM due on 04/15/2022 INFLUENZA(1) due on 12/12/2022 HBA1C due on 05/02/2022 DILATED RETINAL EXAM due on 08/23/2022 LDL CHOLESTEROL due on 10/30/2022 ANNUAL PCP TEAM CHRONIC DISEASE VISIT due on 10/30/2022 HEPATITIS C SCREENING Completed HIV SCREENING Completed ASSESSMENT/PLAN: 1. Wellness examination - ICD9: V70.0, ICD10: Z00.00 (primary diagnosis) - Counseled on healthy diet and regular exercise - Recommend vitamin containing 0.4 mg of folic acid - Calcium intake with supplements or by diet of 1000 mg/day for under 50, 9824-0647 mg/day for 50+ - Counseled patient on limiting alcohol intake to 1 drink per day - Discussed safe sex practices and avoidance of STIs - Depression screening tool completed and reviewed with patient. Based on score and interview, patient is already diagnosed with depression and recommended increasing medication. - Follow up for annual exam in one year 2. Obesity, Class III, BMI 40-49.9 (morbid obesity) (HCC) - ICD9: 278.01, ICD10: E66.01 Weight increasing - Behavioral intervention, - Pharmacological intervention, - Eat well program, and - Continue current medications -Start Adipex regimen. - Begin diet consisting of counting calories, counting fat grams, and counting carbohydrates. - Reduce sugary drinks of artificial juices and sodas and replace with water and low calorie Crystal Light. - Healthy Snack alternatives have been discussed and will attempt more fruits and vegetables. - encouraged 3 meals a day - Begin exercise or meaningful activity for 20 minutes at lest 3 times a day PDMP website checked and validated. All prescriptions have been APPROPRIATELY filled. No suspicious activity was identified. 04/17/2022 by Sumi Winn APRN.GROOMING ASSISTANT - reviewed SE, medication expectations, required weight loss of 5%, required monthly monitoring and medication duration of use (3 months on 6 months off) - PHENTERMINE 37.5 MG TABLET 3. History of thyroid cancer - ICD9: V10.87, ICD10: Z85.850 Recheck thyroid labs. Stable. Well controlled. - TSH BLD - T3 BLD - T4 FREE/FREE THYROX 4. Post-surgical hypothyroidism - ICD9: 244.0, ICD10: E89.0 See above. - TSH BLD - T3 BLD - T4 FREE/FREE THYROX 5. MELVIN (generalized anxiety disorder) - ICD9: 300.02, ICD10: F41.1 Increase Zoloft to 100 mg daily. RTO in 1 month to reassess mood. Discuses prn medication options if situational anxiety worsens due to recent triggers/stressors. - SERTRALINE 100 MG TABLET 6. Type 2 diabetes mellitus without complication, without long-term current use of insulin (HCC) - ICD9: 250.00, ICD10: E11.9 Will determine status based on HgA1c today. Patient is new to me. Stable. - COMP METABOLIC PANEL - CBC - HGB A1C 7. CHUY (obstructive sleep apnea) - ICD9: 327.23, ICD10: G47.33 Encouraged CPAP use. 8. Morbid obesity with BMI of 40.0-44.9, adult (HCC) - ICD9: 278.01, V85.41, ICD10: E66.01, Z68.41 Begin Adipex regimen. - LIPID PANEL BASIC 9. Vitamin D deficiency - ICD9: 268.9, ICD10: E55.9 - VITAMIN D 25 HYDROXY 10. Anxiety with depression - ICD9: 300.4, ICD10: F41.8 See above. Increase Zoloft dosage. 11. Poor sleep - ICD9: V69.4, ICD10: Z72.820 Continue melatonin as needed. OK to take daily. Continue to wear CPAP. Discussed trazodone if needed. RTO in 1 months, sooner if needed, to reassess mood and weight. Prescription instructions reviewed with patient as applicable. Potential red flag symptoms discussed with the patient. Reviewed appropriate action plan to take if red flag symptoms occur. Patient agreeable to treatment plan. Sumi Winn APRN.GROOMING ASSISTANT [address] [place] [address] documented in this encounter [facility] 04-16-2022 Miscellaneous Notes Patient scheduled for a physical 04/17 with CO. Luis Zuleta MA She is due for follow up this month and we can complete physical then. Please assist with scheduling appointment. documented in this encounter [facility] 03-19-2022 Miscellaneous Notes Patient phones requesting refills as follows: Requested Prescriptions Pending Prescriptions Disp Refills glimepiride (AMARYL) 4 mg tablet 180 tablet 1 Sig: Take 2 tablets by mouth daily with breakfast. ABDIAZIZ 10/30/21 No upcoming appointment scheduled Please review and advise. Beverley Wood LPN documented in this encounter [facility] 02-28-2022 Miscellaneous Notes Last office visit: 10/30/21 Next appointment scheduled: No future appointments scheduled at this time. Last labs: 10/30/21 Patient phones requesting refills as follows: Requested Prescriptions Pending Prescriptions Disp Refills pioglitazone (ACTOS) 45 mg tablet 90 tablet 1 Sig: Take 1 tablet by mouth once daily. Please review and advise. Tonie Barakat LPN documented in this encounter [facility] 02-28-2022 Miscellaneous Notes Last office visit: 10/30/21 Next appointment scheduled: No future appointments scheduled at this time. Last labs: 10/30/21 Patient phones requesting refills as follows: Requested Prescriptions Pending Prescriptions Disp Refills sertraline (ZOLOFT) 50 mg tablet 30 tablet 5 Sig: Take 1 tablet by mouth once daily. Please review and advise. Tonie Barakat LPN documented in this encounter [facility] 11-22-2021 Miscellaneous Notes Radiology requesting order for cervical lymph node mapping for this patient. Ordered as requested. documented in this encounter [facility] 10-30-2021 History of Presen t illness Narrative Chief Complaint Patient presents with: 6 Month Exam HPI Arabella Dubose is a 35 year old female who presents here today for 6 month follow up. DIABETES MELLITUS: Ms. Dubose was last seen 6 months ago. Since our last visit she denies excessive thirst or increased frequency of urination, numbness, tingling or pain in extremities, new or unusual visual symptoms and low sugar/hypoglycemic reactions. Follows a diabetic diet some of the time. Exercising 1-2 times per week at the gym with treadmill and bike. She is compliant with medication(s) and is tolerating med(s) without any side effects. She reports checking her glucose on a once a day schedule with sugars in the fasting 130-140 range. Patient's last HgA1C was Hemoglobin A1C (%) Date Value 10/02/2020 6.0 03/13/2020 6.9 ) Last Ophthalmology exam was within the past 3 months-Dr Peña in August-. Last Podiatry exam was within the past 12 months. Due for repeat US of her thyroid to follow up on history of thyroid cancer. Denies new lumps/pain/swelling. Taking synthroid as prescribed. CHUY: Using CPAP on a nightly basis and is waking up well rested without snoring. Anxiety: Controlled on SSRI. Past medical history, appointments, medications, allergies reviewed. 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 not recommending FINNEGAN Thyroid nodule abnormal FNA right thyroid 2017 Previous Surgical History PAST SURGICAL HISTORY Procedure Laterality Date COLPOSCOPY CERVIX UPPR/ADJCNT VAGINA W/CERVIX BX 07/13/06 chronic cervicitis with no evidence of dysplasia LAPS SURG CHOLECYSTECTOMY W/CHOLANGIOGRAPHY 09-25-15 MYRINGOTOMY ASPIR&/EUSTACHIAN TUBE NFLTJ ANES 1993,1994 Myringotomy/tubes THYROIDECTOMY SUBTOTAL/PARTIAL Left 01/13/2020 Left thyroidectomy TONSILLECTOMY PRIMARY/SECONDARY <AGE 13 1995 Tonsillectomy THYROID BIOPSY 11/2019 AUS Family History FAMILY HISTORY Problem Relation Age of Onset Cancer Mother thyroid No Known Problems Brother No Known Problems Brother Arthritis Maternal Grandmother Hypertension Maternal Grandmother Thyroid Maternal Grandmother Alzheimer's Disease Maternal Grandmother Diabetes Paternal Grandmother Breast Cancer Paternal Aunt Thyroid Maternal Aunt Cancer Maternal Aunt gastric Patient Allergies ALLERGIES Allergen Reactions Acetaminophen Unknown Seasonal Allergies Swelling Vicodin [Hydrocodon* Rash hives Current Medications Current Outpatient Medications on File Prior to Visit Medication Sig pioglitazone (ACTOS) 45 mg tablet Take 1 tablet by mouth once daily. CPAP Initiate Auto PAP @ 5-20 cm of water with humidification. Mask (per patient preference) optional chin strap (if indicated) , filters, tubing, humidifier and lifetime supplies. sertraline (ZOLOFT) 50 mg tablet Take 1 tablet by mouth once daily. metFORMIN ER (GLUCOPHAGE XR) 500 mg 24 hr tablet Take 2 tablets by mouth daily with dinner. lisinopril (ZESTRIL, PRINIVIL) 5 mg tablet Take 1 tablet by mouth once daily. glimepiride (AMARYL) 4 mg tablet Take 2 tablets by mouth daily with breakfast. levothyroxine 50 mcg cap Take 1 capsule by mouth daily before breakfast. calcium carbonate (TUMS) 500 mg chew Take 1 tablet by mouth every hour as needed (mouth or hand numbness or tingling). saoijwl-qqfcwtmhd-jppcxhx D3 500 mg(1,250mg) -200 unit per tablet Take 1 tablet by mouth three times daily. loratadine (CLARITIN) 10 mg tablet Take 10 mg by mouth as needed. No current facility-administered medications on file prior to visit. Social History Social History Tobacco Use Smoking status: Former Smoker Years: 1.00 Quit date: 10/02/2004 Years since quittin.0 Smokeless tobacco: Never Used Vaping Use Vaping Use: Never used Substance Use Topics Alcohol use: Yes Comment: Socially Drug use: No Review of Symptoms REVIEW OF SYSTEMS GENERAL: No weight loss, malaise or fevers RESPIRATORY: Negative for cough, hemoptysis, wheezing, COPD, dyspnea or shortness of breath CARDIOVASCULAR: Negative for chest pain, leg swelling, hypertension, CHF or palpitations GI: No nausea, vomiting, or diarrhea SKIN: Negative for lesions, rash, and itching EXAM: BP 104/82 Pulse 97 Temp 37 C (98.6 F) (Left Tympanic) Resp 18 Wt (!) 147.9 kg (326 lb) LMP 02/07/2020 (Exact Date) SpO2 98% BMI 48.99 kg/m General Appearance: Well appearing, alert, in no acute distress, well-hydrated, well nourished.. Skin: Skin color, texture, turgor normal, no suspicious rashes or lesions. Neck: Supple, no adenopathy; s/p right thyroidectomy without palpable nodules or TTP. Lungs: Lungs clear to auscultation. No wheezing, rhonchi, rales.. Heart: RRR without murmur, gallop, or rubs. No ectopy. Abdomen: Normal abdominal exam, Abdomen soft, non-tender. Bowel sounds normal. No masses, organomegaly. Extremities: No deformities, edema, skin discoloration, clubbing or cyanosis. Good capillary refill. . Health Maintenance List DTAP,TDAP,TD(6 - Tdap) due on 02/02/2014 URINE ALBUMIN:CREATININE RATIO due on 07/16/2019 COVID-19 VACCINE(3 - Booster for Moderna series) due on 12/22/2020 HBA1C due on 04/03/2021 LDL CHOLESTEROL due on 10/02/2021 PAP TESTING due on 03/12/2022 HPV TESTING due on 03/12/2022 DIABETIC FOOT EXAM due on 04/15/2022 ANNUAL PCP TEAM CHRONIC DISEASE VISIT due on 04/15/2022 DILATED RETINAL EXAM due on 08/23/2022 DEPRESSION SCREENING due on 10/30/2022 ONE PNEUMOVAX PRIOR TO AGE 65 Completed INFLUENZA Completed HEPATITIS C SCREENING Completed HIV SCREENING Completed MENINGOCOCCAL CONJUGATE Aged Out Data reviewed Component Latest Ref Rng & Units 03/13/2020 10/02/2020 Protein, Total 6.3 - 8.0 g/dL 7.5 Albumin 3.9 - 4.9 g/dL 4.1 Calcium 8.5 - 10.2 mg/dL 9.4 Bilirubin, Total 0.2 - 1.3 mg/dL 1.0 Alkaline Phosphatase 34 - 123 U/L 73 AST 13 - 35 U/L 39 (H) Glucose 74 - 99 mg/dL 118 (H) BUN 7 - 21 mg/dL 11 Creatinine 0.58 - 0.96 mg/dL 0.74 Sodium 136 - 144 mmol/L 137 Potassium 3.7 - 5.1 mmol/L 4.3 Chloride 97 - 105 mmol/L 101 CO2 22 - 30 mmol/L 23 Anion Gap 9 - 18 mmol/L 13 ALT 7 - 38 U/L 35 eGFR- >60 eGFR-All Other Races . >60 Total Cholesterol, Nonfasting <200 mg/dL 198 Triglycerides, Nonfasting <150 mg/dL 129 HDL Cholesterol, Nonfasting >39 mg/dL 46 LDL Cholesterol, Nonfasting <100 mg/dL 126 (H) Non HDL Cholesterol, Nonfasting <130 mg/dL 152 (H) VLDL Cholesterol, Nonfasting <30 mg/dL 26 Total Chol/HDL Ratio, Nonfasting <5.10 mg/dL 4.30 LDL/HDL Ratio, Nonfasting <2.54 mg/dL 2.74 (H) Hemoglobin A1C 4.3 - 5.6 % 6.9 (H) 6.0 (H) Estimated Average Glucose mg/dL 151 126 TSH 0.270 - 4.200 uU/mL 3.720 2.790 Free T4 0.9 - 1.7 ng/dL 1.3 ASSESSMENT/PLAN: 1. Type 2 diabetes mellitus without complication, without long-term current use of insulin (HCC) - ICD9: 250.00, ICD10: E11.9 (primary diagnosis) worsening control - Continue current medications - Blood glucose monitoring on a once a day schedule - Encouraged regular aerobic exercise and weight loss - Daily Asprin therapy recommended - Follow up in 6 months, sooner should any other issues arise. - Discussed diabetic education issues of watcher [employer] diabetic complications, hypoglycemic symptoms, hyperglycemic symptoms, diet, medications- side effects and need for compliance, importance of exercise and importance of annual examinations with Opthalmology with patient. - CBC - COMP METABOLIC PANEL - HGB A1C - ALBUMIN/CREAT RATIO RND UR - LIPID PANEL, NONFASTING 2. CHUY (obstructive sleep apnea) - ICD9: 327.23, ICD10: G47.33 Controlled on CPAP nightly. Continue to work on weight loss. F/u in 6 months . 3. Post-surgical hypothyroidism - ICD9: 244.0, ICD10: E89.0 Recheck TSH and repeat US to monitor for recurrence of thyroid cancer. Needs to schedule yearly follow up with endo. Red flags for re-assessment reviewed with patient in detail. - TSH BLD - US THYROID/PARATHYROID 4. History of thyroid cancer - ICD9: V10.87, ICD10: Z85.850 - TSH BLD - US THYROID/PARATHYROID 5. MELVIN (generalized anxiety disorder) - ICD9: 300.02, ICD10: F41.1 Doing well on Zoloft. Continue current dosage. 6. Morbid obesity with BMI of 40.0-44.9, adult (HCC) - ICD9: 278.01, V85.41, ICD10: E66.01, Z68.41 Stable - Behavioral intervention Gavin Arora MD documented in this encounter [facility] 10-01-2021 Miscellaneous Notes Patient has been identified by name and date of : Yes Pending Prescriptions Disp Refills PIOGLITAZONE 45 MG TABLET 90 tablet 1 Sig: Take 1 tablet by mouth once daily. NATALIA: No RX INSTRUCTIONS: Patient aware RX will be sent to pharmacy. No need to notify patient. Diana Mullins MA Abdiaziz: 04/2021 No appointment scheduled Last refill: 09/2020 90 tablet 1 refill documented in this encounter [facility] 12-08-2016 History of Past i llness Narrative Problem Noted Date Resolved Date Abnormal LFTs (liver function tests) 12/08/2016 12/28/2019 Diabetes mellitus type II, uncontrolled 06/15/19 17 08/10/2017 Chronic cholecystitis with calculus 10/03/2015 12/28/2019 Acute biliary pancreatitis 08/29/201511/01 Hyperandrogenemia 04/04/2014 2018 Supervision of normal first 08/07/2005 04/14/2006 Morbid obesity 08/10/2017 documented as of this encounter (statuses as of 10/01/2021) [facility] History of Past illness Narrative* Problem Noted Date Resolved Date Abnormal LFTs (liver function tests) 12/08/2016 12/28/2019 Diabetes mellitus type II, uncontrolled 06/15/19 17 08/10/2017 Chronic cholecystitis with calculus 10/03/2015 12/28/2019 Acute biliary pancreatitis 08/29/201511/01 Hyperandrogenemia 04/04/2014 2018 Supervision of normal first 08/07/2005 04/14/2006 Morbid obesity 08/10/2017 documented as of this encounter (statuses as of 10/31/2021) [facility] History of Past illness Narrative* Problem Noted Date Resolved Date Abnormal LFTs (liver function tests) 12/08/2016 12/28/2019 Diabetes mellitus type II, uncontrolled 06/15/19 17 08/10/2017 Chronic cholecystitis with calculus 10/03/2015 12/28/2019 Acute biliary pancreatitis 08/29/201511/01 Hyperandrogenemia 04/04/2014 2018 Supervision of normal first 08/07/2005 04/14/2006 Morbid obesity 08/10/2017 documented as of this encounter (statuses as of 11/22/2021) [facility] History of Past illness Narrative* Problem Noted Date Resolved Date Abnormal LFTs (liver function tests) 12/08/2016 12/28/2019 Diabetes mellitus type II, uncontrolled 06/15/19 17 08/10/2017 Chronic cholecystitis with calculus 10/03/2015 12/28/2019 Acute biliary pancreatitis 08/29/201511/01 Hyperandrogenemia 04/04/2014 2018 Supervision of normal first 08/07/2005 04/14/2006 Morbid obesity 08/10/2017 documented as of this encounter (statuses as of 11/26/2021) [facility] History of Past illness Narrative* Problem Noted Date Resolved Date Abnormal LFTs (liver function tests) 12/08/2016 12/28/2019 Diabetes mellitus type II, uncontrolled 06/15/19 17 08/10/2017 Chronic cholecystitis with calculus 10/03/2015 12/28/2019 Acute biliary pancreatitis 08/29/201511/01 Hyperandrogenemia 04/04/2014 2018 Supervision of normal first 08/07/2005 04/14/2006 Morbid obesity 08/10/2017 documented as of this encounter (statuses as of 02/28/2022) [facility] of Past illness Narrative* Problem Noted Date Resolved Date Abnormal LFTs (liver function tests) 12/08/2016 12/28/2019 Diabetes mellitus type II, uncontrolled 06/15/19 17 08/10/2017 Chronic cholecystitis with calculus 10/03/2015 12/28/2019 Acute biliary pancreatitis 08/29/201511/01 Hyperandrogenemia 04/04/2014 2018 Supervision of normal first 08/07/2005 04/14/2006 Morbid obesity 08/10/2017 documented as of this encounter (statuses as of 03/19/2022) [facility] of Past illness Narrative* Problem Noted Date Resolved Date Abnormal LFTs (liver function tests) 12/08/2016 12/28/2019 Diabetes mellitus type II, uncontrolled 06/15/19 17 08/10/2017 Chronic cholecystitis with calculus 10/03/2015 12/28/2019 Acute biliary pancreatitis 08/29/201511/01 Hyperandrogenemia 04/04/2014 2018 Supervision of normal first 08/07/2005 04/14/2006 Morbid obesity 08/10/2017 documented as of this encounter (statuses as of 04/16/2022) [facility] of Past illness Narrative* Problem Noted Date Resolved Date Abnormal LFTs (liver function tests) 12/08/2016 12/28/2019 Diabetes mellitus type II, uncontrolled 06/15/19 17 08/10/2017 Chronic cholecystitis with calculus 10/03/2015 12/28/2019 Acute biliary pancreatitis 08/29/201511/01 Hyperandrogenemia 04/04/2014 2018 Supervision of normal first 08/07/2005 04/14/2006 Morbid obesity 08/10/2017 documented as of this encounter (statuses as of 04/17/2022) [facility] of Past illness Narrative* Problem Noted Date Resolved Date Abnormal LFTs (liver function tests) 12/08/2016 12/28/2019 Diabetes mellitus type II, uncontrolled 06/15/19 17 08/10/2017 Chronic cholecystitis with calculus 10/03/2015 12/28/2019 Acute biliary pancreatitis 08/29/201511/01 Hyperandrogenemia 04/04/2014 2018 Supervision of normal first 08/07/2005 04/14/2006 Morbid obesity 08/10/2017 documented as of this encounter (statuses as of 05/21/2022) [facility] of Past illness Narrative* Problem Noted Date Resolved Date Abnormal LFTs (liver function tests) 12/08/2016 12/28/2019 Diabetes mellitus type II, uncontrolled 06/15/19 17 08/10/2017 Chronic cholecystitis with calculus 10/03/2015 12/28/2019 Acute biliary pancreatitis 08/29/201511/01 Hyperandrogenemia 04/04/2014 2018 Supervision of normal first 08/07/2005 04/14/2006 Morbid obesity 08/10/2017 documented as of this encounter (statuses as of 06/26/2022) [facility] Narrative* Problem Noted Date Resolved Date Abnormal LFTs (liver function tests) 12/08/2016 12/28/2019 Diabetes mellitus type II, uncontrolled 06/15/19 17 08/10/2017 Chronic cholecystitis with calculus 10/03/2015 12/28/2019 Acute biliary pancreatitis 08/29/201511/01 Hyperandrogenemia 04/04/2014 2018 Supervision of normal first 08/07/2005 04/14/2006 Morbid obesity 08/10/2017 documented as of this encounter (statuses as of 08/29/2022) [facility] History of Past illness Narrative* Problem Noted Date Resolved Date Abnormal LFTs (liver function tests) 12/08/2016 12/28/2019 Diabetes mellitus type II, uncontrolled 06/15/19 17 08/10/2017 Chronic cholecystitis with calculus 10/03/2015 12/28/2019 Acute biliary pancreatitis 08/29/201511/01 Hyperandrogenemia 04/04/2014 2018 Supervision of normal first 08/07/2005 04/14/2006 Morbid obesity 08/10/2017 documented as of this encounter (statuses as of 09/12/2022) [facility] History of Past illness Narrative* Problem Noted Date Resolved Date Abnormal LFTs (liver function tests) 12/08/2016 12/28/2019 Diabetes mellitus type II, uncontrolled 06/15/19 17 08/10/2017 Chronic cholecystitis with calculus 10/03/2015 12/28/2019 Acute biliary pancreatitis 08/29/201511/01 Hyperandrogenemia 04/04/2014 2018 Supervision of normal first 08/07/2005 04/14/2006 Morbid obesity 08/10/2017 documented as of this encounter (statuses as of 09/25/2022) [facility] History of Past illness Narrative* Problem Noted Date Resolved Date Abnormal LFTs (liver function tests) 12/08/2016 12/28/2019 Diabetes mellitus type II, uncontrolled 06/15/19 17 08/10/2017 Chronic cholecystitis with calculus 10/03/2015 12/28/2019 Acute biliary pancreatitis 08/29/201511/01 Hyperandrogenemia 04/04/2014 2018 Supervision of normal first 08/07/2005 04/14/2006 Morbid obesity 08/10/2017 documented as of this encounter (statuses as of 11/26/2022) [facility] History of Past illness Narrative* Problem Noted Date Resolved Date Abnormal LFTs (liver function tests) 12/08/2016 12/28/2019 Diabetes mellitus type II, uncontrolled 06/15/19 17 08/10/2017 Chronic cholecystitis with calculus 10/03/2015 12/28/2019 Acute biliary pancreatitis 08/29/201511/01 Hyperandrogenemia 04/04/2014 2018 Supervision of normal first 08/07/2005 04/14/2006 Morbid obesity 08/10/2017 documented as of this encounter (statuses as of 11/27/2022) [facility] of Past illness Narrative* Problem Noted Date Diagnosed Date Resolved Date Abnormal LFTs (liver function tests) 12/08/2016 12/28/2019 Diabetes mellitus type II, uncontrolled 06/15/2016 08/10/2017 Chronic cholecystitis with calculus 10/03/2015 12/28/2019 Acute biliary pancreatitis 08/29/2015 0 2018 Hyperandrogenemia 04/04/2014 2018 Supervision of normal first 08/07/2005 04/14/2006 Morbid obesity 08/10/2017 documented as of this encounter (statuses as of 12/30/2022) [facility] Past illness Narrative* Problem Noted Date Diagnosed Date Resolved Date Abnormal LFTs (liver function tests) 12/08/2016 12/28/2019 Diabetes mellitus type II, uncontrolled 06/15/2016 08/10/2017 Chronic cholecystitis with calculus 10/03/2015 12/28/2019 Acute biliary pancreatitis 08/29/2015 0 2018 Hyperandrogenemia 04/04/2014 2018 Supervision of normal first 08/07/2005 04/14/2006 Morbid obesity 08/10/2017 documented as of this encounter (statuses as of 01/12/2023) [facility] Past illness Narrative* Problem Noted Date Diagnosed Date Resolved Date Abnormal LFTs (liver function tests) 12/08/2016 12/28/2019 Diabetes mellitus type II, uncontrolled 06/15/2016 08/10/2017 Chronic cholecystitis with calculus 10/03/2015 12/28/2019 Acute biliary pancreatitis 08/29/2015 0 2018 Hyperandrogenemia 04/04/2014 2018 Supervision of normal first 08/07/2005 04/14/2006 Morbid obesity 08/10/2017 documented as of this encounter (statuses as of 01/16/2023) [facility] Past illness Narrative* Problem Noted Date Diagnosed Date Resolved Date Abnormal LFTs (liver function tests) 12/08/2016 12/28/2019 Diabetes mellitus type II, uncontrolled 06/15/2016 08/10/2017 Chronic cholecystitis with calculus 10/03/2015 12/28/2019 Acute biliary pancreatitis 08/29/2015 0 2018 Hyperandrogenemia 04/04/2014 2018 Supervision of normal first 08/07/2005 04/14/2006 Morbid obesity 08/10/2017 documented as of this encounter (statuses as of 01/19/2023) [facility] Past illness Narrative* Problem Noted Date Diagnosed Date Resolved Date Abnormal LFTs (liver function tests) 12/08/2016 12/28/2019 Diabetes mellitus type II, uncontrolled 06/15/2016 08/10/2017 Chronic cholecystitis with calculus 10/03/2015 12/28/2019 Acute biliary pancreatitis 08/29/2015 0 2018 Hyperandrogenemia 04/04/2014 2018 Supervision of normal first 08/07/2005 04/14/2006 Morbid obesity 08/10/2017 documented as of this encounter (statuses as of 01/30/2023) [facility] of Past illness Narrative* Problem Noted Date Diagnosed Date Resolved Date Abnormal LFTs (liver function tests) 12/08/2016 12/28/2019 Diabetes mellitus type II, uncontrolled 06/15/2016 08/10/2017 Chronic cholecystitis with calculus 10/03/2015 12/28/2019 Acute biliary pancreatitis 08/29/2015 0 2018 Hyperandrogenemia 04/04/2014 2018 Supervision of normal first 08/07/2005 04/14/2006 Morbid obesity 08/10/2017 documented as of this encounter (statuses as of 02/24/2023) [facility] of Past illness Narrative* Problem Noted Date Diagnosed Date Resolved Date Abnormal LFTs (liver function tests) 12/08/2016 12/28/2019 Diabetes mellitus type II, uncontrolled 06/15/2016 08/10/2017 Chronic cholecystitis with calculus 10/03/2015 12/28/2019 Acute biliary pancreatitis 08/29/2015 0 2018 Hyperandrogenemia 04/04/2014 2018 Supervision of normal first 08/07/2005 04/14/2006 Morbid obesity 08/10/2017 documented as of this encounter (statuses as of 07/20/2023) [facility] History of Past illness Narrative* Problem Noted Date Diagnosed Date Resolved Date Abnormal LFTs (liver function tests) 12/08/2016 12/28/2019 Diabetes mellitus type II, uncontrolled 06/15/2016 08/10/2017 Chronic cholecystitis with calculus 10/03/2015 12/28/2019 Acute biliary pancreatitis 08/29/2015 0 2018 Hyperandrogenemia 04/04/2014 2018 Supervision of normal first 08/07/2005 04/14/2006 Morbid obesity 08/10/2017 documented as of this encounter (statuses as of 08/13/2023) [facility] History of Past illness Narrative* Problem Noted Date Diagnosed Date Resolved Date Abnormal LFTs (liver function tests) 12/08/2016 12/28/2019 Diabetes mellitus type II, uncontrolled 06/15/2016 08/10/2017 Chronic cholecystitis with calculus 10/03/2015 12/28/2019 Acute biliary pancreatitis 08/29/2015 0 2018 Hyperandrogenemia 04/04/2014 2018 Supervision of normal first 08/07/2005 04/14/2006 Morbid obesity 08/10/2017 documented as of this encounter (statuses as of 08/14/2023) [facility] History of Past illness Narrative* Problem Noted Date Diagnosed Date Resolved Date Abnormal LFTs (liver function tests) 12/08/2016 12/28/2019 Diabetes mellitus type II, uncontrolled 06/15/2016 08/10/2017 Chronic cholecystitis with calculus 10/03/2015 12/28/2019 Acute biliary pancreatitis 08/29/2015 0 2018 Hyperandrogenemia 04/04/2014 2018 Supervision of normal first 08/07/2005 04/14/2006 Morbid obesity 08/10/2017 documented as of this encounter (statuses as of 08/20/2023) [facility] History of Past illness Narrative* Problem Noted Date Diagnosed Date Resolved Date Abnormal LFTs (liver function tests) 12/08/2016 12/28/2019 Diabetes mellitus type II, uncontrolled 06/15/2016 08/10/2017 Chronic cholecystitis with calculus 10/03/2015 12/28/2019 Acute biliary pancreatitis 08/29/2015 0 2018 Hyperandrogenemia 04/04/2014 2018 Supervision of normal first 08/07/2005 04/14/2006 Morbid obesity 08/10/2017 documented as of this encounter (statuses as of 09/22/2023) [facility] Type 2 diabetes mellitus without complication, without long-term current use of insulin (HCC) [facility] Diagnosis Type 2 diabetes mellitus without complication, without long-term current use of insulin (HCC)- Primary CHUY (obstructive sleep apnea) Obstructive sleep apnea (adult) (pediatric) Post-surgical hypothyroidism Postsurgical hypothyroidism History of thyroid cancer Personal history of malignant neoplasm of thyroid MELVIN (generalized anxiety disorder) Generalized anxiety disorder Morbid obesity with BMI of 40.0-44.9, adult (HCC) Morbid obesity [facility] Diagnosis Post-surgical hypothyroidism- Primary Postsurgical hypothyroidism History of thyroid cancer Personal history of malignant neoplasm of thyroid [facility] Diagnosis Post-surgical hypothyroidism Postsurgical hypothyroidism History of thyroid cancer Personal history of malignant neoplasm of thyroid [facility]* Diagnosis Type 2 diabetes mellitus without complication, without long-term current use of insulin (HCC) documented in this encounter [facility] note* Diagnosis MELVIN (generalized anxiety disorder) Generalized anxiety disorder documented in this encounter [facility] note* Diagnosis Wellness examination- Primary Obesity, Class III, BMI 40-49.9 (morbid obesity) (HCC) Morbid obesity History of thyroid cancer Personal history of malignant neoplasm of thyroid Post-surgical hypothyroidism Postsurgical hypothyroidism MELVIN (generalized anxiety disorder) Generalized anxiety disorder Type 2 diabetes mellitus without complication, without long-term current use of insulin (HCC) CHUY (obstructive sleep apnea) Obstructive sleep apnea (adult) (pediatric) Morbid obesity with BMI of 40.0-44.9, adult (HCC) Morbid obesity Vitamin D deficiency Unspecified vitamin D deficiency Anxiety with depression Poor sleep documented in this encounter [facility] note* Diagnosis Obesity, Class III, BMI 40-49.9 (morbid obesity) (HCC)- Primary Morbid obesity MELVIN (generalized anxiety disorder) Generalized anxiety disorder Acute cough Nasal congestion Other diseases of nasal cavity and sinuses documented in this encounter [facility] note* Diagnosis Obesity, Class III, BMI 40-49.9 (morbid obesity) (HCC)- Primary Morbid obesity Type 2 diabetes mellitus without complication, without long-term current use of insulin (HCC) documented in this encounter [facility] note* Diagnosis Pain, dental- Primary Unspecified disorder of the teeth and supporting structures documented in this encounter [facility] note* Diagnosis Obesity, morbid, BMI 50 or higher (HCC)- Primary Morbid obesity Type 2 diabetes mellitus without complication, without long-term current use of insulin (HCC) Hyperlipidemia, unspecified hyperlipidemia type [facility]* Diagnosis Type 2 diabetes mellitus without complication, without long-term current use of insulin (HCC) documented in this encounter [facility] note* Diagnosis MELVIN (generalized anxiety disorder) Generalized anxiety disorder [facility] Diagnosis Urinary tract infection with hematuria, site unspecified- Primary Type 2 diabetes mellitus without complication, without long-term current use of insulin (HCC) [facility]* Diagnosis Urinary tract infection with hematuria, site unspecified- Primary documented in this encounter [facility] note* Diagnosis Type 2 diabetes mellitus without complication, without long-term current use of insulin (HCC) documented in this encounter [facility] note* Diagnosis Type 2 diabetes mellitus without complication, without long-term current use of insulin (HCC)- Primary documented in this encounter [facility] note* Diagnosis Urinary tract infection with hematuria, site unspecified- Primary Urgency of urination documented in this encounter [facility] note* Diagnosis Type 2 diabetes mellitus without complication, without long-term current use of insulin (HCC) documented in this encounter [facility] note* Diagnosis Morbid obesity with BMI of 40.0-44.9, adult (HCC)- Primary Morbid obesity Routine health maintenance Routine general medical examination at a [facility] Morbid obesity with BMI of 40.0-44.9, adult (HCC)- Primary Morbid obesity Pre-operative examination- Primary Preoperative examination, unspecified Multiple thyroid nodules Nontoxic multinodular goiter Type 2 diabetes mellitus without complication, without long-term current use of insulin (HCC) PCOS (polycystic ovarian syndrome) Polycystic ovaries Morbid obesity with BMI of 40.0-44.9, adult (HCC) Morbid obesity History of seizure Personal history of other disorders of nervous system and sense organs Urinary tract infection with hematuria, site unspecified- Primary documented in this encounter [facility] note* Diagnosis Morbid obesity with BMI of 40.0-44.9, adult (HCC)- Primary Morbid obesity Routine health maintenance Routine general medical examination at a health care facility Morbid obesity with BMI of 40.0-44.9, adult (HCC)- Primary Morbid obesity Pre-operative examination- Primary Preoperative examination, unspecified Multiple thyroid nodules Nontoxic multinodular goiter Type 2 diabetes mellitus without complication, without long-term current use of insulin (HCC) PCOS (polycystic ovarian syndrome) Polycystic ovaries Morbid obesity with BMI of 40.0-44.9, adult (HCC) Morbid obesity History of seizure Personal history of other disorders of nervous system and sense organs MELVIN (generalized anxiety disorder) Generalized anxiety disorder Type 2 diabetes mellitus without complication, without long-term current use of insulin (HCC) documented in this encounter [facility] note* Diagnosis Morbid obesity with BMI of 40.0-44.9, adult (HCC)- Primary Morbid obesity Routine health maintenance Routine general medical examination at a [facility] Morbid obesity with BMI of 40.0-44.9, adult (HCC)- Primary Morbid obesity Pre-operative examination- Primary Preoperative examination, unspecified Multiple thyroid nodules Nontoxic multinodular goiter Type 2 diabetes mellitus without complication, without long-term current use of insulin (HCC) PCOS (polycystic ovarian syndrome) Polycystic ovaries Morbid obesity with BMI of 40.0-44.9, adult (HCC) Morbid obesity History of seizure Personal history of other disorders of nervous system and sense organs Type 2 diabetes mellitus without complication, without long-term current use of insulin (HCC)- Primary Gastroesophageal reflux disease without esophagitis Esophageal reflux Fatigue, unspecified type Vitamin D deficiency Unspecified vitamin D deficiency Bacterial sinusitis Unspecified sinusitis (chronic) documented in this encounter [facility] note* Diagnosis Morbid obesity with BMI of 40.0-44.9, adult ([facility])- Primary Morbid obesity Routine health maintenance Routine general medical examination at a [facility] Morbid obesity with BMI of 40.0-44.9, adult (HCC)- Primary Morbid obesity Pre-operative examination- Primary Preoperative examination, unspecified Multiple thyroid nodules Nontoxic multinodular goiter Type 2 diabetes mellitus without complication, without long-term current use of insulin ([facility]) PCOS (polycystic ovarian syndrome) Polycystic ovaries Morbid obesity with BMI of 40.0-44.9, adult ([facility]) Morbid obesity History of seizure Personal history of other disorders of nervous system and sense organs Type 2 diabetes mellitus without complication, without long-term current use of insulin ([facility]) documented in this encounter [facility] note* Diagnosis Morbid obesity with BMI of 40.0-44.9, adult (HCC)- Primary Morbid obesity Routine health maintenance Routine general medical examination at a [facility] facility Morbid obesity with BMI of 40.0-44.9, adult (HCC)- Primary Morbid obesity Pre-operative examination- Primary Preoperative examination, unspecified Multiple thyroid nodules Nontoxic multinodular goiter Type 2 diabetes mellitus without complication, without long-term current use of insulin (HCC) PCOS (polycystic ovarian syndrome) Polycystic ovaries Morbid obesity with BMI of 40.0-44.9, adult ([facility]) Morbid obesity History of seizure Personal history of other disorders of nervous system and sense organs Type 2 diabetes mellitus without complication, without long-term current use of insulin (HCC) documented in this encounter [facility] note* Diagnosis Morbid obesity with BMI of 40.0-44.9, adult (HCC)- Primary Morbid obesity Routine health maintenance Routine general medical examination at a [facility] Morbid obesity with BMI of 40.0-44.9, adult (HCC)- Primary Morbid obesity Pre-operative examination- Primary Preoperative examination, unspecified Multiple thyroid nodules Nontoxic multinodular goiter Type 2 diabetes mellitus without complication, without long-term current use of insulin (HCC) PCOS (polycystic ovarian syndrome) Polycystic ovaries Morbid obesity with BMI of 40.0-44.9, adult (HCC) Morbid obesity History of seizure Personal history of other disorders of nervous system and sense organs Type 2 diabetes mellitus without complication, without long-term current use of insulin (HCC) documented in this encounter [facility] note* Diagnosis Morbid obesity with BMI of 40.0-44.9, adult (HCC)- Primary Morbid obesity Routine health maintenance Routine general medical examination at a [facility] facility Morbid obesity with BMI of 40.0-44.9, adult (HCC)- Primary Morbid obesity Pre-operative examination- Primary Preoperative examination, unspecified Multiple thyroid nodules Nontoxic multinodular goiter Type 2 diabetes mellitus without complication, without long-term current use of insulin (HCC) PCOS (polycystic ovarian syndrome) Polycystic ovaries Morbid obesity with BMI of 40.0-44.9, adult (HCC) Morbid obesity History of seizure Personal history of other disorders of nervous system and sense organs Gastroesophageal reflux disease without esophagitis Esophageal reflux documented in this encounter [facility] note* Diagnosis Morbid obesity with BMI of 40.0-44.9, adult (HCC)- Primary Morbid obesity Routine health maintenance Routine general medical examination at a health care facility Morbid obesity with BMI of 40.0-44.9, adult (HCC)- Primary Morbid obesity Pre-operative examination- Primary Preoperative examination, unspecified Multiple thyroid nodules Nontoxic multinodular goiter Type 2 diabetes mellitus without complication, without long-term current use of insulin (HCC) PCOS (polycystic ovarian syndrome) Polycystic ovaries Morbid obesity with BMI of 40.0-44.9, adult (HCC) Morbid obesity History of seizure Personal history of other disorders of nervous system and sense organs Sore throat- Primary Acute pharyngitis documented in this encounter [facility] note* Diagnosis Morbid obesity with BMI of 40.0-44.9, adult (HCC)- Primary Morbid obesity Routine health maintenance Routine general medical examination at a [facility] care facility Morbid obesity with BMI of 40.0-44.9, adult (HCC)- Primary Morbid obesity Pre-operative examination- Primary Preoperative examination, unspecified Multiple thyroid nodules Nontoxic multinodular goiter Type 2 diabetes mellitus without complication, without long-term current use of insulin (HCC) PCOS (polycystic ovarian syndrome) Polycystic ovaries Morbid obesity with BMI of 40.0-44.9, adult (HCC) Morbid obesity History of seizure Personal history of other disorders of nervous system and sense organs Urinary frequency- Primary documented in this encounter [facility] note* Diagnosis Morbid obesity with BMI of 40.0-44.9, adult (HCC)- Primary Morbid obesity Routine health maintenance Routine general medical examination at a [facility] Morbid obesity with BMI of 40.0-44.9, adult (HCC)- Primary Morbid obesity Pre-operative examination- Primary Preoperative examination, unspecified Multiple thyroid nodules Nontoxic multinodular goiter Type 2 diabetes mellitus without complication, without long-term current use of insulin (HCC) PCOS (polycystic ovarian syndrome) Polycystic ovaries Morbid obesity with BMI of 40.0-44.9, adult (HCC) Morbid obesity History of seizure Personal history of other disorders of nervous system and sense organs Frequency of urination- Primary Urinary frequency documented in this encounter [facility] note* Diagnosis Morbid obesity with BMI of 40.0-44.9, adult (HCC)- Primary Morbid obesity Routine health maintenance Routine general medical examination at a [facility] care facility Morbid obesity with BMI of 40.0-44.9, adult (HCC)- Primary Morbid obesity Pre-operative examination- Primary Preoperative examination, unspecified Multiple thyroid nodules Nontoxic multinodular goiter Type 2 diabetes mellitus without complication, without long-term current use of insulin (HCC) PCOS (polycystic ovarian syndrome) Polycystic ovaries Morbid obesity with BMI of 40.0-44.9, adult (HCC) Morbid obesity History of seizure Personal history of other disorders of nervous system and sense organs Type 2 diabetes mellitus without complication, without long-term current use of insulin (HCC)- Primary PCOS (polycystic ovarian syndrome) Polycystic ovaries CHUY (obstructive sleep apnea) Obstructive sleep apnea (adult) (pediatric) Morbid obesity with BMI of 40.0-44.9, adult (HCC) Morbid obesity documented in this encounter [facility] note* Diagnosis Morbid obesity with BMI of 40.0-44.9, adult (HCC)- Primary Morbid obesity Routine health maintenance Routine general medical examination at a health care facility Morbid obesity with BMI of 40.0-44.9, adult (HCC)- Primary Morbid obesity Pre-operative examination- Primary Preoperative examination, unspecified Multiple thyroid nodules Nontoxic multinodular goiter Type 2 diabetes mellitus without complication, without long-term current use of insulin (HCC) PCOS (polycystic ovarian syndrome) Polycystic ovaries Morbid obesity with BMI of 40.0-44.9, adult (HCC) Morbid obesity History of seizure Personal history of other disorders of nervous system and sense organs Gastroesophageal reflux disease without esophagitis Esophageal reflux documented in this encounter [facility] note* Diagnosis Morbid obesity with BMI of 40.0-44.9, adult (HCC)- Primary Morbid obesity Routine health maintenance Routine general medical examination at a health care facility Morbid obesity with BMI of 40.0-44.9, adult (HCC)- Primary Morbid obesity Pre-operative examination- Primary Preoperative examination, unspecified Multiple thyroid nodules Nontoxic multinodular goiter Type 2 diabetes mellitus without complication, without long-term current use of insulin (HCC) PCOS (polycystic ovarian syndrome) Polycystic ovaries Morbid obesity with BMI of 40.0-44.9, adult (HCC) Morbid obesity History of seizure Personal history of other disorders of nervous system and sense organs Type 2 diabetes mellitus without complication, without long-term current use of insulin ([facility]) [facility] [facility] note* Diagnosis Morbid obesity with BMI of 40.0-44.9, adult (HCC)- Primary Morbid obesity Routine health maintenance Routine general medical examination at a health care facility Morbid obesity with BMI of 40.0-44.9, adult (HCC)- Primary Morbid obesity Pre-operative examination- Primary Preoperative examination, unspecified Multiple thyroid nodules Nontoxic multinodular goiter Type 2 diabetes mellitus without complication, without long-term current use of insulin (HCC) PCOS (polycystic ovarian syndrome) Polycystic ovaries Morbid obesity with BMI of 40.0-44.9, adult (HCC) Morbid obesity History of seizure Personal history of other disorders of nervous system and sense organs MELVIN (generalized anxiety disorder) Generalized anxiety disorder documented in this encounter [facility] note* Diagnosis Morbid obesity with BMI of 40.0-44.9, adult (HCC)- Primary Morbid obesity Routine health maintenance Routine general medical examination at a [facility] care [facility] Morbid obesity with BMI of 40.0-44.9, adult (HCC)- Primary Morbid obesity Pre-operative examination- Primary Preoperative examination, unspecified Multiple thyroid nodules Nontoxic multinodular goiter Type 2 diabetes mellitus without complication, without long-term current use of insulin (HCC) PCOS (polycystic ovarian syndrome) Polycystic ovaries Morbid obesity with BMI of 40.0-44.9, adult (HCC) Morbid obesity History of seizure Personal history of other disorders of nervous system and sense organs Type 2 diabetes mellitus without complication, without long-term current use of insulin (HCC)- Primary [facility] Diagnosis Morbid obesity with BMI of 40.0-44.9, adult (HCC)- Primary Morbid obesity Routine health maintenance Routine general medical examination at a [facility] Morbid obesity with BMI of 40.0-44.9, adult (HCC)- Primary Morbid obesity Pre-operative examination- Primary Preoperative examination, unspecified Multiple thyroid nodules Nontoxic multinodular goiter Type 2 diabetes mellitus without complication, without long-term current use of insulin (HCC) PCOS (polycystic ovarian syndrome) Polycystic ovaries Morbid obesity with BMI of 40.0-44.9, adult (HCC) Morbid obesity History of seizure Personal history of other disorders of nervous system and sense organs Type 2 diabetes mellitus without complication, without long-term current use of insulin ([facility]) documented in this encounter [facility] note* Diagnosis Morbid obesity with BMI of 40.0-44.9, adult (HCC)- Primary Morbid obesity Routine health maintenance Routine general medical examination at a [facility] care facility Morbid obesity with BMI of 40.0-44.9, adult (HCC)- Primary Morbid obesity Pre-operative examination- Primary Preoperative examination, unspecified Multiple thyroid nodules Nontoxic multinodular goiter Type 2 diabetes mellitus without complication, without long-term current use of insulin (HCC) PCOS (polycystic ovarian syndrome) Polycystic ovaries Morbid obesity with BMI of 40.0-44.9, adult (HCC) Morbid obesity History of seizure Personal history of other disorders of nervous system and sense organs Gastroesophageal reflux disease without esophagitis Esophageal reflux documented in this encounter [facility] note* Diagnosis Morbid obesity with BMI of 40.0-44.9, adult (HCC)- Primary Morbid obesity Routine health maintenance Routine general medical examination at a [facility] care facility Morbid obesity with BMI of 40.0-44.9, adult (HCC)- Primary Morbid obesity Pre-operative examination- Primary Preoperative examination, unspecified Multiple thyroid nodules Nontoxic multinodular goiter Type 2 diabetes mellitus without complication, without long-term current use of insulin (HCC) PCOS (polycystic ovarian syndrome) Polycystic ovaries Morbid obesity with BMI of 40.0-44.9, adult (HCC) Morbid obesity History of seizure Personal history of other disorders of nervous system and sense organs Type 2 diabetes mellitus without complication, without long-term current use of insulin (HCC) Post-surgical hypothyroidism Postsurgical hypothyroidism documented in this encounter [facility] for referral (narrative)* Diagnostic Procedure Only (Routine) - Pending Review Specialty Diagnoses / Procedures Referred By Oriana aguirre Referred To Contact US IMAGING Diagnoses Post-surgical hypothyroidism History of thyroid cancer Procedures US THYROID/PARATHYROID US SOFT TISSUE HEAD & NECK REAL TIME IMGE Gavin Houston MD [address] [place] [address] Us Imaging Referral ID Status Reason Start Date Expiration Date Visits Requested Visits Authorized [id number] Pending Review Auto-Generat ed Referral 10/30/2021 11/29/2022 1 1 [facility] for referral (narrative)* Diagnostic Procedure Only (Routine) - Pending Review Specialty Diagnoses / Procedures [facility] Referred To Contact US IMAGING Diagnoses Post-surgical hypothyroidism History of thyroid cancer Procedures US CERVICAL LYMPH NODE MAPPING US SOFT TISSUE HEAD & NECK REAL TIME IMGE Gavin Houston MD [address] [place] [address] Us Imaging Referral ID Status Reason Start Date Expiration Date Visits Requested Visits Authorized [id number] Pending Review Auto-Generat ed Referral 11/22/2021 12/22/2022 1 1 [facility] for referral (narrative)* Diagnostic Procedure Only (Routine) - Pending Review Specialty Diagnoses / Procedures Referred By Oriana aguirre Referred To Contact US IMAGING Diagnoses Post-surgical hypothyroidism History of thyroid cancer Procedures US CERVICAL LYMPH NODE MAPPING US SOFT TISSUE HEAD & NECK REAL TIME IMGE DOCGavin Sharma MD [address] [place] [address] Us Imaging Referral ID Status Reason Start Date Expiration Date Visits Requested Visits Authorized [id number] Pending Review Auto-Generat ed Referral 11/22/2021 12/22/2022 1 1 [facility] Summary Purpose Family History No Family History Records FoundNo Family History Records FoundNo Family History Records FoundNo Family History Records Found Advance Directives No Advanced Directives Records FoundDocuments on File Type Date Recorded Patient Surveillance Specialist Expl anation Advance Directive(s) 01/05/2020 8:37 AM Advance Directive(s) 11/23/2019 1:04 PM Advance Directive(s) 11/16/2019 10:09 AM Advance Directive(s) 09/26/2015 8:51 PM Documents on File Type Date Recorded Patient Surveillance Specialist Expl anation Advance Directive(s) 01/05/2020 8:37 AM Advance Directive(s) 11/23/2019 1:04 PM Advance Directive(s) 11/16/2019 10:09 AM Advance Directive(s) 09/26/2015 8:51 PM Reason for Referral Specialty Diagnoses / Procedures Referred By Oriana aguirre Referred To Contact Diagnoses Obesity, Class III, BMI 40-49.9 (morbid obesity) ([facility]) PodCristal castañeda, YURY.GROOMING ASSISTANT [address] [place] [address] Referral ID Status Reason Start Date Expiration Date V isits Requested Visits Authorized [id number] Pending Review 1 1 Specialty Diagnoses / Procedures Referred By Oriana aguirre Referred To Contact Gavin Arora MD [address] [place] [address] Referral ID Status Reason Start Date Expiration Date Visits Re quested Visits Authorized [id number] Closed 1 1 Referral ID Status Reason Start Date Expiration Date Visits Re quested Visits Authorized [id number] Closed 1 1 Additional Source Comments INFORMATION SOURCE (unrecogn ized section and content) DATE CREATED AUTHOR 12/09/2017 [facility] DATE CREATED AUTHOR AUTHOR'S ORGANIZ ATION 01/20/2020 [facility] DATE CREATED AUTHOR AUTHOR'S ORGANIZ ATION 10/31/2020 [facility] DATE CREATED AUTHOR AUTHOR'S ORGANIZ ATION 04/12/2025 [facility] Source Comments (unrecognize d section and content) In the event this informatio n is protected by the Federal Confidentiality of Alcohol and Drug Abuse Patient Records regulations: The Federal rules restrict any use of the information to criminally investigate or prosecute any alcohol or drug abuse patient.[facility] the event this information is protected by the Federal Confidentiality of Alcohol and Drug Abuse Patient Records regulations: The Federal rules restrict any use of the information to criminally investigate or prosecute any alcohol or drug abuse patient.[facility] HospitalIn the event this information is protected by the Federal Confidentiality of Alcohol and Drug Abuse Patient Records regulations: The Federal rules restrict any use of the information to criminally investigate or prosecute any alcohol or drug abuse patient.[facility] HospitalIn the event this information is protected by the Federal Confidentiality of Alcohol and Drug Abuse Patient Records regulations: The Federal rules restrict any use of the information to criminally investigate or prosecute any alcohol or drug abuse patient.[facility] HospitalIn the event this information is protected by the Federal Confidentiality of Alcohol and Drug Abuse Patient Records regulations: The Federal rules restrict any use of the information to criminally investigate or prosecute any alcohol or drug abuse patient.[facility] HospitalIn the event this information is protected by the Federal Confidentiality of Alcohol and Drug Abuse Patient Records regulations: The Federal rules restrict any use of the information to criminally investigate or prosecute any alcohol or drug abuse patient.[facility] HospitalIn the event this information is protected by the Federal Confidentiality of Alcohol and Drug Abuse Patient Records regulations: The Federal rules restrict any use of the information to criminally investigate or prosecute any alcohol or drug abuse patient.[facility] HospitalIn the event this information is protected by the Federal Confidentiality of Alcohol and Drug Abuse Patient Records regulations: The Federal rules restrict any use of the information to criminally investigate or prosecute any alcohol or drug abuse patient.[facility] HospitalIn the event this information is protected by the Federal Confidentiality of Alcohol and Drug Abuse Patient Records regulations: The Federal rules restrict any use of the information to criminally investigate or prosecute any alcohol or drug abuse patient.[facility] HospitalIn the event this information is protected by the Federal Confidentiality of Alcohol and Drug Abuse Patient Records regulations: The Federal rules restrict any use of the information to criminally investigate or prosecute any alcohol or drug abuse patient.[facility] HospitalIn the event this information is protected by the Federal Confidentiality of Alcohol and Drug Abuse Patient Records regulations: The Federal rules restrict any use of the information to criminally investigate or prosecute any alcohol or drug abuse patient.[facility] HospitalIn the event this information is protected by the Federal Confidentiality of Alcohol and Drug Abuse Patient Records regulations: The Federal rules restrict any use of the information to criminally investigate or prosecute any alcohol or drug abuse patient.[facility] HospitalIn the event this information is protected by the Federal Confidentiality of Alcohol and Drug Abuse Patient Records regulations: The Federal rules restrict any use of the information to criminally investigate or prosecute any alcohol or drug abuse patient.[facility] HospitalIn the event this information is protected by the Federal Confidentiality of Alcohol and Drug Abuse Patient Records regulations: The Federal rules restrict any use of the information to criminally investigate or prosecute any alcohol or drug abuse patient.[facility] HospitalIn the event this information is protected by the Federal Confidentiality of Alcohol and Drug Abuse Patient Records regulations: The Federal rules restrict any use of the information to criminally investigate or prosecute any alcohol or drug abuse patient.[facility] HospitalIn the event this information is protected by the Federal Confidentiality of Alcohol and Drug Abuse Patient Records regulations: The Federal rules restrict any use of the information to criminally investigate or prosecute any alcohol or drug abuse patient.[facility] HospitalIn the event this information is protected by the Federal Confidentiality of Alcohol and Drug Abuse Patient Records regulations: The Federal rules restrict any use of the information to criminally investigate or prosecute any alcohol or drug abuse patient.[facility] HospitalIn the event this information is protected by the Federal Confidentiality of Alcohol and Drug Abuse Patient Records regulations: The Federal rules restrict any use of the information to criminally investigate or prosecute any alcohol or drug abuse patient.[facility] HospitalIn the event this information is protected by the Federal Confidentiality of Alcohol and Drug Abuse Patient Records regulations: The Federal rules restrict any use of the information to criminally investigate or prosecute any alcohol or drug abuse patient.[facility] HospitalIn the event this information is protected by the Federal Confidentiality of Alcohol and Drug Abuse Patient Records regulations: The Federal rules restrict any use of the information to criminally investigate or prosecute any alcohol or drug abuse patient.[facility] HospitalIn the event this information is protected by the Federal Confidentiality of Alcohol and Drug Abuse Patient Records regulations: The Federal rules restrict any use of the information to criminally investigate or prosecute any alcohol or drug abuse patient.[facility] HospitalIn the event this information is protected by the Federal Confidentiality of Alcohol and Drug Abuse Patient Records regulations: The Federal rules restrict any use of the information to criminally investigate or prosecute any alcohol or drug abuse patient.[facility] HospitalIn the event this information is protected by the Federal Confidentiality of Alcohol and Drug Abuse Patient Records regulations: The Federal rules restrict any use of the information to criminally investigate or prosecute any alcohol or drug abuse patient.[facility] HospitalIn the event this information is protected by the Federal Confidentiality of Alcohol and Drug Abuse Patient Records regulations: The Federal rules restrict any use of the information to criminally investigate or prosecute any alcohol or drug abuse patient.[facility] HospitalIn the event this information is protected by the Federal Confidentiality of Alcohol and Drug Abuse Patient Records regulations: The Federal rules restrict any use of the information to criminally investigate or prosecute any alcohol or drug abuse patient.[facility] HospitalIn the event this information is protected by the Federal Confidentiality of Alcohol and Drug Abuse Patient Records regulations: The Federal rules restrict any use of the information to criminally investigate or prosecute any alcohol or drug abuse patient.[facility] HospitalIn the event this information is protected by the Federal Confidentiality of Alcohol and Drug Abuse Patient Records regulations: The Federal rules restrict any use of the information to criminally investigate or prosecute any alcohol or drug abuse patient.[facility] HospitalIn the event this information is protected by the Federal Confidentiality of Alcohol and Drug Abuse Patient Records regulations: The Federal rules restrict any use of the information to criminally investigate or prosecute any alcohol or drug abuse patient.[facility] HospitalIn the event this information is protected by the Federal Confidentiality of Alcohol and Drug Abuse Patient Records regulations: The Federal rules restrict any use of the information to criminally investigate or prosecute any alcohol or drug abuse patient.[facility] HospitalIn the event this information is protected by the Federal Confidentiality of Alcohol and Drug Abuse Patient Records regulations: The Federal rules restrict any use of the information to criminally investigate or prosecute any alcohol or drug abuse patient.[facility] HospitalIn the event this information is protected by the Federal Confidentiality of Alcohol and Drug Abuse Patient Records regulations: The Federal rules restrict any use of the information to criminally investigate or prosecute any alcohol or drug abuse patient.[facility] HospitalIn the event this information is protected by the Federal Confidentiality of Alcohol and Drug Abuse Patient Records regulations: The Federal rules restrict any use of the information to criminally investigate or prosecute any alcohol or drug abuse patient.[facility] HospitalIn the event this information is protected by the Federal Confidentiality of Alcohol and Drug Abuse Patient Records regulations: The Federal rules restrict any use of the information to criminally investigate or prosecute any alcohol or drug abuse patient.[facility] HospitalIn the event this information is protected by the Federal Confidentiality of Alcohol and Drug Abuse Patient Records regulations: The Federal rules restrict any use of the information to criminally investigate or prosecute any alcohol or drug abuse patient.[facility] HospitalIn the event this information is protected by the Federal Confidentiality of Alcohol and Drug Abuse Patient Records regulations: The Federal rules restrict any use of the information to criminally investigate or prosecute any alcohol or drug abuse patient.[facility] HospitalIn the event this information is protected by the Federal Confidentiality of Alcohol and Drug Abuse Patient Records regulations: The Federal rules restrict any use of the information to criminally investigate or prosecute any alcohol or drug abuse patient.[facility] HospitalIn the event this information is protected by the Federal Confidentiality of Alcohol and Drug Abuse Patient Records regulations: The Federal rules restrict any use of the information to criminally investigate or prosecute any alcohol or drug abuse patient.[facility] HospitalIn the event this information is protected by the Federal Confidentiality of Alcohol and Drug Abuse Patient Records regulations: The Federal rules restrict any use of the information to criminally investigate or prosecute any alcohol or drug abuse patient.[facility] HospitalIn the event this information is protected by the Federal Confidentiality of Alcohol and Drug Abuse Patient Records regulations: The Federal rules restrict any use of the information to criminally investigate or prosecute any alcohol or drug abuse patient.[facility] HospitalIn the event this information is protected by the Federal Confidentiality of Alcohol and Drug Abuse Patient Records regulations: The Federal rules restrict any use of the information to criminally investigate or prosecute any alcohol or drug abuse patient.[facility] HospitalIn the event this information is protected by the Federal Confidentiality of Alcohol and Drug Abuse Patient Records regulations: The Federal rules restrict any use of the information to criminally investigate or prosecute any alcohol or drug abuse patient.[facility] HospitalIn the event this information is protected by the Federal Confidentiality of Alcohol and Drug Abuse Patient Records regulations: The Federal rules restrict any use of the information to criminally investigate or prosecute any alcohol or drug abuse patient.[facility] HospitalIn the event this information is protected by the Federal Confidentiality of Alcohol and Drug Abuse Patient Records regulations: The Federal rules restrict any use of the information to criminally investigate or prosecute any alcohol or drug abuse patient.[facility] HospitalIn the event this information is protected by the Federal Confidentiality of Alcohol and Drug Abuse Patient Records regulations: The Federal rules restrict any use of the information to criminally investigate or prosecute any alcohol or drug abuse patient.[facility] HospitalIn the event this information is protected by the Federal Confidentiality of Alcohol and Drug Abuse Patient Records regulations: The Federal rules restrict any use of the information to criminally investigate or prosecute any alcohol or drug abuse patient.[facility] HospitalIn the event this information is protected by the Federal Confidentiality of Alcohol and Drug Abuse Patient Records regulations: The Federal rules restrict any use of the information to criminally investigate or prosecute any alcohol or drug abuse patient.[facility] HospitalIn the event this information is protected by the Federal Confidentiality of Alcohol and Drug Abuse Patient Records regulations: The Federal rules restrict any use of the information to criminally investigate or prosecute any alcohol or drug abuse patient.[facility] HospitalIn the event this information is protected by the Federal Confidentiality of Alcohol and Drug Abuse Patient Records regulations: The Federal rules restrict any use of the information to criminally investigate or prosecute any alcohol or drug abuse patient.[facility] HospitalIn the event this information is protected by the Federal Confidentiality of Alcohol and Drug Abuse Patient Records regulations: The Federal rules restrict any use of the information to criminally investigate or prosecute any alcohol or drug abuse patient.[facility] HospitalIn the event this information is protected by the Federal Confidentiality of Alcohol and Drug Abuse Patient Records regulations: The Federal rules restrict any use of the information to criminally investigate or prosecute any alcohol or drug abuse patient.[facility] HospitalIn the event this information is protected by the Federal Confidentiality of Alcohol and Drug Abuse Patient Records regulations: The Federal rules restrict any use of the information to criminally investigate or prosecute any alcohol or drug abuse patient.[facility] HospitalIn the event this information is protected by the Federal Confidentiality of Alcohol and Drug Abuse Patient Records regulations: The Federal rules restrict any use of the information to criminally investigate or prosecute any alcohol or drug abuse patient.[facility] HospitalIn the event this information is protected by the Federal Confidentiality of Alcohol and Drug Abuse Patient Records regulations: The Federal rules restrict any use of the information to criminally investigate or prosecute any alcohol or drug abuse patient.[facility] HospitalIn the event this information is protected by the Federal Confidentiality of Alcohol and Drug Abuse Patient Records regulations: The Federal rules restrict any use of the information to criminally investigate or prosecute any alcohol or drug abuse patient.[facility] HospitalIn the event this information is protected by the Federal Confidentiality of Alcohol and Drug Abuse Patient Records regulations: The Federal rules restrict any use of the information to criminally investigate or prosecute any alcohol or drug abuse patient.[facility] HospitalIn the event this information is protected by the Federal Confidentiality of Alcohol and Drug Abuse Patient Records regulations: The Federal rules restrict any use of the information to criminally investigate or prosecute any alcohol or drug abuse patient.[facility] HospitalIn the event this information is protected by the Federal Confidentiality of Alcohol and Drug Abuse Patient Records regulations: The Federal rules restrict any use of the information to criminally investigate or prosecute any alcohol or drug abuse patient.[facility] HospitalIn the event this information is protected by the Federal Confidentiality of Alcohol and Drug Abuse Patient Records regulations: The Federal rules restrict any use of the information to criminally investigate or prosecute any alcohol or drug abuse patient.[facility] Reason for Visit (unrecogniz ed section and content) Reason Onset Date Comments Refill Request 09/30/2021 Reason Comments 6 Month Exam Specialty Diagnoses / Procedures Referred By Contact Referred To Contact Family Practice / FAMILY MEDICINE Diagnoses 6 month follow up Procedures 4C EST Gavin Arora MD [address] [place] [id number] Gavin Arora MD [address] [place] [id number] Referral ID Status Reason Start Date Expiration Date Visits Requested Visits Authorized [id number] Authorized Financial Clearance Required - Self Pay Patient Cleared - Qualified HCAP/501/FA 10/30/2021 01/28/2022 99 99 Reason Comments Orders Reason Onset Date Comments Refill Request 02/27/2022 Reason Onset Date Comments Refill Request 03/19/2022 Reason Comments Yearly Exam Pt states is startin g a new job after 11 year and just found out mom has lung cancer. Has no energy has not been sleeping. Specialty Diagnoses / Procedures Referred By Contac t Referred To Contact [facility] Department Diagnoses Post-surgical hypothyroidism History of thyroid cancer Procedures US CERVICAL LYMPH NODE MAPPING US SOFT TISSUE HEAD & NECK REAL TIME IMGE DOCM Gavin Arora MD [address] [place] [id number] [facility] Dept Referral ID Status Reason Start Date Expiration Date Visits Requested Visits Authorized [id number] Authorized Auto-Generate d Referral Financial Clearance Required - Self Pay Patient Cleared - Qualified HCAP/501/FA 04/16/2022 07/15/2022 99 99 Reason Comments Follow Up 1 month adipex check ,, pt states sick most of month only got half a month of meds in Reason Comments Recheck Medication follow up Reason Comments Dental Problem Tooth infection top R x6 days Specialty Diagnoses / Procedures Referred By Contac t Referred To Contact Family Medicine / [facility] Diagnoses Tooth pain right upper tooth pain, possible infection Procedures OFFICE/OUTPATIENT ESTABLISHED MOD MDM 30-39 MIN EST SAME DAY Self Soraida Jeong, CHUTE TENDER.GROOMING ASSISTANT [address] [place] [address] Referral ID Status Reason Start Date Expiration Date Visits Re quested Visits Authorized [id number] Closed 08/29/2022 06/14/2023 1 1 Reason Comments Medication Question Specialty Diagnoses / Procedures Referred By Contac t Referred To Contact Family Medicine / [facility] Diagnoses Follow-up exam Looking to be put on Ozempic or something like it Procedures PHYS/QHP TELEPHONE EVALUATION 5-10 MIN VIDEO PR[place] [address] [place] [address] Sumi Worthy CHUTE TENDER.GROOMING ASSISTANT [address] [place] [address] Referral ID Status Reason Start Date Expiration Date Visits Re quested Visits Authorized [id number] Closed 09/10/2022 06/14/2023 1 1 Reason Comments Insurance Authorization Reason Onset Date Comments Refill Request 11/05/2022 Reason Comments Labs ordered Reason Onset Date Comments Refill Request 12/29/2022 Reason Comments Results Reason Comments F/U 3 Month UTI X 4 days Specialty Diagnoses / Procedures Referred By Contac t Referred To Contact Family Medicine / FAMILY MEDICINE Diagnoses Follow-up exam 3 Month F/U-DM (c/o dysuria possible UTI) Procedures OFFICE/OUTPATIENT ESTABLISHED MOD MDM 30-39 MIN 4C EST Self Yuliana Jeffrey, CHUTE TENDER.GROOMING ASSISTANT [address] [place] [address] Referral ID Status Reason Start Date Expiration Date Visits Re quested Visits Authorized [id number] Closed 01/15/2023 06/14/2023 1 1 Reason Onset Date Comments Refill Request 02/23/2023 Reason Onset Date Comments Refill Request 07/17/2023 Refill Request 07/20/2023 Reason Comments Follow Up Reason Comments UTI Burning and urgency of urination x5 days Reason Onset Date Comments Refill Request 10/31/2023 Reason Comments UTI X 3 days Reason Onset Date Comments Refill Request 03/08/2024 Reason Onset Date Comments Refill Request 03/17/2024 Reason Onset Date Comments Refill Request 05/10/2024 Reason Onset Date Comments Refill Request 05/16/2024 Reason Onset Date Comments Refill Request 05/29/2024 Reason Comments Sore Throat vomiting, headache x 4 days Reason Onset Date Comments Refill Request 06/29/2024 Reason Comments Urinary Problem Burning and frequenc y x last night Reason Comments Urinary Frequency burning x 2 days aft er period, had uti last month after period also Reason Onset Date Comments Results 09/12/2024 Reason Onset Date Comments Refill Request 09/18/2024 Reason Onset Date Comments Refill Request 10/23/2024 Reason Comments Follow Up Reason Onset Date Comments Refill Request 12/19/2024 Reason Onset Date Comments Refill Request 02/05/2025 Care Teams (unrecognized sec tion and content) Rehabilitation Services Counselor Relationship Specialty Start Date End Date Gaivn Arora MD [address] [place], [place] [id number] PCP - General Family Practice 04/24/17 Rehabilitation Services Counselor Relationship Specialty Start Date End Date Gavin Arora MD [address] [place], [place] [address] PCP - General Family Practice 04/24/17 Rehabilitation Services Counselor Relationship Specialty Start Date End Date Gavin Arora MD [address] [place], [place] [id number] PCP - General Family Practice 04/24/17 Rehabilitation Services Counselor Relationship Specialty Start Date End Date Gavin Arora MD [address] [place], [place] [id number] PCP - General Family Practice 04/24/17 Rehabilitation Services Counselor Relationship Specialty Start Date End Date Gavin Arora MD [address] [facility] [address] PCP - General Family Practice 04/24/17 Rehabilitation Services Counselor Relationship Specialty Start Date End Date Gavin Arora MD [address] [place] [address] PCP - General Family Medicine 04/24/17 Rehabilitation Services Counselor Relationship Specialty Start Date End Date Gavin Arora MD [address] [place] [address] PCP - General Family Medicine 04/24/17 Rehabilitation Services Counselor Relationship Specialty Start Date End Date Gavin Arora MD [address] [place] [address] PCP - General Family Medicine 04/24/17 Rehabilitation Services Counselor Relationship Specialty Start Date End Date Gavin Arora MD [address] [place] [address] PCP - General Family Medicine 04/24/17 Rehabilitation Services Counselor Relationship Specialty Start Date End Date Gavin Arora MD [address] [place] [address] PCP - General Family Medicine 04/24/17 Rehabilitation Services Counselor Relationship Specialty Start Date End Date Gavin Arora MD [address] [place] [address] PCP - General Family Medicine 04/24/17 Rehabilitation Services Counselor Relationship Specialty Start Date End Date Gavin Arora MD [address] [place] [address] PCP - General Family Medicine 04/24/17 Rehabilitation Services Counselor Relationship Specialty Start Date End Date Gavin Arora MD [address] [place] [address] PCP - General Family Medicine 04/24/17 Rehabilitation Services Counselor Relationship Specialty Start Date End Date Gavin Arora MD [address] [place] [address] PCP - General Family Medicine 04/24/17 Rehabilitation Services Counselor Relationship Specialty Start Date End Date Gavin Arora MD [address] [place] [address] PCP - General Family Medicine 04/24/17 Rehabilitation Services Counselor Relationship Specialty Start Date End Date Gavin Arora MD [address] [place] [address] PCP - General Family Medicine 04/24/17 Rehabilitation Services Counselor Relationship Specialty Start Date End Date Gavin Arora MD [address] [place] [address] PCP - General Family Medicine 04/24/17 Rehabilitation Services Counselor Relationship Specialty Start Date End Date Gavin Arora MD [address] [place] [address] PCP - General Family Medicine 04/24/17 Rehabilitation Services Counselor Relationship Specialty Start Date End Date Gavin Arora MD [address] [place] [address] PCP - General Family Medicine 04/24/17 Rehabilitation Services Counselor Relationship Specialty Start Date End Date Gavin Arora MD [address] [place] [address] PCP - General Family Medicine 04/24/17 Rehabilitation Services Counselor Relationship Specialty Start Date End Date Gavin Arora MD [address] [place] [address] PCP - General Family Medicine 04/24/17 Rehabilitation Services Counselor Relationship Specialty Start Date End Date Gavin Arora MD [address] [place] [address] PCP - General Family Medicine 04/24/17 Rehabilitation Services Counselor Relationship Specialty Start Date End Date Gavin Arora MD [address] [place] [address] PCP - General Family Medicine 04/24/17 Rehabilitation Services Counselor Relationship Specialty Start Date End Date Gavin Arora MD [address] [place] [address] PCP - General Family Medicine 04/24/17 Rehabilitation Services Counselor Relationship Specialty Start Date End Date Gavin Arora MD [address] [place] [address] PCP - General Family Medicine 04/24/17 Rehabilitation Services Counselor Relationship Specialty Start Date End Date Gavin Arora MD [address] [place] [address] PCP - General Family Medicine 04/24/17 Cristal August APRN.CNP [address] [place] [address] [facility] 05/21/24 Rehabilitation Services Counselor Relationship Specialty Start Date End Date Gavin rAora MD [address] [place] [address] PCP - General Family Medicine 04/24/17 PodlogarCristal, CHUTE TENDER.GROOMING ASSISTANT [address] [place] [address] [facility] 05/21/24 Rehabilitation Services Counselor Relationship Specialty Start Date End Date Gavin Arora MD [address] [place] [address] PCP - General Family Medicine 04/24/17 Podlogar, Cristal, CHUTE TENDER.GROOMING ASSISTANT [address] [place] [address] [facility] 05/21/24 Rehabilitation Services Counselor Relationship Specialty Start Date End Date Gavin Arora MD [address] [place] [address] PCP - General Family Medicine 04/24/17 PodlogarCristal, CHUTE TENDER.GROOMING ASSISTANT [address] [place] [address] [facility] 05/21/24 Yuliana Jeffrey CHUTE TENDER.GROOMING ASSISTANT [address] [place] [address] [facility] 09/05/24 Rehabilitation Services Counselor Relationship Specialty Start Date End Date Gavin Arora MD [address] [place] [address] PCP - General Family Medicine 04/24/17 Podlogar, Cristal, CHUTE TENDER.GROOMING ASSISTANT [address] [place] [address] [facility] 05/21/24 Yuliana Jeffrey APRN.GROOMING ASSISTANT [address] [place], [place] [address]486 [phone] [facility] 09/05/24 Rehabilitation Services Counselor Relationship Specialty Start Date End Date Gavin Arora MD [address] [place] [address] PCP - General Family Medicine 04/24/17 PodlogarCristal CHUTE TENDER.GROOMING ASSISTANT [address] [place] [address] [facility] 05/21/24 Yuliana Jeffrey CHUTE TENDER.GROOMING ASSISTANT [address] [place] [address] [facility] 09/05/24 Rehabilitation Services Counselor Relationship Specialty Start Date End Date Gavin Arora MD [address] [place] [address] PCP - General Family Medicine 04/24/17 PodCristal castañeda, CHUTE TENDER.GROOMING ASSISTANT [address] [place] [address] [facility] 05/21/24 Yuliana Jeffrey CHUTE TENDER.GROOMING ASSISTANT [address] [place] [address] [facility] 09/05/24 Rehabilitation Services Counselor Relationship Specialty Start Date End Date Gavin Arora MD [address] [place] [address] PCP - General Family Medicine 04/24/17 PodlogarCristal, CHUTE TENDER.GROOMING ASSISTANT [address] [place], [place] [address] [facility] 05/21/24 Yuliana Jeffrey APRN.GROOMING ASSISTANT [address] [place], [place] 408741 [facility] 09/05/24 Rehabilitation Services Counselor Relationship Specialty Start Date End Date Gavin Arora MD [address] [place], [place] [address] PCP - General Family Medicine 04/24/17 PodlogarCristal CHUTE TENDER.GROOMING ASSISTANT [address] [place] [address] [facility] 05/21/24 Rehabilitation Services Counselor Relationship Specialty Start Date End Date Gavin Arora MD [address] [place], [place] 0[address] PCP - General Family Medicine 04/24/17 Podlogar, Cristal, CHUTE TENDER.GROOMING ASSISTANT [address] [place] [address] [facility] 05/21/24 Rehabilitation Services Counselor Relationship Specialty Start Date End Date Gavin Arora MD [address] [place], [place] [address]314 [phone] PCP - General Family Medicine 04/24/17 Podlogar, Cristal, CHUTE TENDER.GROOMING ASSISTANT [address] [place] [address] [facility] 05/21/24 Yuliana Jeffrey APRN.GROOMING ASSISTANT [address] [place] [address] [phone] [facility] 11/24/24 Rehabilitation Services Counselor Relationship Specialty Start Date End Date Gavin Arora MD [address] [place] [address] [phone] PCP - General Family Medicine 04/24/17 02/08/25 Yuliana Jeffrey APRN.GROOMING ASSISTANT [address] [place] [address] [phone] PCP - [facility] 02/09/25 GordonlogCristal ortiz APRN.GROOMING ASSISTANT [address] [place] [address] [phone] [facility] 05/21/24 Yuliana Jeffrey, CHUTE TENDER.GROOMING ASSISTANT [address] [place] [address] [phone] [facility] 11/24/24 Rehabilitation Services Counselor Relationship Specialty Start Date End Date Yuliana Jeffrey APRN.GROOMING ASSISTANT [address] [place] [address] [phone] PCP - General Family Medicine 02/09/25 Yuliana Jeffrey, CHUTE TENDER.GROOMING ASSISTANT [address] [place] [address] [phone] [facility] 11/24/24 FOR RECORDS PERTAINING TO PATIENTS WHO ARE OR HAVE BEEN ENROLLED IN A CHEMICAL DEPENDENCY/SUBSTANCEABUSE PROGRAM, SOME INFORMATION MAY BE OMITTED. This clinical summary was aggregated from multiple sources. Caution should be exercised in using it in the provision of clinical care. This summary normalizes information from multiple sources, and as a consequence, information in this document may materially change the coding, format and clinical context of patient data. In addition, data may be omitted in some cases. CLINICAL DECISIONS SHOULD BE BASED ON THE PRIMARY CLINICAL RECORDS. [facility] [employer] [facility]. provides no warranty or guarantee of the accuracy or completeness of information in this document.
[2025-05-11 07:18] LABS: Internal QC Validated? YES +Cl - CLEAR BKGD; Pregnancy, Serum, hCG Quali. NEGATIVE Negative; Record Kit Lot#, Serum Preg. 980607
[2025-05-11 07:23] VITALS: BP 95/64; PULSE 89; RESP 18; TEMP 36.8; O2SAT 98
[2025-05-11 07:27] LABS: AST(SGOT) 25 U/L (<=31); Alanine Aminotransfer ALT/SGPT 20 U/L (<=34); Albumin, Serum 3.8 g/dL (3.5-5.0); Alkaline Phosphatase 76 U/L (35-104); Anion Gap 9 (5-15); BUN 10 mg/dL (4-19); BUN/Creat Ratio 12.4 RATIO (10-20); Calcium,Total 8.8 mg/dL (7.6-11.0); Carbon Dioxide 26.2 mmol/L (21.0-32.0); Chloride 103 mmol/L (98-108); Estimated Creatinine Clearance 139.86 ml/min (50-250); Globulin 3.2 g/dL (2.2-4.2); Glucose 112 mg/dL (70-99); Lipase 31 U/L (13-75); Potassium 4.1 mmol/L (3.3-5.1)
[2025-05-11 07:29] LABS: Internal QC Validated? YES +Cl - CLEAR BKGD; Record Kit Lot#, Mono 16251077
[2025-05-11 08:20] VITALS: BP 116/58; PULSE 81; RESP 20; O2SAT 97
[2025-05-11] MEDS: 0.9% Normal Saline (500mL Bag) 500 ML 999 ML IV (09:06)
[2025-05-11 10:24] VITALS: BP 133/93; PULSE 90; RESP 18; TEMP 36.8; O2SAT 94
== END 2025-05-11 10:32 | disposition home or self-care (01) ==
PROVIDERS: Emergency Provider Emergency Medicine; PCP Nurse Practitioner Family; Visit Provider Emergency Medicine
DX: R11.2 Nausea with vomiting, unspecified (principal); E11.9 Type 2 diabetes mellitus without complications; E86.0 Dehydration; R19.7 Diarrhea, unspecified; R10.13 Epigastric pain; F41.9 Anxiety disorder, unspecified; Z90.49 Acquired absence of other specified parts of digestive tract; Z85.850 Personal history of malignant neoplasm of thyroid; J02.9 Acute pharyngitis, unspecified; E66.9 Obesity, unspecified
CPT/HCPCS: 80053; 83690; 84703; 85025; 86308; 96361; 96374; 96375; 96376; 99282; A4216